=== PATIENT | female | born 1935 | race Caucasian/White ===

== ENCOUNTER 2016-08-22 10:10 | Inpatient (IN) | payer OTHER, BC ==
[2016-08-22 10:15] VITALS: BMI 17.9
[2016-08-22 10:53] LABS: BASOPHIL 0.3 % (0-2.0); EOSINOPHIL 4.6 % (0-4.5); MCH 32.2 pg (25.7-33.7); MCHC 32.3 g/dl (32.0-36.0); MEAN CELL VOLUME 99.7 fl (80-96); MEAN PLT VOLUME 9.1 fl (7.5-11.1); PLATELET COUNT 121 K/MM3 (134-434); RDW 14.3 % (11.6-15.6); WHITE BLOOD COUNT 3.2 K/mm3 (4.0-10.0)
--- NOTE | 2016-08-22 11:10 | PDOC ---
History of Present Illness - General Chief Complaint: Shortness of Breath Stated Complaint: SOB Time Seen by Provider: 08/22/16 10:22 History Source: Patient, Family - History of Present Illness Timing/Duration: reports: other Associated Symptoms: reports: cough, fever/chills, shortness of breath Past History - Past Medical History Allergies/Adverse Reactions: Allergies Allergy/AdvReac Type Severity Reaction Status Date / Time No Known Allergies Allergy Verified 08/22/16 10:15 Home Medications: Ambulatory Orders Albuterol Sulfate [Proair Hfa -] 1 - 2 inh PO BID PRN 03/28/15 Budesonide/Formeterol Fumarate [SYMBICORT 80/4.5mcg -] 2 puff IH BID #0 inhaler 04/02/15 Tiotropium [place] [Spiriva] 1 puff IH DAILY #0 inh 04/02/15 Albuterol 0.083% Nebulizer Noemy [Ventolin 0.083% Nebulizer Soln -] 1 amp NEB BID PRN 12/20/15 Bimatoprost [Lumigan] 1 drop OS HS 12/20/15 Biotin 0 mcg PO DAILY 12/20/15 Brinzolamide/Brimonidine Tart [Simbrinza 1%-0.2% Eye Drops] 8 ml OU BID Bromfenac Sodium [Prolensa] 0 ml OP ASDIR 12/20/15 Calcium Carbonate [Calcium] 0 mg PO DAILY 12/20/15 Multivit-Min/FA/Lycopen/Lutein [Centrum Silver Tablet] 1 each PO DAILY 12/20/15 Ofloxacin 0.3% Ophth Soln [Ocuflox 0.3% Eye Drops -] 1 drop OS Q6H 12/20/15 COPD: Yes (HOME O2- 3L) HTN: Yes - Surgical History Abdominal Surgery: No Appendectomy: No Cardiac Surgery: No Cholecystectomy: No Gastric Stapling: No GI Surgery: No Lung Surgery: No Neurologic Surgery: No Orthopedic Surgery: No - Psycho/Social/Smoking Cessation Hx Anxiety: No Suicidal Ideation: No Smoking Status: Yes Smoking History: Never smoked Have you smoked in the past 12 months: No Number of Cigarettes Smoked Daily: 0 If you are a former smoker, when did you quit?: 2004 Information on smoking cessation initiated: No Hx Alcohol Use: No Drug/Substance Use Hx: No Substance Use Type: None Hx Substance Use Treatment: No Review of Systems - Review of Systems Constitutional: Yes: Fever, Malaise, Weakness Respiratory: Yes: Cough, Shortness of Breath Cardiac (ROS): Yes: Lightheadedness. No: Chest Pain, Palpitations, Syncope ABD/GI: No: Constipated, Diarrhea, Nausea, Vomiting, Abdominal cramping : No: Dysuria *Physical Exam - Vital Signs Last Vital Signs Temp Pulse Resp BP Pulse Ox 98.3 F 91 H 18 145/83 100 08/22/16 10:10 08/22/16 10:50 08/22/16 10:10 08/22/16 10:10 08/22/16 10:50 - Physical Exam General Appearance: Yes: Appropriately Dressed. No: Apparent Distress HEENT: positive: Normal Voice Neck: positive: Supple Respiratory/Chest: positive: Wheezing Cardiovascular: positive: Regular Rate, S1, S2 Gastrointestinal/Abdominal: positive: Soft. negative: Tender Extremity: positive: Pedal Edema (2+ b/l) Integumentary: positive: Dry, Warm Neurologic: positive: Fully Oriented, Alert, Normal Mood/Affect ED Treatment Course - LABORATORY CBC & Chemistry Diagram: 08/22/16 10:30 08/22/16 10:30 - ADDITIONAL ORDERS Additional order review: 08/22/16 10:30 RBC 4.11 MCV 99.7 H MCHC 32.3 RDW 14.3 MPV 9.1 Neutrophils % 68.0 Lymphocytes % 18.4 Monocytes % 8.7 Eosinophils % 4.6 H Basophils % 0.3 - RADIOLOGY Radiology Studies Ordered: Category Date Time Status CHEST X-RAY PORTABLE* [RAD] Stat Radiology 08/22/16 10:24 Completed Medical Decision Making - Medical Decision Making 08/22/16 11:08 80-year-old female, history of HTN, HLD, CHF on Lasix, uti, \ COPD (on 3 L oxygen 24 hours), CO2 retention, brought in by family, complaining of malaise with weakness, cough and worsening of her shortness of breath x several days. Also had fever 4 days ago, highest 103. This a.m., felt lightheaded. No chest pain or diaphoresis. Of note, patient contacted her primary doctor, Dr. Rivas, 4 days ago and started on zpack which she is currently on. Also states her rod machine operator, Dr. Browning, has her on an unknown antibiotic 3 times a week prophylactically, for the past several months. States she saw Dr. Browning several days ago in the office and sent home. Patient has baseline edema with no change See exam R/o PNA vs COPD vs CHF, less likely ACS Currently on zpack Sating 90% on O2 w/ mild wheezing on exam -nebs -cxr -ekg -labs -abx -admit 08/22/16 11:16 08/22/16 11:18 08/22/16 11:[address] Rivas's service for COPD exacerbation as d/w . Dr. Browning of pulmonary aware of disposition. Labs, EKG and chest x-ray are all unremarkable 08/22/16 11:56 *DC/Admit/Observation/Transfer Diagnosis at time of Disposition: COPD exacerbation - Discharge Dispostion Condition at time of disposition: Fair Admit: Yes - Referrals Referrals: William Rivas MD [Primary Care Provider] -
[2016-08-22] MEDS ORDERED: methylPREDNISolone NA SUCC 125 MG/2 ML VIAL IVPB ONE (11:16)
[2016-08-22] MEDS ORDERED: ALBUTEROL SO4 2.5/IPRATROPIUM 0.5 INH SOL 3 ML VIAL.NEB. NEB ONE ×2 (11:16→11:31)
--- NOTE | 2016-08-22 11:17 | PDOC ---
*Physical Exam - Vital Signs Last Vital Signs Temp Pulse Resp BP Pulse Ox 98.3 F 91 H 18 145/83 100 08/22/16 10:10 08/22/16 10:50 08/22/16 10:10 08/22/16 10:10 08/22/16 10:50 Heart Score/ECG Review - ECG Impressions Comment:: 08/22/16 11:43 Twelve-lead EKG was performed and reviewed by me. There is normal sinus rhythm with a normal rate. Rate of 91 Left axis deviation Abnormal R wave progression ED Treatment Course - LABORATORY CBC & Chemistry Diagram: 08/22/16 10:30 08/22/16 10:30 - ADDITIONAL ORDERS Additional order review: 08/22/16 10:30 RBC 4.11 MCV 99.7 H MCHC 32.3 RDW 14.3 MPV 9.1 Neutrophils % 68.0 Lymphocytes % 18.4 Monocytes % 8.7 Eosinophils % 4.6 H Basophils % 0.3 Medical Decision Making - Medical Decision Making 08/22/16 11:16 The patient was seen and evaluated in conjunction with SHADI Saavedra under my direct supervision, ancillary studies were reviewed. I independently interviewed and evaluated the patient and I agree with the plan as outlined by SHADI Saavedra . *DC/Admit/Observation/Transfer Diagnosis at time of Disposition: COPD exacerbation - Discharge Dispostion Condition at time of disposition: Fair
[2016-08-22] MEDS ORDERED: methylPREDNISolone NA SUCC 125 MG/2 ML VIAL ONE (11:31)
[2016-08-22] MEDS ORDERED: CEFTRIAXONE 50 ML ONE (11:31)
[2016-08-22 11:43] LABS: ALBUMIN 3.8 g/dl (3.4-5.0); ANION GAP 3 (8-16); BILIRUBIN,TOTAL 0.4 mg/dL (0.2-1.0); CALCIUM 9.6 mg/dL (8.5-10.1); CO2 39 mmol/L (21-32); CREATININE 0.5 mg/dL (0.55-1.02); GLUCOSE,RANDOM 89 mg/dL (74-106); SGOT/AST 24 U/L (15-37); SGPT/ALT 24 U/L (12-78); TOT PROT 7.1 g/dl (6.4-8.2)
[2016-08-22] MEDS ORDERED: ACETAMINOPHEN 325 MG TABLET (FP) PO ONE (11:44)
[2016-08-22 11:46] LABS: ALK PHOS 93 U/L (45-117); TROPONIN I < 0.02 ng/ml (0.00-0.05)
[2016-08-22] MEDS ORDERED: ACETAMINOPHEN 325 MG TABLET (FP) ONE (11:46)
--- NOTE | 2016-08-22 13:10 | CON.PULM ---
Consult Consult Specialty:: PULMONARY Referred by:: Dr. 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 Saw her in office on 08/18 where she was clinically improving but developed fever on 08/19 with worsening shortness of breath. +cough with baseline white/clear sputum and increased wheezing. No chest pain or palpitations. She does take azithromycin 250mg TIW for prophylaxis. Maintained at home on 3L nasal cannula. No sick contacts or recent travel. - History Source History Provided By: Patient, Family Member Limitations to Obtaining History: Clinical Condition - Past Medical History Cardio/Vascular: Yes: HTN, Hyperlipdemia Pulmonary: Yes: COPD, O2 Dependent - Alcohol/Substance Use Hx Alcohol Use: No - Smoking History Smoking history: Never smoked Have you smoked in the past 12 months: No Aproximately how many cigarettes per day: 0 If you are a former smoker, when did you quit?: 2004 Home Medications - Allergies Allergies/Adverse Reactions: Allergies Allergy/AdvReac Type Severity Reaction Status Date / Time No Known Allergies Allergy Verified 08/22/16 10:15 - Home Medications Home Medications: Ambulatory Orders Albuterol Sulfate [Proair Hfa -] 1 - 2 inh PO BID PRN 03/28/15 Budesonide/Formeterol Fumarate [SYMBICORT 80/4.5mcg -] 2 puff IH BID #0 inhaler 04/02/15 Tiotropium [place] [Spiriva] 1 puff IH DAILY #0 inh 04/02/15 Albuterol 0.083% Nebulizer Noemy [Ventolin 0.083% Nebulizer Soln -] 1 amp NEB BID PRN 12/20/15 Bimatoprost [Lumigan] 1 drop OS HS 12/20/15 Biotin 0 mcg PO DAILY 12/20/15 Brinzolamide/Brimonidine Tart [Simbrinza 1%-0.2% Eye Drops] 8 ml OU BID Bromfenac Sodium [Prolensa] 0 ml OP ASDIR 12/20/15 Calcium Carbonate [Calcium] 0 mg PO DAILY 12/20/15 Multivit-Min/FA/Lycopen/Lutein [Centrum Silver Tablet] 1 each PO DAILY 12/20/15 Ofloxacin 0.3% Ophth Soln [Ocuflox 0.3% Eye Drops -] 1 drop OS Q6H 12/20/15 Review of Systems - Review of Systems Constitutional: reports: Fever, Weakness. denies: Chills Eyes: denies: Recent Change in Vision HENT: denies: Nasal Congestion, Throat Pain Neck: denies: Stiffness, Tenderness Cardiovascular: reports: Edema, Shortness of Breath. denies: Chest Pain, Palpitations Respiratory: reports: Cough, Exercise Intolerance, SOB, SOB on Exertion, Wheezing. denies: Hemoptysis Gastrointestinal: denies: Abdominal Pain, Nausea, Vomiting Genitourinary: denies: Dysuria, Hematuria Neurological: denies: Dizziness, Headache Endocrine: denies: Unexplained Weight Gain, Unexplained Weight Loss Physical Exam Vital Sings: Vital Signs Temperature 98.3 F 08/22/16 10:10 Pulse Rate 96 H 08/22/16 11:43 Respiratory Rate 24 08/22/16 11:43 Blood Pressure 185/92 08/22/16 11:43 O2 Sat by Pulse Oximetry (%) 100 08/22/16 11:43 Constitutional: Yes: Anxious Eyes: Yes: Conjunctiva Clear, EOM Intact HENT: Yes: Atraumatic, Normocephalic Neck: Yes: Supple, Trachea Midline Cardiovascular: Yes: Regular Rate and Rhythm, JVD Respiratory: Yes: Diminished (distant breath sounds), Poor Air Entry, Rhonchi ( scattered) ...Clubbing: No Gastrointestinal: Yes: Normal Bowel Sounds, Soft. No: Tenderness Edema: Yes Neurological: Yes: Alert, Oriented Imaging - Results Chest X-ray: Report Reviewed, Image Reviewed (no infiltrates) Problem List - Problems (1) COPD exacerbation Code(s): J44.1 - CHRONIC OBSTRUCTIVE PULMONARY DISEASE W (ACUTE) EXACERBATION (2) Chronic respiratory failure with hypoxia and hypercapnia Code(s): J96.11 - CHRONIC RESPIRATORY FAILURE WITH HYPOXIA J96.12 - CHRONIC RESPIRATORY FAILURE WITH HYPERCAPNIA (3) HTN (hypertension) Code(s): I10 - ESSENTIAL (PRIMARY) HYPERTENSION (4) Emphysema of lung Code(s): J43.9 - EMPHYSEMA, UNSPECIFIED (5) Pulmonary hypertension Code(s): I27.2 - OTHER SECONDARY PULMONARY HYPERTENSION Assessment/Plan Acute COPD Exacerbation Chronic Hypoxic and Hypercapneic Respiratory Failure Emphysema Pulmonary HTN r/o CHF - IV medrol - inhaled bronchodilators standing and PRN - O2 to keep spO2 >90% - received empiric antibiotics in ER, do not suspect active infection at this time, will resume prophylactic azithromycin - f/u cultures - will give dose of lasix as pt with JVD and LE edema - echocardiogram - DVT prophylaxis Thank you for this consult Connor Browning MD
[2016-08-22] MEDS ORDERED: ALBUTEROL SO4 0.083% IH SOL 2.5 MG/3 ML VIAL.NEB. NEB PRN (13:16)
--- NOTE | 2016-08-22 13:22 | EKG ---
Test Reason : Blood Pressure : / mmHG Vent. 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
[2016-08-22] MEDS ORDERED: FUROSEMIDE 40 MG/4 ML INJECTABLE VIAL IVPUSH ONE (13:30)
[2016-08-22] MEDS ORDERED: FUROSEMIDE 40 MG/4 ML INJECTABLE VIAL ONE (13:43)
[2016-08-22] MEDS ORDERED: METOCLOPRAMIDE HCL INJECTION 10 MG/2 ML VIAL IVPUSH ONE (14:17)
[2016-08-22] MEDS ORDERED: METOCLOPRAMIDE HCL INJECTION 10 MG/2 ML VIAL ONE (14:18)
[2016-08-22 15:05] LABS: URINE APPEARANCE CLEAR; URINE BILIRUBIN NEGATIVE (NEGATIVE); URINE BLOOD NEGATIVE (NEGATIVE); URINE COLOR STRAW; URINE GLUCOSE (UA) NEGATIVE (NEGATIVE); URINE KETONE NEGATIVE (NEGATIVE); URINE LEUK ESTERASE NEGATIVE (NEGATIVE); URINE NITRITE NEGATIVE (NEGATIVE); URINE PROTEIN NEGATIVE (NEGATIVE); URINE UROBILINOGEN NEGATIVE mg/dL (0.2-1.0)
[2016-08-22] MEDS: ALBUTEROL SO4 2.5/IPRATROPIUM 0.5 INH SOL 3 ML VIAL.NEB. NEB SCH (17:04)
[2016-08-22] MEDS: methylPREDNISolone NA SUCC 40 MG/1 ML VIAL IVPB SCH (17:57)
[2016-08-23] MEDS: ALBUTEROL SO4 2.5/IPRATROPIUM 0.5 INH SOL 3 ML VIAL.NEB. NEB SCH ×4 (00:14→17:54)
[2016-08-23] MEDS: methylPREDNISolone NA SUCC 40 MG/1 ML VIAL IVPB SCH ×3 (02:34→17:54)
[2016-08-23] MEDS ORDERED: PT OWN MED DRAWER 7, Y5N ONE (10:03)
[2016-08-23] MEDS: AZITHROMYCIN 250 MG TABLET (FP) PO SCH (10:07)
--- NOTE | 2016-08-23 12:44 | PN ---
Progress Note (short form) - Note Progress Note: PULMONARY OOB TO CHAIR FAMILY PRESENT MILD SUBJECTIVE IMPROVEMENT ANICTERIC/PALE SCATTERED MILD RHONCHI S1S2 BS+ DIMINISHED EDEMA LABS/MEDS/NOTES/IMAGING/MICRO/ REVIEWED (1) COPD exacerbation Code(s): J44.1 - CHRONIC OBSTRUCTIVE PULMONARY DISEASE W (ACUTE) EXACERBATION (2) Chronic respiratory failure with hypoxia and hypercapnia Code(s): J96.11 - CHRONIC RESPIRATORY FAILURE WITH HYPOXIA J96.12 - CHRONIC RESPIRATORY FAILURE WITH HYPERCAPNIA (3) HTN (hypertension) Code(s): I10 - ESSENTIAL (PRIMARY) HYPERTENSION (4) Emphysema of lung Code(s): J43.9 - EMPHYSEMA, UNSPECIFIED (5) Pulmonary hypertension Code(s): I27.2 - OTHER SECONDARY PULMONARY HYPERTENSION Assessment/Plan Acute COPD Exacerbation Chronic Hypoxic and Hypercapneic Respiratory Failure Emphysema Pulmonary HTN Doubt CHF - IV medrol to continue - inhaled bronchodilators standing and PRN - O2 to keep spO2 >90% - resume prophylactic azithromycin - f/u cultures - echocardiogram reviewed LVDD - DVT prophylaxsis Zelalem RICO MD
--- NOTE | 2016-08-23 17:21 | HP ---
DATE OF ADMISSION: 08/22/2016 This is an 80-year-old female known to have advanced COPD on nasal O2 at home. She lives with her son. She had been complaining of shortness of breath and cough for the last two to three days. She was treated with a Z-Marky at home but was not getting better. Yesterday, her complaints worsened so I advised her to come to the emergency room. She was hypoxemic and tachycardic. She also had cellulitis on both legs and was therefore admitted. I saw her yesterday in the emergency room. PHYSICAL EXAMINATION: Vital Signs: This morning, BP 130/80, pulse 78, respirations 20, temperature 98.6. HEENT: Unremarkable. Lungs: Bilateral wheezing present. Heart: S1, S2 normal. No S3, S4. Abdomen: Distended. Extremities: She has bilateral leg edema with cellulitis. Neurologic: Examination grossly normal. IMPRESSION: 1. Exacerbation of chronic obstructive pulmonary disease. 2. Cellulitis of the legs. PLAN: 1. Admit to the floor. 2. Pulmonary consult. 3. IV antibiotics and steroids. We will follow. Sandy [id number]
[2016-08-23] MEDS: LATANOPROST 0.005% OPHTH SOLN 2.5ML BOTTLE OU SCH (21:49)
[2016-08-24] MEDS: ALBUTEROL SO4 2.5/IPRATROPIUM 0.5 INH SOL 3 ML VIAL.NEB. NEB SCH ×5 (00:16→23:58)
[2016-08-24] MEDS: methylPREDNISolone NA SUCC 40 MG/1 ML VIAL IVPB SCH ×3 (01:44→18:07)
--- NOTE | 2016-08-24 10:47 | PN ---
Progress Note (short form) - Note Progress Note: PULMONARY States breathing was better yesterday. Occasional wheezing. Minimal cough. No fevers or chills. Last Vital Signs Temp Pulse Resp BP Pulse Ox 97.5 F L 86 20 132/68 95 08/24/16 10:00 08/24/16 10:00 08/24/16 10:00 08/24/16 10:00 08/23/16 20:27 Gen: tachypneic with speaking Neck: +JVD Heart: RRR Lung: scatttered rhonchi, wheezes Abd: soft, nontender Ext: chronic changes, less edematous CBC, BMP 08/22/16 10:30 08/22/16 10:30 Active Medications Albuterol Sulfate (Ventolin 0.083% Nebulizer Soln -) 1 amp NEB Q4H PRN PRN Reason: SHORT OF BREATH/WHEEZING Albuterol/Ipratropium (Duoneb -) 1 amp NEB QIDR [facility] Last Admin: 08/24/16 06:29 Dose: 1 amp Azithromycin (Zithromax -) 250 mg PO MoWeFr@1000 [facility] Last Admin: 08/23/16 10:07 Dose: 250 mg Latanoprost (Xalatan 0.005% Eye Drops -) 1 drop OU HS [facility] Last Admin: 08/23/16 21:49 Dose: 1 drop Methylprednisolone Sodium Succinate (Solu-Medrol -) 40 mg IVPB Q8H-IV [facility] Last Admin: 08/24/16 09:44 Dose: 40 mg A/P Acute COPD Exacerbation Chronic Hypoxic and Hypercapneic Respiratory Failure Emphysema Pulmonary HTN LV Diastolic Dysfunction - would continue medrol at current dose - inhaled bronchodilators standing and PRN - O2 to keep spO2 >90% - continue prophylactic azithromycin - will dose lasix today again - DVT prophylaxis Problem List - Problems (1) COPD exacerbation Code(s): J44.1 - CHRONIC OBSTRUCTIVE PULMONARY DISEASE W (ACUTE) EXACERBATION (2) Chronic respiratory failure with hypoxia and hypercapnia Code(s): J96.11 - CHRONIC RESPIRATORY FAILURE WITH HYPOXIA J96.12 - CHRONIC RESPIRATORY FAILURE WITH HYPERCAPNIA (3) HTN (hypertension) Code(s): I10 - ESSENTIAL (PRIMARY) HYPERTENSION (4) Emphysema of lung Code(s): J43.9 - EMPHYSEMA, UNSPECIFIED (5) Pulmonary hypertension Code(s): I27.2 - OTHER SECONDARY PULMONARY HYPERTENSION
[2016-08-24] MEDS ORDERED: FUROSEMIDE 40 MG/4 ML INJECTABLE VIAL IVPUSH ONE (11:00)
--- NOTE | 2016-08-24 12:27 | PN ---
Progress Note, Physician Chief Complaint: Still Tachpenic and SOB - Current Medication List Current Medications: Active Medications Albuterol Sulfate (Ventolin 0.083% Nebulizer Soln -) 1 amp NEB Q4H PRN PRN Reason: SHORT OF BREATH/WHEEZING Albuterol/Ipratropium (Duoneb -) 1 amp NEB QIDR [facility] Last Admin: 08/24/16 11:47 Dose: 1 amp Azithromycin (Zithromax -) 250 mg PO MoWeFr@1000 [facility] Last Admin: 08/23/16 10:07 Dose: 250 mg Latanoprost (Xalatan 0.005% Eye Drops -) 1 drop OU HS [facility] Last Admin: 08/23/16 21:49 Dose: 1 drop Methylprednisolone Sodium Succinate (Solu-Medrol -) 40 mg IVPB Q8H-IV [facility] Last Admin: 08/24/16 09:44 Dose: 40 mg - Objective Vital Signs: Vital Signs Temperature 97.5 F L 08/24/16 10:00 Pulse Rate 82 08/24/16 11:46 Respiratory Rate 20 08/24/16 10:00 Blood Pressure 132/68 08/24/16 10:00 O2 Sat by Pulse Oximetry (%) 98 08/24/16 11:46 Patient remained altered minimally responsive, on Vent HEENT: Mm moist no anemia NECK;+ JVD no bruit CHEST: Good AE B/L minimal crepts ABD; Non tender no distention Bs + EXT; Chronic Venous changes pulses + WIND[employer]ST[employer]; Aox3 non focal Problem List - Problems (1) COPD exacerbation Code(s): J44.1 - CHRONIC OBSTRUCTIVE PULMONARY DISEASE W (ACUTE) EXACERBATION (2) Chronic respiratory failure with hypoxia and hypercapnia Code(s): J96.11 - CHRONIC RESPIRATORY FAILURE WITH HYPOXIA J96.12 - CHRONIC RESPIRATORY FAILURE WITH HYPERCAPNIA (3) Pulmonary hypertension Code(s): I27.2 - OTHER SECONDARY PULMONARY HYPERTENSION
[2016-08-24] MEDS ORDERED: PT OWN MED DRAWER 7, Y5N ONE (21:45)
[2016-08-24] MEDS: LATANOPROST 0.005% OPHTH SOLN 2.5ML BOTTLE OU SCH (21:49)
[2016-08-25] MEDS: methylPREDNISolone NA SUCC 40 MG/1 ML VIAL IVPB SCH ×3 (02:38→17:23)
[2016-08-25] MEDS: ALBUTEROL SO4 2.5/IPRATROPIUM 0.5 INH SOL 3 ML VIAL.NEB. NEB SCH ×3 (06:40→17:14)
[2016-08-25 07:41] LABS: BASOPHIL 0.1 % (0-2.0); MCH 32.4 pg (25.7-33.7); MCHC 32.4 g/dl (32.0-36.0); MEAN CELL VOLUME 100.2 fl (80-96); MEAN PLT VOLUME 9.1 fl (7.5-11.1); NEUTROPHILS 83.3 % (42.8-82.8); PLATELET COUNT 118 K/MM3 (134-434); RDW 14.4 % (11.6-15.6)
[2016-08-25 07:55] LABS: ANION GAP 2 (8-16); CO2 45 mmol/L (21-32); CREATININE 0.5 mg/dL (0.55-1.02); GLUCOSE,RANDOM 100 mg/dL (74-106); MAGNESIUM 2.4 mg/dL (1.8-2.4); PHOSPHOROUS 3.9 mg/dL (2.5-4.9)
--- NOTE | 2016-08-25 09:00 | PN ---
Progress Note, Physician Chief Complaint: Feels better History of Present Illness: Admitted with exacerbation of COPD On IV antibiotics and IV steroids - Current Medication List Current Medications: Active Medications Albuterol Sulfate (Ventolin 0.083% Nebulizer Soln -) 1 amp NEB Q4H PRN PRN Reason: SHORT OF BREATH/WHEEZING Albuterol/Ipratropium (Duoneb -) 1 amp NEB QIDR [facility] Last Admin: 08/25/16 06:40 Dose: 1 amp Azithromycin (Zithromax -) 250 mg PO MoWeFr@1000 [facility] Last Admin: 08/23/16 10:07 Dose: 250 mg Heparin Sodium (Porcine) (Heparin *Pediatric* -) 5,000 unit SQ BID [facility] Latanoprost (Xalatan 0.005% Eye Drops -) 1 drop OU HS [facility] Last Admin: 08/24/16 21:49 Dose: 1 drop Methylprednisolone Sodium Succinate (Solu-Medrol -) 40 mg IVPB Q8H-IV [facility] Last Admin: 08/25/16 02:38 Dose: 40 mg - Objective Vital Signs: Vital Signs Temperature 97.4 F L 08/25/16 05:47 Pulse Rate 82 08/25/16 05:47 Respiratory Rate 18 08/25/16 05:47 Blood Pressure 148/70 08/25/16 05:47 O2 Sat by Pulse Oximetry (%) 98 08/24/16 21:00 Constitutional: Yes: Calm Eyes: Yes: WNL HENT: Yes: WNL Neck: Yes: WNL Cardiovascular: Yes: Regular Rate and Rhythm Respiratory: Yes: SOB on Exertion Gastrointestinal: Yes: Normal Bowel Sounds ...Rectal Exam: Yes: Deferred Genitourinary: Yes: WNL Musculoskeletal: Yes: WNL Extremities: Yes: WNL Neurological: Yes: Alert Labs: CBC, BMP 08/25/16 06:00 08/25/16 06:00 Assessment/Plan Continue same trt
[2016-08-25] MEDS ORDERED: PT OWN MED DRAWER 7, Y5N ONE ×2 (10:26→10:27)
[2016-08-25] MEDS: AZITHROMYCIN 250 MG TABLET (FP) PO SCH (10:46)
[2016-08-25] MEDS: HEPARIN NA (PORCINE) 5,000 UNITS/ML 1ML VIAL SQ SCH ×2 (10:46→21:47)
--- NOTE | 2016-08-25 13:18 | PN ---
Progress Note (short form) - Note Progress Note: PULMONARY OOB TO CHAIR FAMILY PRESENT MILD SUBJECTIVE IMPROVEMENT ANICTERIC/PALE SCATTERED MILD RHONCHI S1S2 BS+ DIMINISHED EDEMA LABS/MEDS/NOTES/IMAGING/MICRO/ REVIEWED (1) COPD exacerbation Code(s): J44.1 - CHRONIC OBSTRUCTIVE PULMONARY DISEASE W (ACUTE) EXACERBATION (2) Chronic respiratory failure with hypoxia and hypercapnia Code(s): J96.11 - CHRONIC RESPIRATORY FAILURE WITH HYPOXIA J96.12 - CHRONIC RESPIRATORY FAILURE WITH HYPERCAPNIA (3) HTN (hypertension) Code(s): I10 - ESSENTIAL (PRIMARY) HYPERTENSION (4) Emphysema of lung Code(s): J43.9 - EMPHYSEMA, UNSPECIFIED (5) Pulmonary hypertension Code(s): I27.2 - OTHER SECONDARY PULMONARY HYPERTENSION Assessment/Plan Acute COPD Exacerbation Chronic Hypoxic and Hypercapneic Respiratory Failure Emphysema Pulmonary HTN Doubt CHF - IV medrol to continue - inhaled bronchodilators standing and PRN - O2 to keep spO2 >90% - resume prophylactic azithromycin - echocardiogram reviewed LVDD - DVT prophylaxsis Zelalem RICO MD
[2016-08-25] MEDS ORDERED: PSYLLIUM 5.85 GM PACKET PO ONE (21:00)
[2016-08-25] MEDS: LATANOPROST 0.005% OPHTH SOLN 2.5ML BOTTLE OU SCH (21:47)
[2016-08-26] MEDS: methylPREDNISolone NA SUCC 40 MG/1 ML VIAL IVPB SCH ×3 (01:45→17:11)
[2016-08-26] MEDS: ALBUTEROL SO4 2.5/IPRATROPIUM 0.5 INH SOL 3 ML VIAL.NEB. NEB SCH ×4 (06:48→17:21)
[2016-08-26] MEDS ORDERED: POLYETHYLENE GLYCOL 3350 119 GM BTL PO ONE (08:29)
--- NOTE | 2016-08-26 08:29 | PN ---
Progress Note, Physician Chief Complaint: Feels better,C/O constipation History of Present Illness: Admitted with exacerbation of COPD and asthma On IV steroids and PO zethromax ,feels better - Current Medication List Current Medications: Active Medications Albuterol Sulfate (Ventolin 0.083% Nebulizer Soln -) 1 amp NEB Q4H PRN PRN Reason: SHORT OF BREATH/WHEEZING Albuterol/Ipratropium (Duoneb -) 1 amp NEB QIDR [facility] Last Admin: 08/26/16 06:48 Dose: 1 amp Azithromycin (Zithromax -) 250 mg PO MoWeFr@1000 [facility] Last Admin: 08/25/16 10:46 Dose: 250 mg Heparin Sodium (Porcine) (Heparin -) 5,000 unit SQ BID [facility] Last Admin: 08/25/16 21:47 Dose: 5,000 unit Latanoprost (Xalatan 0.005% Eye Drops -) 1 drop OU HS [facility] Last Admin: 08/25/16 21:47 Dose: 1 drop Methylprednisolone Sodium Succinate (Solu-Medrol -) 40 mg IVPB Q8H-IV [facility] Last Admin: 08/26/16 01:45 Dose: 40 mg - Objective Vital Signs: Vital Signs Temperature 97.3 F L 08/26/16 08:14 Pulse Rate 77 08/26/16 08:14 Respiratory Rate 22 08/26/16 08:14 Blood Pressure 137/69 08/26/16 08:14 O2 Sat by Pulse Oximetry (%) 100 08/25/16 21:00 Constitutional: Yes: Anxious Eyes: Yes: WNL HENT: Yes: WNL Neck: Yes: Tenderness Cardiovascular: Yes: Regular Rate and Rhythm Respiratory: Yes: On Nasal O2, Poor Air Entry Genitourinary: Yes: WNL Breast(s): Yes: WNL Extremities: Yes: WNL Peripheral Pulses WNL: Yes Neurological: Yes: Alert Labs: CBC, BMP 08/25/16 06:00 08/25/16 06:00 Assessment/Plan Miralax for constipation
[2016-08-26] MEDS ORDERED: PT OWN MED DRAWER 7, Y5N ONE ×2 (08:34→21:20)
[2016-08-26] MEDS: HEPARIN NA (PORCINE) 5,000 UNITS/ML 1ML VIAL SQ SCH ×2 (09:09→21:27)
--- NOTE | 2016-08-26 11:21 | PN ---
Progress Note (short form) - Note Progress Note: OOB to chair receiving a BD TX. Still with some cough and wheezing. (+) constipation. Intake & Output 08/23/16 08/24/16 08/25/16 08/26/16 23:59 23:59 23:59 23:59 Intake Total 450 510 400 350 Balance 450 510 400 350 Weight 111 lb 2 oz 110 lb 5 oz 95 lb 2 oz 96 lb 1 oz Last Vital Signs Temp Pulse Resp BP Pulse Ox 97.3 F L 77 22 137/69 100 08/26/16 08:14 08/26/16 08:14 08/26/16 08:14 08/26/16 08:14 08/26/16 10:35 Active Medications Albuterol Sulfate (Ventolin 0.083% Nebulizer Soln -) 1 amp NEB Q4H PRN PRN Reason: SHORT OF BREATH/WHEEZING Albuterol/Ipratropium (Duoneb -) 1 amp NEB QIDR [facility] Last Admin: 08/26/16 06:48 Dose: 1 amp Azithromycin (Zithromax -) 250 mg PO MoWeFr@1000 [facility] Last Admin: 08/25/16 10:46 Dose: 250 mg Heparin Sodium (Porcine) (Heparin -) 5,000 unit SQ BID [facility] Last Admin: 08/26/16 09:09 Dose: 5,000 unit Latanoprost (Xalatan 0.005% Eye Drops -) 1 drop OU HS [facility] Last Admin: 08/25/16 21:47 Dose: 1 drop Methylprednisolone Sodium Succinate (Solu-Medrol -) 40 mg IVPB Q8H-IV [facility] Last Admin: 08/26/16 09:09 Dose: 40 mg Gen: Mildly tachypneic with speaking Neck: +JVD Heart: RRR Lung: scatttered rhonchi and expiratory wheezes Abd: soft, nontender Ext: chronic changes, less edematous A/P Acute COPD Exacerbation Chronic Hypoxic and Hypercapneic Respiratory Failure Emphysema Pulmonary HTN LV Diastolic Dysfunction Problem List - Problems (1) COPD exacerbation Code(s): J44.1 - CHRONIC OBSTRUCTIVE PULMONARY DISEASE W (ACUTE) EXACERBATION (2) Chronic respiratory failure with hypoxia and hypercapnia Code(s): J96.11 - CHRONIC RESPIRATORY FAILURE WITH HYPOXIA J96.12 - CHRONIC RESPIRATORY FAILURE WITH HYPERCAPNIA (3) HTN (hypertension) Code(s): I10 - ESSENTIAL (PRIMARY) HYPERTENSION (4) Emphysema of lung Code(s): J43.9 - EMPHYSEMA, UNSPECIFIED (5) Pulmonary hypertension Code(s): I27.2 - OTHER SECONDARY PULMONARY HYPERTE - would continue medrol at current dose - inhaled bronchodilators standing and PRN - O2 to keep spO2 >90% - Azithromycin - DAily assessment for Lasix - DVT prophylaxis Dr Latham
[2016-08-26] MEDS: LATANOPROST 0.005% OPHTH SOLN 2.5ML BOTTLE OU SCH (21:27)
[2016-08-27] MEDS: ALBUTEROL SO4 2.5/IPRATROPIUM 0.5 INH SOL 3 ML VIAL.NEB. NEB SCH ×3 (00:06→11:22)
[2016-08-27] MEDS: methylPREDNISolone NA SUCC 40 MG/1 ML VIAL IVPB SCH ×3 (02:15→17:28)
[2016-08-27] MEDS ORDERED: PT OWN MED DRAWER 7, Y5N ONE ×2 (06:54→20:51)
[2016-08-27] MEDS: HEPARIN NA (PORCINE) 5,000 UNITS/ML 1ML VIAL SQ SCH ×2 (09:35→21:04)
--- NOTE | 2016-08-27 11:25 | PN ---
Progress Note (short form) - Note Progress Note: OOB to chair receiving a BD TX. Still with some cough and wheezing. Reports that she is more congested today. She also says that her eyes are "bothering her". She could not be more specific. She does have a history of glaucoma and in now getting an anti-muscarinic agent. (+) constipation. Intake & Output 08/24/16 08/25/16 08/26/16 08/27/16 23:59 23:59 23:59 23:59 Intake Total 810 840 7025 250 Balance 090 452 4804 250 Weight 110 lb 5 oz 95 lb 2 oz 96 lb 1 oz 97 lb 4 oz Last Vital Signs Temp Pulse Resp BP Pulse Ox 98.1 F 80 19 137/75 99 08/27/16 06:01 08/27/16 11:21 08/27/16 06:01 08/27/16 06:01 08/27/16 11:21 Active Medications Albuterol Sulfate (Ventolin 0.083% Nebulizer Soln -) 1 amp NEB Q4H PRN PRN Reason: SHORT OF BREATH/WHEEZING Albuterol/Ipratropium (Duoneb -) 1 amp NEB QIDR [facility] Last Admin: 08/27/16 11:22 Dose: 1 amp Azithromycin (Zithromax -) 250 mg PO MoWeFr@1000 [facility] Last Admin: 08/25/16 10:46 Dose: 250 mg Heparin Sodium (Porcine) (Heparin -) 5,000 unit SQ BID [facility] Last Admin: 08/27/16 09:35 Dose: 5,000 unit Latanoprost (Xalatan 0.005% Eye Drops -) 1 drop OU HS [facility] Last Admin: 08/26/16 21:27 Dose: 1 drop Methylprednisolone Sodium Succinate (Solu-Medrol -) 40 mg IVPB Q8H-IV [facility] Last Admin: 08/27/16 09:35 Dose: 40 mg Gen: Mildly tachypneic with speaking Neck: +JVD Heart: RRR Lung: scatttered rhonchi and expiratory wheezes Abd: soft, nontender Ext: chronic changes, less edematous A/P Acute COPD Exacerbation Chronic Hypoxic and Hypercapneic Respiratory Failure Emphysema Pulmonary HTN LV Diastolic Dysfunction Problem List - Problems (1) COPD exacerbation Code(s): J44.1 - CHRONIC OBSTRUCTIVE PULMONARY DISEASE W (ACUTE) EXACERBATION (2) Chronic respiratory failure with hypoxia and hypercapnia Code(s): J96.11 - CHRONIC RESPIRATORY FAILURE WITH HYPOXIA J96.12 - CHRONIC RESPIRATORY FAILURE WITH HYPERCAPNIA (3) HTN (hypertension) Code(s): I10 - ESSENTIAL (PRIMARY) HYPERTENSION (4) Emphysema of lung Code(s): J43.9 - EMPHYSEMA, UNSPECIFIED (5) Pulmonary hypertension Code(s): I27.2 - OTHER SECONDARY PULMONARY HYPERTE - would continue medrol at current dose - D/C Atrovent - Mucinex - inhaled bronchodilators standing and PRN - O2 to keep spO2 >90% - Azithromycin - Lasix as needed - DVT prophylaxis Dr Latham
[2016-08-27] MEDS: ALBUTEROL SO4 0.083% IH SOL 2.5 MG/3 ML VIAL.NEB. NEB SCH ×3 (11:43→23:04)
[2016-08-27] MEDS: guaiFENesin 600 MG TABLET.ER (FP) PO SCH ×2 (12:01→21:04)
[2016-08-27] MEDS ORDERED: MINERAL OIL ENEMA 133 ML ENEMA PR ONE (12:19)
--- NOTE | 2016-08-27 12:19 | PN ---
Progress Note, Physician Chief Complaint: C/O constipation Also breathing not great History of Present Illness: Admitted with acute exacerbation of COPD - Current Medication List Current Medications: Active Medications Albuterol Sulfate (Ventolin 0.083% Nebulizer Soln -) 1 amp NEB Q4H PRN PRN Reason: SHORT OF BREATH/WHEEZING Albuterol Sulfate (Ventolin 0.083% Nebulizer Soln -) 1 amp NEB QIDR [facility] Last Admin: 08/27/16 11:43 Dose: Not Given Azithromycin (Zithromax -) 250 mg PO MoWeFr@1000 [facility] Last Admin: 08/25/16 10:46 Dose: 250 mg Guaifenesin (Mucinex -) 600 mg PO BID [facility] Last Admin: 08/27/16 12:01 Dose: 600 mg Heparin Sodium (Porcine) (Heparin -) 5,000 unit SQ BID [facility] Last Admin: 08/27/16 09:35 Dose: 5,000 unit Latanoprost (Xalatan 0.005% Eye Drops -) 1 drop OU HS [facility] Last Admin: 08/26/16 21:27 Dose: 1 drop Methylprednisolone Sodium Succinate (Solu-Medrol -) 40 mg IVPB Q8H-IV [facility] Last Admin: 08/27/16 09:35 Dose: 40 mg - Objective Vital Signs: Vital Signs Temperature 98.1 F 08/27/16 06:01 Pulse Rate 80 08/27/16 11:21 Respiratory Rate 19 08/27/16 06:01 Blood Pressure 137/75 08/27/16 06:01 O2 Sat by Pulse Oximetry (%) 99 08/27/16 11:21 Constitutional: Yes: Calm Eyes: Yes: WNL HENT: Yes: WNL Neck: Yes: WNL Cardiovascular: Yes: WNL Respiratory: Yes: On Nasal O2, Poor Air Entry Gastrointestinal: Yes: Normal Bowel Sounds ...Rectal Exam: Yes: Deferred Genitourinary: Yes: WNL Breast(s): Yes: WNL Musculoskeletal: Yes: Muscle Weakness Edema: No Peripheral Pulses WNL: Yes Integumentary: Yes: WNL Psychiatric: Yes: Alert Labs: CBC, BMP 08/25/16 06:00 08/25/16 06:00 Assessment/Plan Fleets enema and colace
[2016-08-27] MEDS: LATANOPROST 0.005% OPHTH SOLN 2.5ML BOTTLE OU SCH (21:04)
[2016-08-28] MEDS: methylPREDNISolone NA SUCC 40 MG/1 ML VIAL IVPB SCH ×2 (02:53→09:34)
[2016-08-28] MEDS: ALBUTEROL SO4 0.083% IH SOL 2.5 MG/3 ML VIAL.NEB. NEB SCH ×2 (06:56→10:35)
--- NOTE | 2016-08-28 09:15 | DS ---
Physical Examination Vital Signs: Vital Signs Temperature 97.9 F 08/28/16 05:56 Pulse Rate 84 08/28/16 05:56 Respiratory Rate 18 08/28/16 05:56 Blood Pressure 148/70 08/28/16 05:56 O2 Sat by Pulse Oximetry (%) 96 08/27/16 21:00 Findings/Remarks: Admitted with exacerbation of COPD Improved Constitutional: Yes: Calm Eyes: Yes: WNL HENT: Yes: WNL, Other Cardiovascular: Yes: Regular Rate and Rhythm Respiratory: Yes: On Nasal O2 Gastrointestinal: Yes: Other (Stool impaction crrected) ...Rectal Exam: Yes: Sphincter Tone Normal Renal/: Yes: WNL Breast(s): Yes: WNL Edema: No Neurological: Yes: Alert Psychiatric: Yes: Alert Labs: CBC, BMP 08/25/16 06:00 08/25/16 06:00 Discharge Summary Reason For Visit: OBSTRUCTIVE CHRONIC BRONCHITIS Current Active Problems COPD exacerbation (Acute) Chronic respiratory failure with hypoxia and hypercapnia (Acute) Emphysema of lung (Acute) Pulmonary hypertension (Acute) Condition: Fair - Instructions Referrals: William Rivas MD [Primary Care Provider] - - Home Medications Comprehensive Discharge Medication List: Ambulatory Orders Albuterol Sulfate [Proair Hfa -] 1 - 2 inh PO BID PRN 03/28/15 Budesonide/Formeterol Fumarate [SYMBICORT 80/4.5mcg -] 2 puff IH BID #0 inhaler 04/02/15 Tiotropium [place] [Spiriva] 1 puff IH DAILY #0 inh 04/02/15 Albuterol 0.083% Nebulizer Noemy [Ventolin 0.083% Nebulizer Soln -] 1 amp NEB BID PRN 12/20/15 Bimatoprost [Lumigan] 1 drop OS HS 12/20/15 Brinzolamide/Brimonidine Tart [Simbrinza 1%-0.2% Eye Drops] 8 ml OU BID Calcium Carbonate [Calcium] 0 mg PO DAILY 12/20/15 Multivit-Min/FA/Lycopen/Lutein [Centrum Silver Tablet] 1 each PO DAILY 12/20/15 Ofloxacin 0.3% Ophth Soln [Ocuflox 0.3% Eye Drops -] 1 drop OS Q6H 12/20/15 Biotin 0 mcg PO ASDIR 08/22/16 Bromfenac Sodium [Prolensa] 1.6 ml OP ASDIR 08/22/16
[2016-08-28] MEDS ORDERED: PT OWN MED DRAWER 7, Y5N ONE (09:30)
[2016-08-28] MEDS: AZITHROMYCIN 250 MG TABLET (FP) PO SCH (09:34)
[2016-08-28] MEDS: HEPARIN NA (PORCINE) 5,000 UNITS/ML 1ML VIAL SQ SCH (09:34)
[2016-08-28] MEDS: guaiFENesin 600 MG TABLET.ER (FP) PO SCH (09:34)
[2016-08-28] MEDS ORDERED: COLCHICINE 0.6 MG TABLET (FP) PO SCH (10:00)
[2016-08-28 10:39] VITALS: BP 144/80; PULSE 87; TEMP 98.5
--- NOTE | 2016-08-28 11:10 | PN ---
Progress Note (short form) - Note Progress Note: Feels overall better. Has portable O2 as home. No CP. SOB has improved. Intake & Output 08/25/16 08/26/16 08/27/16 08/28/16 23:59 23:59 23:59 23:59 Intake Total 400 1510 550 300 Balance 400 1510 550 300 Weight 95 lb 2 oz 96 lb 1 oz 97 lb 4 oz 102 lb 4 oz Last Vital Signs Temp Pulse Resp BP Pulse Ox 98.5 F 87 18 144/80 96 08/28/16 09:00 08/28/16 09:00 08/28/16 09:00 08/28/16 09:00 08/28/16 09:00 Active Medications Albuterol Sulfate (Ventolin 0.083% Nebulizer Soln -) 1 amp NEB QIDR [facility] Last Admin: 08/28/16 10:35 Dose: 1 amp Azithromycin (Zithromax -) 250 mg PO MoWeFr@1000 [facility] Last Admin: 08/28/16 09:34 Dose: 250 mg Colchicine (Colcrys -) 0.6 mg PO DAILY [facility] Last Admin: 08/28/16 09:33 Dose: 0.6 mg Guaifenesin (Mucinex -) 600 mg PO BID [facility] Last Admin: 08/28/16 09:34 Dose: 600 mg Heparin Sodium (Porcine) (Heparin -) 5,000 unit SQ BID [facility] Last Admin: 08/28/16 09:34 Dose: 5,000 unit Latanoprost (Xalatan 0.005% Eye Drops -) 1 drop OU HS [facility] Last Admin: 08/27/16 21:04 Dose: 1 drop Methylprednisolone Sodium Succinate (Solu-Medrol -) 40 mg IVPB Q8H-IV [facility] Last Admin: 08/28/16 09:34 Dose: 40 mg Gen: NAD Neck: +JVD Heart: RRR Lung: scatttered rhonchi and minimal expiratory wheezes Abd: soft, nontender Ext: chronic changes, less edematous A/P Acute COPD Exacerbation Chronic Hypoxic and Hypercapneic Respiratory Failure Emphysema Pulmonary HTN LV Diastolic Dysfunction Problem List - Problems (1) COPD exacerbation Code(s): J44.1 - CHRONIC OBSTRUCTIVE PULMONARY DISEASE W (ACUTE) EXACERBATION (2) Chronic respiratory failure with hypoxia and hypercapnia Code(s): J96.11 - CHRONIC RESPIRATORY FAILURE WITH HYPOXIA J96.12 - CHRONIC RESPIRATORY FAILURE WITH HYPERCAPNIA (3) HTN (hypertension) Code(s): I10 - ESSENTIAL (PRIMARY) HYPERTENSION (4) Emphysema of lung Code(s): J43.9 - EMPHYSEMA, UNSPECIFIED (5) Pulmonary hypertension Code(s): I27.2 - OTHER SECONDARY PULMONARY HYPERTE - Prednisone taper - Mucinex - inhaled bronchodilators standing and PRN - O2 to keep spO2 >90% - Azithromycin - Lasix as needed - DVT prophylaxis - D/C home per Primary Dr Latham
== END 2016-08-28 11:00 | disposition home or self-care (01) | DRG 191 ==
LOC: JER 10:10 → JERBED 11:50 → J6S 15:10
PROVIDERS: ADMIT Internal Medicine; ATTEND Internal Medicine
PROC: 3E0F7GC Introduction of Other Therapeutic Substance into Respiratory Tract, Via Natural or Artificial Opening (ICD-10-PCS; principal; 2016-08-24)
DX: J44.1 Chronic obstructive pulmonary disease with (acute) exacerbation (principal); J96.12 Chronic respiratory failure with hypercapnia; J96.11 Chronic respiratory failure with hypoxia; I10 Essential (primary) hypertension; E78.5 Hyperlipidemia, unspecified; I27.2 Other secondary pulmonary hypertension; Z99.81 Dependence on supplemental oxygen
CPT/HCPCS: 36415; 71010-TC; 80048; 80053; 81003; 82550; 83605; 83735; 83880; 84100; 84484; 85025; 87040; 93005; 93010; 93306-TC; 94640; 97116-GP; 97161-GP; 99284-25; J1644

== ENCOUNTER 2017-09-23 15:16 | Inpatient (IN) | payer OTHER, BC ==
[2017-09-23] MEDS ORDERED: methylPREDNISolone NA SUCC 125 MG/2 ML VIAL IVPUSH ONE (15:33)
[2017-09-23] MEDS ORDERED: ALBUTEROL SO4 2.5/IPRATROPIUM 0.5 INH SOL 3 ML VIAL.NEB. NEB ONE ×3 (15:35→20:33)
[2017-09-23 15:38] VITALS: BMI 27.4
[2017-09-23] MEDS ORDERED: methylPREDNISolone NA SUCC 125 MG/2 ML VIAL ONE (15:39)
--- NOTE | 2017-09-23 15:46 | PDOC ---
Attending Attestation - Medical Decision Making 09/23/17 16:19 Pt presents to the ED complaining of the acute onset of DUQUE and shortness of breath at rest. No improvement with duonebs at home. History of severe COPD on chronic home o2, never intubated. Differential includes COPD exacerbation, CHF exacerbation, PNA, less likely PTX, less likely PE. Will treat with nebs and steroids, check labs and CXR and reassess. <Sophia Whitley - Last Filed: 09/23/17 16:19> - HPI HPI: 09/23/17 16:45 The patient is an 81-year-old female present to the emergency department via EMS with shortness of breath. The patient reports since 2:00 am today shes been having difficulty breathing, no relief with albuterol. The patient reports shes on 3L O2 at home secondary to COPD. The patient reports associated concern of a productive cough, states she brings up mucus, and subjective fever. Denies prior intubation. The patient states 1 previous use of C-pap, indicates she was uncomfortable. Denies chest pain. PMHx: HTN, HLD, CHF, COPD (home O2 dependent on 3L), and CO2 retention. Allergies: No Known Drug Allergies PSHx: Cataract surgery. SHx: Former smoker. She denies ETOH and recreational drug use. PCP: Dr. William Rivas [phone] Water Quality Specialist: Dr. Praveen Mejia [phone] - Physicial Exam PE: 09/23/17 16:46 GENERAL: Awake, alert, and fully oriented, (+) Mild acute distress HEAD: No signs of trauma NECK: Normal ROM, supple, no lymphadenopathy, JVD, or masses LUNGS: (+) diffusely wheezing with decreased breath sounds B/l. Tachypnea. Speaking in 3-4 sentence. No crackles. HEART: Regular rate and rhythm, normal S1 and S2, no murmurs, rubs or gallops ABDOMEN: Soft, nontender, normoactive bowel sounds. No guarding, no rebound. No masses EXTREMITIES: Normal range of motion, no edema. No clubbing or cyanosis. No cords, erythema, or tenderness - Medical Decision Making 09/23/17 16:47 Documentation prepared by Tea Martin, acting as director medical writing for Sophia Whitley MD. <Tea Salazar - Last Filed: 09/23/17 16:47>
--- NOTE | 2017-09-23 15:53 | PDOC ---
History of Present Illness - General Chief Complaint: Shortness of Breath Stated Complaint: COPD Time Seen by Provider: 09/23/17 15:33 - History of Present Illness Initial Comments: 09/23/17 15:53 81 yo F w/ a hx of COPD and HTN is here with shortness of breath. She was last healthy yesterday, then this morning at 2 Am she started having a very difficult time breathing. She has had a recent non-productive dry cough without increased sputum production. She denies any recent fevers, chills, or infections. She denies any cardiac disease or recent medication changes. Pcp - [facility] [employer] Engineer - Dr. Browning 09/23/17 16:16 Past History - Past Medical History Allergies/Adverse Reactions: Allergies Allergy/AdvReac Type Severity Reaction Status Date / Time No Known Allergies Allergy Verified 08/22/16 10:15 Home Medications: Ambulatory Orders Albuterol 0.083% Nebulizer Noemy [Ventolin 0.083%] 1 neb NEB QID 09/23/17 Albuterol Sulfate Inhaler - [Ventolin Hfa Inhaler -] 1 - 2 inh PO QID 09/23/17 Bimatoprost [Lumigan] 1 drop IO DAILY 09/23/17 Biotin/Keratin [Biotin Plus Keratin Tablet] 1 each PO DAILY 09/23/17 Budesonide/Formeterol Fumarate [SYMBICORT 80/4.5mcg -] 1 inh PO DAILY 09/23/17 Calcium (Oyster Shell) [Os-Ignacio 500Mg -] 500 mg PO BID 09/23/17 Multivitamins [Tab-A-Vit -] 1 tab PO DAILY 09/23/17 Prednisone [Deltasone] 20 mg PO DAILY 09/23/17 Tiotropium [place] [Spiriva] 1 inh IH DAILY 09/23/17 COPD: Yes (HOME O2- 3L) HTN: Yes - Surgical History Abdominal Surgery: No Appendectomy: No Cardiac Surgery: No Cholecystectomy: No Gastric Stapling: No GI Surgery: No Lung Surgery: No Neurologic Surgery: No Orthopedic Surgery: No - Suicide/Smoking/Psychosocial Hx Smoking Status: Yes Smoking History: Former smoker Have you smoked in the past 12 months: No Number of Cigarettes Smoked Daily: 0 If you are a former smoker, when did you quit?: 2005 Information on smoking cessation initiated: No Hx Alcohol Use: No Drug/Substance Use Hx: No Substance Use Type: None Hx Substance Use Treatment: No Review of Systems - Review of Systems Comments:: 09/23/17 16:22 CONSTITUTIONAL: Positive: generalized weakness, malaise, loss of appetite Absent: fever, chills, diaphoresis HEENT: Absent: rhinorrhea, nasal congestion, throat pain, throat swelling, difficulty swallowing, mouth swelling, ear pain, eye pain, visual Changes CARDIOVASCULAR: Absent: chest pain, syncope, palpitations, irregular heart rate, lightheadedness , peripheral edema RESPIRATORY: Positive: cough, shortness of breath, dyspnea with exertion, orthopnea, wheezing , Absent: stridor, hemoptysis GASTROINTESTINAL: Absent: abdominal pain, abdominal distension, nausea, vomiting, diarrhea, constipation, melena, hematochezia GENITOURINARY: Absent: dysuria, frequency, urgency, hesitancy, hematuria, flank pain, genital pain MUSCULOSKELETAL: Absent: myalgia, arthralgia, joint swelling SKIN: Absent: rash, itching, pallor HEMATOLOGIC/IMMUNOLOGIC: Absent: easy bleeding, easy bruising, lymphadenopathy, frequent infections ENDOCRINE: Absent: unexplained weight gain, unexplained weight loss, heat intolerance, cold intolerance NEUROLOGIC: Absent: headache, focal weakness or paresthesias, dizziness, unsteady gait, seizure, mental status changes, bladder or bowel incontinence PSYCHIATRIC: Absent: anxiety, depression, suicidal or homicidal ideation, hallucinations. *Physical Exam - Vital Signs Last Vital Signs Temp Pulse Resp BP Pulse Ox 98.5 F 102 H 23 190/86 100 09/23/17 15:34 09/23/17 15:34 09/23/17 15:34 09/23/17 15:34 09/23/17 15:34 - Physical Exam Comments: 09/23/17 16:24 GENERAL: She is in significant acute distress due to her difficulty breathing. She is thin, frail, awake and alert. HEENT: Normocephalic, atraumatic. PERRLA, EOMI. No conjunctival pallor. Sclera are non- icteric. Moist mucous membranes. Oropharynx is clear. NECK: Significant JVD Supple. Full ROM. No JVD. No thyromegaly. No lymphadenopathy. CARDIOVASCULAR: Tachycardic to 103 with a regular rhythm. No murmurs, rubs, or gallops appreciated. Distal pulses are 2+ and symmetric. PULMONARY: Breathing with pursed lips and accessory muscles. Significant respiratory distress. Bilateral wheezes throughout all lung salazar. No crackles, rales or ronchi appreciated. ABDOMINAL: Soft. Non-tender. Non-distended. No rebound or guarding. No organomegaly. Normoactive bowel sounds. MUSCULOSKELETAL Normal range of motion at all joints. No bony deformities or tenderness. No CVA tenderness. EXTREMITIES: No cyanosis. No clubbing. No edema. No calf tenderness. SKIN: Warm and dry. Normal capillary refill. No rashes. No jaundice. NEUROLOGICAL: Alert, awake, appropriate. Cranial nerves 2-12 grossly intact. Normal speech. PSYCHIATRIC: Cooperative. Good eye contact. Appropriate mood and affect. 09/23/17 16:35 ED Treatment Course - LABORATORY CBC & Chemistry Diagram: 09/23/17 16:00 09/23/17 16:00 - RADIOLOGY Radiology Studies Ordered: Category Date Time Status CHEST PA & LAT [RAD] Stat Radiology 09/23/17 15:37 Ordered - Medications Given in the ED: ED Medications Discontinued Medications Generic Name Dose Route Start Last Admin Trade Name Freq PRN Reason Stop Dose Admin Albuterol/Ipratropium 1 amp 09/23/17 15:35 09/23/17 15:48 Duoneb - NEB 09/23/17 15:36 1 amp ONCE ONE Administration Methylprednisolone Sodium Succinate 125 mg 09/23/17 15:33 09/23/17 15:48 Solu-Medrol - IVPUSH 09/23/17 15:34 125 mg ONCE ONE Administration Medical Decision Making - Medical Decision Making 09/23/17 16:37 81 yo F w a hx of HTN and Copd here with SOB and difficulty breathing with what appears to be a COPD exacerbation. Plan: Steroids, albuterol, labs, urine, cxr, BPAP, admit. Patient is having an anxiety attack with the bipap machine and saying she is going to take it off. 09/23/17 18:28 *DC/Admit/Observation/Transfer Diagnosis at time of Disposition: COPD exacerbation - Discharge Dispostion Condition at time of disposition: Critical Decision to Admit order: Yes - Referrals - Patient Instructions - Post Discharge Activity
[2017-09-23] MEDS ORDERED: ALBUTEROL SO4 0.5 % INH SOLN 2.5 MG/0.5 ML VIAL.NEB. NEB ONE ×4 (15:58→17:11)
[2017-09-23 16:25] LABS: BASO % 0.1 % (0-2.0); EOS % 0.4 % (0-4.5); HEMATOCRIT 36.4 % (32.4-45.2); HEMOGLOBIN 12.5 GM/dL (10.7-15.3); LYMPH % 11.9 % (8-40); MCH 33.8 pg (25.7-33.7); MCHC 34.2 g/dl (32.0-36.0); MEAN CELL VOLUME 98.9 fl (80-96); MEAN PLT VOLUME 9.3 fl (7.5-11.1); MONO % 3.1 % (3.8-10.2); NEUT % 84.5 % (42.8-82.8); PLATELET COUNT 170 K/MM3 (134-434); RBC 3.68 M/mm3 (3.60-5.2); RDW 13.8 % (11.6-15.6); WHITE BLOOD COUNT 5.7 K/mm3 (4.0-10.0)
[2017-09-23 16:50] LABS: URINE APPEARANCE CLEAR; URINE BILIRUBIN NEGATIVE (<2.0 mg/dL); URINE COLOR YELLOW; URINE GLUCOSE (UA) NEGATIVE (NEGATIVE); URINE KETONE NEGATIVE (NEGATIVE); URINE LEUK ESTERASE NEGATIVE (NEGATIVE); URINE NITRITE NEGATIVE (NEGATIVE); URINE PROTEIN NEGATIVE (NEGATIVE); URINE UROBILINOGEN NEGATIVE mg/dL (0.2-1.0)
[2017-09-23 16:57] LABS: ALBUMIN 3.8 g/dl (3.4-5.0); ANION GAP 7 (8-16); BLOOD UREA NITROGEN 23 mg/dL (7-18); CALCIUM 9.5 mg/dL (8.5-10.1); CHLORIDE 103 mmol/L (98-107); CO2 33 mmol/L (21-32); GLUCOSE,RANDOM 106 mg/dL (74-106); SGOT/AST 22 U/L (15-37); SGPT/ALT 36 U/L (12-78); SODIUM 143 mmol/L (136-145)
[2017-09-23 17:03] LABS: ALK PHOS 75 U/L (45-117); BILIRUBIN,TOTAL 0.3 mg/dL (0.2-1.0); CREATININE 0.7 mg/dL (0.55-1.02); N-TERMINAL BNP 238.58 pg/ml (5-450); TOT PROT 6.6 g/dl (6.4-8.2)
[2017-09-23 18:38] LABS: VENOUS PH 7.35 (7.32-7.42)
[2017-09-23 18:39] LABS: VENOUS PO2 31.3 mmHg (28-48)
[2017-09-23 18:40] LABS: VENOUS PC02 60.6 mmHg (38-52)
--- NOTE | 2017-09-23 19:09 | EKG ---
Test Reason : Blood Pressure : / mmHG Vent. Rate : 099 BPM Atrial Rate : 099 BPM P-R Int : 144 ms QRS Dur : 078 ms QT Int : 342 ms P-R-T Axes : 076 -53 074 degrees QTc Int : 438 ms NORMAL SINUS RHYTHM POSSIBLE LEFT ATRIAL ENLARGEMENT LEFT ANTERIOR FASCICULAR BLOCK SEPTAL INFARCT (CITED ON OR BEFORE 03-DEC-2012) ABNORMAL ECG WHEN COMPARED WITH ECG OF 22-AUG-2016 10:35, NO SIGNIFICANT CHANGE WAS FOUND Confirmed by MD KAREN, JOSUÉ ([id number]) on 09/23/2017 7:08:44 PM Referred By: Confirmed By:JOSUÉ JONES MD
[2017-09-23] MEDS ORDERED: ALBUTEROL SO4 0.083% IH SOL 2.5 MG/3 ML VIAL.NEB. NEB ONE ×2 (20:08→20:09)
[2017-09-24] MEDS ORDERED: HYDROCORTISONE SOD SUCCINATE 2 ML ONE (09:23)
[2017-09-24] MEDS ORDERED: ALBUTEROL SO4 2.5/IPRATROPIUM 0.5 INH SOL 3 ML VIAL.NEB. NEB PRN (09:27)
[2017-09-24] MEDS: HYDROCORTISONE SOD SUCCINATE 100 MG/2 ML VIAL IVPB SCH ×2 (09:38→17:58)
--- NOTE | 2017-09-24 10:17 | HP ---
DATE OF ADMISSION: DATE OF DICTATION: 09/24/2017 HISTORY OF PRESENT ILLNESS: This is an 81-year-old female well known to me that notes to have COPD came to the emergency room yesterday afternoon with complaints of shortness of breath at rest. She was on antibiotics and on all her medication including albuterol. She was also on O2, never was intubated, had multiple admissions in the past at [facility]. She lives at home with her son. PHYSICAL EXAMINATION: General: Today she is awake, alert, not in distress at present, on O2 via nasal cannula. Vital Signs: BP 140/80, pulse 72, respirations 24, temperature 98. HEENT: Unremarkable. Neck: Supple. No JVD. Lungs: No wheeze. Air entry fair. Abdomen: Soft. Legs: No edema. Neurological: Examination grossly normal. Chest x-ray: No acute changes. EKG: Normal sinus rhythm. Her oxygen at room air, venous O2 was bad with CO2 retaining, PCO2 62. Other labs, WBC 5, hemoglobin 12.5, hematocrit 36. Chemistry: Sodium 143, potassium 5, chloride 103, CO2 of 33. BUN 23, creatinine 0.6. CPK 3.11. Troponin negative. B-Peptide 238. IMPRESSION: 1. Acute exacerbation of chronic obstructive pulmonary disease. 2. Respiratory failure. PLAN: Admit to regular floor. Pulmonary consult. Ordered IV steroids and antibiotics. Sandy [id number]
--- NOTE | 2017-09-24 14:27 | CON.PULM ---
Consult Consult Specialty:: PULMONARY Referred by:: Dr. Rivas Reason for Consultation:: shortness of breath - History of Present Illness Chief Complaint: shortness of breath History of Present Illness: 81yo female with h/o HTN, hyperlipidemia, LV diastolic dysfunction, severe COPD , emphysema, chronic bronchitis, chronic hypoxic respiratory failure on home O2 who was admitted with worsening shortness of breath. She is on chronic steroids at home, recently had been treated for acute bronchitis with Z-pack and augmentin course. Still with worsening shortness of breath. Nonproductive cough. No fevers or chills. No leg swelling. She is maintained on prednisone 5mg daily but has been on 20mg for the past 2 weeks. Also complains of throat pain especially with eating. - History Source History Provided By: Patient, Medical Record Limitations to Obtaining History: No Limitations - Past Medical History Cardio/Vascular: Yes: HTN, Hyperlipdemia Pulmonary: Yes: COPD, O2 Dependent - Alcohol/Substance Use Hx Alcohol Use: No - Smoking History Smoking history: Former smoker Have you smoked in the past 12 months: No Aproximately how many cigarettes per day: 0 If you are a former smoker, when did you quit?: 2005 Home Medications - Allergies Allergies/Adverse Reactions: Allergies Allergy/AdvReac Type Severity Reaction Status Date / Time No Known Allergies Allergy Verified 08/22/16 10:15 - Home Medications Home Medications: Ambulatory Orders Albuterol 0.083% Nebulizer Noemy [Ventolin 0.083%] 1 neb NEB QID 09/23/17 Albuterol Sulfate Inhaler - [Ventolin Hfa Inhaler -] 1 - 2 inh PO QID 09/23/17 Bimatoprost [Lumigan] 1 drop OU HS 09/23/17 Biotin/Keratin [Biotin Plus Keratin Tablet] 1 each PO DAILY 09/23/17 Budesonide/Formeterol Fumarate [SYMBICORT 80/4.5mcg -] 1 inh PO DAILY 09/23/17 Calcium (Oyster Shell) [Os-Ignacio 500Mg -] 500 mg PO BID 09/23/17 Multivitamins [Tab-A-Vit -] 1 tab PO DAILY 09/23/17 Prednisone [Deltasone] 20 mg PO DAILY 09/23/17 Tiotropium [place] [Spiriva] 1 inh IH DAILY 09/23/17 Review of Systems - Review of Systems Constitutional: reports: Weakness. denies: Chills, Fever HENT: denies: Nasal Congestion, Toothache Neck: denies: Stiffness, Tenderness Cardiovascular: reports: Shortness of Breath. denies: Chest Pain, Edema, Palpitations Respiratory: reports: Cough, Exercise Intolerance, SOB, SOB on Exertion, Wheezing. denies: Hemoptysis Gastrointestinal: denies: Abdominal Pain, Nausea, Vomiting Genitourinary: denies: Dysuria, Hematuria Neurological: denies: Dizziness, Headache Endocrine: denies: Unexplained Weight Loss Physical Exam Vital Sings: Vital Signs Temperature 98.0 F 09/23/17 20:00 Pulse Rate 95 H 09/24/17 12:05 Respiratory Rate 18 09/24/17 12:05 Blood Pressure 147/84 09/24/17 12:05 O2 Sat by Pulse Oximetry (%) 98 09/24/17 12:05 Constitutional: Yes: Mild Distress Eyes: Yes: Conjunctiva Clear, EOM Intact HENT: Yes: Atraumatic, Normocephalic Neck: Yes: Supple, Trachea Midline Cardiovascular: Yes: Regular Rate and Rhythm Respiratory: Yes: Diminished (distant breath sounds), Poor Air Entry ...Clubbing: No Gastrointestinal: Yes: Normal Bowel Sounds, Soft. No: Tenderness Edema: No Neurological: Yes: Alert, Oriented Labs: CBC, BMP 09/23/17 16:00 09/23/17 16:00 Imaging - Results Chest X-ray: Report Reviewed, Image Reviewed (no infiltrates) Problem List - Problems (1) COPD exacerbation Code(s): J44.1 - CHRONIC OBSTRUCTIVE PULMONARY DISEASE W (ACUTE) EXACERBATION (2) Acute on chronic respiratory failure with hypoxia and hypercapnia Code(s): J96.21 - ACUTE AND CHRONIC RESPIRATORY FAILURE WITH HYPOXIA; J96.22 - ACUTE AND CHRONIC RESPIRATORY FAILURE WITH HYPERCAPNIA (3) Emphysema of lung Code(s): J43.9 - EMPHYSEMA, UNSPECIFIED (4) HTN (hypertension) Code(s): I10 - ESSENTIAL (PRIMARY) HYPERTENSION (5) Pulmonary hypertension Code(s): I27.2 - OTHER SECONDARY PULMONARY HYPERTENSION * DO NOT USE * Assessment/Plan Acute on Chronic Hypoxic and Hypercapneic Respiratory Failure Acute COPD Exacerbation Emphysema Chronic Bronchitis LV Diastolic Dysfunction HTN Hyperlipidemia - IV medrol - inhaled bronchodilators standing and PRN - O2 to keep SpO2 >90% - will start nystatin swish/swallow for thrush - pt on TIW azithromycin at home -
[2017-09-24] MEDS ORDERED: ALBUTEROL SO4 0.083% IH SOL 2.5 MG/3 ML VIAL.NEB. NEB PRN (14:29)
[2017-09-24] MEDS ORDERED: PT OWN MED DRAWER 7, Y5N ONE ×2 (16:33→23:08)
[2017-09-24] MEDS: AZITHROMYCIN 250 MG TABLET PO SCH (17:57)
[2017-09-24] MEDS: NYSTATIN 500,000 UNITS/5 ML SUSPENSION PO SCH ×2 (17:58→23:35)
[2017-09-24] MEDS: ALBUTEROL SO4 2.5/IPRATROPIUM 0.5 INH SOL 3 ML VIAL.NEB. NEB SCH (19:07)
[2017-09-24] MEDS: BUDESONIDE/FORMETEROL FUMARATE 160/4.5 mcg INHALER IH SCH (21:50)
[2017-09-25] MEDS: ALBUTEROL SO4 2.5/IPRATROPIUM 0.5 INH SOL 3 ML VIAL.NEB. NEB SCH ×4 (01:00→16:20)
[2017-09-25] MEDS: HYDROCORTISONE SOD SUCCINATE 100 MG/2 ML VIAL IVPB SCH ×2 (03:33→09:42)
[2017-09-25] MEDS: NYSTATIN 500,000 UNITS/5 ML SUSPENSION PO SCH ×4 (06:20→23:41)
[2017-09-25] MEDS ORDERED: PT OWN MED DRAWER 7, Y5N ONE ×2 (07:00→09:37)
[2017-09-25] MEDS: AZITHROMYCIN 250 MG TABLET PO SCH (09:42)
[2017-09-25] MEDS: BUDESONIDE/FORMETEROL FUMARATE 160/4.5 mcg INHALER IH SCH ×2 (09:42→22:09)
--- NOTE | 2017-09-25 11:37 | PN ---
Progress Note (short form) - Note Progress Note: OOB to chair. Mildly tachypneic at rest. Reports sore throat and difficulty swallowing. [place] somewhat better with Nystatin. Intake & Output 09/22/17 09/23/17 09/24/17 09/25/17 23:59 23:59 23:59 23:59 Intake Total 400 Output Total 500 Balance -100 Weight 150 lb 150 lb 1.804 oz Last Vital Signs Temp Pulse Resp BP Pulse Ox 97.7 F 72 20 160/72 96 09/25/17 05:30 09/25/17 05:30 09/24/17 22:58 09/25/17 05:30 09/24/17 21:00 Active Medications Albuterol Sulfate (Ventolin 0.083% Nebulizer Soln -) 1 amp NEB Q4H PRN PRN Reason: SHORT OF BREATH/WHEEZING Last Admin: 09/24/17 14:25 Dose: 1 amp Albuterol/Ipratropium (Duoneb -) 1 amp NEB QIDR [facility] Last Admin: 09/25/17 07:30 Dose: 1 amp Azithromycin (Zithromax -) 250 mg PO DAILY [facility] Last Admin: 09/25/17 09:42 Dose: 250 mg Budesonide/Formoterol Fumarate (Symbicort 160/4.5mcg -) 2 puff IH BID [facility] Last Admin: 09/25/17 09:42 Dose: 2 inh Hydrocortisone Sodium Succinate (Solu-Cortef -) 100 mg IVPB Q8H-IV [facility] Last Admin: 09/25/17 09:42 Dose: 100 mg Nystatin (Nystatin Oral Suspension -) 500,000 units PO Q6HPO [facility] Last Admin: 09/25/17 06:20 Dose: 500,000 units Constitutional: Yes: Mildly tachypneic at rest Eyes: Yes: Conjunctiva Clear, EOM Intact HENT: Yes: Atraumatic, Normocephalic Neck: Yes: Supple, Trachea Midline Cardiovascular: Yes: Regular Rate and Rhythm Respiratory: Yes: distant breath sounds, Poor Air Entry, mild expiratory wheeze ...Clubbing: No Gastrointestinal: Yes: Normal Bowel Sounds, Soft. No: Tenderness Edema: No Neurological: Yes: Alert, Oriented Labs: Problem List - Problems (1) COPD exacerbation Code(s): J44.1 - CHRONIC OBSTRUCTIVE PULMONARY DISEASE W (ACUTE) EXACERBATION (2) Acute on chronic respiratory failure with hypoxia and hypercapnia Code(s): J96.21 - ACUTE AND CHRONIC RESPIRATORY FAILURE WITH HYPOXIA; J96.22 - ACUTE AND CHRONIC RESPIRATORY FAILURE WITH HYPERCAPNIA (3) Emphysema of lung Code(s): J43.9 - EMPHYSEMA, UNSPECIFIED (4) HTN (hypertension) Code(s): I10 - ESSENTIAL (PRIMARY) HYPERTENSION (5) Pulmonary hypertension Code(s): I27.2 - OTHER SECONDARY PULMONARY HYPERTENSION * DO NOT USE * Assessment/Plan: Acute on Chronic Hypoxic and Hypercapneic Respiratory Failure Acute COPD Exacerbation Emphysema Chronic Bronchitis LV Diastolic Dysfunction HTN Hyperlipidemia - Change to IV medrol - inhaled bronchodilators standing and PRN - O2 to keep SpO2 >90% - Continue nystatin swish/swallow for thrush - Continue Azithromycin Dr Latham
--- NOTE | 2017-09-25 12:31 | PN ---
Progress Note, Physician Chief Complaint: Feels better History of Present Illness: milton Fang pulmonary consult appreciated - Current Medication List Current Medications: Active Medications Albuterol Sulfate (Ventolin 0.083% Nebulizer Soln -) 1 amp NEB Q4H PRN PRN Reason: SHORT OF BREATH/WHEEZING Last Admin: 09/24/17 14:25 Dose: 1 amp Albuterol/Ipratropium (Duoneb -) 1 amp NEB QIDR [facility] Last Admin: 09/25/17 07:30 Dose: 1 amp Azithromycin (Zithromax -) 250 mg PO DAILY [facility] Last Admin: 09/25/17 09:42 Dose: 250 mg Budesonide/Formoterol Fumarate (Symbicort 160/4.5mcg -) 2 puff IH BID [facility] Last Admin: 09/25/17 09:42 Dose: 2 inh Methylprednisolone Sodium Succinate (Solu-Medrol -) 60 mg IVPUSH Q8H-IV [facility] Nystatin (Nystatin Oral Suspension -) 500,000 units PO Q6HPO [facility] Last Admin: 09/25/17 11:47 Dose: 500,000 units - Objective Vital Signs: Vital Signs Temperature 97.7 F 09/25/17 05:30 Pulse Rate 72 09/25/17 05:30 Respiratory Rate 20 09/24/17 22:58 Blood Pressure 160/72 09/25/17 05:30 O2 Sat by Pulse Oximetry (%) 96 09/24/17 21:00 Constitutional: Yes: No Distress Eyes: Yes: WNL HENT: Yes: WNL Neck: Yes: WNL Cardiovascular: Yes: WNL Respiratory: Yes: On Nasal O2 Gastrointestinal: Yes: WNL ...Rectal Exam: Yes: Deferred Genitourinary: Yes: WNL Breast(s): Yes: WNL Musculoskeletal: Yes: Muscle Weakness Extremities: Yes: WNL Integumentary: Yes: WNL Neurological: Yes: Alert Labs: CBC, BMP 09/23/17 16:00 09/23/17 16:00 Assessment/Plan Continue same trt
[2017-09-25] MEDS: methylPREDNISolone NA SUCC 125 MG/2 ML VIAL IVPUSH SCH (17:35)
[2017-09-26] MEDS: methylPREDNISolone NA SUCC 125 MG/2 ML VIAL IVPUSH SCH (02:31)
[2017-09-26] MEDS: ALBUTEROL SO4 2.5/IPRATROPIUM 0.5 INH SOL 3 ML VIAL.NEB. NEB SCH ×4 (06:09→19:05)
[2017-09-26] MEDS: NYSTATIN 500,000 UNITS/5 ML SUSPENSION PO SCH ×2 (06:18→17:47)
--- NOTE | 2017-09-26 09:09 | PN ---
Progress Note, Physician Chief Complaint: Feels better History of Present Illness: Admitted with exacerbation of COPD Feels better - Current Medication List Current Medications: Active Medications Albuterol Sulfate (Ventolin 0.083% Nebulizer Soln -) 1 amp NEB Q4H PRN PRN Reason: SHORT OF BREATH/WHEEZING Last Admin: 09/24/17 14:25 Dose: 1 amp Albuterol/Ipratropium (Duoneb -) 1 amp NEB QIDR [facility] Last Admin: 09/26/17 06:09 Dose: 1 amp Azithromycin (Zithromax -) 250 mg PO DAILY [facility] Last Admin: 09/25/17 09:42 Dose: 250 mg Budesonide/Formoterol Fumarate (Symbicort 160/4.5mcg -) 2 puff IH BID [facility] Last Admin: 09/25/17 22:09 Dose: 2 inh Methylprednisolone Sodium Succinate (Solu-Medrol -) 60 mg IVPUSH Q8H-IV [facility] Last Admin: 09/26/17 02:31 Dose: 60 mg Nystatin (Nystatin Oral Suspension -) 500,000 units PO Q6HPO [facility] Last Admin: 09/26/17 06:18 Dose: 500,000 units - Objective Vital Signs: Vital Signs Temperature 97.6 F 09/26/17 06:00 Pulse Rate 70 09/26/17 06:00 Respiratory Rate 20 09/26/17 06:00 Blood Pressure 145/82 09/26/17 06:00 O2 Sat by Pulse Oximetry (%) 99 09/25/17 21:00 Constitutional: Yes: Calm Eyes: Yes: WNL HENT: Yes: WNL Neck: Yes: WNL Cardiovascular: Yes: WNL Respiratory: Yes: On Nasal O2 Gastrointestinal: Yes: WNL ...Rectal Exam: Yes: Deferred Genitourinary: Yes: WNL Breast(s): Yes: WNL Musculoskeletal: Yes: Muscle Weakness Neurological: Yes: Alert Labs: CBC, BMP 09/23/17 16:00 09/23/17 16:00 Assessment/Plan Breething improved PT for ambulation
[2017-09-26] MEDS ORDERED: PT OWN MED DRAWER 7, Y5N ONE ×3 (10:44→21:10)
[2017-09-26] MEDS: BUDESONIDE/FORMETEROL FUMARATE 160/4.5 mcg INHALER IH SCH ×2 (10:46→21:54)
[2017-09-26] MEDS: methylPREDNISolone NA SUCC 40 MG/1 ML VIAL IVPUSH SCH ×2 (10:46→17:57)
[2017-09-26] MEDS: AZITHROMYCIN 250 MG TABLET PO SCH (10:47)
--- NOTE | 2017-09-26 16:21 | PN ---
Progress Note, Physician History of Present Illness: PULMONARY ALERT,OOB-CHAIR,COMFORTABLE,-RESP DISTRESS - Current Medication List Current Medications: Active Medications Albuterol Sulfate (Ventolin 0.083% Nebulizer Soln -) 1 amp NEB Q4H PRN PRN Reason: SHORT OF BREATH/WHEEZING Last Admin: 09/24/17 14:25 Dose: 1 amp Albuterol/Ipratropium (Duoneb -) 1 amp NEB [facility]IDR [facility] Last Admin: 09/26/17 11:10 Dose: 1 amp Azithromycin (Zithromax -) 250 mg PO DAILY [facility] Last Admin: 09/26/17 10:47 Dose: 250 mg Budesonide/Formoterol Fumarate (Symbicort 160/4.5mcg -) 2 puff IH BID [facility] Last Admin: 09/26/17 10:46 Dose: 2 inh Methylprednisolone Sodium Succinate (Solu-Medrol -) 40 mg IVPUSH Q8H-IV [facility] Last Admin: 09/26/17 10:46 Dose: 40 mg Nystatin (Nystatin Oral Suspension -) 500,000 units PO Q6HPO [facility] Last Admin: 09/26/17 06:18 Dose: 500,000 units - Objective Vital Signs: Vital Signs Temperature 98.0 F 09/26/17 14:00 Pulse Rate 83 09/26/17 14:00 Respiratory Rate 20 09/26/17 14:00 Blood Pressure 146/71 09/26/17 14:00 O2 Sat by Pulse Oximetry (%) 99 09/25/17 21:00 Constitutional: Yes: Calm, Thin Eyes: Yes: WNL HENT: Yes: WNL Neck: Yes: WNL Cardiovascular: Yes: Regular Rate and Rhythm, S1, S2 Respiratory: Yes: Diminished Extremities: Yes: WNL Edema: No Labs: CBC, BMP 09/23/17 16:00 Assessment/Plan Problem List - Problems (1) COPD exacerbation Code(s): J44.1 - CHRONIC OBSTRUCTIVE PULMONARY DISEASE W (ACUTE) EXACERBATION (2) Acute on chronic respiratory failure with hypoxia and hypercapnia Code(s): J96.21 - ACUTE AND CHRONIC RESPIRATORY FAILURE WITH HYPOXIA; J96.22 - ACUTE AND CHRONIC RESPIRATORY FAILURE WITH HYPERCAPNIA (3) Emphysema of lung Code(s): J43.9 - EMPHYSEMA, UNSPECIFIED (4) HTN (hypertension) Code(s): I10 - ESSENTIAL (PRIMARY) HYPERTENSION (5) Pulmonary hypertension Code(s): I27.2 - OTHER SECONDARY PULMONARY HYPERTENSION * DO NOT USE * Assessment/Plan: Acute on Chronic Hypoxic and Hypercapneic Respiratory Failure Acute COPD Exacerbation Emphysema Chronic Bronchitis LV Diastolic Dysfunction HTN Hyperlipidemia - IV medrol start taper in am - inhaled bronchodilators standing and PRN - O2 to keep SpO2 >90% - Continue nystatin swish/swallow for thrush - Continue Azithromycin DR ABREU
[2017-09-27] MEDS: methylPREDNISolone NA SUCC 40 MG/1 ML VIAL IVPUSH SCH ×3 (01:38→22:21)
[2017-09-27] MEDS ORDERED: amLODIPine BESYLATE 5 MG TABLET (FP) PO ONE (01:45)
[2017-09-27] MEDS: ALBUTEROL SO4 2.5/IPRATROPIUM 0.5 INH SOL 3 ML VIAL.NEB. NEB SCH ×4 (06:00→20:42)
[2017-09-27] MEDS: NYSTATIN 500,000 UNITS/5 ML SUSPENSION PO SCH ×3 (06:20→17:24)
--- NOTE | 2017-09-27 08:57 | PN ---
Progress Note, Physician Chief Complaint: Feels better History of Present Illness: Admitted with exacerbation of COPD Feels better - Current Medication List Current Medications: Active Medications Albuterol Sulfate (Ventolin 0.083% Nebulizer Soln -) 1 amp NEB Q4H PRN PRN Reason: SHORT OF BREATH/WHEEZING Last Admin: 09/24/17 14:25 Dose: 1 amp Albuterol/Ipratropium (Duoneb -) 1 amp NEB QIDR [facility] Last Admin: 09/27/17 06:00 Dose: 1 amp Azithromycin (Zithromax -) 250 mg PO DAILY [facility] Last Admin: 09/26/17 10:47 Dose: 250 mg Budesonide/Formoterol Fumarate (Symbicort 160/4.5mcg -) 2 puff IH BID [facility] Last Admin: 09/26/17 21:54 Dose: 2 inh Methylprednisolone Sodium Succinate (Solu-Medrol -) 40 mg IVPUSH Q8H-IV [facility] Last Admin: 09/27/17 01:38 Dose: 40 mg Nystatin (Nystatin Oral Suspension -) 500,000 units PO Q6HPO [facility] Last Admin: 09/27/17 06:20 Dose: 500,000 units - Objective Vital Signs: Vital Signs Temperature 97.8 F 09/27/17 05:14 Pulse Rate 73 09/27/17 05:14 Respiratory Rate 20 09/27/17 05:14 Blood Pressure 160/90 09/27/17 05:14 O2 Sat by Pulse Oximetry (%) 99 09/26/17 21:00 Constitutional: Yes: Anxious Eyes: Yes: WNL HENT: Yes: WNL Neck: Yes: WNL Cardiovascular: Yes: WNL Respiratory: Yes: On Nasal O2 Gastrointestinal: Yes: WNL ...Rectal Exam: Yes: Deferred Genitourinary: Yes: WNL Breast(s): Yes: WNL Musculoskeletal: Yes: Muscle Weakness Extremities: Yes: WNL Edema: No Neurological: Yes: Alert Psychiatric: Yes: Alert Labs: CBC, BMP 09/23/17 16:00 09/23/17 16:00 Assessment/Plan Continue same trt
[2017-09-27] MEDS ORDERED: PT OWN MED DRAWER 7, Y5N ONE ×2 (10:17→10:18)
[2017-09-27] MEDS: BUDESONIDE/FORMETEROL FUMARATE 160/4.5 mcg INHALER IH SCH ×2 (10:20→22:20)
[2017-09-27] MEDS: AZITHROMYCIN 250 MG TABLET PO SCH (10:20)
--- NOTE | 2017-09-27 11:36 | PN ---
Progress Note (short form) - Note Progress Note: OOB to chair. Feels overall better. Less SOB. Able to walk in the hallway. Swallowing is better. Intake & Output 09/24/17 09/25/17 09/26/17 09/27/17 23:59 23:59 23:59 23:59 Intake Total 400 1000 350 Output Total 500 Balance -100 1000 350 Weight 150 lb 1.804 oz Last Vital Signs Temp Pulse Resp BP Pulse Ox 97.8 F 73 20 160/90 99 09/27/17 05:14 09/27/17 05:14 09/27/17 05:14 09/27/17 05:14 09/26/17 21:00 Active Medications Albuterol Sulfate (Ventolin 0.083% Nebulizer Soln -) 1 amp NEB Q4H PRN PRN Reason: SHORT OF BREATH/WHEEZING Last Admin: 09/24/17 14:25 Dose: 1 amp Albuterol/Ipratropium (Duoneb -) 1 amp NEB QIDR [facility] Last Admin: 09/27/17 11:15 Dose: 1 amp Azithromycin (Zithromax -) 250 mg PO DAILY [facility] Last Admin: 09/27/17 10:20 Dose: 250 mg Budesonide/Formoterol Fumarate (Symbicort 160/4.5mcg -) 2 puff IH BID [facility] Last Admin: 09/27/17 10:20 Dose: 1 inh Methylprednisolone Sodium Succinate (Solu-Medrol -) 40 mg IVPUSH Q8H-IV [facility] Last Admin: 09/27/17 10:20 Dose: 40 mg Nystatin (Nystatin Oral Suspension -) 500,000 units PO Q6HPO [facility] Last Admin: 09/27/17 06:20 Dose: 500,000 units Constitutional: Yes: More comfortable Eyes: Yes: Conjunctiva Clear, EOM Intact HENT: Yes: Atraumatic, Normocephalic Neck: Yes: Supple, Trachea Midline Cardiovascular: Yes: Regular Rate and Rhythm Respiratory: Yes: distant breath sounds, Poor Air Entry, Improved wheeze ...Clubbing: No Gastrointestinal: Yes: Normal Bowel Sounds, Soft. No: Tenderness Edema: No Neurological: Yes: Alert, Oriented Labs: Problem List - Problems (1) COPD exacerbation Code(s): J44.1 - CHRONIC OBSTRUCTIVE PULMONARY DISEASE W (ACUTE) EXACERBATION (2) Acute on chronic respiratory failure with hypoxia and hypercapnia Code(s): J96.21 - ACUTE AND CHRONIC RESPIRATORY FAILURE WITH HYPOXIA; J96.22 - ACUTE AND CHRONIC RESPIRATORY FAILURE WITH HYPERCAPNIA (3) Emphysema of lung Code(s): J43.9 - EMPHYSEMA, UNSPECIFIED (4) HTN (hypertension) Code(s): I10 - ESSENTIAL (PRIMARY) HYPERTENSION (5) Pulmonary hypertension Code(s): I27.2 - OTHER SECONDARY PULMONARY HYPERTENSION * DO NOT USE * Assessment/Plan: Acute on Chronic Hypoxic and Hypercapneic Respiratory Failure Acute COPD Exacerbation Emphysema Chronic Bronchitis LV Diastolic Dysfunction HTN Hyperlipidemia - Taper IV medrol - inhaled bronchodilators standing and PRN - O2 to keep SpO2 >90% - Continue nystatin swish/swallow for thrush - Azithromycin - Can likely change to PO therapy and D/C in AM Dr Latham
[2017-09-28] MEDS: NYSTATIN 500,000 UNITS/5 ML SUSPENSION PO SCH ×2 (00:56→06:20)
[2017-09-28] MEDS: ALBUTEROL SO4 2.5/IPRATROPIUM 0.5 INH SOL 3 ML VIAL.NEB. NEB SCH ×2 (07:20→11:23)
--- NOTE | 2017-09-28 08:21 | DS ---
Physical Examination Vital Signs: Vital Signs Temperature 98.6 F 09/28/17 06:00 Pulse Rate 68 09/28/17 06:00 Respiratory Rate 18 09/28/17 06:00 Blood Pressure 145/81 09/28/17 06:00 O2 Sat by Pulse Oximetry (%) 98 09/27/17 21:00 Findings/Remarks: Admitted with respiratory failure and exacerbation of COPD Treated with steroids and PO antibiotics ,improved Constitutional: Yes: No Distress Eyes: Yes: WNL HENT: Yes: WNL Neck: Yes: WNL Cardiovascular: Yes: WNL Respiratory: Yes: On Nasal O2 Gastrointestinal: Yes: WNL Renal/: Yes: WNL Breast(s): Yes: WNL Edema: No Integumentary: Yes: WNL Psychiatric: Yes: Alert Labs: CBC, BMP 09/23/17 16:00 09/23/17 16:00 Discharge Summary Reason For Visit: ACUTE EXACERBATION OF CHRONIC OBSTRUCTIVE Current Active Problems COPD exacerbation (Acute) Condition: Critical - Instructions - Home Medications Comprehensive Discharge Medication List: Ambulatory Orders Albuterol 0.083% Nebulizer Noemy [Ventolin 0.083%] 1 neb NEB QID 09/23/17 Albuterol Sulfate Inhaler - [Ventolin Hfa Inhaler -] 1 - 2 inh PO QID 09/23/17 Bimatoprost [Lumigan] 1 drop OU HS 09/23/17 Biotin/Keratin [Biotin Plus Keratin Tablet] 1 each PO DAILY 09/23/17 Budesonide/Formeterol Fumarate [SYMBICORT 80/4.5mcg -] 1 inh PO DAILY 09/23/17 Calcium (Oyster Shell) [Os-Ignacio 500Mg -] 500 mg PO BID 09/23/17 Multivitamins [Tab-A-Vit -] 1 tab PO DAILY 09/23/17 Prednisone [Deltasone] 20 mg PO DAILY 09/23/17 Tiotropium [place] [Spiriva] 1 inh IH DAILY 09/23/17
[2017-09-28] MEDS ORDERED: PT OWN MED DRAWER 7, Y5N ONE (09:32)
[2017-09-28] MEDS: methylPREDNISolone NA SUCC 40 MG/1 ML VIAL IVPUSH SCH (09:35)
[2017-09-28] MEDS: BUDESONIDE/FORMETEROL FUMARATE 160/4.5 mcg INHALER IH SCH (09:35)
[2017-09-28] MEDS: AZITHROMYCIN 250 MG TABLET PO SCH (09:35)
[2017-09-28 10:09] VITALS: BP 148/70; PULSE 77; TEMP 98.2
== END 2017-09-28 12:41 | disposition home or self-care (01) | DRG 189 ==
LOC: JER 15:16 → JERBED 18:30 → J6S 09-24 12:53
PROVIDERS: ADMIT Internal Medicine; ATTEND Internal Medicine
DX: J96.21 Acute and chronic respiratory failure with hypoxia (principal); J44.1 Chronic obstructive pulmonary disease with (acute) exacerbation; J96.22 Acute and chronic respiratory failure with hypercapnia; I10 Essential (primary) hypertension; I27.20 Pulmonary hypertension, unspecified; J43.9 Emphysema, unspecified; J42 Unspecified chronic bronchitis; E78.5 Hyperlipidemia, unspecified; Z87.891 Personal history of nicotine dependence
CPT/HCPCS: 36415; 71045-TC-FY; 80053; 81003; 82550; 82553; 82803; 83880; 84484; 85025; 87086; 93005; 93010; 94640; 94660; 97116-GP; 97161-GP; 99285-25; J7620

== ENCOUNTER 2018-02-13 13:20 | Inpatient (IN) | payer OTHER, BC ==
--- NOTE | 2018-02-13 13:33 | PDOC ---
Rapid Medical Evaluation Time Seen by Provider: 02/13/18 13:31 Medical Evaluation: Allergies Allergy/AdvReac Type Severity Reaction Status Date / Time No Known Allergies Allergy Verified 08/22/16 10:15 02/13/18 13:31 I have performed a brief in-person evaluation of this patient. The patient presents with a chief complaint of: fever, VERAS, SOB. h/o COPD on home o2 Pertinent physical exam findings: diminished breath sounds all salazar. + rhinorrhea I have ordered the following: flu, labs, CXR, EKG The patient will proceed to the ED for further evaluation. Discharge Disposition - Diagnosis SOB (shortness of breath) - Referrals - Patient Instructions - Post Discharge Activity
--- NOTE | 2018-02-13 14:16 | PDOC ---
History of Present Illness - General Chief Complaint: Shortness of Breath Stated Complaint: PCP SENT/SHORTNESS OF BREATH Time Seen by Provider: 02/13/18 13:31 History Source: Patient Exam Limitations: No Limitations - History of Present Illness Initial Comments: 02/13/18 14:15 82 year old woman with history of HTN, HLD, CHF, COPD (3L home O2) who presents with nausea, shortness of breath, coughing yellow sputum for 2 days and a Tmax 101.1F recorded 1 day ago under the tongue. The patient called Dr. Browning her cardiovascular sonographer who advised her that she come into the ED. The patient denies chest pain and states that she currently does not feel short of breath on her 3L O2 and currently is not nauseous. The patient has not taken any medications for her symptoms. The patient denies vomiting, abdominal pain, diarrhea, dysuria , hematuria or headaches. The patient denies recent travel, long flights, car rides or other recent illness. Past History - Past Medical History Allergies/Adverse Reactions: Allergies Allergy/AdvReac Type Severity Reaction Status Date / Time No Known Allergies Allergy Verified 02/13/18 13:35 Home Medications: Ambulatory Orders Albuterol 0.083% Nebulizer Noemy [Ventolin 0.083% Nebulizer Soln -] 1 neb NEB QID 09/23/17 Albuterol Sulfate Inhaler - [Ventolin HFA Inhaler -] 1 - 2 inh PO QID 09/23/17 Bimatoprost [Lumigan] 1 drop OU HS 09/23/17 Biotin/Keratin [Biotin Plus Keratin Tablet] 1 each PO DAILY 09/23/17 Budesonide/Formeterol Fumarate [SYMBICORT 80/4.5mcg -] 1 inh PO DAILY 09/23/17 Calcium (Oyster Shell) [Os-Ignacio 500MG -] 500 mg PO BID 09/23/17 Multivitamins [Multivit ([facility] Formulary)] 1 tab PO DAILY 09/23/17 Prednisone [Deltasone] 20 mg PO DAILY 09/23/17 Tiotropium [place] [Spiriva] 1 inh IH DAILY 09/23/17 Albuterol 0.083% Nebulizer Noemy [Ventolin 0.083% Nebulizer Soln -] 1 amp NEB Q4H PRN amp 09/28/17 Albuterol 2.5/Ipratropium 0.5 [Duoneb -] 1 amp NEB RQID amp 09/28/17 Azithromycin [Zithromax 250mg Tablets -] 250 mg PO DAILY tablet 09/28/17 Budesonide/Formeterol Fumarate [SYMBICORT 160/4.5mcg -] 2 puff IH BID inhaler 09/28/17 COPD: Yes (HOME O2- 3L) HTN: Yes - Surgical History Abdominal Surgery: No Appendectomy: No Cardiac Surgery: No Cholecystectomy: No Gastric Stapling: No GI Surgery: No Lung Surgery: No Neurologic Surgery: No Orthopedic Surgery: No - Suicide/Smoking/Psychosocial Hx Smoking Status: Yes Smoking History: Never smoked Have you smoked in the past 12 months: No Number of Cigarettes Smoked Daily: 0 If you are a former smoker, when did you quit?: 2005 Hx Alcohol Use: No Drug/Substance Use Hx: No Substance Use Type: None Hx Substance Use Treatment: No Review of Systems - Review of Systems Able to Perform ROS?: Yes Is the patient limited Citizen Of [place] proficient: No Constitutional: Yes: Fever. No: Chills HEENTM: No: Blurred Vision, Tinnitus Respiratory: Yes: Cough Cardiac (ROS): No: Chest Pain, Lightheadedness, Palpitations ABD/GI: Yes: Constipated, Nausea. No: Diarrhea, Vomiting : No: Burning, Dysuria, Hematuria Musculoskeletal: No: Back Pain Neurological: No: Headache, Numbness, Tingling Endocrine: No: Excessive Sweating *Physical Exam - Vital Signs Last Vital Signs Temp Pulse Resp BP Pulse Ox 98.8 F 100 H 20 130/76 100 02/13/18 13:32 02/13/18 13:32 02/13/18 13:32 02/13/18 13:32 02/13/18 13:32 - Physical Exam Comments: 02/13/18 14:31 GENERAL: Awake, alert, and fully oriented, in no acute distress, weak appearing on 3L NC HEAD: No signs of trauma, normocephalic, atraumatic EYES: EOMI, sclera anicteric, conjunctiva clear ENT: oropharynx clear without exudates. Moist mucosa NECK: Normal ROM, supple LUNGS: No distress, speaks full sentences, decreased breath sounds in all lung salazar HEART: Regular rate and rhythm, normal S1 and S2, no murmurs, rubs or gallops, peripheral pulses normal and equal bilaterally. ABDOMEN: Soft, nontender, normoactive bowel sounds. No guarding, no rebound. No masses EXTREMITIES : Normal inspection, Normal range of motion, no edema. R feliciano 2cm lesion scabbed over w/ erythema, R arm with scabbed over lesion NEUROLOGICAL: Cranial nerves II through XII grossly intact. Normal speech, no focal sensorimotor deficits SKIN: Warm, Dry, normal turgor, no rashes or lesions noted Moderate Sedation - Procedure Monitoring Vital Signs: Procedure Monitoring Vital Signs Temperature 98.8 F 02/13/18 13:32 Pulse Rate 100 H 02/13/18 13:32 Respiratory Rate 20 02/13/18 13:32 Blood Pressure 130/76 02/13/18 13:32 O2 Sat by Pulse Oximetry (%) 100 02/13/18 13:32 ED Treatment Course - LABORATORY CBC & Chemistry Diagram: 02/13/18 14:31 02/13/18 14:31 Medical Decision Making - Medical Decision Making 02/13/18 14:30 82 year old woman with history of HTN, HLD, CHF, COPD (3L home O2) who presents with nausea, coughing yellow sputum for 2 days and a Tmax 101.1F recorded 1 day ago under the tongue. The patient called Dr. Browning her cardiovascular sonographer who advised her that she come into the ED. The patient denies chest pain and states that she currently does not feel short of breath on her 3L O2. ED Course: consider pna vs copd exacerbation vs chf exacerbation vs ACS also uti vs arrythmia cbc, cmp, bnp, cxr, ekg, trop, ua 02/13/18 15:12 negative influenza ceftriaxone and azithromycin for empiric pna coverage Patient with difficulty breathing while ambulating to [facility]. Mg, pred, neb to be given CXR: hyperinflated, midline airway, appropriate vascular markings, no blunting of costophrenic angle, no cardiomegaly, as read by this selling underwriter and attending. Labwork unremarkable. Clinically patient with mild respiratory distress when ambulating. Will admit for COPD exacerbation for further workup and evaluation *DC/Admit/Observation/Transfer Diagnosis at time of Disposition: SOB (shortness of breath) - Discharge Dispostion Condition at time of disposition: Stable Decision to Admit order: Yes - Referrals - Patient Instructions - Post Discharge Activity
[2018-02-13 14:52] LABS: HEMATOCRIT 40.1 % (32.4-45.2); HEMOGLOBIN 12.9 GM/dL (10.7-15.3); MCH 31.9 pg (25.7-33.7); MEAN CELL VOLUME 99.6 fl (80-96); MEAN PLT VOLUME 8.4 fl (7.5-11.1); MONO % 10.8 % (3.8-10.2); NEUT % 74.5 % (42.8-82.8); PLATELET COUNT 165 K/MM3 (134-434); RBC 4.03 M/mm3 (3.60-5.2); WHITE BLOOD COUNT 4.8 K/mm3 (4.0-10.0)
[2018-02-13 14:53] LABS: BASO % 0.4 % (0-2.0); EOS % 2.3 % (0-4.5)
[2018-02-13] MEDS ORDERED: AZITHROMYCIN IVPB 500 MG in DEXTROSE 5%-WATER - 250 ML IVPB ONE (15:23)
[2018-02-13] MEDS ORDERED: CEFTRIAXONE 1 GM in DEXTROSE 5%-WATER - 100 ML IVPB ONE (15:24)
[2018-02-13 15:35] LABS: ALBUMIN 3.3 g/dl (3.4-5.0); ALK PHOS 60 U/L (45-117); ANION GAP 3 MMOL/L (8-16); BILIRUBIN,TOTAL 0.6 mg/dL (0.2-1); BLOOD UREA NITROGEN 32 mg/dL (7-18); CALCIUM 8.9 mg/dL (8.5-10.1); CHLORIDE 99 mmol/L (98-107); CO2 35 mmol/L (21-32); CREATININE 0.7 mg/dL (0.55-1.3); GLUCOSE,RANDOM 77 mg/dL (74-106); N-TERMINAL BNP 183.4 pg/ml (5-450); SGOT/AST 42 U/L (15-37); SGPT/ALT 30 U/L (13-61); SODIUM 137 mmol/L (136-145); TOT PROT 6.2 g/dl (6.4-8.2)
[2018-02-13] MEDS ORDERED: AZITHROMYCIN IVPB 500 MG/250 ML BAG IVPB ONE (15:39)
[2018-02-13] MEDS ORDERED: CEFTRIAXONE 1 GM/50 ML BAG ONE (15:40)
[2018-02-13 15:46] LABS: INR 0.97 (0.83-1.09); PROTHROMBIN TIME (PATIENT) 11.4 SEC (9.7-13.0)
--- NOTE | 2018-02-13 15:46 | EKG ---
Test Reason : Blood Pressure : / mmHG Vent. 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
[2018-02-13 15:48] LABS: ACTIVATED PTT 26.5 SECONDS (25.2-36.5)
--- NOTE | 2018-02-13 16:10 | PDOC ---
Attending Attestation - Resident Resident Name: RogerHector laneie - ED Attending Attestation I have performed the following: I have examined & evaluated the patient, The case was reviewed & discussed with the resident, I agree w/resident's findings & plan - [facility] HPI: 02/13/18 17:01 The patient is an 81-year-old with a significant past medical history of HTN, HLD, CHF, COPD (home O2 dependent on 3L), and CO2 retention. who presents to the emergency department via EMS with nausea and yellow sputum/cough x 2 days, fever Tmax 101 [address]. The patient called Dr. Browning her coroner technician who advised her that she come into the ED. The patient denies chest pain and states that she currently does not feel short of breath on her 3L O2 and currently is not nauseous. The patient has not taken any medications for her symptoms. The patient denies chest pain, shortness of breath, headache and dizziness. The patient denies fever, chills, vomit, diarrhea and constipation. The patient denies dysuria, frequency, urgency and hematuria. Allergies: No Known Drug Allergies PSHx: Cataract surgery. SHx: Former smoker. She denies ETOH and recreational drug use. PCP: Dr. William Rivas [phone] [place]: Dr. Praveen Mejia [phone]?? Dr. Browning - Physicial Exam PE: 02/13/18 17:02 Moderate respiratory distress, on NC, PERRL, EOMI, dry membranes, nl conjunctiva , anicteric; neck supple. diminished breath sounds throughout, basilar crackles. poor inspiratory effort, kyphotic, mildly tachypneic with exertion. RRR, abdomen soft nontender. LUNDBERG x4, No peripheral edema. normal color for ethnicity, WWP. no calf tenderness 02/13/18 17:04 - Medical Decision Making 02/13/18 17:03 I, Karen Vargas MD, attest that this document has been prepared under my direction and personally reviewed by me in its entirety. I further attest, that it accurately reflects all work, treatment, procedures and medical decision -making performed by me. See HPI for details DDx. bronchitis, COPD exacerbation, influenza, pneumonia, viral syndrome, pleurisy, pleural effusion, anemia, electrolyte/metabolic derangements. Vital signs reviewed, tachypneic. no fever here Prior notes reviewed, including admissions, discharges and consultations. laboratory results and imaging reviewed, basic labs and lytes wnl, normal VBG. Influenza neg CXR_COPD appearance, no infiltrate Cardiac panel_neg trop EKG normal sinus rhythm, no interval abnormalities, narrow QRS, ST and T wave segments and morphology normal. Nonspecific T wave abnormalities ED course: duonebs x3, solumedrol and magnesium. IV cef/azithro for infection/ppx given comorbidities and historical fever clinically improved with tx. on monitor, no acute sx or changes while in ED Admit for COPD exacerbation. pt and family made aware, continued treatment and supportive care and inpatient pulm eval. 02/13/18 19:54 Heart Score/ECG Review - ECG Impressions Normal ECG: Yes Comment:: 02/13/18 19:55 EKG normal sinus rhythm, no interval abnormalities, narrow QRS, ST and T wave segments and morphology normal. Nonspecific T wave abnormalities
[2018-02-13] MEDS ORDERED: MAGNESIUM SULF 50% (8.12 MEQ/2 ML-1 GM VIAL) IVPB ONE (16:50)
[2018-02-13] MEDS ORDERED: methylPREDNISolone NA SUCC 125 MG/2 ML VIAL IVPUSH ONE (16:50)
[2018-02-13] MEDS ORDERED: ALBUTEROL SO4 2.5/IPRATROPIUM 0.5 INH SOL 3 ML VIAL.NEB. NEB ONE (17:06)
[2018-02-13] MEDS ORDERED: methylPREDNISolone NA SUCC 125 MG/2 ML VIAL ONE (17:06)
[2018-02-13] MEDS ORDERED: MAGNESIUM 1GM/D5W - 2 GM/200 ML IVPB IVPB ONE (17:07)
[2018-02-13] MEDS: ALBUTEROL SO4 2.5/IPRATROPIUM 0.5 INH SOL 3 ML VIAL.NEB. NEB SCH ×3 (17:23→17:46)
[2018-02-13 17:38] LABS: URINE APPEARANCE CLEAR; URINE BILIRUBIN NEGATIVE (<2.0 mg/dL); URINE COLOR YELLOW; URINE GLUCOSE (UA) NEGATIVE (NEGATIVE); URINE KETONE 1+ (NEGATIVE); URINE LEUK ESTERASE NEGATIVE (NEGATIVE); URINE NITRITE NEGATIVE (NEGATIVE); URINE PROTEIN NEGATIVE (NEGATIVE); URINE UROBILINOGEN NEGATIVE mg/dL (0.2-1.0)
[2018-02-13] MEDS: methylPREDNISolone NA SUCC 40 MG/1 ML VIAL IVPUSH SCH (23:11)
[2018-02-13] MEDS: BUDESONIDE/FORMETEROL FUMARATE 160/4.5 mcg INHALER IH SCH (23:12)
[2018-02-14] MEDS: methylPREDNISolone NA SUCC 40 MG/1 ML VIAL IVPUSH SCH ×3 (02:52→17:12)
[2018-02-14] MEDS ORDERED: PT OWN MED DRAWER 7, Y5N ONE ×2 (09:42→12:37)
--- NOTE | 2018-02-14 09:42 | PN ---
Progress Note, Physician Chief Complaint: Pt seen and examined SOB still present afebrile Pt is on oxygen - Current Medication List Current Medications: Active Medications Albuterol Sulfate (Ventolin 0.083% Nebulizer Soln -) 1 amp NEB Q6H PRN PRN Reason: SHORT OF BREATH/WHEEZING Azithromycin (Zithromax -) 250 mg PO DAILY [facility] Budesonide/Formoterol Fumarate (Symbicort 160/4.5mcg -) 2 puff IH BID [facility] Last Admin: 02/13/18 23:12 Dose: 2 puff Methylprednisolone Sodium Succinate (Solu-Medrol -) 40 mg IVPUSH Q8H-IV [facility] Last Admin: 02/14/18 02:52 Dose: 40 mg - Objective Vital Signs: Vital Signs Temperature 98.0 F 02/14/18 06:00 Pulse Rate 78 02/14/18 06:00 Respiratory Rate 18 02/14/18 06:00 Blood Pressure 150/77 02/14/18 06:00 O2 Sat by Pulse Oximetry (%) 100 02/13/18 21:00 Constitutional: Yes: Mild Distress Eyes: Yes: Conjunctiva Clear HENT: Yes: Atraumatic, Normocephalic Neck: Yes: Supple, Trachea Midline Cardiovascular: Yes: Regular Rate and Rhythm Respiratory: Yes: Regular, Cough, Diminished, On Nasal O2, SOB Gastrointestinal: Yes: Normal Bowel Sounds, Soft Musculoskeletal: Yes: WNL Extremities: Yes: WNL Edema: No Peripheral Pulses WNL: Yes Neurological: Yes: WNL, Alert ...Motor Strength: WNL Psychiatric: Yes: WNL Labs: CBC, BMP 02/13/18 14:31 02/13/18 14:31 INR, PTT INR 0.97 (0.83-1.09) 02/13/18 15:17 - ....Imaging Chest X-ray: Report Reviewed Assessment/Plan Copd excacerbation SOB Acute on chronic resp failure with hypoxia and hypercapnoea PULMONARY HTN Malnourished Plan continue bronchodialators continue Oxygen Continue IV steroid PUL f/u
[2018-02-14] MEDS: AZITHROMYCIN 250 MG TABLET PO SCH (09:44)
--- NOTE | 2018-02-14 10:20 | CON.PULM ---
Consult Consult Specialty:: PULM/CCM Referred by:: TIKI Reason for Consultation:: SOB - History of Present Illness Chief Complaint: SOB History of Present Illness: 81 F, HTN, HLD, CHF, COPD (home O2 dependent on 3L), and CO2 retention. Admitted via the ER due to due SOB, associated with nausea, yellow sputum/cough x 2 days, and fever of 101. She was referred to the ER by her scouring pads supervisor, Dr Browning. No travel history or sick contacts. No night sweats or hemoptysis. CXR: Hyperinflated / no acute process. - History Source History Provided By: Patient Limitations to Obtaining History: No Limitations - Past Medical History Cardio/Vascular: Yes: HTN, Hyperlipdemia Pulmonary: Yes: Bronchitis, COPD, O2 Dependent, Pneumonia. No: Pulmonary Embolus, Pulmonary Fibrosis, Sleep Apnea ...: No - Alcohol/Substance Use Hx Alcohol Use: No - Smoking History Smoking history: Never smoked Have you smoked in the past 12 months: No Aproximately how many cigarettes per day: 0 If you are a former smoker, when did you quit?: 2005 Home Medications - Allergies Allergies/Adverse Reactions: Allergies Allergy/AdvReac Type Severity Reaction Status Date / Time No Known Allergies Allergy Verified 02/13/18 13:35 - Home Medications Home Medications: Ambulatory Orders Albuterol 0.083% Nebulizer Noemy [Ventolin 0.083% Nebulizer Soln -] 1 neb NEB QID 09/23/17 Albuterol Sulfate Inhaler - [Ventolin HFA Inhaler -] 1 - 2 inh PO QID 09/23/17 Bimatoprost [Lumigan] 1 drop OU HS 09/23/17 Biotin/Keratin [Biotin Plus Keratin Tablet] 1 each PO DAILY 09/23/17 Budesonide/Formeterol Fumarate [SYMBICORT 80/4.5mcg -] 1 inh PO DAILY 09/23/17 Calcium (Oyster Shell) [Os-Ignacio 500MG -] 500 mg PO BID 09/23/17 Multivitamins [Multivit ([facility] Formulary)] 1 tab PO DAILY 09/23/17 Prednisone [Deltasone] 20 mg PO DAILY 09/23/17 Tiotropium [place] [Spiriva] 1 inh IH DAILY 09/23/17 Albuterol 0.083% Nebulizer Noemy [Ventolin 0.083% Nebulizer Soln -] 1 amp NEB Q4H PRN amp 09/28/17 Albuterol 2.5/Ipratropium 0.5 [Duoneb -] 1 amp NEB RQID amp 09/28/17 Azithromycin [Zithromax 250mg Tablets -] 250 mg PO DAILY tablet 09/28/17 Budesonide/Formeterol Fumarate [SYMBICORT 160/4.5mcg -] 2 puff IH BID inhaler 09/28/17 Review of Systems - Review of Systems Constitutional: reports: Malaise. denies: Chills, Fever, Night Sweats, Weakness Eyes: reports: No Symptoms HENT: reports: No Symptoms Neck: reports: No Symptoms Cardiovascular: reports: Shortness of Breath. denies: Chest Pain, Edema, Palpitations Respiratory: reports: Cough, SOB, SOB on Exertion, Wheezing. denies: Hemoptysis , Orthopnea Gastrointestinal: reports: No Symptoms Genitourinary: reports: No Symptoms Breasts: reports: No Symptoms Reported Musculoskeletal: reports: No Symptoms Integumentary: reports: No Symptoms Neurological: reports: No Symptoms Endocrine: reports: No Symptoms Hematology/Lymphatic: reports: No Symptoms Psychiatric: reports: No Symptoms Physical Exam Vital Sings: Vital Signs Temperature 98.0 F 02/14/18 06:00 Pulse Rate 78 02/14/18 06:00 Respiratory Rate 18 02/14/18 06:00 Blood Pressure 150/77 02/14/18 06:00 O2 Sat by Pulse Oximetry (%) 100 02/13/18 21:00 Constitutional: Yes: Mild Distress, Thin Eyes: Yes: Conjunctiva Clear, EOM Intact HENT: Yes: Atraumatic, Normocephalic Neck: Yes: Supple, Trachea Midline Cardiovascular: Yes: Regular Rate and Rhythm Respiratory: Yes: Cough, Diminished, On Nasal O2, Rhonchi, SOB, SOB on Exertion , Stridor, Tachypnea, Wheezes. No: Accessory Muscle Use, Rales ...Inspection: Yes: WNL ...Clubbing: No Gastrointestinal: Yes: Normal Bowel Sounds, Soft Renal/: Yes: WNL Musculoskeletal: Yes: WNL Extremities: Yes: WNL Edema: No Peripheral Pulses WNL: Yes Integumentary: Yes: WNL Neurological: Yes: WNL, Alert, Oriented ...Motor Strength: WNL Psychiatric: Yes: WNL, Alert, Oriented Labs: CBC, BMP 02/13/18 14:31 02/13/18 14:31 Imaging - Results Chest X-ray: Report Reviewed, Image Reviewed Problem List - Problems (1) Malnourished Code(s): E46 - UNSPECIFIED PROTEIN-CALORIE MALNUTRITION (2) SOB (shortness of breath) Code(s): R06.02 - SHORTNESS OF BREATH (3) Acute on chronic respiratory failure with hypoxia and hypercapnia Code(s): J96.21 - ACUTE AND CHRONIC RESPIRATORY FAILURE WITH HYPOXIA; J96.22 - ACUTE AND CHRONIC RESPIRATORY FAILURE WITH HYPERCAPNIA (4) COPD exacerbation Code(s): J44.1 - CHRONIC OBSTRUCTIVE PULMONARY DISEASE W (ACUTE) EXACERBATION (5) Emphysema of lung Code(s): J43.9 - EMPHYSEMA, UNSPECIFIED (6) Pulmonary hypertension Code(s): I27.2 - OTHER SECONDARY PULMONARY HYPERTENSION * DO NOT USE * Assessment/Plan Medrol O2 @ 3 L NC BD TX Spiriva VTE prophylaxis No smoking Zithromax Will follow Thank you. Dr Latham
--- NOTE | 2018-02-14 11:22 | HP ---
DATE OF ADMISSION: 02/13/2018 Patient is an 82-year-old female with a history of hypertension, hyperlipidemia, history of CHF, COPD on home O2 at 3 L, presented with nausea, shortness of breath, coughing, yellow sputum for 2 days, and temperature 101 recorded 1 day ago under the tongue. Patient called her special service officer who recommended her to come to the emergency room for further evaluation. As per the patient, she was taking her regular medication until 3 days ago, and the patient was taking the prednisone 40 mg p.o. daily, also, but there was no relief. So, she called the special service officer who recommended to come to the ER. No chest pain. No palpitations. No headache. ALLERGIES: No known drug allergies. MEDICATIONS: Patient is taking albuterol nebulizing liquid, Lumigan eye drops, multivitamins, Symbicort, oyster calcium, prednisone 40 mg daily, Spiriva 1 inhalation daily. PAST MEDICAL HISTORY: Significant for COPD and hypertension. SURGICAL HISTORY: Nothing significant. SOCIAL HISTORY: Patient never smoked. REVIEW OF SYSTEMS: General: Mild distress present. Head and Neck: No blurred vision. Respiratory: Infection, shortness of breath, and cough. Cardiovascular: No chest pain. No palpitations. Abdomen: No constipation. Mild nausea present. Genitourinary: No symptoms. Musculoskeletal: No back pain. Neurological: No headache. No numbness. No tingling. Endocrine: No excessive sweating. PHYSICAL EXAMINATION: Vital Signs: In the emergency room, temperature 98.8, pulse 100 per minute, respirations 20, blood pressure 130/76, saturation 100%. General: Patient is awake, alert, and fully oriented. Mild distress present. Patient is on 3 L nasal oxygen. Head and Neck: Normocephalic, atraumatic. Pupils equally reactive to light and accommodation. Mouth normal. Neck: No JVD. Lungs: Decreased breath sounds in all lung salazar. No crackles. Heart: First and second sounds normal. No gallop. Extremities: Normal. No edema. Neurological: Alert, oriented x3. Cranial nerves 2-12 normal. No apparent motor or sensory deficit. Reflexes normal. LABORATORY DATA: CBC: WBC 4.8, hemoglobin 12.9, hematocrit 40.1, platelets 165. Comprehensive panel normal. Chest x-ray: No infiltrates, COPD findings. No acute disease. EKG: Normal sinus rhythm, possible left atrial enlargement, left axis deviation, and septal infarct. No acute change. Patient was given Solu-Medrol 125 mg IV push in the ER, 1 dose of Zithromax, and ceftriaxone 1 dose. Magnesium sulfate and DuoNeb nebulizer treatment given. Case discussed with the special service officer. Recommend to admit her and to continue the bronchodilators and IV steroid and O2. So, patient admitted to the floor with admitting diagnosis of shortness of breath and chronic obstructive pulmonary disease exacerbation. PLAN: Continue the bronchodilators, continue IV steroids. Pulmonary followup. Continue nasal oxygen. Will monitor the patient. Patient stable on the floor. Sandy [id number]
[2018-02-14] MEDS: ALBUTEROL SO4 0.083% IH SOL 2.5 MG/3 ML VIAL.NEB. NEB PRN ×2 (11:51→21:16)
[2018-02-14] MEDS: BUDESONIDE/FORMETEROL FUMARATE 160/4.5 mcg INHALER IH SCH ×2 (14:46→21:35)
[2018-02-14] MEDS: TIOTROPIUM BROMIDE 2.5 MCG (SPIRIVA) RESPIMAT INHALER IH SCH (14:46)
[2018-02-14 16:49] VITALS: BMI 16.6
[2018-02-15] MEDS: methylPREDNISolone NA SUCC 40 MG/1 ML VIAL IVPUSH SCH ×3 (01:57→18:19)
[2018-02-15] MEDS: ALBUTEROL SO4 0.083% IH SOL 2.5 MG/3 ML VIAL.NEB. NEB PRN ×2 (07:56→20:53)
--- NOTE | 2018-02-15 09:43 | PN ---
Progress Note, Physician Chief Complaint: Pt seen and examined C/o abdominal bloating and acidity small skin abrasion on rt leg SOB still present afebrile Pt is on oxygen - Current Medication List Current Medications: Active Medications Albuterol Sulfate (Ventolin 0.083% Nebulizer Soln -) 1 amp NEB Q6H PRN PRN Reason: SHORT OF BREATH/WHEEZING Last Admin: 02/15/18 07:56 Dose: 1 amp Albuterol Sulfate (Ventolin 0.083% Nebulizer Soln -) 1 amp NEB Q4H PRN PRN Reason: SHORT OF BREATH/WHEEZING Azithromycin (Zithromax -) 250 mg PO DAILY [facility] Last Admin: 02/14/18 09:44 Dose: 250 mg Budesonide/Formoterol Fumarate (Symbicort 160/4.5mcg -) 2 puff IH BID [facility] Last Admin: 02/14/18 21:35 Dose: Not Given Methylprednisolone Sodium Succinate (Solu-Medrol -) 40 mg IVPUSH Q8H-IV [facility] Last Admin: 02/15/18 01:57 Dose: 40 mg Tiotropium [place] (Spiriva Respimat) 2 puff IH DAILY [facility] Last Admin: 02/14/18 14:46 Dose: 2 puff - Objective Vital Signs: Vital Signs Temperature 97.9 F 02/15/18 06:00 Pulse Rate 70 02/15/18 06:00 Respiratory Rate 20 02/15/18 06:00 Blood Pressure 154/77 02/15/18 06:00 O2 Sat by Pulse Oximetry (%) 97 02/14/18 21:00 Constitutional: Yes: Mild Distress Eyes: Yes: Conjunctiva Clear HENT: Yes: Atraumatic Neck: Yes: Supple, Trachea Midline Cardiovascular: Yes: Regular Rate and Rhythm Respiratory: Yes: Cough, Diminished, On Nasal O2 Gastrointestinal: Yes: Normal Bowel Sounds, Soft Musculoskeletal: Yes: WNL Extremities: Yes: Other (rt leg skin abrasion) Edema: No Peripheral Pulses WNL: Yes Neurological: Yes: WNL, Alert ...Motor Strength: WNL Psychiatric: Yes: WNL Labs: CBC, BMP 02/13/18 14:31 02/13/18 14:31 INR, PTT INR 0.97 (0.83-1.09) 02/13/18 15:17 Assessment/Plan Copd excacerbation SOB Acute on chronic resp failure with hypoxia and hypercapnoea PULMONARY HTN Malnourished skin abrasion on leg GERD Plan continue bronchodialators continue Oxygen Continue IV steroid PUL f/u Protonix 40mg po daily Bacitracin ointment for local application
[2018-02-15] MEDS: PANTOPRAZOLE 20 MG TABLET (FP) PO SCH (11:34)
[2018-02-15] MEDS: BACITRACIN 15 GM TUBE TOPICAL OINTMENT TP SCH ×2 (11:34→21:33)
[2018-02-15] MEDS: AZITHROMYCIN 250 MG TABLET PO SCH (11:34)
[2018-02-15] MEDS: BUDESONIDE/FORMETEROL FUMARATE 160/4.5 mcg INHALER IH SCH ×2 (11:35→21:33)
[2018-02-15] MEDS: TIOTROPIUM BROMIDE 2.5 MCG (SPIRIVA) RESPIMAT INHALER IH SCH (11:35)
--- NOTE | 2018-02-15 15:35 | PN ---
Progress Note, Physician History of Present Illness: pulmonary alert,no distress,-cp,less dyspneic. - Current Medication List Current Medications: Active Medications Albuterol Sulfate (Ventolin 0.083% Nebulizer Soln -) 1 amp NEB Q6H PRN PRN Reason: SHORT OF BREATH/WHEEZING Last Admin: 02/15/18 07:56 Dose: 1 amp Albuterol Sulfate (Ventolin 0.083% Nebulizer Soln -) 1 amp NEB Q4H PRN PRN Reason: SHORT OF BREATH/WHEEZING Azithromycin (Zithromax -) 250 mg PO DAILY [facility] Last Admin: 02/15/18 11:34 Dose: 250 mg Bacitracin (Bacitracin -) 1 applic TP BID [facility] Last Admin: 02/15/18 11:34 Dose: 1 applic Budesonide/Formoterol Fumarate (Symbicort 160/4.5mcg -) 2 puff IH BID [facility] Last Admin: 02/15/18 11:35 Dose: 2 puff Methylprednisolone Sodium Succinate (Solu-Medrol -) 40 mg IVPUSH Q8H-IV [facility] Last Admin: 02/15/18 11:34 Dose: 40 mg Pantoprazole Sodium (Protonix -) 20 mg PO DAILY [facility] Last Admin: 02/15/18 11:34 Dose: 20 mg Tiotropium [place] (Spiriva Respimat) 2 puff IH DAILY [facility] Last Admin: 02/15/18 11:35 Dose: 2 puff - Objective Vital Signs: Vital Signs Temperature 97.9 F 02/15/18 06:00 Pulse Rate 70 02/15/18 06:00 Respiratory Rate 20 02/15/18 06:00 Blood Pressure 154/77 02/15/18 06:00 O2 Sat by Pulse Oximetry (%) 97 02/14/18 21:00 Constitutional: Yes: Calm, Cachectic Eyes: Yes: WNL HENT: Yes: WNL Neck: Yes: WNL Cardiovascular: Yes: Regular Rate and Rhythm, S1, S2 Respiratory: Yes: Diminished Gastrointestinal: Yes: Normal Bowel Sounds, Soft Extremities: Yes: WNL Edema: No Labs: CBC, BMP Assessment/Plan Problem List - Problems (1) Malnourished Code(s): E46 - UNSPECIFIED PROTEIN-CALORIE MALNUTRITION (2) SOB (shortness of breath) Code(s): R06.02 - SHORTNESS OF BREATH (3) Acute on chronic respiratory failure with hypoxia and hypercapnia Code(s): J96.21 - ACUTE AND CHRONIC RESPIRATORY FAILURE WITH HYPOXIA; J96.22 - ACUTE AND CHRONIC RESPIRATORY FAILURE WITH HYPERCAPNIA (4) COPD exacerbation Code(s): J44.1 - CHRONIC OBSTRUCTIVE PULMONARY DISEASE W (ACUTE) EXACERBATION (5) Emphysema of lung Code(s): J43.9 - EMPHYSEMA, UNSPECIFIED (6) Pulmonary hypertension Code(s): I27.2 - OTHER SECONDARY PULMONARY HYPERTENSION * DO NOT USE * Assessment/Plan Medrol same dose,start taper in am O2 @ 3 L NC BD TX Spiriva VTE prophylaxis Zithromax DR ABREU
[2018-02-16] MEDS: methylPREDNISolone NA SUCC 40 MG/1 ML VIAL IVPUSH SCH ×3 (01:48→21:34)
--- NOTE | 2018-02-16 09:14 | PN ---
Progress Note, Physician Chief Complaint: Pt seen and examined Pt feels slightly better C/o abdominal bloating and acidity small skin abrasion on rt leg SOB still present afebrile Pt is on oxygen - Current Medication List Current Medications: Active Medications Albuterol Sulfate (Ventolin 0.083% Nebulizer Soln -) 1 amp NEB Q6H PRN PRN Reason: SHORT OF BREATH/WHEEZING Last Admin: 02/15/18 20:53 Dose: 1 amp Albuterol Sulfate (Ventolin 0.083% Nebulizer Soln -) 1 amp NEB Q4H PRN PRN Reason: SHORT OF BREATH/WHEEZING Azithromycin (Zithromax -) 250 mg PO DAILY [facility] Last Admin: 02/15/18 11:34 Dose: 250 mg Bacitracin (Bacitracin -) 1 applic TP BID [facility] Last Admin: 02/15/18 21:33 Dose: 1 applic Budesonide/Formoterol Fumarate (Symbicort 160/4.5mcg -) 2 puff IH BID [facility] Last Admin: 02/15/18 21:33 Dose: 2 puff Methylprednisolone Sodium Succinate (Solu-Medrol -) 40 mg IVPUSH Q8H-IV [facility] Last Admin: 02/16/18 01:48 Dose: 40 mg Pantoprazole Sodium (Protonix -) 20 mg PO DAILY [facility] Last Admin: 02/15/18 11:34 Dose: 20 mg Tiotropium [place] (Spiriva Respimat) 2 puff IH DAILY [facility] Last Admin: 02/15/18 11:35 Dose: 2 puff - Objective Vital Signs: Vital Signs Temperature 98.1 F 02/16/18 06:00 Pulse Rate 63 02/16/18 06:00 Respiratory Rate 20 02/16/18 06:00 Blood Pressure 163/77 02/16/18 06:00 O2 Sat by Pulse Oximetry (%) 100 02/15/18 21:00 Constitutional: Yes: No Distress Eyes: Yes: Conjunctiva Clear HENT: Yes: Atraumatic Neck: Yes: Supple Cardiovascular: Yes: Regular Rate and Rhythm Respiratory: Yes: Regular, Cough, Diminished, On Nasal O2 Gastrointestinal: Yes: Normal Bowel Sounds Musculoskeletal: Yes: WNL Extremities: Yes: WNL Edema: No Peripheral Pulses WNL: Yes Neurological: Yes: WNL, Alert, Oriented ...Motor Strength: WNL Psychiatric: Yes: WNL Labs: CBC, BMP 02/13/18 14:31 02/13/18 14:31 INR, PTT INR 0.97 (0.83-1.09) 02/13/18 15:17 Assessment/Plan Copd excacerbation SOB Acute on chronic resp failure with hypoxia and hypercapnoea PULMONARY HTN Malnourished skin abrasion on leg GERD Plan continue bronchodialators continue Oxygen Continue IV steroid PUL f/u Protonix 40mg po daily Bacitracin ointment for local application amlodipine 5 mg po daily
[2018-02-16] MEDS ORDERED: amLODIPine BESYLATE 2.5 MG TABLET (FP) PO SCH (10:00)
[2018-02-16] MEDS ORDERED: PT OWN MED DRAWER 7, Y5N ONE ×3 (11:02→21:08)
[2018-02-16] MEDS: BUDESONIDE/FORMETEROL FUMARATE 160/4.5 mcg INHALER IH SCH ×2 (11:05→21:35)
[2018-02-16] MEDS: PANTOPRAZOLE 20 MG TABLET (FP) PO SCH (11:05)
[2018-02-16] MEDS: TIOTROPIUM BROMIDE 2.5 MCG (SPIRIVA) RESPIMAT INHALER IH SCH (11:05)
[2018-02-16] MEDS: AZITHROMYCIN 250 MG TABLET PO SCH (11:05)
[2018-02-16] MEDS: BACITRACIN 15 GM TUBE TOPICAL OINTMENT TP SCH ×2 (11:08→21:35)
[2018-02-16] MEDS: amLODIPine BESYLATE 2.5 MG TABLET (FP) PO SCH (11:53)
--- NOTE | 2018-02-16 13:09 | PN ---
Progress Note, Physician History of Present Illness: PULMONARY ALERT,FEELING BETTER,+COUGH,LESS DYSPNEIC - Current Medication List Current Medications: Active Medications Albuterol Sulfate (Ventolin 0.083% Nebulizer Soln -) 1 amp NEB Q6H PRN PRN Reason: SHORT OF BREATH/WHEEZING Last Admin: 02/15/18 20:53 Dose: 1 amp Albuterol Sulfate (Ventolin 0.083% Nebulizer Soln -) 1 amp NEB Q4H PRN PRN Reason: SHORT OF BREATH/WHEEZING Amlodipine Besylate (Norvasc -) 2.5 mg PO DAILY [facility] Last Admin: 02/16/18 11:53 Dose: Not Given Azithromycin (Zithromax -) 250 mg PO DAILY [facility] Last Admin: 02/16/18 11:05 Dose: 250 mg Bacitracin (Bacitracin -) 1 applic TP BID [facility] Last Admin: 02/16/18 11:08 Dose: 1 applic Budesonide/Formoterol Fumarate (Symbicort 160/4.5mcg -) 2 puff IH BID [facility] Last Admin: 02/16/18 11:05 Dose: 2 puff Methylprednisolone Sodium Succinate (Solu-Medrol -) 40 mg IVPUSH Q8H-IV [facility] Last Admin: 02/16/18 11:05 Dose: 40 mg Pantoprazole Sodium (Protonix -) 20 mg PO DAILY [facility] Last Admin: 02/16/18 11:05 Dose: 20 mg Tiotropium [place] (Spiriva Respimat) 2 puff IH DAILY [facility] Last Admin: 02/16/18 11:05 Dose: 2 puff - Objective Vital Signs: Vital Signs Temperature 98.1 F 02/16/18 06:00 Pulse Rate 63 02/16/18 06:00 Respiratory Rate 20 02/16/18 06:00 Blood Pressure 163/77 02/16/18 06:00 O2 Sat by Pulse Oximetry (%) 100 02/15/18 21:00 Constitutional: Yes: Calm, Thin Eyes: Yes: WNL Neck: Yes: WNL Cardiovascular: Yes: Regular Rate and Rhythm, S1, S2 Respiratory: Yes: Diminished Gastrointestinal: Yes: Normal Bowel Sounds, Soft Extremities: Yes: WNL Edema: No Labs: CBC, BMP 02/13/18 14:31 02/13/18 14:31 INR, PTT INR 0.97 (0.83-1.09) 02/13/18 15:17 Assessment/Plan Problem List - Problems (1) Malnourished Code(s): E46 - UNSPECIFIED PROTEIN-CALORIE MALNUTRITION (2) SOB (shortness of breath) Code(s): R06.02 - SHORTNESS OF BREATH (3) Acute on chronic respiratory failure with hypoxia and hypercapnia Code(s): J96.21 - ACUTE AND CHRONIC RESPIRATORY FAILURE WITH HYPOXIA; J96.22 - ACUTE AND CHRONIC RESPIRATORY FAILURE WITH HYPERCAPNIA (4) COPD exacerbation Code(s): J44.1 - CHRONIC OBSTRUCTIVE PULMONARY DISEASE W (ACUTE) EXACERBATION (5) Emphysema of lung Code(s): J43.9 - EMPHYSEMA, UNSPECIFIED (6) Pulmonary hypertension Code(s): I27.2 - OTHER SECONDARY PULMONARY HYPERTENSION * DO NOT USE * Assessment/Plan Medrol taper O2 @ 3 L NC BD TX Spiriva VTE prophylaxis Zithromax DR ABREU
--- NOTE | 2018-02-17 07:44 | PN ---
Progress Note, Physician Chief Complaint: Pt seen and examined Pt feels slightly better SOB improved afebrile Pt is on oxygen - Current Medication List Current Medications: Active Medications Albuterol Sulfate (Ventolin 0.083% Nebulizer Soln -) 1 amp NEB Q6H PRN PRN Reason: SHORT OF BREATH/WHEEZING Last Admin: 02/15/18 20:53 Dose: 1 amp Albuterol Sulfate (Ventolin 0.083% Nebulizer Soln -) 1 amp NEB Q4H PRN PRN Reason: SHORT OF BREATH/WHEEZING Amlodipine Besylate (Norvasc -) 2.5 mg PO DAILY [facility] Last Admin: 02/16/18 11:53 Dose: Not Given Azithromycin (Zithromax -) 250 mg PO DAILY [facility] Last Admin: 02/16/18 11:05 Dose: 250 mg Bacitracin (Bacitracin -) 1 applic TP BID [facility] Last Admin: 02/16/18 21:35 Dose: 1 applic Budesonide/Formoterol Fumarate (Symbicort 160/4.5mcg -) 2 puff IH BID [facility] Last Admin: 02/16/18 21:35 Dose: 2 puff Methylprednisolone Sodium Succinate (Solu-Medrol -) 40 mg IVPUSH BID [facility] Last Admin: 02/16/18 21:34 Dose: 40 mg Pantoprazole Sodium (Protonix -) 20 mg PO DAILY [facility] Last Admin: 02/16/18 11:05 Dose: 20 mg Tiotropium [place] (Spiriva Respimat) 2 puff IH DAILY [facility] Last Admin: 02/16/18 11:05 Dose: 2 puff - Objective Vital Signs: Vital Signs Temperature 98.2 F 02/17/18 06:19 Pulse Rate 68 02/17/18 06:19 Respiratory Rate 18 02/17/18 06:19 Blood Pressure 150/78 02/17/18 06:19 O2 Sat by Pulse Oximetry (%) 99 02/16/18 21:00 Constitutional: Yes: No Distress Eyes: Yes: Conjunctiva Clear HENT: Yes: Atraumatic, Normocephalic Neck: Yes: Supple, Trachea Midline Cardiovascular: Yes: Regular Rate and Rhythm Respiratory: Yes: Diminished, Dullness, On Nasal O2 Gastrointestinal: Yes: Normal Bowel Sounds, Soft Musculoskeletal: Yes: WNL Extremities: Yes: WNL Edema: No Peripheral Pulses WNL: No Neurological: Yes: Alert ...Motor Strength: WNL Psychiatric: Yes: WNL, Alert Labs: CBC, BMP 02/13/18 14:31 02/13/18 14:31 INR, PTT INR 0.97 (0.83-1.09) 02/13/18 15:17 Assessment/Plan Copd excacerbation SOB improving Acute on chronic resp failure with hypoxia and hypercapnoea PULMONARY HTN skin abrasion on leg GERD Plan continue bronchodialators continue Oxygen IV steroid tapering now PUL f/u Protonix 40mg po daily Bacitracin ointment for local application amlodipine2.5 mg po daily
[2018-02-17] MEDS: TIOTROPIUM BROMIDE 2.5 MCG (SPIRIVA) RESPIMAT INHALER IH SCH (10:31)
[2018-02-17] MEDS: AZITHROMYCIN 250 MG TABLET PO SCH (10:32)
[2018-02-17] MEDS: PANTOPRAZOLE 20 MG TABLET (FP) PO SCH (10:32)
[2018-02-17] MEDS: amLODIPine BESYLATE 2.5 MG TABLET (FP) PO SCH (10:32)
[2018-02-17] MEDS: methylPREDNISolone NA SUCC 40 MG/1 ML VIAL IVPUSH SCH (10:32)
[2018-02-17] MEDS: BACITRACIN 15 GM TUBE TOPICAL OINTMENT TP SCH ×2 (10:33→21:53)
[2018-02-17] MEDS: BUDESONIDE/FORMETEROL FUMARATE 160/4.5 mcg INHALER IH SCH ×2 (10:39→21:53)
--- NOTE | 2018-02-17 12:10 | PN ---
Progress Note, Physician History of Present Illness: pulmonary alert,feeling better,less dyspneic - Current Medication List Current Medications: Active Medications Albuterol Sulfate (Ventolin 0.083% Nebulizer Soln -) 1 amp NEB Q6H PRN PRN Reason: SHORT OF BREATH/WHEEZING Last Admin: 02/15/18 20:53 Dose: 1 amp Albuterol Sulfate (Ventolin 0.083% Nebulizer Soln -) 1 amp NEB Q4H PRN PRN Reason: SHORT OF BREATH/WHEEZING Amlodipine Besylate (Norvasc -) 2.5 mg PO DAILY [facility] Last Admin: 02/17/18 10:32 Dose: Not Given Azithromycin (Zithromax -) 250 mg PO DAILY [facility] Last Admin: 02/17/18 10:32 Dose: 250 mg Bacitracin (Bacitracin -) 1 applic TP BID [facility] Last Admin: 02/17/18 10:33 Dose: 1 applic Budesonide/Formoterol Fumarate (Symbicort 160/4.5mcg -) 2 puff IH BID [facility] Last Admin: 02/17/18 10:39 Dose: 2 puff Methylprednisolone Sodium Succinate (Solu-Medrol -) 40 mg IVPUSH BID [facility] Last Admin: 02/17/18 10:32 Dose: 40 mg Pantoprazole Sodium (Protonix -) 20 mg PO DAILY [facility] Last Admin: 02/17/18 10:32 Dose: 20 mg Tiotropium [place] (Spiriva Respimat) 2 puff IH DAILY [facility] Last Admin: 02/17/18 10:31 Dose: 2 puff - Objective Vital Signs: Vital Signs Temperature 98.2 F 02/17/18 06:19 Pulse Rate 80 02/17/18 10:00 Respiratory Rate 18 02/17/18 10:00 Blood Pressure 110/60 02/17/18 10:00 O2 Sat by Pulse Oximetry (%) 100 02/17/18 09:00 Constitutional: Yes: Calm, Thin Eyes: Yes: WNL HENT: Yes: WNL Neck: Yes: WNL Cardiovascular: Yes: Regular Rate and Rhythm, S1, S2 Respiratory: Yes: Diminished Gastrointestinal: Yes: Normal Bowel Sounds, Soft Extremities: Yes: WNL Edema: No Labs: CBC, BMP Assessment/Plan Problem List - Problems (1) Malnourished Code(s): E46 - UNSPECIFIED PROTEIN-CALORIE MALNUTRITION (2) SOB (shortness of breath) Code(s): R06.02 - SHORTNESS OF BREATH (3) Acute on chronic respiratory failure with hypoxia and hypercapnia Code(s): J96.21 - ACUTE AND CHRONIC RESPIRATORY FAILURE WITH HYPOXIA; J96.22 - ACUTE AND CHRONIC RESPIRATORY FAILURE WITH HYPERCAPNIA (4) COPD exacerbation Code(s): J44.1 - CHRONIC OBSTRUCTIVE PULMONARY DISEASE W (ACUTE) EXACERBATION (5) Emphysema of lung Code(s): J43.9 - EMPHYSEMA, UNSPECIFIED (6) Pulmonary hypertension Code(s): I27.2 - OTHER SECONDARY PULMONARY HYPERTENSION * DO NOT USE * Assessment/Plan start Prednisone in am O2 @ 3 L NC BD TX Spiriva VTE prophylaxis Zithromax DR ABREU
[2018-02-17] MEDS ORDERED: methylPREDNISolone NA SUCC 40 MG/1 ML VIAL IVPUSH SCH (12:11)
[2018-02-17] MEDS: ALBUTEROL SO4 0.083% IH SOL 2.5 MG/3 ML VIAL.NEB. NEB PRN ×2 (14:46→20:21)
[2018-02-17] MEDS ORDERED: PT OWN MED DRAWER 7, Y5N ONE (16:20)
[2018-02-18 08:27] LABS: BASO % 0.1 % (0-2.0); HEMOGLOBIN 11.9 GM/dL (10.7-15.3); LYMPH % 13.3 % (8-40); MCH 31.9 pg (25.7-33.7); MCHC 32.1 g/dl (32.0-36.0); MEAN CELL VOLUME 99.5 fl (80-96); MEAN PLT VOLUME 8.3 fl (7.5-11.1); MONO % 6.2 % (3.8-10.2); NEUT % 80.4 % (42.8-82.8); PLATELET COUNT 151 K/MM3 (134-434); RBC 3.72 M/mm3 (3.60-5.2); RDW 14.5 % (11.6-15.6)
[2018-02-18 08:45] LABS: ALK PHOS 50 U/L (45-117); ANION GAP 3 MMOL/L (8-16); BILIRUBIN,TOTAL 0.3 mg/dL (0.2-1); BLOOD UREA NITROGEN 33 mg/dL (7-18); CHLORIDE 100 mmol/L (98-107); CO2 38 mmol/L (21-32); CREATININE 0.7 mg/dL (0.55-1.3); GLUCOSE,RANDOM 95 mg/dL (74-106); POTASSIUM 4.8 mmol/L (3.5-5.1); SGOT/AST 15 U/L (15-37); SGPT/ALT 22 U/L (13-61); SODIUM 141 mmol/L (136-145); TOT PROT 5.3 g/dl (6.4-8.2)
--- NOTE | 2018-02-18 09:47 | PN ---
Progress Note, Physician Chief Complaint: Pt seen and examined pt feels better small skin abrasion on rt leg SOB improved mild cough present afebrile Pt is on oxygen - Current Medication List Current Medications: Active Medications Albuterol Sulfate (Ventolin 0.083% Nebulizer Soln -) 1 amp NEB Q6H PRN PRN Reason: SHORT OF BREATH/WHEEZING Last Admin: 02/17/18 20:21 Dose: 1 amp Albuterol Sulfate (Ventolin 0.083% Nebulizer Soln -) 1 amp NEB Q4H PRN PRN Reason: SHORT OF BREATH/WHEEZING Amlodipine Besylate (Norvasc -) 2.5 mg PO DAILY [facility] Last Admin: 02/17/18 10:32 Dose: Not Given Azithromycin (Zithromax -) 250 mg PO DAILY [facility] Last Admin: 02/17/18 10:32 Dose: 250 mg Bacitracin (Bacitracin -) 1 applic TP BID [facility] Last Admin: 02/17/18 21:53 Dose: 1 applic Budesonide/Formoterol Fumarate (Symbicort 160/4.5mcg -) 2 puff IH BID [facility] Last Admin: 02/17/18 21:53 Dose: 2 puff Pantoprazole Sodium (Protonix -) 20 mg PO DAILY [facility] Last Admin: 02/17/18 10:32 Dose: 20 mg Prednisone (Deltasone -) 40 mg PO DAILY [facility] Tiotropium [place] (Spiriva Respimat) 2 puff IH DAILY [facility] Last Admin: 02/17/18 10:31 Dose: 2 puff - Objective Vital Signs: Vital Signs Temperature 97.9 F 02/18/18 06:00 Pulse Rate 68 02/18/18 06:00 Respiratory Rate 18 02/18/18 06:00 Blood Pressure 155/74 02/18/18 06:00 O2 Sat by Pulse Oximetry (%) 100 02/17/18 21:00 Constitutional: Yes: No Distress Eyes: Yes: Conjunctiva Clear HENT: Yes: Atraumatic Neck: Yes: Supple, Trachea Midline Cardiovascular: Yes: Regular Rate and Rhythm Respiratory: Yes: Cough, Diminished, On Nasal O2 Gastrointestinal: Yes: Normal Bowel Sounds, Soft Musculoskeletal: Yes: WNL Extremities: Yes: WNL Edema: No Peripheral Pulses WNL: Yes Neurological: Yes: WNL ...Motor Strength: WNL Psychiatric: Yes: WNL Labs: CBC, BMP 02/18/18 06:00 02/18/18 06:00 INR, PTT INR 0.97 (0.83-1.09) 02/13/18 15:17 Assessment/Plan Copd excacerbation SOB improved mild cough Pt is on PO prednisone Acute on chronic resp failure with hypoxia and hypercapnoea PULMONARY HTN skin abrasion on leg GERD Plan continue bronchodialators continue Oxygen Continue PO steroid PUL f/u Protonix 40mg po daily Bacitracin ointment for local application
[2018-02-18] MEDS: ALBUTEROL SO4 0.083% IH SOL 2.5 MG/3 ML VIAL.NEB. NEB PRN ×3 (09:54→19:56)
[2018-02-18] MEDS: amLODIPine BESYLATE 2.5 MG TABLET (FP) PO SCH (11:49)
[2018-02-18] MEDS: predniSONE 20 MG TABLET (UD) PO SCH (11:49)
[2018-02-18] MEDS: BACITRACIN 15 GM TUBE TOPICAL OINTMENT TP SCH ×2 (11:50→21:14)
[2018-02-18] MEDS: AZITHROMYCIN 250 MG TABLET PO SCH (11:50)
[2018-02-18] MEDS: PANTOPRAZOLE 20 MG TABLET (FP) PO SCH (11:50)
[2018-02-18] MEDS: TIOTROPIUM BROMIDE 2.5 MCG (SPIRIVA) RESPIMAT INHALER IH SCH (11:50)
[2018-02-18] MEDS: BUDESONIDE/FORMETEROL FUMARATE 160/4.5 mcg INHALER IH SCH ×2 (11:51→21:14)
--- NOTE | 2018-02-18 13:59 | PN ---
Progress Note (short form) - Note Progress Note: PULMONARY States breathing slowly improving. Less cough and wheezing. Vital Signs Period Temp Pulse Resp BP Sys/Ferrera Pulse Ox Last 24 Hr 97.9 F-98.2 F 68-91 18-18 149-155/74-80 100 Gen: mildly tachypneic with speaking Heart: RRR Lung: distant breath sounds Abd: soft, nontender Ext: no edema CBC, BMP 02/18/18 06:00 02/18/18 06:00 Active Medications Albuterol Sulfate (Ventolin 0.083% Nebulizer Soln -) 1 amp NEB Q6H PRN PRN Reason: SHORT OF BREATH/WHEEZING Last Admin: 02/18/18 09:54 Dose: 1 amp Albuterol Sulfate (Ventolin 0.083% Nebulizer Soln -) 1 amp NEB Q4H PRN PRN Reason: SHORT OF BREATH/WHEEZING Amlodipine Besylate (Norvasc -) 2.5 mg PO DAILY [facility] Last Admin: 02/18/18 11:49 Dose: 2.5 mg Azithromycin (Zithromax -) 250 mg PO DAILY [facility] Last Admin: 02/18/18 11:50 Dose: 250 mg Bacitracin (Bacitracin -) 1 applic TP BID [facility] Last Admin: 02/18/18 11:50 Dose: 1 applic Budesonide/Formoterol Fumarate (Symbicort 160/4.5mcg -) 2 puff IH BID [facility] Last Admin: 02/18/18 11:51 Dose: 2 puff Guaifenesin (Robitussin -) 10 ml PO Q6H PRN PRN Reason: COUGH Pantoprazole Sodium (Protonix -) 20 mg PO DAILY [facility] Last Admin: 02/18/18 11:50 Dose: 20 mg Prednisone (Deltasone -) 40 mg PO DAILY [facility] Last Admin: 02/18/18 11:49 Dose: 40 mg Tiotropium [place] (Spiriva Respimat) 2 puff IH DAILY [facility] Last Admin: 02/18/18 11:50 Dose: 2 puff A/P Acute COPD Exacerbation Emphysema Pulmonary HTN Chronic Hypoxic Respiratory Failure HTN - prednisone taper - inhaled bronchodilators - O2 to keep Spo2 >90% - cough suppressants - DVT prophylaxis
[2018-02-18] MEDS: guaiFENesin 200 MG/10 ML 10 ML UNIT-DOSE CUPS PO PRN (18:58)
[2018-02-18] MEDS ORDERED: PT OWN MED DRAWER 7, Y5N ONE (21:08)
[2018-02-19] MEDS: ALBUTEROL SO4 0.083% IH SOL 2.5 MG/3 ML VIAL.NEB. NEB PRN (05:29)
[2018-02-19] MEDS ORDERED: PT OWN MED DRAWER 7, Y5N ONE ×2 (06:45→10:29)
--- NOTE | 2018-02-19 07:31 | PN ---
Progress Note, Physician Chief Complaint: Pt seen and examined pt feels better SOB improved mild cough present afebrile Pt is on oxygen d/c home today - Current Medication List Current Medications: Active Medications Albuterol Sulfate (Ventolin 0.083% Nebulizer Soln -) 1 amp NEB Q4H PRN PRN Reason: SHORT OF BREATH/WHEEZING Last Admin: 02/19/18 05:29 Dose: 1 amp Amlodipine Besylate (Norvasc -) 2.5 mg PO DAILY [facility] Last Admin: 02/18/18 11:49 Dose: 2.5 mg Azithromycin (Zithromax -) 250 mg PO DAILY [facility] Last Admin: 02/18/18 11:50 Dose: 250 mg Bacitracin (Bacitracin -) 1 applic TP BID [facility] Last Admin: 02/18/18 21:14 Dose: 1 applic Budesonide/Formoterol Fumarate (Symbicort 160/4.5mcg -) 2 puff IH BID [facility] Last Admin: 02/18/18 21:14 Dose: 2 puff Guaifenesin (Robitussin -) 10 ml PO Q6H PRN PRN Reason: COUGH Last Admin: 02/18/18 18:58 Dose: 10 ml Pantoprazole Sodium (Protonix -) 20 mg PO DAILY [facility] Last Admin: 02/18/18 11:50 Dose: 20 mg Prednisone (Deltasone -) 40 mg PO DAILY [facility] Last Admin: 02/18/18 11:49 Dose: 40 mg Tiotropium [place] (Spiriva Respimat) 2 puff IH DAILY [facility] Last Admin: 02/18/18 11:50 Dose: 2 puff - Objective Vital Signs: Vital Signs Temperature 98.5 F 02/18/18 15:11 Pulse Rate 88 02/18/18 15:11 Respiratory Rate 18 02/18/18 15:11 Blood Pressure 158/73 02/18/18 15:11 O2 Sat by Pulse Oximetry (%) 100 02/18/18 21:00 Constitutional: Yes: No Distress Neck: Yes: Supple Cardiovascular: Yes: Regular Rate and Rhythm Respiratory: Yes: Diminished, Dullness, On Nasal O2 Gastrointestinal: Yes: Normal Bowel Sounds, Soft Musculoskeletal: Yes: WNL Extremities: Yes: WNL Edema: No Peripheral Pulses WNL: Yes Neurological: Yes: WNL ...Motor Strength: WNL Psychiatric: Yes: WNL Labs: CBC, BMP 02/18/18 06:00 02/18/18 06:00 INR, PTT INR 0.97 (0.83-1.09) 02/13/18 15:17 Assessment/Plan Copd excacerbation SOB improved mild cough Pt is on PO prednisone Acute on chronic resp failure with hypoxia and hypercapnoea PULMONARY HTN skin abrasion on leg GERD Plan continue bronchodialators continue Oxygen Continue PO steroid PUL f/u Protonix 20 mg po daily Bacitracin ointment for local application d/c home today F/u with pul in 3 days
[2018-02-19] MEDS: guaiFENesin 200 MG/10 ML 10 ML UNIT-DOSE CUPS PO PRN (10:31)
[2018-02-19] MEDS: TIOTROPIUM BROMIDE 2.5 MCG (SPIRIVA) RESPIMAT INHALER IH SCH (10:31)
[2018-02-19] MEDS: PANTOPRAZOLE 20 MG TABLET (FP) PO SCH (10:31)
[2018-02-19] MEDS: amLODIPine BESYLATE 2.5 MG TABLET (FP) PO SCH (10:31)
[2018-02-19] MEDS: AZITHROMYCIN 250 MG TABLET PO SCH (10:31)
[2018-02-19] MEDS: predniSONE 20 MG TABLET (UD) PO SCH (10:31)
[2018-02-19] MEDS: BACITRACIN 15 GM TUBE TOPICAL OINTMENT TP SCH (10:31)
[2018-02-19] MEDS: BUDESONIDE/FORMETEROL FUMARATE 160/4.5 mcg INHALER IH SCH (10:32)
--- NOTE | 2018-02-19 12:45 | PN ---
Progress Note (short form) - Note Progress Note: PULMONARY Breathing slowly improving. Less cough and wheezing. Vital Signs Period Temp Pulse Resp BP Sys/Ferrera Pulse Ox Last 24 Hr 98.1 F-98.5 F 81-88 18-18 157-158/73-96 98-100 Gen: mildly tachypneic with speaking Heart: RRR Lung: distant breath sounds Abd: soft, nontender Ext: no edema CBC, BMP 02/18/18 06:00 02/18/18 06:00 Active Medications Amlodipine Besylate (Norvasc -) 2.5 mg PO DAILY [facility] Last Admin: 02/19/18 10:31 Dose: 2.5 mg Azithromycin (Zithromax -) 250 mg PO DAILY [facility] Last Admin: 02/19/18 10:31 Dose: 250 mg Bacitracin (Bacitracin -) 1 applic TP BID [facility] Last Admin: 02/19/18 10:31 Dose: 1 applic Budesonide/Formoterol Fumarate (Symbicort 160/4.5mcg -) 2 puff IH BID [facility] Last Admin: 02/19/18 10:32 Dose: 2 puff Guaifenesin (Robitussin -) 10 ml PO Q6H PRN PRN Reason: COUGH Last Admin: 02/19/18 10:31 Dose: 10 ml Pantoprazole Sodium (Protonix -) 20 mg PO DAILY [facility] Last Admin: 02/19/18 10:31 Dose: 20 mg Prednisone (Deltasone -) 40 mg PO DAILY [facility] Last Admin: 02/19/18 10:31 Dose: 40 mg Tiotropium [place] (Spiriva Respimat) 2 puff IH DAILY [facility] Last Admin: 02/19/18 10:31 Dose: 2 puff A/P Acute COPD Exacerbation Emphysema Pulmonary HTN Chronic Hypoxic Respiratory Failure HTN - prednisone taper - inhaled bronchodilators - O2 to keep Spo2 >90% - cough suppressants - DVT prophylaxis
[2018-02-19 13:05] VITALS: BP 153/79; PULSE 82; TEMP 97.8
[2018-02-19] MEDS ORDERED: ALBUTEROL SO4 0.083% IH SOL 2.5 MG/3 ML VIAL.NEB. NEB ONE (13:48)
[2018-02-19] MEDS ORDERED: ALBUTEROL SO4 0.083% IH SOL 2.5 MG/3 ML VIAL.NEB. NEB PRN (13:49)
--- NOTE | 2018-02-19 23:58 | DS ---
DATE OF ADMISSION: 02/13/2018 DATE OF DISCHARGE: 02/19/2018 An 82-year-old female with a past medical history of hypertension, hyperlipidemia, COPD O2 dependent on 3 L of oxygen, came to the emergency room with complaints of cough, nausea, and fever for a few days. Patient was followed by the food and nutrition services supervisor. Patient was taking the home medications as prior, even after the home oxygen, since the patient had worsening of the symptoms and came to the emergency room. The patient was admitted with COPD exacerbation. PHYSICAL EXAMINATION: General: The patient was moderately distressed. Vital Signs: Temperature 98.8, pulse rate 100, blood pressure 130/76, saturation was 100% 3 L of oxygen. HEENT: Pupils were equally reactive to light and accommodation. Chest: Bibasilar crackles with diminished breath sounds at the lung base. Patient was given IV ceftriaxone, Zithromax, IV Solu-Medrol, magnesium, and DuoNeb treatment in the emergency room. Chest x-ray showed no infiltrate. EKG: Normal sinus rhythm. No interval abnormalities. No ST or T-wave abnormalities. LABORATORY: CBC: WBC 12.8, hemoglobin 12.9, hematocrit of 40.3, platelets of 165. Chemistry: Sodium 137, potassium 5, chloride 99, bicarbonate 35, BUN 32, creatinine 0.7, glucose of 77. Troponin is negative. BNP 183.4. Influenza A and B negative. Urine was negative. Patient admitted to the floor with the admitting diagnosis of COPD exacerbation, hypertension. Patient was followed by pulmonary physician and treated with IV steroids, bronchodilators, oxygen and antibiotics. Patient was stable on the floor. Patient discharged to home on February 19, on home medications, home oxygen, and tapering dose of prednisone. Recommended to follow up with her pulmonary physician and PMD in one week. Patient discharged to home in stable condition. Sandy [id number]
== END 2018-02-19 16:25 | disposition home or self-care (01) | DRG 189 ==
LOC: JER 13:20 → JERBED 18:14 → J5S 20:19
PROVIDERS: ADMIT Family Medicine; ATTEND Family Medicine
DX: J96.21 Acute and chronic respiratory failure with hypoxia (principal); J44.1 Chronic obstructive pulmonary disease with (acute) exacerbation; E46 Unspecified protein-calorie malnutrition; Z68.1 Body mass index [BMI] 19.9 or less, adult; R64 Cachexia; J96.22 Acute and chronic respiratory failure with hypercapnia; I10 Essential (primary) hypertension; E78.5 Hyperlipidemia, unspecified; I27.20 Pulmonary hypertension, unspecified; K21.9 Gastro-esophageal reflux disease without esophagitis
CPT/HCPCS: 36415; 71046-TC-FY; 80053; 81003; 82550; 82553; 83880; 84484; 85025; 85610; 85730; 87040; 87086; 87804; 93005; 93010; 94640; 97116-GP; 97161-GP; 99284-25

== ENCOUNTER 2018-09-24 12:18 | Inpatient (IN) | payer OTHER, BC ==
--- NOTE | 2018-09-24 13:28 | PDOC ---
History of Present Illness - General Chief Complaint: Shortness of Breath Stated Complaint: COPD Time Seen by Provider: 09/24/18 12:44 - History of Present Illness Initial Comments: 09/24/18 13:49 82 y/o F hx of COPD, HTN, HF and HLD presents to the ED with 1wk of worsening sob and coughing. Her PcP prescribed a z-kem tx which she completed withou improvement in symptoms. She was place on ciprofloxacin 3 days ago by her PCP but still reported no improvement. Symptoms continued to worsen this morning and she came to the ED. She has productive cough (brown sputum), 3 pillow orthopnea at baseline, and occasional chest tightness but no pain. She has a previous hx of clots after childbirth about 50 yrs ago. She endorses leg swelling and she is on a current course of prednisone she was put on by her studio artist. Denies recent travel, surgeries, nausea, vomiting, urinary symptoms. Past History - Past Medical History Allergies/Adverse Reactions: Allergies Allergy/AdvReac Type Severity Reaction Status Date / Time No Known Allergies Allergy Verified 02/13/18 13:35 Home Medications: Ambulatory Orders Albuterol Sulfate Inhaler - [Ventolin HFA Inhaler -] 1 - 2 inh PO QID 09/23/17 Bimatoprost [Lumigan] 1 drop OU HS 09/23/17 Biotin/Keratin [Biotin Plus Keratin Tablet] 1 each PO DAILY 09/23/17 Budesonide/Formeterol Fumarate [SYMBICORT 80/4.5mcg -] 1 inh PO DAILY 09/23/17 Calcium (Oyster Shell) [Os-Ignacio 500MG -] 500 mg PO BID 09/23/17 Multivitamins [Multivit ([facility] Formulary)] 1 tab PO DAILY 09/23/17 Tiotropium [place] [Spiriva] 1 inh IH DAILY 09/23/17 Albuterol 0.083% Nebulizer Noemy [Ventolin 0.083% Nebulizer Soln -] 1 amp NEB Q4H PRN amp 09/28/17 Albuterol 2.5/Ipratropium 0.5 [Duoneb -] 1 amp NEB RQID amp 09/28/17 Budesonide/Formeterol Fumarate [SYMBICORT 160/4.5mcg -] 2 puff IH BID inhaler 09/28/17 Pantoprazole Sodium [Protonix] 20 mg PO DAILY #30 tablet. 02/19/18 Prednisone 15 mg PO DAILY 06/27/18 Furosemide [Lasix -] 40 mg PO Q48H 07/11/18 COPD: Yes (HOME O2- 3L) HTN: Yes - Surgical History Abdominal Surgery: No Appendectomy: No Cardiac Surgery: No Cholecystectomy: No Gastric Stapling: No GI Surgery: No Lung Surgery: No Neurologic Surgery: No Orthopedic Surgery: No - Suicide/Smoking/Psychosocial Hx Smoking Status: Yes Smoking History: Never smoked Have you smoked in the past 12 months: No Number of Cigarettes Smoked Daily: 0 If you are a former smoker, when did you quit?: 2005 Hx Alcohol Use: No Drug/Substance Use Hx: No Substance Use Type: None Hx Substance Use Treatment: No *Physical Exam - Vital Signs Last Vital Signs Temp Pulse Resp BP Pulse Ox 98.2 F 95 H 24 H 139/73 94 L 09/24/18 12:31 09/24/18 12:31 09/24/18 12:31 09/24/18 12:31 09/24/18 12:31 - Physical Exam General Appearance: Yes: Appropriately Dressed, Thin. No: Apparent Distress HEENT: positive: Normal Voice, Symmetrical. negative: Scleral Icterus (R), Scleral Icterus (L) Neck: positive: Trachea midline, Supple Respiratory/Chest: positive: Lungs Clear, Normal Breath Sounds, Other ( decreased breath sounds on expiration and pursing her lips and puffing on expiration). negative: Chest Tender, Respiratory Distress, Accessory Muscle Use Cardiovascular: positive: Regular Rhythm, Regular Rate, S1, S2. negative: JVD Vascular Pulses: Dorsalis-Pedis (R): 2+, Doralis-Pedis (L): 2+ Gastrointestinal/Abdominal: positive: Normal Bowel Sounds, Flat, Soft. negative : Pulsatile Mass, Tenderness Musculoskeletal: positive: Normal Inspection. negative: CVA Tenderness Extremity: positive: Normal Capillary Refill, Normal Range of Motion, Other ( tenderness of RLE and swelling. overlying skin wrinkled, erythematous to below the knee with bulli). negative: Tender Integumentary: positive: Normal Color (with exception of RLE), Dry, Warm, Other Neurologic: positive: Fully Oriented, Alert, Normal Mood/Affect, Normal Response ED Treatment Course - LABORATORY CBC & Chemistry Diagram: 09/24/18 13:20 09/24/18 13:20 Medical Decision Making - Medical Decision Making 09/24/18 14:05 82 y/o F hx of COPD, HTN, HF and HLD presents to the ED with 1wk of worsening sob and coughing Labs/Imaging/Meds EKG,CXR, cbc,cmp, lactate, pt/inr,blood cultures, Results EKG: Sinus rhythm with occasional premature ventricular complexes. Possible left atrial enlargement , left axis deviation, anteroseptal infarct, age undetermined. lactic acid 2.2 CXR: left lower lobe infiltrate in comparison with older CXR form February duplex venous u/s: no dvt Troponin negative Spoke with Dr. William Rivas, pt admitted to med surg Pt. placed on vancomycin and ceftriaxone. Admitted for copd exacerbation and pneumonia. pt. admitted under Dr. William Rivas 09/24/18 16:25 09/24/18 16:36 *DC/Admit/Observation/Transfer Diagnosis at time of Disposition: COPD exacerbation Pneumonia Qualifiers: Pneumonia type: due to unspecified organism Laterality: right Lung location: lower lobe of lung Qualified Code(s): J18.1 - Lobar pneumonia, unspecified organism - Discharge Dispostion Decision to Admit order: Yes - Referrals - Patient Instructions - Post Discharge Activity
[2018-09-24] MEDS ORDERED: methylPREDNISolone NA SUCC 125 MG/2 ML VIAL IVPB ONE (13:40)
[2018-09-24] MEDS ORDERED: methylPREDNISolone NA SUCC 125 MG/2 ML VIAL ONE (13:57)
[2018-09-24] MEDS ORDERED: ALBUTEROL SO4 2.5/IPRATROPIUM 0.5 INH SOL 3 ML VIAL.NEB. NEB ONE ×3 (13:58→22:04)
[2018-09-24] MEDS: ALBUTEROL SO4 2.5/IPRATROPIUM 0.5 INH SOL 3 ML VIAL.NEB. NEB SCH ×6 (14:01→22:29)
[2018-09-24] MEDS ORDERED: CEFTRIAXONE 1,000 MG in DEXTROSE 5%-WATER - 50 ML IVPB ONE (14:01)
[2018-09-24] MEDS ORDERED: FUROSEMIDE 40 MG/4 ML INJECTABLE VIAL IVPUSH ONE (14:03)
[2018-09-24] MEDS ORDERED: VANCOMYCIN 1,000 MG in DEXTROSE 5%-WATER - 250 ML IVPB ONE (14:06)
[2018-09-24 14:10] LABS: HEMATOCRIT 37.4 % (32.4-45.2); HEMOGLOBIN 12.4 GM/dL (10.7-15.3); MCH 32.7 pg (25.7-33.7); MCHC 33.1 g/dl (32.0-36.0); MEAN CELL VOLUME 98.8 fl (80-96); MEAN PLT VOLUME 8.5 fl (7.5-11.1); PLATELET COUNT 214 K/MM3 (134-434); RBC 3.79 M/mm3 (3.60-5.2); WHITE BLOOD COUNT 5.2 K/mm3 (4.0-10.0)
--- NOTE | 2018-09-24 14:33 | PDOC ---
Documentation entered by Kamini Prasad SCRIBE, acting as scribe for Lin Sesay DO. Lin Sesay DO: This documentation has been prepared by the Shanice mosquera Brenda, SCRIBE, under my direction and personally reviewed by me in its entirety. I confirm that the documentation accurately reflects all work, treatment, procedures, and medical decision making performed by me. Attending Attestation - Resident Resident Name: Cam Newell - ED Attending Attestation I have performed the following: I have examined & evaluated the patient, The case was reviewed & discussed with the resident, I agree w/resident's findings & plan, Exceptions are as noted - HPI HPI: 09/24/18 14:49 The patient is an 82 year old female, with a significant PMH of clots after child (50 years ago), HTN, HLD, CHF, COPD (home O2 dependent on 3L), and CO2 retention, who presents to the emergency department with 1 week of a progressively worsening SOB accompanied by a cough productive of yellow sputum and occasional chest tightness. As per patient, she was prescribed Z-kem by her PCP, which had no relief, and then was placed on ciprofloxacin 3 days ago, to no avail. As symptoms progressively worsening, she proceeded to the ED. Patient also endorses leg swelling. The patient denies any recent travel, headache and dizziness. Denies fever, chills, nausea, vomiting, diarrhea and constipation. Denies any urinary symptoms. . Allergies: NKA Past surgical history: None reported Social history: former smoker,quit 2005. PCP: William Rivas Freelance Operator: Dr. Browning - Physicial Exam PE: 09/24/18 14:49 GENERAL: Awake, alert, and fully oriented, in no acute distress HEAD: No signs of trauma EYES: sclera anicteric, conjunctiva clear NECK: Normal ROM, supple, no lymphadenopathy, JVD, or masses LUNGS: (+) Lung sounds diminished with wheezing in the right upper lobe. (+) Pursed lip breathing. No crackles HEART: Regular rate and rhythm, normal S1 and S2, no murmurs, rubs or gallops ABDOMEN: Soft, nontender, normoactive bowel sounds. No guarding, no rebound. No masses EXTREMITIES: (+) Trace 1+ pitting edema in the right lower extremity. (+) Right lower extremity anteriorly is red up to the knee. Normal range of motion, No clubbing or cyanosis. No cords. NEUROLOGICAL: Cranial nerves II through XII grossly intact. Normal speech. SKIN: Warm. - Medical Decision Making 09/24/18 14:27 I, Dr. Lin Sesay, DO, attest that this document has been prepared under my direction and personally reviewed by me in its entirety. I further attest, that it accurately reflects all work, treatment, procedures and medical decision -making performed by me. 09/24/18 14:27 a/p: 82yo female with hx of copd - end stage on home 02 with increasing sob and cough -now brown sputum -also with RLE swelling, redness, warmth - x 1 week -no fevers -tachypnic -pursed lipped breathing -mild resp distress -using inhalers at home without relief -will start nebs, steroids, RLE ultrasound (hx of dvt 50yo) -will send labs, cultures, ekg, cxr -will need admission 09/24/18 14:[address] Browning who will see patient in consult 09/24/18 14:46 new LLL infiltrate on cxr abx ordered 09/24/18 15:30 resident discussed the case with Dr. Rivas who accepts pt to service pt stable 09/24/18 15:31 no evidence of dvt Heart Score/ECG Review - ECG Intrepretation Comment:: 09/24/18 14:31 sinus at 91, pvc, L axis, q waves anteriorly that are age indeterminate, no acute st/t wave findings
[2018-09-24 14:39] LABS: INR 0.87 (0.83-1.09); PROTHROMBIN TIME (PATIENT) 10.3 SEC (9.7-13.0)
[2018-09-24 14:45] LABS: ALBUMIN 3.6 g/dl (3.4-5.0); BILIRUBIN,TOTAL 0.3 mg/dL (0.2-1); BLOOD UREA NITROGEN 24.4 mg/dL (7-18); CALCIUM 9.8 mg/dL (8.5-10.1); CREATININE 0.7 mg/dL (0.55-1.3); POTASSIUM 4.1 mmol/L (3.5-5.1); TOT PROT 6.6 g/dl (6.4-8.2)
[2018-09-24] MEDS ORDERED: VANCOMYCIN 1 GRAM (PRE-DOCKED) 1,000 MG/250 ML BAG IVPB ONE (15:19)
[2018-09-24] MEDS ORDERED: CEFTRIAXONE 1 GM/50 ML BAG ONE (15:20)
--- NOTE | 2018-09-24 15:52 | CON.PULM ---
Consult Consult Specialty:: PULMONARY Referred by:: Dr Rivas Reason for Consultation:: shortness of breath - History of Present Illness Chief Complaint: shortness of breath History of Present Illness: 82yo female with h/o HTN, hyperlipidemia, advanced COPD, chronic hypoxic respiratory failure on home O2, LV diastolic dysfunction who was admitted with worsening shortness of breath. No fever or chills but with new productive cough with yellow sputum starting last week, given Z-pack by PMD without significant relief. Used her nebulizer treatments also with minimal relief. Reports increase in her leg swelling. - History Source History Provided By: Patient, Family Member, Medical Record Limitations to Obtaining History: Clinical Condition - Past Medical History Cardio/Vascular: Yes: HTN, Hyperlipdemia Pulmonary: Yes: Bronchitis, COPD, O2 Dependent, Pneumonia - Alcohol/Substance Use Hx Alcohol Use: No - Smoking History Smoking history: Never smoked Have you smoked in the past 12 months: No Aproximately how many cigarettes per day: 0 If you are a former smoker, when did you quit?: 2005 Home Medications - Allergies Allergies/Adverse Reactions: Allergies Allergy/AdvReac Type Severity Reaction Status Date / Time No Known Allergies Allergy Verified 02/13/18 13:35 - Home Medications Home Medications: Ambulatory Orders Albuterol Sulfate Inhaler - [Ventolin HFA Inhaler -] 1 - 2 inh PO QID 09/23/17 Bimatoprost [Lumigan] 1 drop OU HS 09/23/17 Biotin/Keratin [Biotin Plus Keratin Tablet] 1 each PO DAILY 09/23/17 Budesonide/Formeterol Fumarate [SYMBICORT 80/4.5mcg -] 1 inh PO DAILY 09/23/17 Calcium (Oyster Shell) [Os-Ignacio 500MG -] 500 mg PO BID 09/23/17 Multivitamins [Multivit ([facility] Formulary)] 1 tab PO DAILY 09/23/17 Tiotropium [place] [Spiriva] 1 inh IH DAILY 09/23/17 Albuterol 0.083% Nebulizer Noemy [Ventolin 0.083% Nebulizer Soln -] 1 amp NEB Q4H PRN amp 09/28/17 Albuterol 2.5/Ipratropium 0.5 [Duoneb -] 1 amp NEB RQID amp 09/28/17 Budesonide/Formeterol Fumarate [SYMBICORT 160/4.5mcg -] 2 puff IH BID inhaler 09/28/17 Pantoprazole Sodium [Protonix] 20 mg PO DAILY #30 tablet. 02/19/18 Prednisone 15 mg PO DAILY 06/27/18 Furosemide [Lasix -] 40 mg PO Q48H 07/11/18 Review of Systems - Review of Systems Constitutional: reports: Weakness. denies: Chills, Fever Eyes: denies: Recent Change in Vision HENT: denies: Nasal Congestion, Throat Pain Neck: denies: Stiffness, Tenderness Cardiovascular: reports: Edema, Shortness of Breath. denies: Chest Pain, Palpitations Respiratory: reports: Cough, Exercise Intolerance, SOB, SOB on Exertion, Wheezing. denies: Hemoptysis Gastrointestinal: denies: Abdominal Pain, Nausea, Vomiting Genitourinary: denies: Dysuria, Hematuria Neurological: denies: Dizziness, Headache Endocrine: denies: Unexplained Weight Loss Physical Exam Vital Sings: Vital Signs Temperature 98.2 F 09/24/18 12:31 Pulse Rate 95 H 09/24/18 12:31 Respiratory Rate 24 H 09/24/18 12:31 Blood Pressure 139/73 09/24/18 12:31 O2 Sat by Pulse Oximetry (%) 94 L 09/24/18 12:31 Constitutional: Yes: Moderate Distress Eyes: Yes: Conjunctiva Clear, EOM Intact HENT: Yes: Atraumatic, Normocephalic Neck: Yes: Supple, Trachea Midline Cardiovascular: Yes: Regular Rate and Rhythm Respiratory: Yes: Diminished, Poor Air Entry, Rhonchi (scattered) ...Clubbing: No Gastrointestinal: Yes: Normal Bowel Sounds, Soft. No: Tenderness Edema: Yes Labs: CBC, BMP 09/24/18 13:20 09/24/18 13:20 Imaging - Results Chest X-ray: Report Reviewed, Image Reviewed (hyperinflated, no infiltrates) Problem List - Problems (1) COPD exacerbation Code(s): J44.1 - CHRONIC OBSTRUCTIVE PULMONARY DISEASE W (ACUTE) EXACERBATION (2) Acute bronchitis Code(s): J20.9 - ACUTE BRONCHITIS, UNSPECIFIED Assessment/Plan Acute COPD Exacerbation Acute Bronchitis Chronic Hypoxic Respiratory Failure LV Diastolic Dysfunction HTN Hyperlipidemia - IV medrol - inhaled bronchodilators - O2 to keep SpO2 >90% - BiPAP as needed to assist in work of breathing - empiric antibiotics - when ready for discharge, check ABG to assess for home NIPPV - DVT prophylaxis Thank you for this consult Connor Browning MD
[2018-09-24] MEDS ORDERED: methylPREDNISolone NA SUCC 40 MG/1 ML VIAL ONE ×2 (17:11→22:04)
[2018-09-24] MEDS: methylPREDNISolone NA SUCC 40 MG/1 ML VIAL IVPUSH SCH (22:29)
[2018-09-25] MEDS ORDERED: methylPREDNISolone NA SUCC 40 MG/1 ML VIAL ONE ×2 (03:40→11:05)
[2018-09-25] MEDS ORDERED: ALBUTEROL SO4 2.5/IPRATROPIUM 0.5 INH SOL 3 ML VIAL.NEB. NEB ONE ×2 (04:24→11:04)
[2018-09-25] MEDS: methylPREDNISolone NA SUCC 40 MG/1 ML VIAL IVPUSH SCH ×3 (04:29→17:06)
[2018-09-25] MEDS: ALBUTEROL SO4 2.5/IPRATROPIUM 0.5 INH SOL 3 ML VIAL.NEB. NEB SCH ×5 (04:30→20:21)
--- NOTE | 2018-09-25 10:18 | EKG ---
Test Reason : Blood Pressure : / mmHG Vent. 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
[2018-09-25] MEDS: CEFTRIAXONE 1 GM in DEXTROSE 5%-WATER - 50 ML IVPB SCH (10:30)
[2018-09-25] MEDS ORDERED: cefTRIAXone SODIUM 1 GM VIAL ONE (11:04)
[2018-09-25] MEDS: ALBUTEROL SO4 0.083% IH SOL 2.5 MG/3 ML VIAL.NEB. NEB PRN (14:09)
[2018-09-25] MEDS ORDERED: ALBUTEROL SO4 0.083% IH SOL 2.5 MG/3 ML VIAL.NEB. NEB ONE (14:18)
--- NOTE | 2018-09-25 14:39 | PN ---
Progress Note (short form) - Note Progress Note: PULMONARY Breathing about the same. Still with cough productive of yellow sputum and wheezing. Vital Signs Period Temp Pulse Resp BP Sys/Ferrera Pulse Ox Last 24 Hr 98.3 F 80-98 16-28 138-149/67-78 95-100 Gen: less tachypneic Heart: RRR Lung: distant breath sounds Abd: soft, nontender Ext: less edema CBC, BMP 09/24/18 13:20 09/24/18 13:20 Active Medications Albuterol Sulfate (Ventolin 0.083% Nebulizer Soln -) 1 amp NEB Q4H PRN PRN Reason: SHORT OF BREATH/WHEEZING Last Admin: 09/25/18 14:09 Dose: 1 amp Albuterol/Ipratropium (Duoneb -) 1 amp NEB RQID [facility] Last Admin: 09/25/18 11:07 Dose: 1 amp Ceftriaxone Sodium 1 gm/ (Dextrose) 50 mls @ 100 mls/hr IVPB DAILY [facility]; Protocol Last Admin: 09/25/18 10:30 Dose: 100 mls/hr Methylprednisolone Sodium Succinate (Solu-Medrol -) 40 mg IVPUSH Q8H-IV [facility] Last Admin: 09/25/18 10:30 Dose: 40 mg A/P Acute COPD Exacerbation Acute Bronchitis Chronic Hypoxic Respiratory Failure LV Diastolic Dysfunction HTN Hyperlipidemia - continue medrol at current dose - inhaled bronchodilators - O2 to keep SpO2 >90% - BiPAP as needed to assist in work of breathing - empiric antibiotics - when ready for discharge, check ABG to assess for home NIPPV - DVT prophylaxis Problem List - Problems (1) COPD exacerbation Code(s): J44.1 - CHRONIC OBSTRUCTIVE PULMONARY DISEASE W (ACUTE) EXACERBATION (2) Acute bronchitis Code(s): J20.9 - ACUTE BRONCHITIS, UNSPECIFIED
[2018-09-25 15:41] VITALS: BMI 18.7
[2018-09-25] MEDS: NYSTATIN 500,000 UNITS/5 ML SUSPENSION PO SCH ×2 (18:22→23:23)
[2018-09-26] MEDS ORDERED: PT OWN MED DRAWER 7, Y5N ONE (00:57)
[2018-09-26] MEDS: methylPREDNISolone NA SUCC 40 MG/1 ML VIAL IVPUSH SCH ×3 (02:47→18:47)
[2018-09-26] MEDS: NYSTATIN 500,000 UNITS/5 ML SUSPENSION PO SCH ×3 (06:30→18:47)
[2018-09-26] MEDS: ALBUTEROL SO4 2.5/IPRATROPIUM 0.5 INH SOL 3 ML VIAL.NEB. NEB SCH ×4 (08:30→21:38)
--- NOTE | 2018-09-26 09:43 | PN ---
Progress Note, Physician Chief Complaint: Feels little better - Current Medication List Current Medications: Active Medications Albuterol Sulfate (Ventolin 0.083% Nebulizer Soln -) 1 amp NEB Q4H PRN PRN Reason: SHORT OF BREATH/WHEEZING Last Admin: 09/25/18 14:09 Dose: 1 amp Albuterol/Ipratropium (Duoneb -) 1 amp NEB RQID [facility] Last Admin: 09/25/18 20:21 Dose: 1 amp Ceftriaxone Sodium 1 gm/ (Dextrose) 50 mls @ 100 mls/hr IVPB DAILY [facility]; Protocol Last Admin: 09/25/18 10:30 Dose: 100 mls/hr Methylprednisolone Sodium Succinate (Solu-Medrol -) 40 mg IVPUSH Q8H-IV [facility] Last Admin: 09/26/18 02:47 Dose: 40 mg Nystatin (Nystatin Oral Suspension -) 500,000 units PO Q6HPO [facility] Last Admin: 09/26/18 06:30 Dose: 500,000 units - Objective Vital Signs: Vital Signs Temperature 97.6 F 09/26/18 06:00 Pulse Rate 89 09/26/18 06:00 Respiratory Rate 18 09/26/18 06:00 Blood Pressure 140/76 09/26/18 06:00 O2 Sat by Pulse Oximetry (%) 97 09/25/18 21:00 Constitutional: Yes: Cachectic, Mild Distress Cardiovascular: Yes: WNL Respiratory: Yes: On Nasal O2, Wheezes Gastrointestinal: Yes: Normal Bowel Sounds ...Rectal Exam: Yes: Deferred Breast(s): Yes: WNL Extremities: Yes: Other (cellulitis with blisters) Peripheral Pulses WNL: Yes Neurological: Yes: Alert Labs: CBC, BMP 09/24/18 13:20 09/24/18 13:20 INR, PTT INR 0.87 (0.83-1.09) 09/24/18 13:20 Assessment/Plan COPD exacerbation continue same trt
[2018-09-26] MEDS ORDERED: cefTRIAXone SODIUM 1 GM VIAL ONE (09:56)
[2018-09-26] MEDS ORDERED: DEXTROSE 5%-WATER - 50 ML IVPB ONE (09:57)
[2018-09-26] MEDS: CEFTRIAXONE 1 GM in DEXTROSE 5%-WATER - 50 ML IVPB SCH (10:03)
--- NOTE | 2018-09-26 17:27 | PN ---
Progress Note (short form) - Note Progress Note: PULMONARY Breathing slightly better today. Less cough. No fevers. Vital Signs Period Temp Pulse Resp BP Sys/Ferrera Pulse Ox Last 24 Hr 97.4 F-98.0 F 81-97 18-22 131-155/63-77 97 Gen: less tachypneic Heart: RRR Lung: distant breath sounds Abd: soft, nontender Ext: less edema CBC, BMP 09/24/18 13:20 09/24/18 13:20 Active Medications Albuterol Sulfate (Ventolin 0.083% Nebulizer Soln -) 1 amp NEB Q4H PRN PRN Reason: SHORT OF BREATH/WHEEZING Last Admin: 09/25/18 14:09 Dose: 1 amp Albuterol/Ipratropium (Duoneb -) 1 amp NEB RQID [facility] Last Admin: 09/26/18 12:00 Dose: 1 amp Ceftriaxone Sodium 1 gm/ (Dextrose) 50 mls @ 100 mls/hr IVPB DAILY [facility]; Protocol Last Admin: 09/26/18 10:03 Dose: 100 mls/hr Methylprednisolone Sodium Succinate (Solu-Medrol -) 40 mg IVPUSH Q8H-IV [facility] Last Admin: 09/26/18 10:03 Dose: 40 mg Nystatin (Nystatin Oral Suspension -) 500,000 units PO Q6HPO [facility] Last Admin: 09/26/18 12:59 Dose: 500,000 units A/P Acute COPD Exacerbation Acute Bronchitis Chronic Hypoxic Respiratory Failure LV Diastolic Dysfunction HTN Hyperlipidemia - continue medrol at current dose, if continues to improve will decrease to q12h in AM - inhaled bronchodilators - O2 to keep SpO2 >90% - BiPAP as needed to assist in work of breathing - empiric antibiotics - when ready for discharge, check ABG to assess for home NIPPV - DVT prophylaxis Problem List - Problems (1) COPD exacerbation Code(s): J44.1 - CHRONIC OBSTRUCTIVE PULMONARY DISEASE W (ACUTE) EXACERBATION (2) Acute bronchitis Code(s): J20.9 - ACUTE BRONCHITIS, UNSPECIFIED
[2018-09-26] MEDS: ALBUTEROL SO4 0.083% IH SOL 2.5 MG/3 ML VIAL.NEB. NEB PRN (22:24)
[2018-09-27] MEDS: NYSTATIN 500,000 UNITS/5 ML SUSPENSION PO SCH ×4 (00:28→17:13)
[2018-09-27] MEDS: methylPREDNISolone NA SUCC 40 MG/1 ML VIAL IVPUSH SCH ×3 (02:03→21:50)
[2018-09-27] MEDS: ALBUTEROL SO4 2.5/IPRATROPIUM 0.5 INH SOL 3 ML VIAL.NEB. NEB SCH ×4 (08:59→22:45)
[2018-09-27] MEDS ORDERED: DEXTROSE 5%-WATER - 50 ML IVPB ONE (09:29)
[2018-09-27] MEDS ORDERED: cefTRIAXone SODIUM 1 GM VIAL ONE (09:29)
[2018-09-27] MEDS: CEFTRIAXONE 1 GM in DEXTROSE 5%-WATER - 50 ML IVPB SCH (09:50)
--- NOTE | 2018-09-27 09:53 | PN ---
Progress Note, Physician Chief Complaint: SOB persists - Current Medication List Current Medications: Active Medications Albuterol Sulfate (Ventolin 0.083% Nebulizer Soln -) 1 amp NEB Q4H PRN PRN Reason: SHORT OF BREATH/WHEEZING Last Admin: 09/26/18 22:24 Dose: 1 amp Albuterol/Ipratropium (Duoneb -) 1 amp NEB RQID [facility] Last Admin: 09/27/18 08:59 Dose: 1 amp Ceftriaxone Sodium 1 gm/ (Dextrose) 50 mls @ 100 mls/hr IVPB DAILY [facility]; Protocol Last Admin: 09/26/18 10:03 Dose: 100 mls/hr Methylprednisolone Sodium Succinate (Solu-Medrol -) 40 mg IVPUSH Q8H-IV [facility] Last Admin: 09/27/18 02:03 Dose: 40 mg Nystatin (Nystatin Oral Suspension -) 500,000 units PO Q6HPO [facility] Last Admin: 09/27/18 06:06 Dose: 500,000 units - Objective Vital Signs: Vital Signs Temperature 98.2 F 09/27/18 08:05 Pulse Rate 87 09/27/18 08:05 Respiratory Rate 20 09/27/18 08:05 Blood Pressure 146/78 09/27/18 08:05 O2 Sat by Pulse Oximetry (%) 97 09/26/18 21:00 Constitutional: Yes: Anxious, Mild Distress Eyes: Yes: WNL HENT: Yes: WNL Neck: Yes: WNL Cardiovascular: Yes: Regular Rate and Rhythm Respiratory: Yes: On Nasal O2 Gastrointestinal: Yes: Normal Bowel Sounds ...Rectal Exam: Yes: Deferred Genitourinary: Yes: WNL Musculoskeletal: Yes: Muscle Weakness Edema: No Neurological: Yes: Alert Labs: CBC, BMP 09/24/18 13:20 09/24/18 13:20 INR, PTT INR 0.87 (0.83-1.09) 09/24/18 13:20 Assessment/Plan SOB improving Continue same trt
--- NOTE | 2018-09-27 13:07 | PN ---
Progress Note, Physician History of Present Illness: pulmonary alert,feeling better,dyspnea improving. coughing on thin liquids - Current Medication List Current Medications: Active Medications Albuterol Sulfate (Ventolin 0.083% Nebulizer Soln -) 1 amp NEB Q4H PRN PRN Reason: SHORT OF BREATH/WHEEZING Last Admin: 09/26/18 22:24 Dose: 1 amp Albuterol/Ipratropium (Duoneb -) 1 amp NEB RQID [facility] Last Admin: 09/27/18 12:15 Dose: 1 amp Ceftriaxone Sodium 1 gm/ (Dextrose) 50 mls @ 100 mls/hr IVPB DAILY [facility]; Protocol Last Admin: 09/27/18 09:50 Dose: 100 mls/hr Methylprednisolone Sodium Succinate (Solu-Medrol -) 40 mg IVPUSH Q8H-IV [facility] Last Admin: 09/27/18 11:47 Dose: 40 mg Nystatin (Nystatin Oral Suspension -) 500,000 units PO Q6HPO [facility] Last Admin: 09/27/18 11:49 Dose: 500,000 units - Objective Vital Signs: Vital Signs Temperature 98.2 F 09/27/18 08:05 Pulse Rate 87 09/27/18 08:05 Respiratory Rate 20 09/27/18 08:05 Blood Pressure 146/78 09/27/18 08:05 O2 Sat by Pulse Oximetry (%) 97 09/26/18 21:00 Constitutional: Yes: Well Nourished, Calm Eyes: Yes: WNL HENT: Yes: WNL Neck: Yes: WNL Cardiovascular: Yes: Regular Rate and Rhythm, S1, S2 Respiratory: Yes: Wheezes (few scattered wheezes) Gastrointestinal: Yes: Normal Bowel Sounds, Soft Extremities: Yes: WNL Edema: No Labs: CBC, BMP 09/24/18 13:20 Assessment/Plan A/P Acute COPD Exacerbation improving Acute Bronchitis Chronic Hypoxic Respiratory Failure LV Diastolic Dysfunction HTN Hyperlipidemia - medrol q12h - inhaled bronchodilators - O2 to keep SpO2 >90% - BiPAP as needed to assist in work of breathing - antibiotics - when ready for discharge, check ABG to assess for home NIPPV - DVT prophylaxis - swallowing evaluation \ Problem List - Problems (1) COPD exacerbation Code(s): J44.1 - CHRONIC OBSTRUCTIVE PULMONARY DISEASE W (ACUTE) EXACERBATION (2) Acute bronchitis Code(s): J20.9 - ACUTE BRONCHITIS, UNSPECIFIED
--- NOTE | 2018-09-27 13:55 | CONSULT ---
Admitting History and Physical - Primary Care Physician PCP: William Rivas - Admission History of Present Illness: Per EMR- 82yo female with h/o HTN, hyperlipidemia, advanced COPD, chronic hypoxic respiratory failure on home O2, LV diastolic dysfunction who was admitted with worsening shortness of breath. No fever or chills but with new productive cough with yellow sputum starting last week, given Z-pack by PMD without significant relief. Used her nebulizer treatments also with minimal relief. Reports increase in her leg swelling. Noted to be coughing after drinking thin water, stating it "went down the wrong pipe". Upon reviewed with the pt, she said she had a grape that stuck in her throat and the water went down wrong. Selected Entries 09/26/18 09/26/18 09/26/18 06:00 11:49 14:47 Breakfast 75% Lunch 75% Supper Temperature 97.6 F 97.9 F 09/26/18 09/27/18 09/27/18 18:30 02:00 08:05 Breakfast Lunch Supper 75% Temperature 97.5 F L 97.9 F 98.2 F 09/27/18 11:13 Breakfast 75% Lunch Supper Temperature Laboratory Tests 09/24/18 13:20 WBC 5.2 This is my first consult with this pt. History Source: Patient Limitations to Obtaining History: No Limitations - Past Medical History Cardiovascular: Yes: HTN, Hyperlipdemia Pulmonary: Yes: Bronchitis, COPD, O2 Dependent, Pneumonia - Smoking History Smoking history: Former smoker Have you smoked in the past 12 months: No Aproximately how many cigarettes per day: 0 If you are a former smoker, when did you quit?: 2005 - Alcohol/Substance Use Hx Alcohol Use: No History - Admission Reason For Visit: ACUTE EXACERBATION OF COPD/PNEUMONIA - Diagnostics X-ray: Report Reviewed - General Mental Status: Alert and Oriented, Awake and Alert, Able to Follow Commands Attention: Intact Ability to Follow Directions: Excellent Head/Neck Control: WFL - Hearing Hearing: Functional Speech Evaluation - Communication Primary Language: FRENCH Communication: Yes: Within Normal Limits Oral Expression Ability: Yes: No Impairment - Speech Production Able to Make Needs Known: Yes: WNL Intelligibility: Yes: WNL - Speech Characteristics Voice Loudness: Normal Voice Pitch: Yes: Normal Voice Phonatory-based Quality: Yes: Normal, Dysphonia (intermittent) Speech Clarity: < 100% Nasal Resonance: Normal Articulation: Yes: Precise - Language/Auditory Comprehension Follows: Yes: 2 Stage Simple Commands - Language/Verbal Expression Able to Respond to Simple Queries: Yes: WNL Able to Communicate Wants and Needs: Yes: WNL Functional Communication Status: Yes: WNL - Memory/Perception longterm Memory: Yes: WNL Short Term Memory: Yes: WNL - Swallow Evaluation/Bedside Assessment Current Nutritional Intake: Regular, Thin Liquids Oral Secretions: Yes: WFL Dentition: Yes: Adequate Facial Symmetry at Rest: Symmetrical Facial Symmetry on Retraction: Symmetrical Facial Movement: Controlled Sensation: Normal Against Resistance Opening: Normal Against Resistance Closing: Normal Pucker Lips: Normal Smile: Normal Lingual Movement: Normal, Symmetric Lingual Speed of Movement: Normal Lingual Movement Strgth Against Opposition: Normal Lingual Movement Characteristics: Normal Soft Palate Description: Normal Color, Normal Symmetry Hard Palate Description: Normal Color, Normal Symmetry Velopharyngeal Movement: Normal Laryngeal Movement: Able to Palpate Rate of Intake: WFL Bolus Size: WFL Labial Seal: WFL Chewing: WFL Oral Prep Time: WFL A-P Transit: WFL Pocketing: None Timing of Swallow: Delayed Coughing/Throat Clear: Yes (intermittent) Recommendations - Speech Evaluation, Impression/Plan Impression: Pt reports that she has had symptoms of coughing mealtime a couple of times daily for a while ("maybe a year"). Solids get "stuck" in her throat and don't go down. She drinks to clear it but sometimes they come back up. When asked, she admits to heartburn 3-4 times a week, drinks caffienated coffee and tea. She denies reclining after meals. She reports voice changes "from the medication" and uses supplemental o2 24 hours at home over last 3 years. She feels the food gets stuck in her throat but this can be deferred symptoms from the esophagus. r/o weak laryngeal swallow, GERD/Laryngo/pharyngeal reflux, Zenkers Diverticulum, Stricture, esoph dysmotility, stricture, Anterograde/ retrograde aspiration, pathology. - Dysphagia Impressions/Plan Swallowing Skills: Impaired Dysphagia Impressions: Risk of Aspiration, Ongoing Evaluation, Suspect Aspiration *Silent aspiration: cannot be R/O at bedside Recommendations: MBS w Esophagus, Other (Pt considering MBS. Not sure if she wants it. I suggested softer, easy to chew, moist foods. Pt does not want diet downgrade. Suggested GERD precautions including eliminating Caffeine- Pt refusing-Loves her coffee/tea. . Reviewed small bites, chew well, alternate with sip of liquid. GERD precautions.)
[2018-09-27] MEDS: amLODIPine BESYLATE 5 MG TABLET (FP) PO SCH (17:27)
[2018-09-28] MEDS: NYSTATIN 500,000 UNITS/5 ML SUSPENSION PO SCH ×5 (00:15→23:30)
[2018-09-28] MEDS: ALBUTEROL SO4 2.5/IPRATROPIUM 0.5 INH SOL 3 ML VIAL.NEB. NEB SCH ×4 (08:16→20:50)
[2018-09-28] MEDS ORDERED: cefTRIAXone SODIUM 1 GM VIAL ONE (10:20)
[2018-09-28] MEDS ORDERED: DEXTROSE 5%-WATER - 50 ML IVPB ONE (10:20)
[2018-09-28] MEDS: amLODIPine BESYLATE 5 MG TABLET (FP) PO SCH (10:23)
[2018-09-28] MEDS: CEFTRIAXONE 1 GM in DEXTROSE 5%-WATER - 50 ML IVPB SCH (10:23)
[2018-09-28] MEDS: methylPREDNISolone NA SUCC 40 MG/1 ML VIAL IVPUSH SCH ×2 (10:23→17:25)
--- NOTE | 2018-09-28 10:24 | PN ---
Progress Note, Physician History of Present Illness: PULMONARY ALERT,C/O INCREASED CHEST CONGESTION,-CP - Current Medication List Current Medications: Active Medications Albuterol Sulfate (Ventolin 0.083% Nebulizer Soln -) 1 amp NEB Q4H PRN PRN Reason: SHORT OF BREATH/WHEEZING Last Admin: 09/26/18 22:24 Dose: 1 amp Albuterol/Ipratropium (Duoneb -) 1 amp NEB RQID [facility] Last Admin: 09/28/18 08:16 Dose: 1 amp Amlodipine Besylate (Norvasc -) 5 mg PO DAILY [facility] Last Admin: 09/27/18 17:27 Dose: 5 mg Ceftriaxone Sodium 1 gm/ (Dextrose) 50 mls @ 100 mls/hr IVPB DAILY [facility]; Protocol Last Admin: 09/27/18 09:50 Dose: 100 mls/hr Methylprednisolone Sodium Succinate (Solu-Medrol -) 40 mg IVPUSH BID [facility] Last Admin: 09/27/18 21:50 Dose: 40 mg Nystatin (Nystatin Oral Suspension -) 500,000 units PO Q6HPO [facility] Last Admin: 09/28/18 06:01 Dose: 500,000 units - Objective Vital Signs: Vital Signs Temperature 98 F 09/28/18 08:13 Pulse Rate 76 09/28/18 08:13 Respiratory Rate 18 09/28/18 08:13 Blood Pressure 140/78 09/28/18 08:13 O2 Sat by Pulse Oximetry (%) 99 09/27/18 21:00 Constitutional: Yes: Calm, Thin Eyes: Yes: WNL HENT: Yes: WNL Neck: Yes: WNL Cardiovascular: Yes: Regular Rate and Rhythm, S1, S2 Respiratory: Yes: Diminished, Wheezes (FEW WHEEZES) Gastrointestinal: Yes: Normal Bowel Sounds, Soft Extremities: Yes: WNL Edema: No Labs: CBC, BMP 09/24/18 13:20 09/24/18 13:20 Assessment/Plan A/P Acute COPD Exacerbation Acute Bronchitis Chronic Hypoxic Respiratory Failure LV Diastolic Dysfunction HTN Hyperlipidemia - medrol q8 - inhaled bronchodilators - O2 to keep SpO2 >90% - BiPAP as needed to assist in work of breathing - antibiotics - when ready for discharge, check ABG to assess for home NIPPV - DVT prophylaxis Problem List - Problems (1) COPD exacerbation Code(s): J44.1 - CHRONIC OBSTRUCTIVE PULMONARY DISEASE W (ACUTE) EXACERBATION (2) Acute bronchitis Code(s): J20.9 - ACUTE BRONCHITIS, UNSPECIFIED
--- NOTE | 2018-09-28 19:20 | PN ---
Progress Note, Physician Chief Complaint: Still feels SOB - Current Medication List Current Medications: Active Medications Albuterol Sulfate (Ventolin 0.083% Nebulizer Soln -) 1 amp NEB Q4H PRN PRN Reason: SHORT OF BREATH/WHEEZING Last Admin: 09/26/18 22:24 Dose: 1 amp Albuterol/Ipratropium (Duoneb -) 1 amp NEB RQID [facility] Last Admin: 09/28/18 15:20 Dose: Not Given Amlodipine Besylate (Norvasc -) 5 mg PO DAILY [facility] Last Admin: 09/28/18 10:23 Dose: 5 mg Ceftriaxone Sodium 1 gm/ (Dextrose) 50 mls @ 100 mls/hr IVPB DAILY [facility]; Protocol Last Admin: 09/28/18 10:23 Dose: 100 mls/hr Methylprednisolone Sodium Succinate (Solu-Medrol -) 40 mg IVPUSH Q8H-IV [facility] Last Admin: 09/28/18 17:25 Dose: 40 mg Nystatin (Nystatin Oral Suspension -) 500,000 units PO Q6HPO [facility] Last Admin: 09/28/18 17:21 Dose: 500,000 units - Objective Vital Signs: Vital Signs Temperature 97.7 F 09/28/18 17:51 Pulse Rate 86 09/28/18 17:51 Respiratory Rate 20 09/28/18 17:51 Blood Pressure 151/85 09/28/18 17:51 O2 Sat by Pulse Oximetry (%) 100 09/28/18 09:00 Constitutional: Yes: Well Nourished, No Distress, Calm HENT: Yes: Atraumatic, Normocephalic Neck: Yes: Supple, Trachea Midline Cardiovascular: Yes: Regular Rate and Rhythm, S1, S2. No: JVD, Murmur Respiratory: Yes: Regular, Wheezes Gastrointestinal: Yes: Normal Bowel Sounds, Soft Extremities: No: Calf Tenderness Edema: No Peripheral Pulses: Left Doralis Pedis: 1+, Right Dorsalis Pedis: 1+ Labs: CBC, BMP 09/24/18 13:20 09/24/18 13:20 INR, PTT INR 0.87 (0.83-1.09) 09/24/18 13:20 Problem List - Problems (1) Acute on chronic respiratory failure with hypoxia and hypercapnia Assessment/Plan: Due to COPD excaerbation evaluted by Pulmonary consult on IV solumedrol, Duoneb and O2 inhalation. Code(s): J96.21 - ACUTE AND CHRONIC RESPIRATORY FAILURE WITH HYPOXIA; J96.22 - ACUTE AND CHRONIC RESPIRATORY FAILURE WITH HYPERCAPNIA (2) Acute bronchitis Assessment/Plan: on Z pack Code(s): J20.9 - ACUTE BRONCHITIS, UNSPECIFIED (3) Pneumonia Assessment/Plan: on Ceftriaxone Code(s): J18.9 - PNEUMONIA, UNSPECIFIED ORGANISM Qualifiers: Pneumonia type: due to unspecified organism Laterality: right Lung location: lower lobe of lung Qualified Code(s): J18.1 - Lobar pneumonia, unspecified organism (4) HTN (hypertension) Assessment/Plan: on amlodipine Code(s): I10 - ESSENTIAL (PRIMARY) HYPERTENSION
[2018-09-29] MEDS: methylPREDNISolone NA SUCC 40 MG/1 ML VIAL IVPUSH SCH ×4 (02:33→17:48)
[2018-09-29] MEDS: NYSTATIN 500,000 UNITS/5 ML SUSPENSION PO SCH ×3 (05:43→17:46)
[2018-09-29 07:58] LABS: BASO % 0.1 % (0-2.0); HEMATOCRIT 36.7 % (32.4-45.2); HEMOGLOBIN 12.4 GM/dL (10.7-15.3); LYMPH % 5.8 % (8-40); MCHC 33.6 g/dl (32.0-36.0); MEAN PLT VOLUME 8.3 fl (7.5-11.1); MONO % 4.2 % (3.8-10.2); NEUT % 89.9 % (42.8-82.8); PLATELET COUNT 200 K/MM3 (134-434); RBC 3.75 M/mm3 (3.60-5.2); RDW 14.6 % (11.6-15.6); WHITE BLOOD COUNT 5.5 K/mm3 (4.0-10.0)
[2018-09-29] MEDS: ALBUTEROL SO4 2.5/IPRATROPIUM 0.5 INH SOL 3 ML VIAL.NEB. NEB SCH (08:00)
[2018-09-29 08:31] LABS: BLOOD UREA NITROGEN 23.8 mg/dL (7-18); CALCIUM 9.3 mg/dL (8.5-10.1); CREATININE 0.7 mg/dL (0.55-1.3); POTASSIUM 5.1 mmol/L (3.5-5.1)
[2018-09-29] MEDS ORDERED: DEXTROSE 5%-WATER - 50 ML IVPB ONE (09:57)
[2018-09-29] MEDS ORDERED: cefTRIAXone SODIUM 1 GM VIAL ONE (09:57)
[2018-09-29] MEDS: CEFTRIAXONE 1 GM in DEXTROSE 5%-WATER - 50 ML IVPB SCH ×2 (10:04→11:35)
[2018-09-29] MEDS: amLODIPine BESYLATE 5 MG TABLET (FP) PO SCH (10:06)
--- NOTE | 2018-09-29 10:27 | PN ---
Progress Note, Physician History of Present Illness: pulmonary alert,sitting up in bed less congested,+ franks - Current Medication List Current Medications: Active Medications Albuterol Sulfate (Ventolin 0.083% Nebulizer Soln -) 1 amp NEB Q4H PRN PRN Reason: SHORT OF BREATH/WHEEZING Last Admin: 09/26/18 22:24 Dose: 1 amp Albuterol/Ipratropium (Duoneb -) 1 amp NEB RQID CAREY Last Admin: 09/29/18 08:00 Dose: 1 amp Amlodipine Besylate (Norvasc -) 5 mg PO DAILY CAREY Last Admin: 09/29/18 10:06 Dose: 5 mg Ceftriaxone Sodium 1 gm/ (Dextrose) 50 mls @ 100 mls/hr IVPB DAILY CAREY; Protocol Last Admin: 09/28/18 10:23 Dose: 100 mls/hr Methylprednisolone Sodium Succinate (Solu-Medrol -) 40 mg IVPUSH Q8H-IV CAREY Last Admin: 09/29/18 02:33 Dose: 40 mg Nystatin (Nystatin Oral Suspension -) 500,000 units PO Q6HPO CAREY Last Admin: 09/29/18 05:43 Dose: 500,000 units - Objective Vital Signs: Vital Signs Temperature 97.6 F 09/29/18 08:41 Pulse Rate 92 H 09/29/18 08:41 Respiratory Rate 20 09/29/18 08:41 Blood Pressure 161/92 09/29/18 08:41 O2 Sat by Pulse Oximetry (%) 96 09/28/18 21:00 Constitutional: Yes: Calm, Thin Eyes: Yes: WNL HENT: Yes: WNL Neck: Yes: WNL Cardiovascular: Yes: Regular Rate and Rhythm, S1, S2 Respiratory: Yes: Diminished Gastrointestinal: Yes: Normal Bowel Sounds, Soft Extremities: Yes: WNL Edema: No Labs: CBC, BMP 09/29/18 07:10 09/29/18 07:10 INR, PTT INR 0.87 (0.83-1.09) 09/24/18 13:20 Assessment/Plan A/P Acute COPD Exacerbation Acute Bronchitis Chronic Hypoxic Respiratory Failure LV Diastolic Dysfunction HTN Hyperlipidemia - medrol - inhaled bronchodilators - O2 to keep SpO2 >90% - BiPAP as needed to assist in work of breathing - antibiotics - when ready for discharge, check ABG to assess for home NIPPV - DVT prophylaxis - zithromax 250 mg po tiw as anti-inflammatory Problem List - Problems (1) COPD exacerbation Code(s): J44.1 - CHRONIC OBSTRUCTIVE PULMONARY DISEASE W (ACUTE) EXACERBATION (2) Acute bronchitis Code(s): J20.9 - ACUTE BRONCHITIS, UNSPECIFIED
[2018-09-29] MEDS: AZITHROMYCIN 250 MG TABLET PO SCH (11:46)
[2018-09-29] MEDS: TIOTROPIUM BROMIDE 2.5 MCG (SPIRIVA) RESPIMAT INHALER IH SCH (11:48)
--- NOTE | 2018-09-29 14:44 | PN ---
Progress Note, Physician Chief Complaint: comfortable feels improved - Current Medication List Current Medications: Active Medications Albuterol Sulfate (Ventolin 0.083% Nebulizer Soln -) 1 amp NEB Q4H PRN PRN Reason: SHORT OF BREATH/WHEEZING Last Admin: 09/26/18 22:24 Dose: 1 amp Amlodipine Besylate (Norvasc -) 5 mg PO DAILY CAREY Last Admin: 09/29/18 10:06 Dose: 5 mg Arformoterol Tartrate (Brovana (Restricted To Pulmonology/Resp) -) 1 amp NEB RBID CAREY Azithromycin (Zithromax -) 250 mg PO DAILY CAREY Last Admin: 09/29/18 11:46 Dose: 250 mg Ceftriaxone Sodium 1 gm/ (Dextrose) 50 mls @ 100 mls/hr IVPB DAILY CAREY; Protocol Last Admin: 09/29/18 11:35 Dose: 100 mls/hr Methylprednisolone Sodium Succinate (Solu-Medrol -) 40 mg IVPUSH Q8H-IV CAREY Last Admin: 09/29/18 11:35 Dose: 40 mg Nystatin (Nystatin Oral Suspension -) 500,000 units PO Q6HPO CAREY Last Admin: 09/29/18 11:45 Dose: 500,000 units Tiotropium [place] (Spiriva Respimat) 2 puff IH DAILY CAREY Last Admin: 09/29/18 11:48 Dose: 2 puff - Objective Vital Signs: Vital Signs Temperature 98.5 F 09/29/18 14:32 Pulse Rate 95 H 09/29/18 14:32 Respiratory Rate 21 H 09/29/18 14:32 Blood Pressure 138/59 L 09/29/18 14:32 O2 Sat by Pulse Oximetry (%) 97 09/29/18 09:00 Constitutional: Well Nourished, No Distress, Calm HEENT: Atraumatic, Normocephalic Neck: Supple, Trachea Midline Cardiovascular: Regular Rate and Rhythm, S1, S2. No: JVD, Murmur Respiratory: Regular, minimal Wheezes Gastrointestinal: Yes: Normal Bowel Sounds, Soft Extremities: No: Calf Tenderness, no Edema, Left Doralis Pedis: 1+, Right Dorsalis Pedis: 1+ WIRELESS ENGINEER: AOX3 non foal Labs: CBC, BMP 09/29/18 07:10 09/29/18 07:10 INR, PTT INR 0.87 (0.83-1.09) 09/24/18 13:20 Problem List - Problems (1) Acute on chronic respiratory failure with hypoxia and hypercapnia Assessment/Plan: Due to COPD excaerbation evaluated by Pulmonary consult on IV solumedrol, Duoneb and O2 inhalation, add Symbicort spiriva on DC. Code(s): J96.21 - ACUTE AND CHRONIC RESPIRATORY FAILURE WITH HYPOXIA; J96.22 - ACUTE AND CHRONIC RESPIRATORY FAILURE WITH HYPERCAPNIA (2) Pneumonia Assessment/Plan: on Ceftriaxone Code(s): J18.9 - PNEUMONIA, UNSPECIFIED ORGANISM Qualifiers: Pneumonia type: due to unspecified organism Laterality: right Lung location: lower lobe of lung Qualified Code(s): J18.1 - Lobar pneumonia, unspecified organism (3) HTN (hypertension) Assessment/Plan: on amlodipine Code(s): I10 - ESSENTIAL (PRIMARY) HYPERTENSION
[2018-09-29] MEDS: ARFORMOTEROL TARTRATE 15 MCG/2 ML VIAL NEB SCH (19:54)
[2018-09-30] MEDS: NYSTATIN 500,000 UNITS/5 ML SUSPENSION PO SCH ×3 (01:11→12:33)
[2018-09-30] MEDS: methylPREDNISolone NA SUCC 40 MG/1 ML VIAL IVPUSH SCH ×2 (02:47→09:18)
[2018-09-30 07:56] LABS: BLOOD UREA NITROGEN 26.2 mg/dL (7-18); CALCIUM 9.3 mg/dL (8.5-10.1); CREATININE 0.6 mg/dL (0.55-1.3); POTASSIUM 4.5 mmol/L (3.5-5.1)
[2018-09-30] MEDS: ARFORMOTEROL TARTRATE 15 MCG/2 ML VIAL NEB SCH (08:01)
[2018-09-30] MEDS ORDERED: cefTRIAXone SODIUM 1 GM VIAL ONE (09:13)
[2018-09-30] MEDS ORDERED: DEXTROSE 5%-WATER - 50 ML IVPB ONE (09:13)
[2018-09-30] MEDS: amLODIPine BESYLATE 5 MG TABLET (FP) PO SCH (09:17)
[2018-09-30] MEDS: AZITHROMYCIN 250 MG TABLET PO SCH (09:17)
[2018-09-30] MEDS: CEFTRIAXONE 1 GM in DEXTROSE 5%-WATER - 50 ML IVPB SCH (09:18)
[2018-09-30] MEDS: TIOTROPIUM BROMIDE 2.5 MCG (SPIRIVA) RESPIMAT INHALER IH SCH (09:19)
[2018-09-30 09:22] VITALS: BP 155/75; PULSE 72; TEMP 97.2
--- NOTE | 2018-09-30 12:15 | PN ---
Progress Note, PHARMACY SERVICES DIRECTOR - Note Progress Note: Selected Entries 09/29/18 09/29/18 09/29/18 06:00 08:41 11:44 Breakfast 75% Lunch Temperature 97.9 F 97.6 F 09/29/18 09/29/18 09/30/18 14:32 17:14 06:00 Breakfast Lunch 75% Temperature 98.5 F 98.4 F 97.4 F L 09/30/18 09:21 Breakfast Lunch Temperature 97.2 F L Laboratory Tests 09/29/18 07:10 WBC 5.5 Pt dressed pending discharge. Reviewed swallowing symptoms. Pt will consider out pt MBS, as pills/ solids sometimes stick, as reported during initial consult.
== END 2018-09-30 13:40 | disposition home or self-care (01) | DRG 190 ==
LOC: JER 12:18 → JERBED 15:00 → J5S 09-25 15:06
PROVIDERS: ADMIT Internal Medicine; ATTEND Internal Medicine
DX: J44.1 Chronic obstructive pulmonary disease with (acute) exacerbation (principal); J18.9 Pneumonia, unspecified organism; J96.11 Chronic respiratory failure with hypoxia; R64 Cachexia; Z68.1 Body mass index [BMI] 19.9 or less, adult; J20.9 Acute bronchitis, unspecified; I10 Essential (primary) hypertension; E78.5 Hyperlipidemia, unspecified
CPT/HCPCS: 36415; 71045-TC-FY; 80048; 80053; 82550; 83605; 84484; 85025; 85027; 85610; 85730; 87040; 93005; 93010; 93971-TC; 94640; 97116-GP; 97161-GP; 99284-25

== ENCOUNTER 2019-01-09 07:58 | Inpatient (IN) | payer OTHER, BC ==
--- NOTE | 2019-01-09 08:24 | PDOC ---
History of Present Illness - General Chief Complaint: Shortness of Breath Stated Complaint: DIFFICULTY BREATHING Time Seen by Provider: 01/09/19 08:23 - History of Present Illness Initial Comments: 01/09/19 09:18 83 y/o F hx of COPD, HTN, CHF, HLD uses O2 at home / (3L), distant hx of clots (50yrs ago) presents today with 1 day of increases SOB on exertion and headache. She noticed increased SOB when she was trying to move around this morning and that together with her headache, prompted her to come to the ER. She has had a productive cough for the last 1-2 weeks which is not unusual for her, but she has had a change in sputum color from clear to yellow. She endorses headache, constipation. bilateral lower extremity tenderness She denies fever, chills, chest pain (pleuritic or otherwise), hemoptysis, long travel, hormone use, surgeries or Cancer diagnosis, dysuria hematuria, bloody stools. She endorses leg swelling with a wound on her right leg that she has had for 1 week and that has not healed. 01/09/19 10:29 Past History - Past Medical History Allergies/Adverse Reactions: Allergies Allergy/AdvReac Type Severity Reaction Status Date / Time No Known Allergies Allergy Verified 01/09/19 08:37 Home Medications: Ambulatory Orders Albuterol Sulfate Inhaler - [Ventolin HFA Inhaler -] 1 - 2 inh PO QID 09/23/17 Bimatoprost [Lumigan] 1 drop OU HS 09/23/17 Biotin/Keratin [Biotin Plus Keratin Tablet] 1 each PO DAILY 09/23/17 Calcium (Oyster Shell) [Os-Ignacio 500MG -] 500 mg PO BID 09/23/17 Budesonide/Formeterol Fumarate [SYMBICORT 160/4.5mcg -] 2 puff IH BID inhaler 09/28/17 Prednisone 10 mg PO DAILY 06/27/18 Furosemide [Lasix -] 40 mg PO Q48H 07/11/18 Amlodipine/Atorvastatin [Amlodipine-Atorvast 5-10 mg] 5 each PO DAILY 09/26/18 Albuterol 0.083% Nebulizer Noemy [Ventolin 0.083% Nebulizer Soln -] 1 amp NEB Q4H PRN amp 09/30/18 Albuterol 2.5/Ipratropium 0.5 [Duoneb -] 1 amp NEB RQID amp 09/30/18 Amlodipine Besylate [Norvasc -] 5 mg PO DAILY tablet 09/30/18 Arformoterol Tartrate [Brovana -] 1 amp NEB RBID amp 09/30/18 Tiotropium [place] [Spiriva Respimat] 2 puff IH DAILY inhaler 09/30/18 COPD: Yes (HOME O2- 3L) HTN: Yes - Surgical History Abdominal Surgery: No Appendectomy: No Cardiac Surgery: No Cholecystectomy: No Gastric Stapling: No GI Surgery: No Lung Surgery: No Neurologic Surgery: No Orthopedic Surgery: No - Psycho Social/Smoking Cessation Hx Smoking Status: Yes Smoking History: Former smoker Have you smoked in the past 12 months: No Number of Cigarettes Smoked Daily: 0 If you are a former smoker, when did you quit?: 2005 Information on smoking cessation initiated: No 'Breaking Loose' booklet given: 09/25/18 Hx Alcohol Use: No Drug/Substance Use Hx: No Substance Use Type: None Hx Substance Use Treatment: No Review of Systems - Review of Systems Constitutional: No: Chills, Fever HEENTM: No: Eye Pain, Blurred Vision Respiratory: Yes: Cough, Shortness of Breath Cardiac (ROS): No: Chest Pain, Chest Tightness ABD/GI: Yes: Constipated. No: Nausea, Vomiting : No: Burning, Dysuria Musculoskeletal: No: Back Pain, Joint Pain Integumentary: Yes: Bruising. No: Dryness Neurological: Yes: Headache Psychiatric: No: Frequent Crying *Physical Exam - Vital Signs Last Vital Signs Temp Pulse Resp BP Pulse Ox 99.7 F H 92 H 20 132/84 99 01/09/19 08:06 01/09/19 08:06 01/09/19 08:06 01/09/19 08:06 01/09/19 08:06 - Physical Exam 01/09/19 09:12 PE: GENERAL: Awake, alert, and fully oriented, in no acute distress HEAD: No signs of trauma, normocephalic, atraumatic EYES: PERRLA, EOMI, sclera anicteric, conjunctiva clear ENT: Auricles normal inspection, hearing grossly normal, nares patent, oropharynx clear without exudates. Moist mucosa NECK: Normal ROM, supple, no lymphadenopathy, JVD, or masses LUNGS:expiration through pursed lips.mild inspiratory wheezes throughout. decreased breath sounds in right lower lobe HEART: Regular rate and rhythm, normal S1 and S2, no murmurs, rubs or gallops, peripheral pulses normal and equal bilaterally. ABDOMEN: Soft, nontender, normoactive bowel sounds. No guarding, no rebound. No masses EXTREMITIES : wound on RLE. with swelling with fluid collection (likely blood). unilateral swelling on right. chronic ecchymotic skin changes bilaterally NEUROLOGICAL: Cranial nerves II through XII grossly intact. Normal speech, , no focal sensorimotor deficits SKIN: Warm, Dry, normal turgor, no rashes or lesions noted ED Treatment Course - LABORATORY CBC & Chemistry Diagram: 01/09/19 09:00 01/09/19 09:00 Medical Decision Making - Medical Decision Making 01/09/19 09:17 83 y/o F hx of COPD, HTN, CHF, HLD uses O2 at home 24/7 (3L), distant hx of clots (50yrs ago) cbc, cmp, ekg, cxr, bnp, troponin Meds: tylenol IV, 500cc normal saline 01/09/19 09:50 EKG: normal sinus rhythm, possible left atrial enlargement & axis deviation. anteroseptal infarct age undetermined warmth and erythema of leg concerning for cellulitis rectal temp 100 F additional sepsis workup 01/09/19 10:33 01/09/19 12:[address] Rivas for cellulitis and copd exacerbation Clindamycin 600mg IV ordered. Discharge - Discharge Information Problems reviewed: Yes Clinical Impression/Diagnosis: COPD exacerbation Cellulitis Qualifiers: Site of cellulitis: extremity Site of cellulitis of extremity: lower extremity Laterality: right Qualified Code(s): L03.115 - Cellulitis of right lower limb - Follow up/Referral - Patient Discharge Instructions - Post Discharge Activity
[2019-01-09] MEDS ORDERED: ACETAMINOPHEN 1000 MG/100 ML VIAL (NON FORMULARY) IVPB ONE (08:56)
--- NOTE | 2019-01-09 08:56 | PDOC ---
Attending Attestation - Resident Resident Name: Cam Newell - ED Attending Attestation I have performed the following: I have examined & evaluated the patient, The case was reviewed & discussed with the resident, I agree w/resident's findings & plan, Exceptions are as noted - HPI HPI: 01/09/19 09:30 83y F hx of htn, copd (on chronic steroids 10mg, baseline O2 3L, chronic azithro ) presents with multiple complaints including mild worsening shortness of breath /dyspnea on exertion without associated fever, chills, cough. Patient also endorses having a wound on her right posterior leg for the past week and a half after running into something note it is more painful. Patient also endorses some mild constipation without abdominal pain nausea vomiting. She did have a bowel movement this morning but was little hard pellets. Also endorses a mild headache that is consistent with prior that she typically takes Excedrin with resolution patient denies any vision changes, numbness, tingling, weakness, neck pain, back pain, chest pain, hemoptysis. Exam: GENERAL: The patient is awake, alert, and fully oriented, Nontoxic - in no acute distress. HEAD: Normocephalic, atraumatic. EYES: extraocular movements intact, sclera anicteric, conjunctiva clear. ENT: Normal voice, Moist mucous membranes. NECK: Normal range of motion, supple LUNGS: Breath sounds equal, clear to auscultation bilaterally. No wheezes, no rhonchi, no rales. HEART: Regular rate and rhythm, normal S1 and S2 without murmur, rub or gallop. ABDOMEN: Soft, nontender, No guarding, no rebound. No CVA tenderness EXTREMITIES: Normal range of motion, +edema to RLE, +multiple blood blisters, + erythema and warmth extending from the lower extremity down to the midfoot. NEUROLOGICAL: No facial assymetry, Normal speech, moving all 4 extremities spontaneously symmetrically, sensation intact in upper and lower extremities PSYCH: Normal mood, normal affect. SKIN: Warm, Dry, normal turgor, Concern for possible cellulitis/superinfection of leg wounds Patient also with multiple complaints including shortness of breath may be mild COPD exacerbation will obtain a blood gas, basic labs, chest x-ray to rule out acute pulmonary disease Patient has some constipation however the abdomen is soft nontender there is no vomiting and she did have a bowel movement will recommend supportive measures - Physicial Exam PE: 01/11/19 09:14 see above - Medical Decision Making Viewed the case was discussed with Dr. Rivas will admit for further management for further management of the cellulitis Heart Score/ECG Review - ECG Impressions Comment:: 01/09/19 09:52 Twelve-lead EKG was performed and reviewed by me. There is normal sinus rhythm with a normal rate. Rate of 89 Left axis deviation
[2019-01-09] MEDS ORDERED: ACETAMINOPHEN INJECTION 100 ML IVPB ONE (09:02)
[2019-01-09] MEDS ORDERED: SODIUM CHLORIDE 0.9% 500 ML INFUS.BAG IV ONE (09:11)
[2019-01-09] MEDS ORDERED: SODIUM CHLORIDE IV ONE (09:39)
[2019-01-09 09:44] LABS: BASO % 0.6 % (0-2.0); EOS % 5.4 % (0-4.5); HEMATOCRIT 31.9 % (32.4-45.2); HEMOGLOBIN 10.4 GM/dL (10.7-15.3); LYMPH % 15.8 % (8-40); MCH 32.2 pg (25.7-33.7); MCHC 32.5 g/dl (32.0-36.0); MEAN CELL VOLUME 99.1 fl (80-96); MONO % 10.4 % (3.8-10.2); NEUT % 67.8 % (42.8-82.8); PLATELET COUNT 218 K/MM3 (134-434); RBC 3.22 M/mm3 (3.60-5.2); RDW 15.1 % (11.6-15.6); WHITE BLOOD COUNT 4.7 K/mm3 (4.0-10.0)
[2019-01-09 10:20] LABS: ALBUMIN 3.1 g/dl (3.4-5.0); BILIRUBIN,TOTAL 0.3 mg/dL (0.2-1); BLOOD UREA NITROGEN 16.4 mg/dL (7-18); CALCIUM 9.2 mg/dL (8.5-10.1); CREATININE 0.7 mg/dL (0.55-1.3); POTASSIUM 4.2 mmol/L (3.5-5.1); TOT PROT 5.8 g/dl (6.4-8.2)
[2019-01-09 10:22] LABS: N-TERMINAL BNP 119.6 pg/ml (5-450)
[2019-01-09 11:34] LABS: VENOUS PH 7.27 (7.31-7.41)
[2019-01-09 11:38] LABS: VENOUS PO2 < 49 mmHg (28-48)
[2019-01-09 11:39] LABS: VENOUS PC02 74.1 mmHg (38-52)
[2019-01-09 12:02] LABS: PH,URINE 6.5 (5.0-8.0); URINE APPEARANCE CLEAR; URINE BILIRUBIN NEGATIVE (NEGATIVE); URINE COLOR YELLOW; URINE GLUCOSE (UA) NEGATIVE (NEGATIVE); URINE KETONE NEGATIVE (NEGATIVE); URINE LEUK ESTERASE NEGATIVE (NEGATIVE); URINE NITRITE NEGATIVE (NEGATIVE); URINE PROTEIN NEGATIVE (NEGATIVE); URINE UROBILINOGEN 0.2 mg/dL (0.2-1.0)
[2019-01-09 12:09] LABS: INR 0.9 (0.83-1.09); PROTHROMBIN TIME (PATIENT) 10.6 SEC (9.7-13.0)
[2019-01-09 12:12] LABS: ACTIVATED PTT 29.5 SECONDS (25.2-36.5)
[2019-01-09] MEDS ORDERED: CLINDAMYCIN 600MG PREMIX IVPB 600 MG/50 ML BAG IVPB ONE ×2 (12:22→12:31)
--- NOTE | 2019-01-09 15:31 | HP ---
DATE OF ADMISSION: 01/09/2019 DATE OF DICTATION: 01/09/2019 HISTORY: This is an 83-year-old female known to have COPD, hypertension in the past admitted many times here now comes with complaints of short of breath. Also has swelling and blisters of the right leg and left leg. Patient was taking her medicines at home. Prednisone was being reduced from 20 to 15 mg/day. PHYSICAL EXAMINATION: Vital Signs: BP 130/85, pulse 78, respirations 20, temperature 100. HEENT: Unremarkable. Neck: Supple. Lungs: Minimal wheeze bilaterally. Air entry poor. Heart: S1, S2 normal. No S3, S4. Abdomen: Soft. Extremities: Left leg has erythema up to the knee with skin bubbles with induration and blisters. Also has some cellulitis on the left leg up to the ankle. Neurologic: Grossly normal. LABORATORY REPORTS: WBC 4.7, hemoglobin 10.4, hematocrit 31.9. Chemistry, electrolytes are normal. BUN 16, creatinine 0.7, blood sugar random 92. B peptide is negative. Chest x-ray consistent with COPD, no infiltrate. No DVT on the legs. IMPRESSION: 1. Exacerbation of chronic obstructive pulmonary disease. 2. Cellulitis of both legs, more on the right leg. 3. Hypertension. PLAN: ID consult. Pulmonary consult. We will follow. Sandy [id number]
[2019-01-09] MEDS: ACETAMINOPHEN 325 MG TABLET (FP) PO PRN (18:05)
[2019-01-09] MEDS ORDERED: PSYLLIUM 5.85 GM PACKET PO ONE (18:15)
[2019-01-09] MEDS ORDERED: PT OWN MED DRAWER 7, Y5N ONE (18:25)
[2019-01-10] MEDS: ACETAMINOPHEN 325 MG TABLET (FP) PO PRN ×2 (00:21→09:57)
--- NOTE | 2019-01-10 08:39 | CON.ID ---
Consult Consult Specialty:: infectious diseases Referred by:: Reason for Consultation:: cellulitis of the rt leg,sob - History of Present Illness Chief Complaint: sob History of Present Illness: 83y F hx of htn, copd (on chronic steroids 10mg, baseline O2 3L, chronic azithro ) presents with multiple complaints including mild worsening shortness of breath /dyspnea on exertion without associated fever, chills, cough. Patient also endorses having a wound on her right leg for the past week and a half after running into something note it is more painful. Patient also endorses some mild constipation without abdominal pain nausea vomiting. patient currently feeling a bit groggy says her breathing is still not good - History Source History Provided By: Patient Limitations to Obtaining History: No Limitations - Past Medical History Cardio/Vascular: Yes: HTN, Hyperlipdemia Pulmonary: Yes: Bronchitis, COPD, O2 Dependent, Pneumonia - Alcohol/Substance Use Hx Alcohol Use: No - Smoking History Smoking history: Former smoker Have you smoked in the past 12 months: No Aproximately how many cigarettes per day: 0 If you are a former smoker, when did you quit?: 2005 Home Medications - Allergies Allergies/Adverse Reactions: Allergies Allergy/AdvReac Type Severity Reaction Status Date / Time No Known Allergies Allergy Verified 01/09/19 08:37 - Home Medications Home Medications: Ambulatory Orders Albuterol Sulfate Inhaler - [Ventolin HFA Inhaler -] 1 - 2 inh PO QID 09/23/17 Bimatoprost [Lumigan] 1 drop OU HS 09/23/17 Biotin/Keratin [Biotin Plus Keratin Tablet] 1 each PO DAILY 09/23/17 Calcium (Oyster Shell) [Os-Ignacio 500MG -] 500 mg PO BID 09/23/17 Budesonide/Formeterol Fumarate [SYMBICORT 160/4.5mcg -] 2 puff IH BID inhaler 09/28/17 Prednisone 10 mg PO DAILY 06/27/18 Furosemide [Lasix -] 40 mg PO Q48H 07/11/18 Amlodipine/Atorvastatin [Amlodipine-Atorvast 5-10 mg] 5 each PO DAILY 09/26/18 Albuterol 0.083% Nebulizer Noemy [Ventolin 0.083% Nebulizer Soln -] 1 amp NEB Q4H PRN amp 09/30/18 Albuterol 2.5/Ipratropium 0.5 [Duoneb -] 1 amp NEB RQID amp 09/30/18 Amlodipine Besylate [Norvasc -] 5 mg PO DAILY tablet 09/30/18 Arformoterol Tartrate [Brovana -] 1 amp NEB RBID amp 09/30/18 Tiotropium [place] [Spiriva Respimat] 2 puff IH DAILY inhaler 09/30/18 Review of Systems - Review of Systems Constitutional: reports: Weakness Eyes: reports: No Symptoms HENT: reports: No Symptoms Neck: reports: No Symptoms Cardiovascular: reports: No Symptoms Respiratory: reports: SOB, SOB on Exertion Gastrointestinal: reports: No Symptoms Genitourinary: reports: No Symptoms Musculoskeletal: reports: No Symptoms Integumentary: reports: Erythema, Wound Neurological: reports: No Symptoms Endocrine: reports: No Symptoms Hematology/Lymphatic: reports: No Symptoms Psychiatric: reports: No Symptoms Physical Exam Vital Signs: Vital Signs Temperature 97.9 F 01/10/19 06:00 Pulse Rate 89 01/10/19 06:00 Respiratory Rate 20 01/10/19 06:00 Blood Pressure 124/58 L 01/10/19 06:00 O2 Sat by Pulse Oximetry (%) 100 01/09/19 21:00 Constitutional: Yes: Calm, Thin Eyes: Yes: Conjunctiva Clear Neck: Yes: Supple, Trachea Midline Cardiovascular: Yes: Regular Rate and Rhythm Respiratory: Yes: Regular, On Nasal O2, Poor Air Entry (bases) Gastrointestinal: Yes: Normal Bowel Sounds, Soft Musculoskeletal: Yes: Other Extremities: Yes: Erythema, Other (multiple blisters, + erythema and warmth extending from the lower extremity down to the midfoot.) Wound/Incision: Yes: Dressing Dry and Intact, Dressing Removed, Other Neurological: Yes: Alert, Oriented Psychiatric: Yes: Alert, Oriented Labs: CBC, BMP 01/09/19 09:00 01/09/19 09:00 Imaging - Results Chest X-ray: Report Reviewed, Image Reviewed Assessment/Plan this patient with multiple medical problems coming to the hospital because of sob and who is on chr zithro and also has injury to the leg with warmth and erythema and tenderness i am going to start her on ceftriaxone wound care await for all cx reports once we have cx reports will decide further mgmt
--- NOTE | 2019-01-10 09:09 | PN ---
Progress Note, Physician Chief Complaint: feels the same History of Present Illness: Dr Prados ID consult appreciated,started on Ceftriazone - Current Medication List Current Medications: Active Medications Acetaminophen (Tylenol -) 650 mg PO Q6H PRN PRN Reason: HEADACHE Last Admin: 01/10/19 00:21 Dose: 650 mg Amlodipine Besylate (Norvasc -) 5 mg PO DAILY CAREY Ceftriaxone Sodium 1 gm/ (Dextrose) 50 mls @ 200 mls/hr IVPB DAILY CAREY; Protocol - Objective Vital Signs: Vital Signs Temperature 97.9 F 01/10/19 06:00 Pulse Rate 89 01/10/19 06:00 Respiratory Rate 20 01/10/19 06:00 Blood Pressure 124/58 L 01/10/19 06:00 O2 Sat by Pulse Oximetry (%) 100 01/09/19 21:00 Constitutional: Yes: Mild Distress Eyes: Yes: WNL HENT: Yes: WNL Neck: Yes: Supple Cardiovascular: Yes: Regular Rate and Rhythm Respiratory: Yes: Poor Air Entry Gastrointestinal: Yes: Normal Bowel Sounds ...Rectal Exam: Yes: WNL Extremities: Yes: Erythema Edema: Yes Edema: RLE: 2+ Wound/Incision: Yes: Dressing Dry and Intact Neurological: Yes: Alert Labs: CBC, BMP 01/09/19 09:00 01/09/19 09:00 INR, PTT INR 0.90 (0.83-1.09) 01/09/19 11:20 Assessment/Plan Start on her medications at home Pulmonary consult pending
[2019-01-10] MEDS ORDERED: DEXTROSE 5%-WATER - 50 ML IVPB ONE (09:50)
[2019-01-10] MEDS ORDERED: cefTRIAXone SODIUM 1 GM VIAL ONE (09:50)
[2019-01-10] MEDS: CEFTRIAXONE 1 GM in DEXTROSE 5%-WATER - 50 ML IVPB SCH (09:57)
[2019-01-10] MEDS: amLODIPine BESYLATE 5 MG TABLET (FP) PO SCH (09:57)
[2019-01-10] MEDS: predniSONE 20 MG TABLET (UD) PO SCH ×2 (09:57→21:47)
[2019-01-10] MEDS: ALBUTEROL SO4 2.5/IPRATROPIUM 0.5 INH SOL 3 ML VIAL.NEB. NEB PRN (10:15)
[2019-01-10] MEDS: BUDESONIDE/FORMETEROL FUMARATE 160/4.5 mcg INHALER IH SCH ×2 (11:06→21:49)
--- NOTE | 2019-01-10 11:46 | EKG ---
Test Reason : Blood Pressure : / mmHG Vent. 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
--- NOTE | 2019-01-10 13:23 | CON.PULM ---
Consult Consult Specialty:: PULMONARY Referred by:: TIKI Reason for Consultation:: COPD - History of Present Illness Chief Complaint: SOB/LETHARGY History of Present Illness: 83 y/o F hx of COPD, HTN, CHF, HLD uses O2 at home 24/ (3L), distant hx of clots (50yrs ago) presents with 1 day of worsening SOB on exertion and headache. She noticed increased SOB on exertion and headache, prompted her to come to the ER. She has had a productive cough for the last 1-2 weeks which is not unusual for her, but she has had a change in sputum color from clear to yellow. She endorses headache, constipation. bilateral lower extremity tenderness She denies fever, chills, chest pain (pleuritic or otherwise),and hemoptysis. She has leg swelling with a wound on her right leg that she has had for 1 week and that has not healed. - History Source History Provided By: Patient, Family Member, Medical Record Limitations to Obtaining History: Clinical Condition - Past Medical History AIR AND WATER TESTER: Yes: Migraine. No: Alzheimer's Cardio/Vascular: Yes: HTN, Hyperlipdemia Pulmonary: Yes: Bronchitis, COPD, O2 Dependent, Pneumonia Gastrointestinal: No: Ascites Hepatobiliary: No: Cirrhosis Renal/: No: Renal Failure Reproductive: Yes: Postmenopausal Heme/Onc: Yes: Anemia Infectious Disease: No: AIDS Psych: No: Addictions - Alcohol/Substance Use Hx Alcohol Use: No - Smoking History Smoking history: Former smoker Have you smoked in the past 12 months: No Aproximately how many cigarettes per day: 0 If you are a former smoker, when did you quit?: 2005 - Social History Usual Living Arrangement: With Child ADL: Family Assistance Place of : [facility] History of Recent Travel: No Home Medications - Allergies Allergies/Adverse Reactions: Allergies Allergy/AdvReac Type Severity Reaction Status Date / Time No Known Allergies Allergy Verified 01/09/19 08:37 - Home Medications Home Medications: Ambulatory Orders Albuterol Sulfate Inhaler - [Ventolin HFA Inhaler -] 1 - 2 inh PO QID 09/23/17 Bimatoprost [Lumigan] 1 drop OU HS 09/23/17 Biotin/Keratin [Biotin Plus Keratin Tablet] 1 each PO DAILY 09/23/17 Calcium (Oyster Shell) [Os-Ignacio 500MG -] 500 mg PO BID 09/23/17 Budesonide/Formeterol Fumarate [SYMBICORT 160/4.5mcg -] 2 puff IH BID inhaler 09/28/17 Prednisone 10 mg PO DAILY 06/27/18 Furosemide [Lasix -] 40 mg PO Q48H 07/11/18 Amlodipine/Atorvastatin [Amlodipine-Atorvast 5-10 mg] 5 each PO DAILY 09/26/18 Albuterol 0.083% Nebulizer Noemy [Ventolin 0.083% Nebulizer Soln -] 1 amp NEB Q4H PRN amp 09/30/18 Albuterol 2.5/Ipratropium 0.5 [Duoneb -] 1 amp NEB RQID amp 09/30/18 Amlodipine Besylate [Norvasc -] 5 mg PO DAILY tablet 09/30/18 Arformoterol Tartrate [Brovana -] 1 amp NEB RBID amp 09/30/18 Tiotropium [place] [Spiriva Respimat] 2 puff IH DAILY inhaler 09/30/18 Family Medical History Family History: Unremarkable Review of Systems - Review of Systems Constitutional: denies: Fever Eyes: denies: Blurred Vision HENT: denies: Difficult Swallowing Neck: denies: Decreased ROM Cardiovascular: reports: Shortness of Breath. denies: Chest Pain Respiratory: reports: Cough, Exercise Intolerance, SOB, SOB on Exertion, Wheezing. denies: Hemoptysis Gastrointestinal: denies: Abdominal Pain Genitourinary: denies: Burning Breasts: reports: No Symptoms Reported Musculoskeletal: reports: No Symptoms Physical Exam Vital Sings: Vital Signs Temperature 97.9 F 01/10/19 06:00 Pulse Rate 89 01/10/19 06:00 Respiratory Rate 20 01/10/19 06:00 Blood Pressure 124/58 L 01/10/19 06:00 O2 Sat by Pulse Oximetry (%) 100 01/09/19 21:00 Constitutional: Yes: Mild Distress Eyes: Yes: Conjunctiva Clear, EOM Intact HENT: Yes: Normocephalic Neck: Yes: Trachea Midline Cardiovascular: Yes: Regular Rate and Rhythm, Tachycardia, S1, S2 Respiratory: Yes: Diminished, Rhonchi Gastrointestinal: Yes: Soft Renal/: Yes: WNL Edema: LLE: 3+, RLE: 3+ Integumentary: Yes: Venous Stasis Changes Neurological: Yes: Lethargy Labs: CBC, BMP 01/09/19 09:00 01/09/19 09:00 rest reviewed Imaging - Results Chest X-ray: Report Reviewed, Image Reviewed Problem List - Problems (1) Acute bronchitis Code(s): J20.9 - ACUTE BRONCHITIS, UNSPECIFIED (2) Acute on chronic respiratory failure with hypoxia and hypercapnia Code(s): J96.21 - ACUTE AND CHRONIC RESPIRATORY FAILURE WITH HYPOXIA; J96.22 - ACUTE AND CHRONIC RESPIRATORY FAILURE WITH HYPERCAPNIA (3) COPD exacerbation Code(s): J44.1 - CHRONIC OBSTRUCTIVE PULMONARY DISEASE W (ACUTE) EXACERBATION (4) Emphysema of lung Code(s): J43.9 - EMPHYSEMA, UNSPECIFIED Assessment/Plan WILL HAVE NIPPV PRN AND HS IN VIEW OF HYPERCAPNEA WITH LETHARGY O2/BRONCHODILATORS/ANTIBIOTICS/STEROIDS AVOID VOLUME OVERLOAD RECHECK VBG AFTER NIPPV PATIENT IS A DNR WILL FOLLOW Zelalem RICO MD
[2019-01-10 21:57] LABS: VENOUS PC02 67.4 mmHg (38-52); VENOUS PH 7.29 (7.31-7.41)
[2019-01-10 21:59] LABS: VENOUS PO2 < 49 mmHg (28-48)
[2019-01-11] MEDS: ACETAMINOPHEN 325 MG TABLET (FP) PO PRN (01:43)
[2019-01-11] MEDS ORDERED: DEXTROSE 5%-WATER - 50 ML IVPB ONE (08:59)
[2019-01-11] MEDS ORDERED: cefTRIAXone SODIUM 1 GM VIAL ONE (08:59)
--- NOTE | 2019-01-11 09:26 | PN ---
Progress Note, Physician Chief Complaint: Feels better History of Present Illness: Dr Ch,s pulmonary consult appreciated - Current Medication List Current Medications: Active Medications Acetaminophen (Tylenol -) 650 mg PO Q6H PRN PRN Reason: HEADACHE Last Admin: 01/11/19 01:43 Dose: 650 mg Albuterol/Ipratropium (Duoneb -) 1 amp NEB Q6H PRN PRN Reason: SHORTNESS OF BREATH Last Admin: 01/10/19 10:15 Dose: 1 amp Amlodipine Besylate (Norvasc -) 5 mg PO DAILY [facility] Last Admin: 01/10/19 09:57 Dose: 5 mg Budesonide/Formoterol Fumarate (Symbicort 160/4.5mcg -) 2 puff IH BID [facility] Last Admin: 01/10/19 21:49 Dose: 2 inh Ceftriaxone Sodium 1 gm/ (Dextrose) 50 mls @ 200 mls/hr IVPB DAILY [facility]; Protocol Last Admin: 01/10/19 09:57 Dose: 200 mls/hr Prednisone (Deltasone -) 20 mg PO BID [facility] Last Admin: 01/10/19 21:47 Dose: 20 mg - Objective Vital Signs: Vital Signs Temperature 98.6 F 01/11/19 05:00 Pulse Rate 79 01/11/19 05:00 Respiratory Rate 20 01/11/19 05:00 Blood Pressure 130/59 L 01/11/19 05:00 O2 Sat by Pulse Oximetry (%) 95 01/11/19 00:57 Constitutional: Yes: Calm Eyes: Yes: WNL HENT: Yes: WNL Neck: Yes: WNL Cardiovascular: Yes: Regular Rate and Rhythm Respiratory: Yes: On Nasal O2 Gastrointestinal: Yes: Normal Bowel Sounds ...Rectal Exam: Yes: WNL, Deferred Genitourinary: Yes: WNL Edema: RLE: Trace Wound/Incision: Yes: Dressing Dry and Intact Neurological: Yes: Alert Labs: CBC, BMP 01/09/19 09:00 01/09/19 09:00 INR, PTT INR 0.90 (0.83-1.09) 01/09/19 11:20 Assessment/Plan Continue same trt
[2019-01-11] MEDS: amLODIPine BESYLATE 5 MG TABLET (FP) PO SCH (09:28)
[2019-01-11] MEDS: predniSONE 20 MG TABLET (UD) PO SCH ×2 (09:28→22:54)
[2019-01-11] MEDS: CEFTRIAXONE 1 GM in DEXTROSE 5%-WATER - 50 ML IVPB SCH (09:28)
[2019-01-11] MEDS: BUDESONIDE/FORMETEROL FUMARATE 160/4.5 mcg INHALER IH SCH ×2 (09:29→22:55)
--- NOTE | 2019-01-11 10:48 | PN ---
Progress Note (short form) - Note Progress Note: Feels a little better today. Used NIPPV for most of the night. No CP. Intake & Output 01/08/19 01/09/19 01/10/19 01/11/19 23:59 23:59 23:59 23:59 Intake Total 0 0 Balance 0 0 Weight 99 lb 9.6 oz Last Vital Signs Temp Pulse Resp BP Pulse Ox 98.6 F 79 20 130/59 L 95 01/11/19 05:00 01/11/19 05:00 01/11/19 05:00 01/11/19 05:00 01/11/19 00:57 Active Medications Acetaminophen (Tylenol -) 650 mg PO Q6H PRN PRN Reason: HEADACHE Last Admin: 01/11/19 01:43 Dose: 650 mg Albuterol/Ipratropium (Duoneb -) 1 amp NEB Q6H PRN PRN Reason: SHORTNESS OF BREATH Last Admin: 01/10/19 10:15 Dose: 1 amp Amlodipine Besylate (Norvasc -) 5 mg PO DAILY [facility] Last Admin: 01/11/19 09:28 Dose: 5 mg Budesonide/Formoterol Fumarate (Symbicort 160/4.5mcg -) 2 puff IH BID [facility] Last Admin: 01/11/19 09:29 Dose: 2 inh Ceftriaxone Sodium 1 gm/ (Dextrose) 50 mls @ 200 mls/hr IVPB DAILY [facility]; Protocol Last Admin: 01/11/19 09:28 Dose: 200 mls/hr Prednisone (Deltasone -) 20 mg PO BID [facility] Last Admin: 01/11/19 09:28 Dose: 20 mg Constitutional: Yes: Mildly tachypneic at rest Eyes: Yes: Conjunctiva Clear, EOM Intact HENT: Yes: Normocephalic Neck: Yes: Trachea Midline Cardiovascular: Yes: Regular Rate and Rhythm, Tachycardia, S1, S2 Respiratory: Yes: Diminished, Scattered Rhonchi, no wheeze Gastrointestinal: Yes: Soft Renal/: Yes: WNL Edema: LLE: 3+, RLE: 3+ Integumentary: Yes: Venous Stasis Changes Neurological: Yes: Non-focal Labs: Laboratory Results - last 24 hr 01/10/19 01/10/19 01/10/19 20:50 21:14 21:52 VBG pH Cancelled 7.29 L POC VBG pCO2 Cancelled 67.4 H POC VBG pO2 Cancelled < 49 H VBG HCO3 Cancelled 31.1 H VBG O2 Sat (Lucas) Cancelled 70.9 VBG Base Excess Cancelled 3.7 H POC Glucometer 147 Problem List - Problems (1) Acute bronchitis Code(s): J20.9 - ACUTE BRONCHITIS, UNSPECIFIED (2) Acute on chronic respiratory failure with hypoxia and hypercapnia Code(s): J96.21 - ACUTE AND CHRONIC RESPIRATORY FAILURE WITH HYPOXIA; J96.22 - ACUTE AND CHRONIC RESPIRATORY FAILURE WITH HYPERCAPNIA (3) COPD exacerbation Code(s): J44.1 - CHRONIC OBSTRUCTIVE PULMONARY DISEASE W (ACUTE) EXACERBATION (4) Emphysema of lung Code(s): J43.9 - EMPHYSEMA, UNSPECIFIED Assessment/Plan Prednisone: Can change to Medrol if worsens BD TX Rocephin noted Supplemental O2 as needed VTE prophylaxis No smoking Dr Latham
[2019-01-11] MEDS: ALBUTEROL SO4 2.5/IPRATROPIUM 0.5 INH SOL 3 ML VIAL.NEB. NEB PRN ×2 (14:40→20:05)
--- NOTE | 2019-01-11 16:48 | PN ---
Progress Note, Physician History of Present Illness: Pt is alert. States she still has some SOB but no acute distress noted, nasal O2 on. RLE with dressing, wound oozing. - Current Medication List Current Medications: Active Medications Acetaminophen (Tylenol -) 650 mg PO Q6H PRN PRN Reason: HEADACHE Last Admin: 01/11/19 01:43 Dose: 650 mg Albuterol/Ipratropium (Duoneb -) 1 amp NEB Q6H PRN PRN Reason: SHORTNESS OF BREATH Last Admin: 01/11/19 14:40 Dose: 1 amp Amlodipine Besylate (Norvasc -) 5 mg PO DAILY [facility] Last Admin: 01/11/19 09:28 Dose: 5 mg Budesonide/Formoterol Fumarate (Symbicort 160/4.5mcg -) 2 puff IH BID [facility] Last Admin: 01/11/19 09:29 Dose: 2 inh Ceftriaxone Sodium 1 gm/ (Dextrose) 50 mls @ 200 mls/hr IVPB DAILY [facility]; Protocol Last Admin: 01/11/19 09:28 Dose: 200 mls/hr Prednisone (Deltasone -) 20 mg PO BID [facility] Last Admin: 01/11/19 09:28 Dose: 20 mg - Objective Vital Signs: Vital Signs Temperature 98 F 01/11/19 13:00 Pulse Rate 80 01/11/19 13:00 Respiratory Rate 20 01/11/19 13:00 Blood Pressure 116/58 L 01/11/19 13:00 O2 Sat by Pulse Oximetry (%) 95 01/11/19 10:00 Constitutional: Yes: No Distress, Calm HENT: Yes: Atraumatic Cardiovascular: Yes: Regular Rate and Rhythm Respiratory: Yes: On Nasal O2, Rhonchi Gastrointestinal: Yes: Normal Bowel Sounds, Soft Genitourinary: Yes: WNL Extremities: Yes: Erythema Wound/Incision: Yes: Other (RLE erythema/mild tenderness/warmth, +oozing serosanguinous fluid, +ecchymoses b/l chronic venous stasis changes) Labs: CBC, BMP 01/09/19 09:00 01/09/19 09:00 INR, PTT INR 0.90 (0.83-1.09) 01/09/19 11:20 Microbiology 01/09/19 11:20 Blood - Peripheral Venous Blood Culture - Preliminary NO GROWTH OBTAINED AFTER 48 HOURS, INCUBATION TO CONTINUE FOR 3 DAYS. 01/09/19 11:25 Blood - Peripheral Venous Blood Culture - Preliminary NO GROWTH OBTAINED AFTER 48 HOURS, INCUBATION TO CONTINUE FOR 3 DAYS. 01/09/19 11:27 Urine - Urine Clean Catch Urine Culture - Final Normal Urogenital Krystle Problem List - Problems (1) COPD exacerbation Code(s): J44.1 - CHRONIC OBSTRUCTIVE PULMONARY DISEASE W (ACUTE) EXACERBATION (2) Cellulitis Code(s): L03.90 - CELLULITIS, UNSPECIFIED Qualifiers: Site of cellulitis: extremity Site of cellulitis of extremity: lower extremity Laterality: right Qualified Code(s): L03.115 - Cellulitis of right lower limb (3) Acute on chronic respiratory failure with hypoxia and hypercapnia Code(s): J96.21 - ACUTE AND CHRONIC RESPIRATORY FAILURE WITH HYPOXIA; J96.22 - ACUTE AND CHRONIC RESPIRATORY FAILURE WITH HYPERCAPNIA (4) Emphysema of lung Code(s): J43.9 - EMPHYSEMA, UNSPECIFIED (5) HTN (hypertension) Code(s): I10 - ESSENTIAL (PRIMARY) HYPERTENSION (6) Venous stasis ulcer Code(s): I83.009 - VARICOSE VEINS OF UNSP LOWER EXTREMITY W ULCER OF UNSP SITE; L97.909 - NON-PRS CHRONIC ULC UNSP PRT OF UNSP LOW LEG W UNSP SEVERITY Assessment/Plan -- continue current antibiotic -- dressing changes, local wound care -- currently without respiratory distress, on O2 NC, BD, prednisone afebrile, alert
[2019-01-12] MEDS ORDERED: cefTRIAXone SODIUM 1 GM VIAL ONE (08:49)
[2019-01-12] MEDS ORDERED: DEXTROSE 5%-WATER - 50 ML IVPB ONE (08:49)
[2019-01-12] MEDS: predniSONE 20 MG TABLET (UD) PO SCH ×2 (09:30→23:02)
[2019-01-12] MEDS: amLODIPine BESYLATE 5 MG TABLET (FP) PO SCH (09:30)
[2019-01-12] MEDS: CEFTRIAXONE 1 GM in DEXTROSE 5%-WATER - 50 ML IVPB SCH (09:30)
[2019-01-12] MEDS: BUDESONIDE/FORMETEROL FUMARATE 160/4.5 mcg INHALER IH SCH ×2 (09:31→23:01)
[2019-01-12] MEDS: ACETAMINOPHEN 325 MG TABLET (FP) PO PRN (10:41)
--- NOTE | 2019-01-12 10:42 | PN ---
Progress Note (short form) - Note Progress Note: Reports increased SOB today. Purse lip breathing. Did not use NIPPVC support overnight. No CP. Intake & Output 01/09/19 01/10/19 01/11/19 01/12/19 23:59 23:59 23:59 23:59 Intake Total 0 0 150 Balance 0 0 150 Weight 99 lb 9.6 oz Last Vital Signs Temp Pulse Resp BP Pulse Ox 97.4 F L 62 20 170/68 94 L 01/12/19 06:55 01/12/19 06:55 01/12/19 06:55 01/12/19 06:55 01/11/19 22:00 Active Medications Acetaminophen (Tylenol -) 650 mg PO Q6H PRN PRN Reason: HEADACHE Last Admin: 01/11/19 01:43 Dose: 650 mg Albuterol/Ipratropium (Duoneb -) 1 amp NEB Q6H PRN PRN Reason: SHORTNESS OF BREATH Last Admin: 01/11/19 20:05 Dose: 1 amp Amlodipine Besylate (Norvasc -) 5 mg PO DAILY [facility] Last Admin: 01/12/19 09:30 Dose: 5 mg Budesonide/Formoterol Fumarate (Symbicort 160/4.5mcg -) 2 puff IH BID [facility] Last Admin: 01/12/19 09:31 Dose: 2 inh Ceftriaxone Sodium 1 gm/ (Dextrose) 50 mls @ 200 mls/hr IVPB DAILY [facility]; Protocol Last Admin: 01/12/19 09:30 Dose: 200 mls/hr Prednisone (Deltasone -) 20 mg PO BID [facility] Last Admin: 01/12/19 09:30 Dose: 20 mg Constitutional: Yes: Mildly tachypneic at rest Eyes: Yes: Conjunctiva Clear, EOM Intact HENT: Yes: Normocephalic Neck: Yes: Trachea Midline Cardiovascular: Yes: Regular Rate and Rhythm, Tachycardia, S1, S2 Respiratory: Yes: Diminished, Scattered Rhonchi, (+) wheeze Gastrointestinal: Yes: Soft Renal/: Yes: WNL Edema: LLE: 3+, RLE: 3+ Integumentary: Yes: Venous Stasis Changes Neurological: Yes: Non-focal Labs: Problem List - Problems (1) Acute bronchitis Code(s): J20.9 - ACUTE BRONCHITIS, UNSPECIFIED (2) Acute on chronic respiratory failure with hypoxia and hypercapnia Code(s): J96.21 - ACUTE AND CHRONIC RESPIRATORY FAILURE WITH HYPOXIA; J96.22 - ACUTE AND CHRONIC RESPIRATORY FAILURE WITH HYPERCAPNIA (3) COPD exacerbation Code(s): J44.1 - CHRONIC OBSTRUCTIVE PULMONARY DISEASE W (ACUTE) EXACERBATION (4) Emphysema of lung Code(s): J43.9 - EMPHYSEMA, UNSPECIFIED Assessment/Plan Patient with increased WOB today and wheezing: Refused to change to IV Medrol despite explaining risks and benefits BD TX Rocephin noted NIPPV support if willing: Risks and benefits were discussed Supplemental O2 as needed VTE prophylaxis No smoking Dr Latham
--- NOTE | 2019-01-12 11:28 | PN ---
Progress Note, Physician Chief Complaint: Fees improved History of Present Illness: 83 y/o F hx of COPD, HTN, CHF, HLD uses O2 at home 24/7 (3L), distant DVT presents today with 1 day of increases SOB - Current Medication List Current Medications: Active Medications Acetaminophen (Tylenol -) 650 mg PO Q6H PRN PRN Reason: HEADACHE Last Admin: 01/12/19 10:41 Dose: 650 mg Albuterol/Ipratropium (Duoneb -) 1 amp NEB Q6H PRN PRN Reason: SHORTNESS OF BREATH Last Admin: 01/11/19 20:05 Dose: 1 amp Amlodipine Besylate (Norvasc -) 5 mg PO DAILY [facility] Last Admin: 01/12/19 09:30 Dose: 5 mg Budesonide/Formoterol Fumarate (Symbicort 160/4.5mcg -) 2 puff IH BID [facility] Last Admin: 01/12/19 09:31 Dose: 2 inh Ceftriaxone Sodium 1 gm/ (Dextrose) 50 mls @ 200 mls/hr IVPB DAILY [facility]; Protocol Last Admin: 01/12/19 09:30 Dose: 200 mls/hr Prednisone (Deltasone -) 20 mg PO BID [facility] Last Admin: 01/12/19 09:30 Dose: 20 mg - Objective Vital Signs: Vital Signs Temperature 97.4 F L 01/12/19 06:55 Pulse Rate 62 01/12/19 06:55 Respiratory Rate 20 01/12/19 10:00 Blood Pressure 170/68 01/12/19 06:55 O2 Sat by Pulse Oximetry (%) 97 01/12/19 10:00 Elderly frail F mild respiratory distress n HEENT; mm moist, no anemia, perrla, eomi NECK: NO JVD No Bruit CHEST: B/L wheezes CVS: s1S2 R ABD: No distention, non tender Bs = EXT:B/L LE Cellulitis manager marketing communication; aox3 non focal Labs: CBC, BMP 01/09/19 09:00 01/09/19 09:00 INR, PTT INR 0.90 (0.83-1.09) 01/09/19 11:20 Problem List - Problems (1) COPD exacerbation Assessment/Plan: Cont Iv abx, O2 inhalation, Iv steroids and duneb Code(s): J44.1 - CHRONIC OBSTRUCTIVE PULMONARY DISEASE W (ACUTE) EXACERBATION (2) Chronic respiratory failure with hypoxia and hypercapnia Assessment/Plan: Due to copd on home O2 Problems reviewed: Yes Code(s): J96.11 - CHRONIC RESPIRATORY FAILURE WITH HYPOXIA; J96.12 - CHRONIC RESPIRATORY FAILURE WITH HYPERCAPNIA (3) HTN (hypertension) Assessment/Plan: well controlled cont all home meds Problems reviewed: Yes Code(s): I10 - ESSENTIAL (PRIMARY) HYPERTENSION (4) Venous stasis ulcer Assessment/Plan: cont abx wound care Problems reviewed: Yes Code(s): I83.009 - VARICOSE VEINS OF UNSP LOWER EXTREMITY W ULCER OF UNSP SITE; L97.909 - NON-PRS CHRONIC ULC UNSP PRT OF UNSP LOW LEG W UNSP SEVERITY (5) Failure to thrive in adult Assessment/Plan: nutrition consult. Problems reviewed: Yes Code(s): R62.7 - ADULT FAILURE TO THRIVE
[2019-01-12] MEDS: ALBUTEROL SO4 2.5/IPRATROPIUM 0.5 INH SOL 3 ML VIAL.NEB. NEB PRN ×2 (15:45→20:31)
--- NOTE | 2019-01-12 16:14 | PN ---
Progress Note, Physician History of Present Illness: Pt is alert. c/o increased generalized weakness. Had some SOB, currently on O2 NC with normal saturation. Denies CP, increase in cough, abd pain/n/v/d. No distress noted. - Current Medication List Current Medications: Active Medications Acetaminophen (Tylenol -) 650 mg PO Q6H PRN PRN Reason: HEADACHE Last Admin: 01/12/19 10:41 Dose: 650 mg Albuterol/Ipratropium (Duoneb -) 1 amp NEB Q6H PRN PRN Reason: SHORTNESS OF BREATH Last Admin: 01/12/19 15:45 Dose: 1 amp Amlodipine Besylate (Norvasc -) 5 mg PO DAILY [facility] Last Admin: 01/12/19 09:30 Dose: 5 mg Budesonide/Formoterol Fumarate (Symbicort 160/4.5mcg -) 2 puff IH BID [facility] Last Admin: 01/12/19 09:31 Dose: 2 inh Ceftriaxone Sodium 1 gm/ (Dextrose) 50 mls @ 200 mls/hr IVPB DAILY [facility]; Protocol Last Admin: 01/12/19 09:30 Dose: 200 mls/hr Prednisone (Deltasone -) 20 mg PO BID [facility] Last Admin: 01/12/19 09:30 Dose: 20 mg - Objective Vital Signs: Vital Signs Temperature 98.3 F 01/12/19 10:00 Pulse Rate 83 01/12/19 10:00 Respiratory Rate 20 01/12/19 10:00 Blood Pressure 120/62 01/12/19 10:00 O2 Sat by Pulse Oximetry (%) 97 01/12/19 10:00 Constitutional: Yes: No Distress Cardiovascular: Yes: Regular Rate and Rhythm Respiratory: Yes: On Nasal O2 Gastrointestinal: Yes: Normal Bowel Sounds, Soft Genitourinary: Yes: WNL Wound/Incision: Yes: Other (LE with wound dressing intact, no edema) Neurological: Yes: Alert Labs: CBC, BMP 01/09/19 09:00 01/09/19 09:00 INR, PTT INR 0.90 (0.83-1.09) 01/09/19 11:20 Microbiology 01/09/19 11:20 Blood - Peripheral Venous Blood Culture - Preliminary NO GROWTH OBTAINED AFTER 72 HOURS, INCUBATION TO CONTINUE FOR 2 DAYS. 01/09/19 11:25 Blood - Peripheral Venous Blood Culture - Preliminary NO GROWTH OBTAINED AFTER 72 HOURS, INCUBATION TO CONTINUE FOR 2 DAYS. Problem List - Problems (1) COPD exacerbation Code(s): J44.1 - CHRONIC OBSTRUCTIVE PULMONARY DISEASE W (ACUTE) EXACERBATION (2) Cellulitis Code(s): L03.90 - CELLULITIS, UNSPECIFIED Qualifiers: Site of cellulitis: extremity Site of cellulitis of extremity: lower extremity Laterality: right Qualified Code(s): L03.115 - Cellulitis of right lower limb (3) Acute on chronic respiratory failure with hypoxia and hypercapnia Code(s): J96.21 - ACUTE AND CHRONIC RESPIRATORY FAILURE WITH HYPOXIA; J96.22 - ACUTE AND CHRONIC RESPIRATORY FAILURE WITH HYPERCAPNIA (4) Emphysema of lung Code(s): J43.9 - EMPHYSEMA, UNSPECIFIED (5) HTN (hypertension) Code(s): I10 - ESSENTIAL (PRIMARY) HYPERTENSION (6) Venous stasis ulcer Code(s): I83.009 - VARICOSE VEINS OF UNSP LOWER EXTREMITY W ULCER OF UNSP SITE; L97.909 - NON-PRS CHRONIC ULC UNSP PRT OF UNSP LOW LEG W UNSP SEVERITY Assessment/Plan LE cellulitis - slowly improving COPD exacerbation Bronchitis Acute on Chronic respiratory failure -- continue antibiotics -- on Prednisone, BD, O2 via NC -- dressing changes, local wound care -- monitor vitals closely, currently stable
[2019-01-13] MEDS: ACETAMINOPHEN 325 MG TABLET (FP) PO PRN ×2 (01:27→22:59)
[2019-01-13 08:28] LABS: BASO % 0.1 % (0-2.0); EOS % 0.8 % (0-4.5); HEMATOCRIT 29.7 % (32.4-45.2); HEMOGLOBIN 9.8 GM/dL (10.7-15.3); LYMPH % 9.7 % (8-40); MCH 33.1 pg (25.7-33.7); MCHC 32.9 g/dl (32.0-36.0); MEAN CELL VOLUME 100.5 fl (80-96); MEAN PLT VOLUME 8.1 fl (7.5-11.1); MONO % 6.6 % (3.8-10.2); NEUT % 82.8 % (42.8-82.8); PLATELET COUNT 175 K/MM3 (134-434); RBC 2.96 M/mm3 (3.60-5.2); RDW 15.3 % (11.6-15.6); WHITE BLOOD COUNT 4.4 K/mm3 (4.0-10.0)
[2019-01-13 08:35] LABS: BLOOD UREA NITROGEN 18.8 mg/dL (7-18); CALCIUM 9.1 mg/dL (8.5-10.1); CREATININE 0.6 mg/dL (0.55-1.3); POTASSIUM 4.3 mmol/L (3.5-5.1)
--- NOTE | 2019-01-13 09:47 | PN ---
Progress Note (short form) - Note Progress Note: Still with increased SOB. Purse lip breathing. Yesterday refused to change to IV Medrol. Did not use NIPPVC support overnight. No CP. Intake & Output 01/10/19 01/11/19 01/12/19 01/13/19 23:59 23:59 23:59 23:59 Intake Total 0 150 50 0 Balance 0 150 50 0 Last Vital Signs Temp Pulse Resp BP Pulse Ox 97.9 F 72 20 135/60 100 01/13/19 06:00 01/13/19 06:00 01/13/19 01:00 01/13/19 06:00 01/12/19 22:00 Active Medications Acetaminophen (Tylenol -) 650 mg PO Q6H PRN PRN Reason: HEADACHE Last Admin: 01/13/19 01:27 Dose: 650 mg Albuterol/Ipratropium (Duoneb -) 1 amp NEB Q6H PRN PRN Reason: SHORTNESS OF BREATH Last Admin: 01/12/19 20:31 Dose: 1 amp Amlodipine Besylate (Norvasc -) 5 mg PO DAILY [facility] Last Admin: 01/12/19 09:30 Dose: 5 mg Budesonide/Formoterol Fumarate (Symbicort 160/4.5mcg -) 2 puff IH BID [facility] Last Admin: 01/12/19 23:01 Dose: 2 inh Ceftriaxone Sodium 1 gm/ (Dextrose) 50 mls @ 200 mls/hr IVPB DAILY [facility]; Protocol Last Admin: 01/12/19 09:30 Dose: 200 mls/hr Prednisone (Deltasone -) 20 mg PO BID [facility] Last Admin: 01/12/19 23:02 Dose: 20 mg Constitutional: Yes: Tachypneic at rest Eyes: Yes: Conjunctiva Clear, EOM Intact HENT: Yes: Normocephalic Neck: Yes: Trachea Midline Cardiovascular: Yes: Regular Rate and Rhythm, Tachycardia, S1, S2 Respiratory: Yes: Diminished, Bilateral Rhonchi and Expiratory wheeze Gastrointestinal: Yes: Soft Renal/: Yes: WNL Edema: LLE: 3+, RLE: 3+ Integumentary: Yes: Venous Stasis Changes Neurological: Yes: Non-focal Labs: Laboratory Results - last 24 hr 01/13/19 01/13/19 07:05 07:05 WBC 4.4 RBC 2.96 L Hgb 9.8 L Hct 29.7 L MCV 100.5 H MCH 33.1 MCHC 32.9 RDW 15.3 Plt Count 175 MPV 8.1 Absolute Neuts (auto) 3.7 Neutrophils % 82.8 D Lymphocytes % 9.7 D Monocytes % 6.6 Eosinophils % 0.8 D Basophils % 0.1 Nucleated RBC % 0 Sodium 145 Potassium 4.3 Chloride 104 Carbon Dioxide 37 H Anion Gap 4 L BUN 18.8 H Creatinine 0.6 Est GFR (CKD-EPI)AfAm 97.69 Est GFR (CKD-EPI)NonAf 84.29 Random Glucose 102 Calcium 9.1 Problem List - Problems (1) Acute bronchitis Code(s): J20.9 - ACUTE BRONCHITIS, UNSPECIFIED (2) Acute on chronic respiratory failure with hypoxia and hypercapnia Code(s): J96.21 - ACUTE AND CHRONIC RESPIRATORY FAILURE WITH HYPOXIA; J96.22 - ACUTE AND CHRONIC RESPIRATORY FAILURE WITH HYPERCAPNIA (3) COPD exacerbation Code(s): J44.1 - CHRONIC OBSTRUCTIVE PULMONARY DISEASE W (ACUTE) EXACERBATION (4) Emphysema of lung Code(s): J43.9 - EMPHYSEMA, UNSPECIFIED Assessment/Plan Patient with increased WOB today and wheezing: Has agreed to change to IV Medrol BD TX Rocephin NIPPV support if willing: Risks and benefits were discussed Supplemental O2 as needed VTE prophylaxis No smoking Dr Latham
[2019-01-13] MEDS: ALBUTEROL SO4 2.5/IPRATROPIUM 0.5 INH SOL 3 ML VIAL.NEB. NEB PRN ×2 (10:02→20:00)
[2019-01-13] MEDS ORDERED: cefTRIAXone SODIUM 1 GM VIAL ONE (10:35)
[2019-01-13] MEDS ORDERED: DEXTROSE 5%-WATER - 50 ML IVPB ONE (10:36)
[2019-01-13] MEDS: methylPREDNISolone NA SUCC 40 MG/1 ML VIAL IVPUSH SCH ×2 (10:41→17:37)
[2019-01-13] MEDS: amLODIPine BESYLATE 5 MG TABLET (FP) PO SCH (10:41)
[2019-01-13] MEDS: CEFTRIAXONE 1 GM in DEXTROSE 5%-WATER - 50 ML IVPB SCH (10:41)
[2019-01-13] MEDS: BUDESONIDE/FORMETEROL FUMARATE 160/4.5 mcg INHALER IH SCH ×2 (10:42→22:28)
--- NOTE | 2019-01-13 13:08 | PN ---
Progress Note, Physician History of Present Illness: stable feeling slightly better still sob - Current Medication List Current Medications: Active Medications Acetaminophen (Tylenol -) 650 mg PO Q6H PRN PRN Reason: HEADACHE Last Admin: 01/13/19 01:27 Dose: 650 mg Albuterol/Ipratropium (Duoneb -) 1 amp NEB Q6H PRN PRN Reason: SHORTNESS OF BREATH Last Admin: 01/13/19 10:02 Dose: 1 amp Amlodipine Besylate (Norvasc -) 5 mg PO DAILY [facility] Last Admin: 01/13/19 10:41 Dose: 5 mg Budesonide/Formoterol Fumarate (Symbicort 160/4.5mcg -) 2 puff IH BID [facility] Last Admin: 01/13/19 10:42 Dose: 2 inh Ceftriaxone Sodium 1 gm/ (Dextrose) 50 mls @ 200 mls/hr IVPB DAILY [facility]; Protocol Last Admin: 01/13/19 10:41 Dose: 200 mls/hr Methylprednisolone Sodium Succinate (Solu-Medrol -) 40 mg IVPUSH Q8H-IV [facility] Last Admin: 01/13/19 10:41 Dose: 40 mg - Objective Vital Signs: Vital Signs Temperature 97.9 F 01/13/19 10:00 Pulse Rate 89 01/13/19 10:00 Respiratory Rate 18 01/13/19 10:00 Blood Pressure 153/69 01/13/19 10:00 O2 Sat by Pulse Oximetry (%) 96 01/13/19 10:00 Constitutional: Yes: Calm, Mild Distress Cardiovascular: Yes: S1, S2 Respiratory: Yes: Regular, On BiPap, On Nasal O2, Poor Air Entry, SOB Gastrointestinal: Yes: Normal Bowel Sounds, Soft Musculoskeletal: Yes: WNL Extremities: Yes: WNL Neurological: Yes: Alert, Oriented Psychiatric: Yes: Alert, Oriented Labs: CBC, BMP 01/13/19 07:05 01/13/19 07:05 INR, PTT INR 0.90 (0.83-1.09) 01/09/19 11:20 Assessment/Plan Problem List - Problems (1) COPD exacerbation Code(s): J44.1 - CHRONIC OBSTRUCTIVE PULMONARY DISEASE W (ACUTE) EXACERBATION (2) Cellulitis Code(s): L03.90 - CELLULITIS, UNSPECIFIED Qualifiers: Site of cellulitis: extremity Site of cellulitis of extremity: lower extremity Laterality: right Qualified Code(s): L03.115 - Cellulitis of right lower limb (3) Acute on chronic respiratory failure with hypoxia and hypercapnia Code(s): J96.21 - ACUTE AND CHRONIC RESPIRATORY FAILURE WITH HYPOXIA; J96.22 - ACUTE AND CHRONIC RESPIRATORY FAILURE WITH HYPERCAPNIA (4) Emphysema of lung Code(s): J43.9 - EMPHYSEMA, UNSPECIFIED (5) HTN (hypertension) Code(s): I10 - ESSENTIAL (PRIMARY) HYPERTENSION (6) Venous stasis ulcer Code(s): I83.009 - VARICOSE VEINS OF UNSP LOWER EXTREMITY W ULCER OF UNSP SITE; L97.909 - NON-PRS CHRONIC ULC UNSP PRT OF UNSP LOW LEG W UNSP SEVERITY Assessment/Plan LE cellulitis - slowly improving COPD exacerbation Bronchitis Acute on Chronic respiratory failure -- continue antibiotics iv solumedrol resp support rest as per the team
[2019-01-14] MEDS: methylPREDNISolone NA SUCC 40 MG/1 ML VIAL IVPUSH SCH ×3 (01:29→17:19)
[2019-01-14] MEDS: ALBUTEROL SO4 2.5/IPRATROPIUM 0.5 INH SOL 3 ML VIAL.NEB. NEB PRN (07:35)
--- NOTE | 2019-01-14 09:32 | PN ---
Progress Note, Physician Chief Complaint: Feels the same History of Present Illness: On IV solumedrol - Current Medication List Current Medications: Active Medications Acetaminophen (Tylenol -) 650 mg PO Q6H PRN PRN Reason: HEADACHE Last Admin: 01/13/19 22:59 Dose: 650 mg Albuterol/Ipratropium (Duoneb -) 1 amp NEB Q6H PRN PRN Reason: SHORTNESS OF BREATH Last Admin: 01/14/19 07:35 Dose: 1 amp Amlodipine Besylate (Norvasc -) 5 mg PO DAILY [facility] Last Admin: 01/13/19 10:41 Dose: 5 mg Budesonide/Formoterol Fumarate (Symbicort 160/4.5mcg -) 2 puff IH BID [facility] Last Admin: 01/13/19 22:28 Dose: 2 inh Ceftriaxone Sodium 1 gm/ (Dextrose) 50 mls @ 200 mls/hr IVPB DAILY [facility]; Protocol Last Admin: 01/13/19 10:41 Dose: 200 mls/hr Methylprednisolone Sodium Succinate (Solu-Medrol -) 40 mg IVPUSH Q8H-IV [facility] Last Admin: 01/14/19 01:29 Dose: 40 mg - Objective Vital Signs: Vital Signs Temperature 98.0 F 01/14/19 09:00 Pulse Rate 92 H 01/14/19 09:00 Respiratory Rate 18 01/14/19 09:00 Blood Pressure 115/66 01/14/19 09:00 O2 Sat by Pulse Oximetry (%) 96 01/14/19 08:39 Constitutional: Yes: Anxious Eyes: Yes: WNL HENT: Yes: WNL Neck: Yes: WNL Cardiovascular: Yes: WNL Respiratory: Yes: On Nasal O2 Wound/Incision: Yes: Dressing Dry and Intact Neurological: Yes: Alert Labs: CBC, BMP 01/13/19 07:05 01/13/19 07:05 INR, PTT INR 0.90 (0.83-1.09) 01/09/19 11:20 Assessment/Plan PT for ambulation
[2019-01-14] MEDS ORDERED: PT OWN MED DRAWER 7, Y5N ONE ×2 (09:57→17:42)
[2019-01-14] MEDS ORDERED: cefTRIAXone SODIUM 1 GM VIAL ONE (09:57)
[2019-01-14] MEDS ORDERED: DEXTROSE 5%-WATER - 50 ML IVPB ONE (09:57)
[2019-01-14] MEDS: amLODIPine BESYLATE 5 MG TABLET (FP) PO SCH (10:10)
[2019-01-14] MEDS: BUDESONIDE/FORMETEROL FUMARATE 160/4.5 mcg INHALER IH SCH ×2 (10:10→22:11)
[2019-01-14] MEDS: CEFTRIAXONE 1 GM in DEXTROSE 5%-WATER - 50 ML IVPB SCH (10:11)
--- NOTE | 2019-01-14 10:20 | PN ---
Progress Note (short form) - Note Progress Note: Breathing about the same. Refused NIPPV support overnight. Pursed lip breathing. No CP. Intake & Output 01/11/19 01/12/19 01/13/19 01/14/19 23:59 23:59 23:59 23:59 Intake Total 150 50 290 0 Balance 150 50 290 0 Last Vital Signs Temp Pulse Resp BP Pulse Ox 98.0 F 92 H 18 115/66 96 01/14/19 09:00 01/14/19 09:00 01/14/19 09:00 01/14/19 09:00 01/14/19 08:39 Active Medications Acetaminophen (Tylenol -) 650 mg PO Q6H PRN PRN Reason: HEADACHE Last Admin: 01/13/19 22:59 Dose: 650 mg Albuterol/Ipratropium (Duoneb -) 1 amp NEB Q6H PRN PRN Reason: SHORTNESS OF BREATH Last Admin: 01/14/19 07:35 Dose: 1 amp Amlodipine Besylate (Norvasc -) 5 mg PO DAILY [facility] Last Admin: 01/14/19 10:10 Dose: 5 mg Budesonide/Formoterol Fumarate (Symbicort 160/4.5mcg -) 2 puff IH BID [facility] Last Admin: 01/14/19 10:10 Dose: 2 inh Ceftriaxone Sodium 1 gm/ (Dextrose) 50 mls @ 200 mls/hr IVPB DAILY [facility]; Protocol Last Admin: 01/14/19 10:11 Dose: 200 mls/hr Methylprednisolone Sodium Succinate (Solu-Medrol -) 40 mg IVPUSH Q8H-IV [facility] Last Admin: 01/14/19 10:11 Dose: 40 mg Constitutional: Yes: Tachypneic at rest Eyes: Yes: Conjunctiva Clear, EOM Intact HENT: Yes: Normocephalic Neck: Yes: Trachea Midline Cardiovascular: Yes: Regular Rate and Rhythm, Tachycardia, S1, S2 Respiratory: Yes: Diminished, Bilateral Rhonchi and Expiratory wheeze Gastrointestinal: Yes: Soft Renal/: Yes: WNL Edema: LLE: 3+, RLE: 3+ Integumentary: Yes: Venous Stasis Changes Neurological: Yes: Non-focal Labs: Problem List - Problems (1) Acute bronchitis Code(s): J20.9 - ACUTE BRONCHITIS, UNSPECIFIED (2) Acute on chronic respiratory failure with hypoxia and hypercapnia Code(s): J96.21 - ACUTE AND CHRONIC RESPIRATORY FAILURE WITH HYPOXIA; J96.22 - ACUTE AND CHRONIC RESPIRATORY FAILURE WITH HYPERCAPNIA (3) COPD exacerbation Code(s): J44.1 - CHRONIC OBSTRUCTIVE PULMONARY DISEASE W (ACUTE) EXACERBATION (4) Emphysema of lung Code(s): J43.9 - EMPHYSEMA, UNSPECIFIED Assessment/Plan IV Medrol BD TX Rocephin NIPPV support if willing: Risks and benefits were discussed Supplemental O2 as needed VTE prophylaxis No smoking Dr Latham
[2019-01-14] MEDS ORDERED: ALBUTEROL SO4 0.083% IH SOL 2.5 MG/3 ML VIAL.NEB. NEB PRN (10:58)
--- NOTE | 2019-01-14 11:18 | PN ---
Progress Note, Physician History of Present Illness: still with breathing refused bipap it seems - Current Medication List Current Medications: Active Medications Acetaminophen (Tylenol -) 650 mg PO Q6H PRN PRN Reason: HEADACHE Last Admin: 01/13/19 22:59 Dose: 650 mg Albuterol Sulfate (Ventolin 0.083% Nebulizer Soln -) 1 amp NEB Q4H PRN PRN Reason: SHORT OF BREATH/WHEEZING Albuterol/Ipratropium (Duoneb -) 1 amp NEB RQID [facility] Amlodipine Besylate (Norvasc -) 5 mg PO DAILY [facility] Last Admin: 01/14/19 10:10 Dose: 5 mg Budesonide/Formoterol Fumarate (Symbicort 160/4.5mcg -) 2 puff IH BID [facility] Last Admin: 01/14/19 10:10 Dose: 2 inh Ceftriaxone Sodium 1 gm/ (Dextrose) 50 mls @ 200 mls/hr IVPB DAILY [facility]; Protocol Last Admin: 01/14/19 10:11 Dose: 200 mls/hr Methylprednisolone Sodium Succinate (Solu-Medrol -) 40 mg IVPUSH Q8H-IV [facility] Last Admin: 01/14/19 10:11 Dose: 40 mg - Objective Vital Signs: Vital Signs Temperature 98.0 F 01/14/19 09:00 Pulse Rate 92 H 01/14/19 09:00 Respiratory Rate 18 01/14/19 09:00 Blood Pressure 115/66 01/14/19 09:00 O2 Sat by Pulse Oximetry (%) 96 01/14/19 08:39 Constitutional: Yes: Mild Distress Eyes: Yes: Conjunctiva Clear Cardiovascular: Yes: Regular Rate and Rhythm, Tachycardia Respiratory: Yes: On Nasal O2, Poor Air Entry Gastrointestinal: Yes: Normal Bowel Sounds, Soft Musculoskeletal: Yes: WNL Extremities: Yes: WNL Neurological: Yes: Alert Psychiatric: Yes: Alert Labs: CBC, BMP 01/13/19 07:05 01/13/19 07:05 INR, PTT INR 0.90 (0.83-1.09) 01/09/19 11:20 Assessment/Plan Problem List - Problems (1) COPD exacerbation Code(s): J44.1 - CHRONIC OBSTRUCTIVE PULMONARY DISEASE W (ACUTE) EXACERBATION (2) Cellulitis Code(s): L03.90 - CELLULITIS, UNSPECIFIED Qualifiers: Site of cellulitis: extremity Site of cellulitis of extremity: lower extremity Laterality: right Qualified Code(s): L03.115 - Cellulitis of right lower limb (3) Acute on chronic respiratory failure with hypoxia and hypercapnia Code(s): J96.21 - ACUTE AND CHRONIC RESPIRATORY FAILURE WITH HYPOXIA; J96.22 - ACUTE AND CHRONIC RESPIRATORY FAILURE WITH HYPERCAPNIA (4) Emphysema of lung Code(s): J43.9 - EMPHYSEMA, UNSPECIFIED (5) HTN (hypertension) Code(s): I10 - ESSENTIAL (PRIMARY) HYPERTENSION (6) Venous stasis ulcer Code(s): I83.009 - VARICOSE VEINS OF UNSP LOWER EXTREMITY W ULCER OF UNSP SITE; L97.909 - NON-PRS CHRONIC ULC UNSP PRT OF UNSP LOW LEG W UNSP SEVERITY Assessment/Plan LE cellulitis - slowly improving COPD exacerbation Bronchitis Acute on Chronic respiratory failure -- continue antibiotics iv solumedrol resp support rest as per the team
[2019-01-14] MEDS: ALBUTEROL SO4 2.5/IPRATROPIUM 0.5 INH SOL 3 ML VIAL.NEB. NEB SCH ×3 (11:50→20:45)
[2019-01-14] MEDS: SILVER SULFADIAZINE 1% TOP CREAM 50 GM JAR TP SCH (17:19)
[2019-01-15] MEDS: methylPREDNISolone NA SUCC 40 MG/1 ML VIAL IVPUSH SCH ×3 (02:21→20:40)
[2019-01-15] MEDS: ALBUTEROL SO4 2.5/IPRATROPIUM 0.5 INH SOL 3 ML VIAL.NEB. NEB SCH ×4 (07:07→20:18)
--- NOTE | 2019-01-15 09:02 | PN ---
Progress Note, Physician Chief Complaint: Feels better C/O constipation History of Present Illness: Cellulites improving - Current Medication List Current Medications: Active Medications Acetaminophen (Tylenol -) 650 mg PO Q6H PRN PRN Reason: HEADACHE Last Admin: 01/13/19 22:59 Dose: 650 mg Albuterol Sulfate (Ventolin 0.083% Nebulizer Soln -) 1 amp NEB Q4H PRN PRN Reason: SHORT OF BREATH/WHEEZING Albuterol/Ipratropium (Duoneb -) 1 amp NEB RQID [facility] Last Admin: 01/15/19 07:07 Dose: 1 amp Amlodipine Besylate (Norvasc -) 5 mg PO DAILY [facility] Last Admin: 01/14/19 10:10 Dose: 5 mg Budesonide/Formoterol Fumarate (Symbicort 160/4.5mcg -) 2 puff IH BID [facility] Last Admin: 01/14/19 22:11 Dose: 2 inh Ceftriaxone Sodium 1 gm/ (Dextrose) 50 mls @ 200 mls/hr IVPB DAILY [facility]; Protocol Last Admin: 01/14/19 10:11 Dose: 200 mls/hr Methylprednisolone Sodium Succinate (Solu-Medrol -) 40 mg IVPUSH Q8H-IV [facility] Last Admin: 01/15/19 02:21 Dose: 40 mg Silver Sulfadiazine (Silvadene -) 1 applic TP DAILY [facility] Last Admin: 01/14/19 17:19 Dose: 1 applic - Objective Vital Signs: Vital Signs Temperature 98.9 F 01/15/19 06:00 Pulse Rate 78 01/15/19 06:00 Respiratory Rate 18 01/15/19 06:00 Blood Pressure 146/79 01/15/19 06:00 O2 Sat by Pulse Oximetry (%) 96 01/14/19 20:40 Constitutional: Yes: Calm Eyes: Yes: WNL HENT: Yes: WNL Neck: Yes: Supple Cardiovascular: Yes: Regular Rate and Rhythm Respiratory: Yes: On Nasal O2 Gastrointestinal: Yes: Normal Bowel Sounds Genitourinary: Yes: WNL Breast(s): Yes: WNL Edema: No Wound/Incision: Yes: Dressing Dry and Intact Labs: CBC, BMP 01/13/19 07:05 01/13/19 07:05 INR, PTT INR 0.90 (0.83-1.09) 01/09/19 11:20 Assessment/Plan Metamucil for constpation PT for ambulation
[2019-01-15] MEDS ORDERED: cefTRIAXone SODIUM 1 GM VIAL ONE (11:18)
[2019-01-15] MEDS ORDERED: DEXTROSE 5%-WATER - 50 ML IVPB ONE (11:18)
[2019-01-15] MEDS: PSYLLIUM 5.85 GM PACKET PO SCH (11:32)
[2019-01-15] MEDS: CEFTRIAXONE 1 GM in DEXTROSE 5%-WATER - 50 ML IVPB SCH (11:32)
[2019-01-15] MEDS: amLODIPine BESYLATE 5 MG TABLET (FP) PO SCH (11:32)
[2019-01-15] MEDS: BUDESONIDE/FORMETEROL FUMARATE 160/4.5 mcg INHALER IH SCH ×2 (11:34→21:07)
--- NOTE | 2019-01-15 11:42 | PN ---
Progress Note, Physician History of Present Illness: stable starting to breathe better - Current Medication List Current Medications: Active Medications Acetaminophen (Tylenol -) 650 mg PO Q6H PRN PRN Reason: HEADACHE Last Admin: 01/13/19 22:59 Dose: 650 mg Albuterol Sulfate (Ventolin 0.083% Nebulizer Soln -) 1 amp NEB Q4H PRN PRN Reason: SHORT OF BREATH/WHEEZING Albuterol/Ipratropium (Duoneb -) 1 amp NEB RQID [facility] Last Admin: 01/15/19 11:18 Dose: 1 amp Amlodipine Besylate (Norvasc -) 5 mg PO DAILY [facility] Last Admin: 01/15/19 11:32 Dose: 5 mg Budesonide/Formoterol Fumarate (Symbicort 160/4.5mcg -) 2 puff IH BID [facility] Last Admin: 01/15/19 11:34 Dose: 2 inh Ceftriaxone Sodium 1 gm/ (Dextrose) 50 mls @ 200 mls/hr IVPB DAILY [facility]; Protocol Last Admin: 01/15/19 11:32 Dose: 200 mls/hr Methylprednisolone Sodium Succinate (Solu-Medrol -) 40 mg IVPUSH Q8H-IV [facility] Last Admin: 01/15/19 11:34 Dose: 40 mg Psyllium Hydrophilic Mucilloid (Metamucil (Sugar-Free) -) 5.85 gm PO DAILY [facility] Last Admin: 01/15/19 11:32 Dose: 5.85 gm Silver Sulfadiazine (Silvadene -) 1 applic TP DAILY [facility] Last Admin: 01/14/19 17:19 Dose: 1 applic - Objective Vital Signs: Vital Signs Temperature 98.9 F 01/15/19 06:00 Pulse Rate 78 01/15/19 06:00 Respiratory Rate 18 01/15/19 06:00 Blood Pressure 146/79 01/15/19 06:00 O2 Sat by Pulse Oximetry (%) 95 01/15/19 11:18 Constitutional: Yes: No Distress, Calm Cardiovascular: Yes: S1, S2 Respiratory: Yes: Regular, Poor Air Entry Gastrointestinal: Yes: Normal Bowel Sounds, Soft Musculoskeletal: Yes: WNL Extremities: Yes: WNL Neurological: Yes: Alert, Oriented Psychiatric: Yes: Alert, Oriented Labs: CBC, BMP 01/13/19 07:05 01/13/19 07:05 INR, PTT INR 0.90 (0.83-1.09) 01/09/19 11:20 Assessment/Plan Problem List - Problems (1) COPD exacerbation Code(s): J44.1 - CHRONIC OBSTRUCTIVE PULMONARY DISEASE W (ACUTE) EXACERBATION (2) Cellulitis Code(s): L03.90 - CELLULITIS, UNSPECIFIED Qualifiers: Site of cellulitis: extremity Site of cellulitis of extremity: lower extremity Laterality: right Qualified Code(s): L03.115 - Cellulitis of right lower limb (3) Acute on chronic respiratory failure with hypoxia and hypercapnia Code(s): J96.21 - ACUTE AND CHRONIC RESPIRATORY FAILURE WITH HYPOXIA; J96.22 - ACUTE AND CHRONIC RESPIRATORY FAILURE WITH HYPERCAPNIA (4) Emphysema of lung Code(s): J43.9 - EMPHYSEMA, UNSPECIFIED (5) HTN (hypertension) Code(s): I10 - ESSENTIAL (PRIMARY) HYPERTENSION (6) Venous stasis ulcer Code(s): I83.009 - VARICOSE VEINS OF UNSP LOWER EXTREMITY W ULCER OF UNSP SITE; L97.909 - NON-PRS CHRONIC ULC UNSP PRT OF UNSP LOW LEG W UNSP SEVERITY Assessment/Plan LE cellulitis - slowly improving COPD exacerbation Bronchitis Acute on Chronic respiratory failure -- continue antibiotics iv solumedrol resp support rest as per the team
[2019-01-15] MEDS: SILVER SULFADIAZINE 1% TOP CREAM 50 GM JAR TP SCH (13:52)
[2019-01-15] MEDS ORDERED: SODIUM CHLORIDE NASAL SPRAY 44 ML BOTTLE NS PRN (14:06)
--- NOTE | 2019-01-15 14:06 | PN ---
Progress Note (short form) - Note Progress Note: PULMONARY States breathing slightly better than yesterday but still short of breath at rest. c/o dysphagia, feeling like food getting stuck after swallowing in her chest. Vital Signs Period Temp Pulse Resp BP Sys/Ferrera Pulse Ox Last 24 Hr 98.4 F-98.9 F 74-100 18-20 107-146/56-79 95-96 Gen: tachypneic at rest Heart: RRR Lung: distant breath sounds Abd: soft, nontender Ext: no edema CBC, BMP 01/13/19 07:05 01/13/19 07:05 Active Medications Acetaminophen (Tylenol -) 650 mg PO Q6H PRN PRN Reason: HEADACHE Last Admin: 01/13/19 22:59 Dose: 650 mg Albuterol Sulfate (Ventolin 0.083% Nebulizer Soln -) 1 amp NEB Q4H PRN PRN Reason: SHORT OF BREATH/WHEEZING Albuterol/Ipratropium (Duoneb -) 1 amp NEB RQID [facility] Last Admin: 01/15/19 11:18 Dose: 1 amp Amlodipine Besylate (Norvasc -) 5 mg PO DAILY [facility] Last Admin: 01/15/19 11:32 Dose: 5 mg Budesonide/Formoterol Fumarate (Symbicort 160/4.5mcg -) 2 puff IH BID [facility] Last Admin: 01/15/19 11:34 Dose: 2 inh Ceftriaxone Sodium 1 gm/ (Dextrose) 50 mls @ 200 mls/hr IVPB DAILY [facility]; Protocol Last Admin: 01/15/19 11:32 Dose: 200 mls/hr Methylprednisolone Sodium Succinate (Solu-Medrol -) 40 mg IVPUSH Q8H-IV [facility] Last Admin: 01/15/19 11:34 Dose: 40 mg Psyllium Hydrophilic Mucilloid (Metamucil (Sugar-Free) -) 5.85 gm PO DAILY [facility] Last Admin: 01/15/19 11:32 Dose: 5.85 gm Silver Sulfadiazine (Silvadene -) 1 applic TP DAILY [facility] Last Admin: 01/15/19 13:52 Dose: 1 applic A/P Acute on Chronic Hypoxic and Hypercapneic Respiratory Failure Acute COPD Exacerbation Acute Bronchitis HTN Anemia - continue medrol at current dose - inhaled bronchodilators standing and PRN - O2 to keep Spo2 >90% - BiPAP if pt tolerates - antibiotics per ID - consider esophagram - nasal sprays as pt c/o congestion
[2019-01-15 15:32] VITALS: BMI 19.3
[2019-01-16] MEDS: methylPREDNISolone NA SUCC 40 MG/1 ML VIAL IVPUSH SCH ×3 (02:11→19:11)
[2019-01-16] MEDS: ALBUTEROL SO4 2.5/IPRATROPIUM 0.5 INH SOL 3 ML VIAL.NEB. NEB SCH ×4 (07:44→19:53)
--- NOTE | 2019-01-16 08:07 | PN ---
Progress Note, Physician History of Present Illness: breathing better still sob improving - Current Medication List Current Medications: Active Medications Acetaminophen (Tylenol -) 650 mg PO Q6H PRN PRN Reason: HEADACHE Last Admin: 01/13/19 22:59 Dose: 650 mg Albuterol Sulfate (Ventolin 0.083% Nebulizer Soln -) 1 amp NEB Q4H PRN PRN Reason: SHORT OF BREATH/WHEEZING Albuterol/Ipratropium (Duoneb -) 1 amp NEB RQID [facility] Last Admin: 01/16/19 07:44 Dose: 1 amp Amlodipine Besylate (Norvasc -) 5 mg PO DAILY [facility] Last Admin: 01/15/19 11:32 Dose: 5 mg Budesonide/Formoterol Fumarate (Symbicort 160/4.5mcg -) 2 puff IH BID [facility] Last Admin: 01/15/19 21:07 Dose: 2 inh Methylprednisolone Sodium Succinate (Solu-Medrol -) 40 mg IVPUSH Q8H-IV [facility] Last Admin: 01/16/19 02:11 Dose: 40 mg Psyllium Hydrophilic Mucilloid (Metamucil (Sugar-Free) -) 5.85 gm PO DAILY [facility] Last Admin: 01/15/19 11:32 Dose: 5.85 gm Silver Sulfadiazine (Silvadene -) 1 applic TP DAILY [facility] Last Admin: 01/15/19 13:52 Dose: 1 applic Sodium Chloride ([place] Nasal [place] -) 2 spray NS TID PRN PRN Reason: NASAL CONGESTION Last Admin: 01/15/19 17:36 Dose: 2 spray - Objective Vital Signs: Vital Signs Temperature 98.2 F 01/16/19 06:37 Pulse Rate 81 01/16/19 06:37 Respiratory Rate 20 01/16/19 06:37 Blood Pressure 146/63 01/16/19 06:37 O2 Sat by Pulse Oximetry (%) 95 01/16/19 07:44 Constitutional: Yes: Calm, Mild Distress Cardiovascular: Yes: S1, S2 Respiratory: Yes: Regular, On Nasal O2, Poor Air Entry Gastrointestinal: Yes: Normal Bowel Sounds, Soft Musculoskeletal: Yes: WNL Extremities: Yes: WNL Neurological: Yes: Alert, Oriented Psychiatric: Yes: Alert, Oriented Labs: CBC, BMP 01/13/19 07:05 01/13/19 07:05 INR, PTT INR 0.90 (0.83-1.09) 01/09/19 11:20 Assessment/Plan Problem List - Problems (1) COPD exacerbation Code(s): J44.1 - CHRONIC OBSTRUCTIVE PULMONARY DISEASE W (ACUTE) EXACERBATION (2) Cellulitis Code(s): L03.90 - CELLULITIS, UNSPECIFIED Qualifiers: Site of cellulitis: extremity Site of cellulitis of extremity: lower extremity Laterality: right Qualified Code(s): L03.115 - Cellulitis of right lower limb (3) Acute on chronic respiratory failure with hypoxia and hypercapnia Code(s): J96.21 - ACUTE AND CHRONIC RESPIRATORY FAILURE WITH HYPOXIA; J96.22 - ACUTE AND CHRONIC RESPIRATORY FAILURE WITH HYPERCAPNIA (4) Emphysema of lung Code(s): J43.9 - EMPHYSEMA, UNSPECIFIED (5) HTN (hypertension) Code(s): I10 - ESSENTIAL (PRIMARY) HYPERTENSION (6) Venous stasis ulcer Code(s): I83.009 - VARICOSE VEINS OF UNSP LOWER EXTREMITY W ULCER OF UNSP SITE; L97.909 - NON-PRS CHRONIC ULC UNSP PRT OF UNSP LOW LEG W UNSP SEVERITY Assessment/Plan LE cellulitis - slowly improving COPD exacerbation Bronchitis Acute on Chronic respiratory failure will stop abx continue steroids as per pul resp support rest as per the team
--- NOTE | 2019-01-16 09:08 | PN ---
Progress Note (short form) - Note Progress Note: Breathing feels a little better. Refused NIPPV support overnight. Clinically appears less dyspneic. No CP. Intake & Output 01/13/19 01/14/19 01/15/19 01/16/19 23:59 23:59 23:59 23:59 Intake Total 504 563 9071 110 Balance 828 798 0741 110 Last Vital Signs Temp Pulse Resp BP Pulse Ox 98.2 F 81 20 146/63 95 01/16/19 06:37 01/16/19 06:37 01/16/19 06:37 01/16/19 06:37 01/16/19 07:44 Active Medications Acetaminophen (Tylenol -) 650 mg PO Q6H PRN PRN Reason: HEADACHE Last Admin: 01/13/19 22:59 Dose: 650 mg Albuterol Sulfate (Ventolin 0.083% Nebulizer Soln -) 1 amp NEB Q4H PRN PRN Reason: SHORT OF BREATH/WHEEZING Albuterol/Ipratropium (Duoneb -) 1 amp NEB RQID [facility] Last Admin: 01/16/19 07:44 Dose: 1 amp Amlodipine Besylate (Norvasc -) 5 mg PO DAILY [facility] Last Admin: 01/15/19 11:32 Dose: 5 mg Budesonide/Formoterol Fumarate (Symbicort 160/4.5mcg -) 2 puff IH BID [facility] Last Admin: 01/15/19 21:07 Dose: 2 inh Methylprednisolone Sodium Succinate (Solu-Medrol -) 40 mg IVPUSH Q8H-IV [facility] Last Admin: 01/16/19 02:11 Dose: 40 mg Psyllium Hydrophilic Mucilloid (Metamucil (Sugar-Free) -) 5.85 gm PO DAILY [facility] Last Admin: 01/15/19 11:32 Dose: 5.85 gm Silver Sulfadiazine (Silvadene -) 1 applic TP DAILY [facility] Last Admin: 01/15/19 13:52 Dose: 1 applic Sodium Chloride ([place] Nasal [place] -) 2 spray NS TID PRN PRN Reason: NASAL CONGESTION Last Admin: 01/15/19 17:36 Dose: 2 spray Constitutional: Yes: Less tachypneic at rest Eyes: Yes: Conjunctiva Clear, EOM Intact HENT: Yes: Normocephalic Neck: Yes: Trachea Midline Cardiovascular: Yes: Regular Rate and Rhythm, Tachycardia, S1, S2 Respiratory: Yes: Diminished, Less Bilateral Rhonchi and Expiratory wheeze Gastrointestinal: Yes: Soft Renal/: Yes: WNL Edema: LLE: 3+, RLE: 3+ Integumentary: Yes: Venous Stasis Changes Neurological: Yes: Non-focal Labs: Problem List - Problems (1) Acute bronchitis Code(s): J20.9 - ACUTE BRONCHITIS, UNSPECIFIED (2) Acute on chronic respiratory failure with hypoxia and hypercapnia Code(s): J96.21 - ACUTE AND CHRONIC RESPIRATORY FAILURE WITH HYPOXIA; J96.22 - ACUTE AND CHRONIC RESPIRATORY FAILURE WITH HYPERCAPNIA (3) COPD exacerbation Code(s): J44.1 - CHRONIC OBSTRUCTIVE PULMONARY DISEASE W (ACUTE) EXACERBATION (4) Emphysema of lung Code(s): J43.9 - EMPHYSEMA, UNSPECIFIED Assessment/Plan Can likely wean IV Medrol tomorrow BD TX ABX per ID Patient refusing NIPPV support: Risks and benefits were discussed Supplemental O2 as needed VTE prophylaxis No smoking Dr Latham
--- NOTE | 2019-01-16 09:41 | PN ---
Progress Note, Physician Chief Complaint: Feels OK ,Still C/O constpation - Current Medication List Current Medications: Active Medications Acetaminophen (Tylenol -) 650 mg PO Q6H PRN PRN Reason: HEADACHE Last Admin: 01/13/19 22:59 Dose: 650 mg Albuterol Sulfate (Ventolin 0.083% Nebulizer Soln -) 1 amp NEB Q4H PRN PRN Reason: SHORT OF BREATH/WHEEZING Albuterol/Ipratropium (Duoneb -) 1 amp NEB RQID [facility] Last Admin: 01/16/19 07:44 Dose: 1 amp Amlodipine Besylate (Norvasc -) 5 mg PO DAILY [facility] Last Admin: 01/15/19 11:32 Dose: 5 mg Budesonide/Formoterol Fumarate (Symbicort 160/4.5mcg -) 2 puff IH BID [facility] Last Admin: 01/15/19 21:07 Dose: 2 inh Methylprednisolone Sodium Succinate (Solu-Medrol -) 40 mg IVPUSH Q8H-IV [facility] Last Admin: 01/16/19 02:11 Dose: 40 mg Psyllium Hydrophilic Mucilloid (Metamucil (Sugar-Free) -) 5.85 gm PO DAILY [facility] Last Admin: 01/15/19 11:32 Dose: 5.85 gm Silver Sulfadiazine (Silvadene -) 1 applic TP DAILY [facility] Last Admin: 01/15/19 13:52 Dose: 1 applic Sodium Chloride ([place] Nasal [place] -) 2 spray NS TID PRN PRN Reason: NASAL CONGESTION Last Admin: 01/15/19 17:36 Dose: 2 spray - Objective Vital Signs: Vital Signs Temperature 98.2 F 01/16/19 06:37 Pulse Rate 81 01/16/19 06:37 Respiratory Rate 20 01/16/19 06:37 Blood Pressure 146/63 01/16/19 06:37 O2 Sat by Pulse Oximetry (%) 95 01/16/19 07:44 Constitutional: Yes: No Distress Eyes: Yes: WNL HENT: Yes: WNL Neck: Yes: WNL Cardiovascular: Yes: WNL Respiratory: Yes: On Nasal O2 Gastrointestinal: Yes: Normal Bowel Sounds ...Rectal Exam: Yes: Deferred Genitourinary: Yes: WNL Musculoskeletal: Yes: Muscle Weakness Psychiatric: Yes: Alert Labs: CBC, BMP 01/13/19 07:05 01/13/19 07:05 INR, PTT INR 0.90 (0.83-1.09) 01/09/19 11:20 Assessment/Plan Milk of mag for constipation
[2019-01-16] MEDS ORDERED: MAGNESIUM HYDROX 2400MG/30ML ORAL SUSPENSION 30 ML CUP PO ONE (09:42)
[2019-01-16] MEDS ORDERED: PT OWN MED DRAWER 7, Y5N ONE (10:55)
[2019-01-16] MEDS: amLODIPine BESYLATE 5 MG TABLET (FP) PO SCH (10:57)
[2019-01-16] MEDS: PSYLLIUM 5.85 GM PACKET PO SCH (10:57)
[2019-01-16] MEDS: BUDESONIDE/FORMETEROL FUMARATE 160/4.5 mcg INHALER IH SCH ×2 (10:58→22:15)
[2019-01-16] MEDS: ENOXAPARIN NA (PORCINE) 40 MG/0.4 ML DISP.SYRIN SQ SCH (13:21)
[2019-01-16] MEDS: SILVER SULFADIAZINE 1% TOP CREAM 50 GM JAR TP SCH (18:54)
[2019-01-17] MEDS: methylPREDNISolone NA SUCC 40 MG/1 ML VIAL IVPUSH SCH (01:43)
[2019-01-17 06:49] VITALS: TEMP 98
[2019-01-17] MEDS: ALBUTEROL SO4 2.5/IPRATROPIUM 0.5 INH SOL 3 ML VIAL.NEB. NEB SCH ×2 (08:11→12:18)
--- NOTE | 2019-01-17 08:11 | PN ---
Progress Note, Physician History of Present Illness: stable no new issues - Current Medication List Current Medications: Active Medications Acetaminophen (Tylenol -) 650 mg PO Q6H PRN PRN Reason: HEADACHE Last Admin: 01/13/19 22:59 Dose: 650 mg Albuterol Sulfate (Ventolin 0.083% Nebulizer Soln -) 1 amp NEB Q4H PRN PRN Reason: SHORT OF BREATH/WHEEZING Albuterol/Ipratropium (Duoneb -) 1 amp NEB RQID [facility] Last Admin: 01/16/19 19:53 Dose: 1 amp Amlodipine Besylate (Norvasc -) 5 mg PO DAILY [facility] Last Admin: 01/16/19 10:57 Dose: 5 mg Budesonide/Formoterol Fumarate (Symbicort 160/4.5mcg -) 2 puff IH BID [facility] Last Admin: 01/16/19 22:15 Dose: 2 inh Enoxaparin Sodium (Lovenox -) 40 mg SQ DAILY [facility] Last Admin: 01/16/19 13:21 Dose: 40 mg Methylprednisolone Sodium Succinate (Solu-Medrol -) 40 mg IVPUSH Q8H-IV [facility] Last Admin: 01/17/19 01:43 Dose: 40 mg Psyllium Hydrophilic Mucilloid (Metamucil (Sugar-Free) -) 5.85 gm PO DAILY [facility] Last Admin: 01/16/19 10:57 Dose: 5.85 gm Silver Sulfadiazine (Silvadene -) 1 applic TP DAILY [facility] Last Admin: 01/16/19 18:54 Dose: 1 applic Sodium Chloride ([place] Nasal [place] -) 2 spray NS TID PRN PRN Reason: NASAL CONGESTION Last Admin: 01/15/19 17:36 Dose: 2 spray - Objective Vital Signs: Vital Signs Temperature 98.0 F 01/17/19 06:46 Pulse Rate 79 01/17/19 06:46 Respiratory Rate 20 01/17/19 06:46 Blood Pressure 125/75 01/17/19 06:46 O2 Sat by Pulse Oximetry (%) 97 01/16/19 10:00 Constitutional: Yes: No Distress, Calm Cardiovascular: Yes: S1, S2 Respiratory: Yes: Regular, CTA Bilaterally, On Nasal O2 Gastrointestinal: Yes: Normal Bowel Sounds, Soft Musculoskeletal: Yes: WNL Extremities: Yes: WNL Neurological: Yes: Alert, Oriented Psychiatric: Yes: Alert, Oriented Labs: CBC, BMP 01/13/19 07:05 01/13/19 07:05 INR, PTT INR 0.90 (0.83-1.09) 01/09/19 11:20 Assessment/Plan Problem List - Problems (1) COPD exacerbation Code(s): J44.1 - CHRONIC OBSTRUCTIVE PULMONARY DISEASE W (ACUTE) EXACERBATION (2) Cellulitis Code(s): L03.90 - CELLULITIS, UNSPECIFIED Qualifiers: Site of cellulitis: extremity Site of cellulitis of extremity: lower extremity Laterality: right Qualified Code(s): L03.115 - Cellulitis of right lower limb (3) Acute on chronic respiratory failure with hypoxia and hypercapnia Code(s): J96.21 - ACUTE AND CHRONIC RESPIRATORY FAILURE WITH HYPOXIA; J96.22 - ACUTE AND CHRONIC RESPIRATORY FAILURE WITH HYPERCAPNIA (4) Emphysema of lung Code(s): J43.9 - EMPHYSEMA, UNSPECIFIED (5) HTN (hypertension) Code(s): I10 - ESSENTIAL (PRIMARY) HYPERTENSION (6) Venous stasis ulcer Code(s): I83.009 - VARICOSE VEINS OF UNSP LOWER EXTREMITY W ULCER OF UNSP SITE; L97.909 - NON-PRS CHRONIC ULC UNSP PRT OF UNSP LOW LEG W UNSP SEVERITY Assessment/Plan LE cellulitis - slowly improving COPD exacerbation Bronchitis Acute on Chronic respiratory failure continue current mgmt resp support cellulitis better
--- NOTE | 2019-01-17 09:30 | DS ---
Physical Examination Vital Signs: Vital Signs Temperature 98.0 F 01/17/19 06:46 Pulse Rate 79 01/17/19 06:46 Respiratory Rate 20 01/17/19 06:46 Blood Pressure 125/75 01/17/19 06:46 O2 Sat by Pulse Oximetry (%) 97 01/16/19 10:00 Findings/Remarks: Admitted with exacerbation of COPD and cellulites Rt leg Improved ,rt leg needs wound care at [facility] Anti biotics and steroids changed to PO Constitutional: Yes: Calm Eyes: Yes: WNL, Occular Prosthesis Neck: Yes: WNL Cardiovascular: Yes: WNL Respiratory: Yes: On Nasal O2 Gastrointestinal: Yes: WNL Wound/Incision: Yes: Dressing Dry and Intact Psychiatric: Yes: Alert Labs: CBC, BMP 01/13/19 07:05 01/13/19 07:05 Discharge Summary Problems reviewed: Yes Reason For Visit: CELLULITIS,ACUTE EXACERBATION OF COPD Current Active Problems COPD exacerbation (Acute) Cellulitis (Acute) - Instructions Referrals: William Rivas MD [Primary Care Provider] - - Home Medications Comprehensive Discharge Medication List: Ambulatory Orders Albuterol Sulfate Inhaler - [Ventolin HFA Inhaler -] 1 - 2 inh PO QID 09/23/17 Bimatoprost [Lumigan] 1 drop OU HS 09/23/17 Biotin/Keratin [Biotin Plus Keratin Tablet] 1 each PO DAILY 09/23/17 Calcium (Oyster Shell) [Os-Ignacio 500MG -] 500 mg PO BID 09/23/17 Budesonide/Formeterol Fumarate [SYMBICORT 160/4.5mcg -] 2 puff IH BID inhaler 09/28/17 Prednisone 10 mg PO DAILY 06/27/18 Furosemide [Lasix -] 40 mg PO Q48H 07/11/18 Amlodipine/Atorvastatin [Amlodipine-Atorvast 5-10 mg] 5 each PO DAILY 09/26/18 Albuterol 0.083% Nebulizer Noemy [Ventolin 0.083% Nebulizer Soln -] 1 amp NEB Q4H PRN amp 09/30/18 Albuterol 2.5/Ipratropium 0.5 [Duoneb -] 1 amp NEB RQID amp 09/30/18 Amlodipine Besylate [Norvasc -] 5 mg PO DAILY tablet 09/30/18 Arformoterol Tartrate [Brovana -] 1 amp NEB RBID amp 09/30/18 Tiotropium [place] [Spiriva Respimat] 2 puff IH DAILY inhaler 09/30/18
[2019-01-17] MEDS ORDERED: predniSONE 20 MG TABLET (UD) PO SCH (10:00)
[2019-01-17] MEDS ORDERED: PT OWN MED DRAWER 7, Y5N ONE (10:38)
[2019-01-17] MEDS: PSYLLIUM 5.85 GM PACKET PO SCH (10:44)
[2019-01-17] MEDS: ENOXAPARIN NA (PORCINE) 40 MG/0.4 ML DISP.SYRIN SQ SCH (10:44)
[2019-01-17] MEDS: amLODIPine BESYLATE 5 MG TABLET (FP) PO SCH (10:44)
[2019-01-17] MEDS: BUDESONIDE/FORMETEROL FUMARATE 160/4.5 mcg INHALER IH SCH (10:45)
[2019-01-17] MEDS: SILVER SULFADIAZINE 1% TOP CREAM 50 GM JAR TP SCH (10:45)
[2019-01-17 12:21] VITALS: BP 147/74; PULSE 91
[2019-01-17] MEDS ORDERED: AMOX TR/POT CLAV 500MG/125MG TABLETS (FP) PO SCH (17:30)
== END 2019-01-17 14:34 | disposition home or self-care (01) | DRG 602 ==
LOC: JER 07:58 → JERBED 12:21 → J8W 14:12
PROVIDERS: ADMIT Internal Medicine; ATTEND Internal Medicine
DX: L03.115 Cellulitis of right lower limb (principal); J96.21 Acute and chronic respiratory failure with hypoxia; J96.22 Acute and chronic respiratory failure with hypercapnia; J44.1 Chronic obstructive pulmonary disease with (acute) exacerbation; L03.116 Cellulitis of left lower limb; J43.9 Emphysema, unspecified; J20.9 Acute bronchitis, unspecified; I83.009 Varicose veins of unspecified lower extremity with ulcer of unspecified site; D64.9 Anemia, unspecified; K59.00 Constipation, unspecified; I10 Essential (primary) hypertension; E78.5 Hyperlipidemia, unspecified; R62.7 Adult failure to thrive
CPT/HCPCS: 36415; 71045-TC-FY; 80048; 80053; 81003; 82803; 82962; 83605; 83880; 84484; 85025; 85610; 85730; 87040; 87086; 93005; 93010; 93970-TC; 94640; 94660; 97116-GP; 97161-GP; 99284-25; J0131; J7030

== ENCOUNTER 2020-01-09 09:01 | Inpatient (IN) | payer OTHER, BC ==
[2020-01-09 09:08] VITALS: BMI 18.8
[2020-01-09] MEDS ORDERED: morphine CARPU-JECT 2 MG/1 ML DISP.SYRIN IVPUSH ONE (09:40)
[2020-01-09] MEDS ORDERED: MORPHINE SULFATE 2 MG/ML VIAL ONE (09:58)
[2020-01-09 10:20] LABS: BASO % 0.3 % (0-2.0); EOS % 0.1 % (0-4.5); HEMATOCRIT 30.7 % (32.4-45.2); HEMOGLOBIN 9.8 GM/dL (10.7-15.3); LYMPH % 8.1 % (8-40); MCH 31.1 pg (25.7-33.7); MCHC 31.8 g/dl (32.0-36.0); MEAN CELL VOLUME 97.6 fl (80-96); MEAN PLT VOLUME 7.5 fl (7.5-11.1); MONO % 2.9 % (3.8-10.2); NEUT % 88.6 % (42.8-82.8); PLATELET COUNT 191 K/MM3 (134-434); RBC 3.15 M/mm3 (3.60-5.2)
[2020-01-09 10:27] LABS: INR 0.89 (0.83-1.09); PROTHROMBIN TIME (PATIENT) 10.8 SEC (9.7-13.0)
[2020-01-09 10:38] LABS: POTASSIUM 4.5 mmol/L (3.5-5.1)
[2020-01-09 10:39] LABS: CALCIUM 9.2 mg/dL (8.5-10.1)
[2020-01-09 10:40] LABS: ALBUMIN 3.5 g/dl (3.4-5.0); BLOOD UREA NITROGEN 18.6 mg/dL (7-18)
[2020-01-09 10:43] LABS: CREATININE 0.7 mg/dL (0.55-1.3)
[2020-01-09 10:45] LABS: BILIRUBIN,TOTAL 0.5 mg/dL (0.2-1); TOT PROT 6.1 g/dl (6.4-8.2)
[2020-01-09] MEDS ORDERED: ONDANSETRON 4 MG/2 ML VIAL IVPUSH ONE (13:20)
[2020-01-09] MEDS ORDERED: ONDANSETRON 4 MG/2 ML VIAL ONE (13:28)
[2020-01-09] MEDS ORDERED: ACETAMINOPHEN 1000 MG/100 ML VIAL (NON FORMULARY) IVPB ONE (14:34)
[2020-01-09] MEDS ORDERED: LIDOCAINE 5% TOPICAL PATCH TP ONE (14:34)
[2020-01-09] MEDS ORDERED: LIDOCAINE 5% TOPICAL PATCH ONE (15:12)
[2020-01-09] MEDS ORDERED: ACETAMINOPHEN INJECTION 100 ML IVPB ONE (15:12)
[2020-01-09] MEDS ORDERED: LIDOCAINE PATCH REMOVAL MC ONE (22:00)
[2020-01-10] MEDS ORDERED: ACETAMINOPHEN 325 MG TABLET (FP) ONE (04:07)
[2020-01-10] MEDS: ACETAMINOPHEN 325 MG TABLET (FP) PO PRN (04:14)
[2020-01-10] MEDS ORDERED: oxyCODONE HCL 5 MG TABLET ONE (08:57)
[2020-01-10] MEDS: oxyCODONE HCL 5 MG TABLET PO PRN (09:01)
[2020-01-10] MEDS ORDERED: predniSONE 20 MG TABLET (UD) ONE (13:58)
[2020-01-10] MEDS: predniSONE 20 MG TABLET (UD) PO SCH ×2 (14:03→21:18)
[2020-01-10] MEDS ORDERED: ALBUTEROL SO4 0.083% IH SOL 2.5 MG/3 ML VIAL.NEB. NEB PRN (19:06)
[2020-01-10] MEDS: BUDESONIDE/FORMETEROL FUMARATE 160/4.5 mcg INHALER IH SCH (21:18)
[2020-01-10] MEDS: LATANOPROST 0.005% OPHTH SOLN 2.5ML BOTTLE OU SCH (21:18)
[2020-01-10] MEDS: TIOTROPIUM BROMIDE 2.5 MCG (SPIRIVA) RESPIMAT INHALER IH SCH (21:19)
[2020-01-11] MEDS: oxyCODONE HCL 5 MG TABLET PO PRN ×2 (01:19→10:20)
[2020-01-11 08:57] LABS: HEMATOCRIT 29.9 % (32.4-45.2); HEMOGLOBIN 9.5 GM/dL (10.7-15.3); LYMPH % 2.9 % (8-40); MCH 30.9 pg (25.7-33.7); MCHC 31.7 g/dl (32.0-36.0); MEAN CELL VOLUME 97.6 fl (80-96); MEAN PLT VOLUME 8.6 fl (7.5-11.1); MONO % 2.8 % (3.8-10.2); NEUT % 94.3 % (42.8-82.8); PLATELET COUNT 157 K/MM3 (134-434); RBC 3.06 M/mm3 (3.60-5.2); RDW 15.1 % (11.6-15.6); WHITE BLOOD COUNT 8.1 K/mm3 (4.0-10.0)
[2020-01-11 09:15] LABS: POTASSIUM 4.8 mmol/L (3.5-5.1)
[2020-01-11 09:16] LABS: CALCIUM 8.8 mg/dL (8.5-10.1)
[2020-01-11 09:20] LABS: CREATININE 0.9 mg/dL (0.55-1.3)
[2020-01-11 09:32] LABS: BLOOD UREA NITROGEN 48.5 mg/dL (7-18)
[2020-01-11] MEDS: ACETAMINOPHEN 325 MG TABLET (FP) PO PRN (10:18)
[2020-01-11] MEDS: predniSONE 20 MG TABLET (UD) PO SCH (10:19)
[2020-01-11] MEDS: POLYETHYLENE GLYCOL 3350 119 GM BTL PO SCH (10:19)
[2020-01-11] MEDS: BUDESONIDE/FORMETEROL FUMARATE 160/4.5 mcg INHALER IH SCH ×2 (10:20→21:14)
[2020-01-11] MEDS: TIOTROPIUM BROMIDE 2.5 MCG (SPIRIVA) RESPIMAT INHALER IH SCH (10:21)
[2020-01-11 11:56] LABS: ANISOCYTOSIS 1+; MACROCYTOSIS 0; PLATELET ESTIMATE NORMAL
[2020-01-11] MEDS ORDERED: SODIUM CHLORIDE 1,000 ML IV SCH (13:00)
[2020-01-11] MEDS: D5-1/2NS+10 MEQ KCL - 10 MEQ/1,000 ML INFUS.BAG IV SCH (13:26)
[2020-01-11] MEDS: LATANOPROST 0.005% OPHTH SOLN 2.5ML BOTTLE OU SCH (21:16)
[2020-01-12] MEDS: oxyCODONE HCL 5 MG TABLET PO PRN (00:28)
[2020-01-12 06:37] LABS: PH,URINE 5.5 (5.0-8.0); URINE APPEARANCE CLEAR; URINE BILIRUBIN NEGATIVE (NEGATIVE); URINE COLOR YELLOW; URINE GLUCOSE (UA) NEGATIVE (NEGATIVE); URINE KETONE NEGATIVE (NEGATIVE); URINE LEUK ESTERASE NEGATIVE (NEGATIVE); URINE NITRITE NEGATIVE (NEGATIVE); URINE PROTEIN NEGATIVE (NEGATIVE); URINE UROBILINOGEN 0.2 mg/dL (0.2-1.0)
[2020-01-12 08:38] LABS: BASO % 0.4 % (0-2.0); EOS % 0.1 % (0-4.5); HEMATOCRIT 26.8 % (32.4-45.2); HEMOGLOBIN 8.7 GM/dL (10.7-15.3); MCH 31.6 pg (25.7-33.7); MCHC 32.7 g/dl (32.0-36.0); MEAN CELL VOLUME 96.8 fl (80-96); MEAN PLT VOLUME 8.7 fl (7.5-11.1); MONO % 6.8 % (3.8-10.2); NEUT % 87.7 % (42.8-82.8); PLATELET COUNT 141 K/MM3 (134-434); RBC 2.77 M/mm3 (3.60-5.2); RDW 14.6 % (11.6-15.6); WHITE BLOOD COUNT 6.4 K/mm3 (4.0-10.0)
[2020-01-12 08:54] LABS: POTASSIUM 4.4 mmol/L (3.5-5.1)
[2020-01-12 09:00] LABS: CALCIUM 8.6 mg/dL (8.5-10.1)
[2020-01-12 09:01] LABS: BLOOD UREA NITROGEN 49.6 mg/dL (7-18)
[2020-01-12 09:04] LABS: CREATININE 0.8 mg/dL (0.55-1.3)
[2020-01-12] MEDS ORDERED: PT OWN MED DRAWER 7, Y5N ONE (09:57)
[2020-01-12] MEDS: MULTIVIT-MINERALS ORAL LIQUID PO SCH (10:09)
[2020-01-12] MEDS: predniSONE 20 MG TABLET (UD) PO SCH (10:09)
[2020-01-12] MEDS: TIOTROPIUM BROMIDE 2.5 MCG (SPIRIVA) RESPIMAT INHALER IH SCH (10:10)
[2020-01-12] MEDS: POLYETHYLENE GLYCOL 3350 119 GM BTL PO SCH (10:10)
[2020-01-12] MEDS: BUDESONIDE/FORMETEROL FUMARATE 160/4.5 mcg INHALER IH SCH ×2 (10:11→23:46)
[2020-01-12] MEDS: D5-1/2NS+10 MEQ KCL - 10 MEQ/1,000 ML INFUS.BAG IV SCH ×2 (10:11→13:49)
[2020-01-12] MEDS: ALPRAZolam 0.25 MG TABLET PO PRN ×2 (12:41→21:02)
[2020-01-12] MEDS: LATANOPROST 0.005% OPHTH SOLN 2.5ML BOTTLE OU SCH (23:46)
[2020-01-13] MEDS ORDERED: AZITHROMYCIN 250 MG TABLET PO ONE (08:00)
[2020-01-13] MEDS ORDERED: PT OWN MED DRAWER 7, Y5N ONE ×2 (08:46→10:05)
[2020-01-13] MEDS: ALPRAZolam 0.25 MG TABLET PO PRN (08:55)
[2020-01-13] MEDS: MULTIVIT-MINERALS ORAL LIQUID PO SCH (10:11)
[2020-01-13] MEDS: POLYETHYLENE GLYCOL 3350 119 GM BTL PO SCH (10:11)
[2020-01-13] MEDS: predniSONE 20 MG TABLET (UD) PO SCH (10:11)
[2020-01-13] MEDS: D5-1/2NS+10 MEQ KCL - 10 MEQ/1,000 ML INFUS.BAG IV SCH (10:12)
[2020-01-13] MEDS: TIOTROPIUM BROMIDE 2.5 MCG (SPIRIVA) RESPIMAT INHALER IH SCH (10:13)
[2020-01-13] MEDS: BUDESONIDE/FORMETEROL FUMARATE 160/4.5 mcg INHALER IH SCH ×2 (10:13→23:01)
[2020-01-13] MEDS: LATANOPROST 0.005% OPHTH SOLN 2.5ML BOTTLE OU SCH (23:02)
[2020-01-14] MEDS ORDERED: PT OWN MED DRAWER 7, Y5N ONE (09:36)
[2020-01-14] MEDS: predniSONE 20 MG TABLET (UD) PO SCH (09:37)
[2020-01-14] MEDS: MULTIVIT-MINERALS ORAL LIQUID PO SCH (09:37)
[2020-01-14] MEDS: POLYETHYLENE GLYCOL 3350 119 GM BTL PO SCH (09:38)
[2020-01-14] MEDS: BUDESONIDE/FORMETEROL FUMARATE 160/4.5 mcg INHALER IH SCH ×2 (09:38→23:25)
[2020-01-14] MEDS: TIOTROPIUM BROMIDE 2.5 MCG (SPIRIVA) RESPIMAT INHALER IH SCH (09:38)
[2020-01-14] MEDS: ACETAMINOPHEN WITH CODEINE 300MG/30MG TABLET PO PRN (13:14)
[2020-01-14] MEDS: D5-1/2NS+10 MEQ KCL - 10 MEQ/1,000 ML INFUS.BAG IV SCH (18:50)
[2020-01-14] MEDS: LATANOPROST 0.005% OPHTH SOLN 2.5ML BOTTLE OU SCH (23:25)
[2020-01-15] MEDS ORDERED: PT OWN MED DRAWER 7, Y5N ONE (09:11)
[2020-01-15] MEDS: predniSONE 20 MG TABLET (UD) PO SCH (09:42)
[2020-01-15] MEDS: MULTIVIT-MINERALS ORAL LIQUID PO SCH (09:42)
[2020-01-15] MEDS: ACETAMINOPHEN WITH CODEINE 300MG/30MG TABLET PO PRN ×2 (09:42→21:38)
[2020-01-15] MEDS: D5-1/2NS+10 MEQ KCL - 10 MEQ/1,000 ML INFUS.BAG IV SCH (09:44)
[2020-01-15] MEDS: BUDESONIDE/FORMETEROL FUMARATE 160/4.5 mcg INHALER IH SCH ×2 (09:44→21:37)
[2020-01-15] MEDS: TIOTROPIUM BROMIDE 2.5 MCG (SPIRIVA) RESPIMAT INHALER IH SCH (09:44)
[2020-01-15] MEDS: POLYETHYLENE GLYCOL 3350 119 GM BTL PO SCH (09:44)
[2020-01-15] MEDS: LATANOPROST 0.005% OPHTH SOLN 2.5ML BOTTLE OU SCH (21:37)
[2020-01-16] MEDS: BUDESONIDE/FORMETEROL FUMARATE 160/4.5 mcg INHALER IH SCH ×2 (10:15→22:13)
[2020-01-16] MEDS: predniSONE 20 MG TABLET (UD) PO SCH (10:15)
[2020-01-16] MEDS: MULTIVIT-MINERALS ORAL LIQUID PO SCH (10:15)
[2020-01-16] MEDS: TIOTROPIUM BROMIDE 2.5 MCG (SPIRIVA) RESPIMAT INHALER IH SCH (10:15)
[2020-01-16] MEDS: POLYETHYLENE GLYCOL 3350 119 GM BTL PO SCH (10:17)
[2020-01-16] MEDS: ACETAMINOPHEN 325 MG TABLET (FP) PO PRN (12:38)
[2020-01-16] MEDS: LATANOPROST 0.005% OPHTH SOLN 2.5ML BOTTLE OU SCH (22:13)
[2020-01-16] MEDS: ACETAMINOPHEN WITH CODEINE 300MG/30MG TABLET PO PRN (22:18)
[2020-01-17 09:12] LABS: BASO % 0.4 % (0-2.0); EOS % 2.4 % (0-4.5); HEMATOCRIT 25.6 % (32.4-45.2); LYMPH % 16.2 % (8-40); MCH 30.1 pg (25.7-33.7); MCHC 31.1 g/dl (32.0-36.0); MEAN PLT VOLUME 9.3 fl (7.5-11.1); MONO % 8.5 % (3.8-10.2); NEUT % 72.5 % (42.8-82.8); PLATELET COUNT 147 K/MM3 (134-434); RBC 2.64 M/mm3 (3.60-5.2); RDW 15.2 % (11.6-15.6); WHITE BLOOD COUNT 5.3 K/mm3 (4.0-10.0)
[2020-01-17 09:34] LABS: POTASSIUM 4.3 mmol/L (3.5-5.1)
[2020-01-17 09:49] LABS: CALCIUM 8.7 mg/dL (8.5-10.1)
[2020-01-17] MEDS ORDERED: PT OWN MED DRAWER 7, Y5N ONE (09:52)
[2020-01-17 09:53] LABS: CREATININE 0.6 mg/dL (0.55-1.3)
[2020-01-17 09:58] LABS: BLOOD UREA NITROGEN 20.8 mg/dL (7-18)
[2020-01-17] MEDS: predniSONE 20 MG TABLET (UD) PO SCH (10:45)
[2020-01-17] MEDS: MULTIVIT-MINERALS ORAL LIQUID PO SCH (10:45)
[2020-01-17] MEDS: POLYETHYLENE GLYCOL 3350 119 GM BTL PO SCH (10:46)
[2020-01-17] MEDS: TIOTROPIUM BROMIDE 2.5 MCG (SPIRIVA) RESPIMAT INHALER IH SCH (10:46)
[2020-01-17] MEDS: BUDESONIDE/FORMETEROL FUMARATE 160/4.5 mcg INHALER IH SCH ×2 (10:47→23:06)
[2020-01-17] MEDS: LATANOPROST 0.005% OPHTH SOLN 2.5ML BOTTLE OU SCH (23:07)
[2020-01-18] MEDS: ACETAMINOPHEN 325 MG TABLET (FP) PO PRN ×2 (02:13→23:34)
[2020-01-18] MEDS ORDERED: PT OWN MED DRAWER 7, Y5N ONE (10:35)
[2020-01-18] MEDS: predniSONE 20 MG TABLET (UD) PO SCH (10:37)
[2020-01-18] MEDS: MULTIVIT-MINERALS ORAL LIQUID PO SCH (10:37)
[2020-01-18] MEDS: POLYETHYLENE GLYCOL 3350 119 GM BTL PO SCH (12:22)
[2020-01-18] MEDS: TIOTROPIUM BROMIDE 2.5 MCG (SPIRIVA) RESPIMAT INHALER IH SCH (12:23)
[2020-01-18] MEDS: BUDESONIDE/FORMETEROL FUMARATE 160/4.5 mcg INHALER IH SCH ×2 (12:24→23:21)
[2020-01-18] MEDS: LATANOPROST 0.005% OPHTH SOLN 2.5ML BOTTLE OU SCH (23:21)
[2020-01-19] MEDS: MULTIVIT-MINERALS ORAL LIQUID PO SCH (09:48)
[2020-01-19] MEDS: predniSONE 20 MG TABLET (UD) PO SCH (09:49)
[2020-01-19] MEDS: BUDESONIDE/FORMETEROL FUMARATE 160/4.5 mcg INHALER IH SCH ×2 (09:51→22:25)
[2020-01-19] MEDS: TIOTROPIUM BROMIDE 2.5 MCG (SPIRIVA) RESPIMAT INHALER IH SCH (09:52)
[2020-01-19] MEDS: POLYETHYLENE GLYCOL 3350 119 GM BTL PO SCH (10:04)
[2020-01-19] MEDS: ACETAMINOPHEN WITH CODEINE 300MG/30MG TABLET PO PRN (10:05)
[2020-01-19] MEDS ORDERED: SIMETHICONE 80 MG TAB.CHEW (FP) PO PRN (10:57)
[2020-01-19] MEDS: PANTOPRAZOLE 40 MG TABLET PO SCH (12:10)
[2020-01-19] MEDS: ACETAMINOPHEN 325 MG TABLET (FP) PO PRN (22:23)
[2020-01-19] MEDS: LATANOPROST 0.005% OPHTH SOLN 2.5ML BOTTLE OU SCH (22:25)
[2020-01-20] MEDS: ACETAMINOPHEN 325 MG TABLET (FP) PO PRN (04:49)
[2020-01-20] MEDS ORDERED: PT OWN MED DRAWER 7, Y5N ONE (10:05)
[2020-01-20] MEDS: POLYETHYLENE GLYCOL 3350 119 GM BTL PO SCH (10:13)
[2020-01-20] MEDS: PANTOPRAZOLE 40 MG TABLET PO SCH (10:13)
[2020-01-20] MEDS: MULTIVIT-MINERALS ORAL LIQUID PO SCH (10:13)
[2020-01-20] MEDS: BUDESONIDE/FORMETEROL FUMARATE 160/4.5 mcg INHALER IH SCH (10:13)
[2020-01-20] MEDS: TIOTROPIUM BROMIDE 2.5 MCG (SPIRIVA) RESPIMAT INHALER IH SCH (10:13)
[2020-01-20] MEDS: predniSONE 20 MG TABLET (UD) PO SCH (10:13)
[2020-01-20 11:00] VITALS: BP 157/68; PULSE 75; TEMP 97.6
== END 2020-01-20 18:02 | disposition home health service (06) | DRG 552 ==
LOC: JER 09:01 → JERBED 16:33 → J6S 01-10 14:26
PROVIDERS: ADMIT Internal Medicine; ATTEND Internal Medicine
DX: S32.010A Wedge compression fracture of first lumbar vertebra, initial encounter for closed fracture (principal); J44.1 Chronic obstructive pulmonary disease with (acute) exacerbation; R64 Cachexia; Z68.1 Body mass index [BMI] 19.9 or less, adult; E46 Unspecified protein-calorie malnutrition; J96.11 Chronic respiratory failure with hypoxia; E86.0 Dehydration; L89.102 Pressure ulcer of unspecified part of back, stage 2; M54.5 Low back pain; E78.5 Hyperlipidemia, unspecified; I27.20 Pulmonary hypertension, unspecified; R62.7 Adult failure to thrive; I11.0 Hypertensive heart disease with heart failure; I50.9 Heart failure, unspecified; Z99.81 Dependence on supplemental oxygen; W18.00XA Striking against unspecified object with subsequent fall, initial encounter; Y92.098 Other place in other non-institutional residence as the place of occurrence of the external cause
CPT/HCPCS: 36415; 70450-TC; 71045-TC-FY; 71260-TC; 72125-TC; 72128-TC; 72131-TC; 74177-TC; 80048; 80053; 81003; 85025; 85610; 85730; 93005; 93010; 97116-GP; 97162-GP; 99285-25; C9803; J0131; Q9967; U0003

== ENCOUNTER 2020-02-21 20:58 | Inpatient (IN) | payer OTHER, BC ==
[2020-02-21] MEDS ORDERED: ACETAMINOPHEN 1000 MG/100 ML VIAL (NON FORMULARY) IVPB ONE (21:34)
[2020-02-21] MEDS ORDERED: ACETAMINOPHEN INJECTION 100 ML IVPB ONE (21:50)
[2020-02-21] MEDS ORDERED: PIPERACILLIN/TAZOB 3.375 GM 3.375 GM in DEXTROSE 5%-WATER - 50 ML IVPB ONE (22:16)
[2020-02-21] MEDS ORDERED: VANCOMYCIN 1,000 MG in DEXTROSE 5%-WATER - 250 ML IVPB ONE (22:17)
[2020-02-21] MEDS ORDERED: PIPERACILLIN/TAZOB 3.375 GM 3.375 GM/50 ML BAG IVPB ONE (22:31)
[2020-02-21] MEDS ORDERED: VANCOMYCIN 1 GRAM (PRE-DOCKED) 1,000 MG/250 ML BAG IVPB ONE (22:31)
[2020-02-21 22:33] LABS: BASO % 0.6 % (0-2.0); HEMOGLOBIN 7.2 GM/dL (10.7-15.3); LYMPH % 6.9 % (8-40); MCH 29.4 pg (25.7-33.7); MCHC 31.3 g/dl (32.0-36.0); MEAN PLT VOLUME 8.6 fl (7.5-11.1); MONO % 7.6 % (3.8-10.2); NEUT % 84.9 % (42.8-82.8); PLATELET COUNT 242 K/MM3 (134-434); RBC 2.45 M/mm3 (3.60-5.2); RDW 17.2 % (11.6-15.6); WHITE BLOOD COUNT 15.4 K/mm3 (4.0-10.0)
[2020-02-21 22:40] LABS: INR 0.98 (0.83-1.09); PROTHROMBIN TIME (PATIENT) 12.1 SEC (9.7-13.0)
[2020-02-21 22:43] LABS: ACTIVATED PTT 23.8 SECONDS (25.2-36.5); CHLORIDE 90 mmol/L (98-107); SODIUM 135 mmol/L (136-145)
[2020-02-21 22:45] LABS: CALCIUM 9.2 mg/dL (8.5-10.1)
[2020-02-21 22:46] LABS: ALBUMIN 2.8 g/dl (3.4-5.0); ANION GAP 2 MMOL/L (8-16); BLOOD UREA NITROGEN 18.1 mg/dL (7-18); CO2 43 mmol/L (21-32); GLUCOSE,RANDOM 109 mg/dL (74-106)
[2020-02-21 22:49] LABS: CREATININE 0.7 mg/dL (0.55-1.3); SGOT/AST 17 U/L (15-37); SGPT/ALT 19 U/L (13-61)
[2020-02-21 22:51] LABS: BILIRUBIN,TOTAL 0.3 mg/dL (0.2-1); TOT PROT 5.5 g/dl (6.4-8.2)
[2020-02-21 22:52] LABS: ALK PHOS 95 U/L (45-117)
[2020-02-21 23:53] LABS: EPI CELLS 10 /uL (0-25.1); HYALINE CASTS 0 /uL (0-3.1); PH,URINE 8.5 (5.0-8.0); URINE APPEARANCE CLOUDY; URINE BACTERIA 621 /uL (0-1359); URINE BILIRUBIN NEGATIVE (NEGATIVE); URINE COLOR YELLOW; URINE GLUCOSE (UA) NEGATIVE (NEGATIVE); URINE KETONE NEGATIVE (NEGATIVE); URINE LEUK ESTERASE TRACE (NEGATIVE); URINE NITRITE NEGATIVE (NEGATIVE); URINE PROTEIN NEGATIVE (NEGATIVE); URINE RBC 7 /uL (0-23.9); URINE UROBILINOGEN 0.2 mg/dL (0.2-1.0); URINE WBC 41 /uL (0-25.8)
[2020-02-22 05:13] VITALS: BMI 18.1
[2020-02-22] MEDS ORDERED: ACETAMINOPHEN 1000 MG/100 ML VIAL (NON FORMULARY) IVPB ONE (05:48)
[2020-02-22] MEDS ORDERED: ACETAMINOPHEN WITH CODEINE 300MG/30MG TABLET PO PRN (10:09)
[2020-02-22] MEDS ORDERED: ALBUTEROL SO4 0.083% IH SOL 2.5 MG/3 ML VIAL.NEB. NEB PRN (10:09)
[2020-02-22] MEDS ORDERED: CEFTRIAXONE 1 GM in DEXTROSE 5%-WATER - 50 ML IVPB ONE (10:28)
[2020-02-22] MEDS: ALBUTEROL SO4 2.5/IPRATROPIUM 0.5 INH SOL 3 ML VIAL.NEB. NEB SCH ×3 (11:40→22:05)
[2020-02-22] MEDS ORDERED: cefTRIAXone SODIUM 1 GM VIAL ONE (12:57)
[2020-02-22] MEDS ORDERED: DEXTROSE 5%-WATER - 50 ML IVPB ONE ×2 (12:57→17:25)
[2020-02-22] MEDS: predniSONE 10 MG TABLET (UD) PO SCH (12:59)
[2020-02-22] MEDS ORDERED: PIPERACILLIN/TAZOBACTAM 3.375 GM VIAL IVPB ONE (17:25)
[2020-02-22] MEDS: PIPERACILLIN/TAZOB 3.375 GM 3.375 GM in DEXTROSE 5%-WATER - 50 ML IVPB SCH (17:31)
[2020-02-22] MEDS ORDERED: ARFORMOTEROL TARTRATE 15 MCG/2 ML VIAL NEB SCH (20:00)
[2020-02-22] MEDS: ARFORMOTEROL TARTRATE 15 MCG/2 ML VIAL NEB SCH (22:02)
[2020-02-23] MEDS ORDERED: DEXTROSE 5%-WATER - 50 ML IVPB ONE ×3 (00:27→17:29)
[2020-02-23] MEDS ORDERED: PIPERACILLIN/TAZOBACTAM 3.375 GM VIAL IVPB ONE ×3 (00:27→17:29)
[2020-02-23] MEDS: PIPERACILLIN/TAZOB 3.375 GM 3.375 GM in DEXTROSE 5%-WATER - 50 ML IVPB SCH ×3 (02:05→17:55)
[2020-02-23] MEDS: ARFORMOTEROL TARTRATE 15 MCG/2 ML VIAL NEB SCH ×2 (07:45→20:20)
[2020-02-23] MEDS: ALBUTEROL SO4 2.5/IPRATROPIUM 0.5 INH SOL 3 ML VIAL.NEB. NEB SCH ×2 (07:50→11:25)
[2020-02-23] MEDS: amLODIPine BESYLATE 5 MG TABLET (FP) PO SCH (10:14)
[2020-02-23] MEDS: TIOTROPIUM BROMIDE 2.5 MCG (SPIRIVA) RESPIMAT INHALER IH SCH (10:14)
[2020-02-23] MEDS: predniSONE 10 MG TABLET (UD) PO SCH (10:14)
[2020-02-23 11:01] LABS: EOS % 0.2 % (0-4.5); HEMATOCRIT 22.1 % (32.4-45.2); LYMPH % 4.6 % (8-40); MCH 29.1 pg (25.7-33.7); MCHC 31.3 g/dl (32.0-36.0); MEAN CELL VOLUME 93.1 fl (80-96); MEAN PLT VOLUME 7.9 fl (7.5-11.1); NEUT % 90.2 % (42.8-82.8); PLATELET COUNT 199 K/MM3 (134-434); RBC 2.37 M/mm3 (3.60-5.2); RDW 16.7 % (11.6-15.6)
[2020-02-23 11:05] LABS: HEMOGLOBIN 6.9 GM/dL (10.7-15.3)
[2020-02-23 11:27] LABS: POTASSIUM 3.6 mmol/L (3.5-5.1)
[2020-02-23 11:30] LABS: CALCIUM 8.4 mg/dL (8.5-10.1)
[2020-02-23 11:31] LABS: ALBUMIN 2.2 g/dl (3.4-5.0); BLOOD UREA NITROGEN 16.2 mg/dL (7-18)
[2020-02-23 11:34] LABS: CREATININE 0.7 mg/dL (0.55-1.3)
[2020-02-23 11:35] LABS: BILIRUBIN,TOTAL 0.4 mg/dL (0.2-1); TOT PROT 4.9 g/dl (6.4-8.2)
[2020-02-23] MEDS ORDERED: PT OWN MED DRAWER 7, Y5N ONE (16:14)
[2020-02-23] MEDS: SILVER SULFADIAZINE 1% TOP CREAM 50 GM JAR TP SCH ×2 (16:28→23:15)
[2020-02-24] MEDS ORDERED: PIPERACILLIN/TAZOBACTAM 3.375 GM VIAL IVPB ONE ×3 (02:03→17:16)
[2020-02-24] MEDS ORDERED: DEXTROSE 5%-WATER - 50 ML IVPB ONE ×3 (02:03→17:17)
[2020-02-24] MEDS: PIPERACILLIN/TAZOB 3.375 GM 3.375 GM in DEXTROSE 5%-WATER - 50 ML IVPB SCH ×3 (02:15→17:24)
[2020-02-24] MEDS: ARFORMOTEROL TARTRATE 15 MCG/2 ML VIAL NEB SCH ×2 (07:45→20:50)
[2020-02-24] MEDS: predniSONE 10 MG TABLET (UD) PO SCH (11:12)
[2020-02-24] MEDS: amLODIPine BESYLATE 5 MG TABLET (FP) PO SCH (11:12)
[2020-02-24] MEDS: ENOXAPARIN NA (PORCINE) 30 MG/0.3 ML DISP.SYRIN SQ SCH (11:14)
[2020-02-24] MEDS: SILVER SULFADIAZINE 1% TOP CREAM 50 GM JAR TP SCH ×2 (11:39→22:21)
[2020-02-24] MEDS: TIOTROPIUM BROMIDE 2.5 MCG (SPIRIVA) RESPIMAT INHALER IH SCH (11:39)
[2020-02-24 14:00] LABS: HEMATOCRIT 22.9 % (32.4-45.2); HEMOGLOBIN 7.4 GM/dL (10.7-15.3); MCH 29.8 pg (25.7-33.7); MCHC 32.4 g/dl (32.0-36.0); MEAN CELL VOLUME 91.9 fl (80-96); MEAN PLT VOLUME 8.3 fl (7.5-11.1); PLATELET COUNT 232 K/MM3 (134-434); RBC 2.49 M/mm3 (3.60-5.2); WHITE BLOOD COUNT 11.5 K/mm3 (4.0-10.0)
[2020-02-24] MEDS: AMINO ACIDS/PROTEIN HYDROLYS 30 ML LIQUID.PKT PO SCH (17:24)
[2020-02-25] MEDS ORDERED: PIPERACILLIN/TAZOBACTAM 3.375 GM VIAL IVPB ONE ×4 (01:25→16:35)
[2020-02-25] MEDS ORDERED: DEXTROSE 5%-WATER - 50 ML IVPB ONE ×4 (01:25→16:35)
[2020-02-25] MEDS: PIPERACILLIN/TAZOB 3.375 GM 3.375 GM in DEXTROSE 5%-WATER - 50 ML IVPB SCH ×3 (01:25→17:50)
[2020-02-25] MEDS ORDERED: ARFORMOTEROL TARTRATE 15 MCG/2 ML VIAL NEB ONE (08:31)
[2020-02-25] MEDS: ARFORMOTEROL TARTRATE 15 MCG/2 ML VIAL NEB SCH ×2 (08:45→20:38)
[2020-02-25] MEDS: ENOXAPARIN NA (PORCINE) 30 MG/0.3 ML DISP.SYRIN SQ SCH (08:47)
[2020-02-25] MEDS ORDERED: PT OWN MED DRAWER 7, Y5N ONE (09:01)
[2020-02-25] MEDS: ENOXAPARIN NA (PORCINE) 40 MG/0.4 ML DISP.SYRIN SQ SCH (09:51)
[2020-02-25] MEDS: AMINO ACIDS/PROTEIN HYDROLYS 30 ML LIQUID.PKT PO SCH ×2 (09:52→17:50)
[2020-02-25] MEDS: predniSONE 10 MG TABLET (UD) PO SCH (09:53)
[2020-02-25] MEDS: amLODIPine BESYLATE 5 MG TABLET (FP) PO SCH (09:54)
[2020-02-25] MEDS: MULTIVITAMINS (DAILY MVI) TABLET (FP) PO SCH (09:57)
[2020-02-25] MEDS: TIOTROPIUM BROMIDE 2.5 MCG (SPIRIVA) RESPIMAT INHALER IH SCH (09:58)
[2020-02-25] MEDS: SILVER SULFADIAZINE 1% TOP CREAM 50 GM JAR TP SCH ×2 (10:00→23:25)
[2020-02-25] MEDS: ACETAMINOPHEN 325 MG TABLET (FP) PO PRN (21:08)
[2020-02-26] MEDS ORDERED: DEXTROSE 5%-WATER - 50 ML IVPB ONE ×3 (00:45→17:03)
[2020-02-26] MEDS ORDERED: PIPERACILLIN/TAZOBACTAM 3.375 GM VIAL IVPB ONE ×3 (00:45→17:02)
[2020-02-26] MEDS: PIPERACILLIN/TAZOB 3.375 GM 3.375 GM in DEXTROSE 5%-WATER - 50 ML IVPB SCH ×3 (01:19→17:08)
[2020-02-26] MEDS: ACETAMINOPHEN 325 MG TABLET (FP) PO PRN ×2 (06:37→20:27)
[2020-02-26] MEDS: ARFORMOTEROL TARTRATE 15 MCG/2 ML VIAL NEB SCH (08:00)
[2020-02-26] MEDS: predniSONE 10 MG TABLET (UD) PO SCH (09:53)
[2020-02-26] MEDS: amLODIPine BESYLATE 5 MG TABLET (FP) PO SCH (09:53)
[2020-02-26] MEDS: MULTIVITAMINS (DAILY MVI) TABLET (FP) PO SCH (09:53)
[2020-02-26] MEDS: AMINO ACIDS/PROTEIN HYDROLYS 30 ML LIQUID.PKT PO SCH ×2 (09:54→17:08)
[2020-02-26] MEDS: ENOXAPARIN NA (PORCINE) 40 MG/0.4 ML DISP.SYRIN SQ SCH (09:54)
[2020-02-26] MEDS: TIOTROPIUM BROMIDE 2.5 MCG (SPIRIVA) RESPIMAT INHALER IH SCH (09:58)
[2020-02-26] MEDS: SILVER SULFADIAZINE 1% TOP CREAM 50 GM JAR TP SCH ×2 (10:06→21:27)
[2020-02-27] MEDS ORDERED: DEXTROSE 5%-WATER - 50 ML IVPB ONE ×3 (01:15→17:38)
[2020-02-27] MEDS ORDERED: PIPERACILLIN/TAZOBACTAM 3.375 GM VIAL IVPB ONE ×3 (01:15→17:38)
[2020-02-27] MEDS: PIPERACILLIN/TAZOB 3.375 GM 3.375 GM in DEXTROSE 5%-WATER - 50 ML IVPB SCH ×3 (02:02→18:08)
[2020-02-27] MEDS: ARFORMOTEROL TARTRATE 15 MCG/2 ML VIAL NEB SCH ×2 (07:40→21:10)
[2020-02-27] MEDS: ENOXAPARIN NA (PORCINE) 40 MG/0.4 ML DISP.SYRIN SQ SCH (09:17)
[2020-02-27] MEDS: AMINO ACIDS/PROTEIN HYDROLYS 30 ML LIQUID.PKT PO SCH ×2 (09:17→18:08)
[2020-02-27] MEDS: TIOTROPIUM BROMIDE 2.5 MCG (SPIRIVA) RESPIMAT INHALER IH SCH (09:18)
[2020-02-27] MEDS: SILVER SULFADIAZINE 1% TOP CREAM 50 GM JAR TP SCH ×2 (09:18→22:03)
[2020-02-27] MEDS: amLODIPine BESYLATE 5 MG TABLET (FP) PO SCH (09:18)
[2020-02-27] MEDS: MULTIVITAMINS (DAILY MVI) TABLET (FP) PO SCH (09:18)
[2020-02-27] MEDS: predniSONE 10 MG TABLET (UD) PO SCH (09:18)
[2020-02-28] MEDS: ACETAMINOPHEN 325 MG TABLET (FP) PO PRN ×2 (01:38→22:00)
[2020-02-28] MEDS: PIPERACILLIN/TAZOB 3.375 GM 3.375 GM in DEXTROSE 5%-WATER - 50 ML IVPB SCH ×3 (03:06→18:40)
[2020-02-28] MEDS: ARFORMOTEROL TARTRATE 15 MCG/2 ML VIAL NEB SCH ×2 (07:45→20:30)
[2020-02-28] MEDS ORDERED: DEXTROSE 5%-WATER - 50 ML IVPB ONE ×2 (09:51→17:57)
[2020-02-28] MEDS ORDERED: PIPERACILLIN/TAZOBACTAM 3.375 GM VIAL IVPB ONE ×2 (09:51→17:56)
[2020-02-28] MEDS: predniSONE 10 MG TABLET (UD) PO SCH (10:13)
[2020-02-28] MEDS: MULTIVITAMINS (DAILY MVI) TABLET (FP) PO SCH (10:13)
[2020-02-28] MEDS: ENOXAPARIN NA (PORCINE) 40 MG/0.4 ML DISP.SYRIN SQ SCH (10:13)
[2020-02-28] MEDS: amLODIPine BESYLATE 5 MG TABLET (FP) PO SCH (10:13)
[2020-02-28] MEDS: AMINO ACIDS/PROTEIN HYDROLYS 30 ML LIQUID.PKT PO SCH ×2 (10:13→18:40)
[2020-02-28] MEDS: TIOTROPIUM BROMIDE 2.5 MCG (SPIRIVA) RESPIMAT INHALER IH SCH (10:15)
[2020-02-28] MEDS: SILVER SULFADIAZINE 1% TOP CREAM 50 GM JAR TP SCH ×2 (11:47→22:10)
[2020-02-28] MEDS: ALBUTEROL SO4 0.083% IH SOL 2.5 MG/3 ML VIAL.NEB. NEB PRN (15:12)
[2020-02-28] MEDS: methylPREDNISolone NA SUCC 40 MG/1 ML VIAL IVPUSH SCH (18:40)
[2020-02-29] MEDS ORDERED: PIPERACILLIN/TAZOBACTAM 3.375 GM VIAL IVPB ONE ×2 (01:26→10:25)
[2020-02-29] MEDS ORDERED: DEXTROSE 5%-WATER - 50 ML IVPB ONE ×2 (01:26→10:25)
[2020-02-29] MEDS: methylPREDNISolone NA SUCC 40 MG/1 ML VIAL IVPUSH SCH ×3 (01:38→17:23)
[2020-02-29] MEDS: PIPERACILLIN/TAZOB 3.375 GM 3.375 GM in DEXTROSE 5%-WATER - 50 ML IVPB SCH ×2 (01:38→10:43)
[2020-02-29] MEDS: ARFORMOTEROL TARTRATE 15 MCG/2 ML VIAL NEB SCH ×2 (07:25→21:08)
[2020-02-29] MEDS: MULTIVITAMINS (DAILY MVI) TABLET (FP) PO SCH (10:33)
[2020-02-29] MEDS: AMINO ACIDS/PROTEIN HYDROLYS 30 ML LIQUID.PKT PO SCH ×2 (10:33→17:23)
[2020-02-29] MEDS: ENOXAPARIN NA (PORCINE) 40 MG/0.4 ML DISP.SYRIN SQ SCH (10:34)
[2020-02-29] MEDS: TIOTROPIUM BROMIDE 2.5 MCG (SPIRIVA) RESPIMAT INHALER IH SCH (10:34)
[2020-02-29] MEDS: amLODIPine BESYLATE 5 MG TABLET (FP) PO SCH (10:37)
[2020-02-29 11:02] LABS: BASO % 0.1 % (0-2.0); HEMATOCRIT 22.5 % (32.4-45.2); HEMOGLOBIN 7.1 GM/dL (10.7-15.3); LYMPH % 7.7 % (8-40); MCH 29.2 pg (25.7-33.7); MCHC 31.6 g/dl (32.0-36.0); MEAN CELL VOLUME 92.5 fl (80-96); MEAN PLT VOLUME 8.1 fl (7.5-11.1); MONO % 4.5 % (3.8-10.2); NEUT % 87.7 % (42.8-82.8); PLATELET COUNT 382 K/MM3 (134-434); RBC 2.43 M/mm3 (3.60-5.2); WHITE BLOOD COUNT 5.1 K/mm3 (4.0-10.0)
[2020-02-29 11:14] LABS: POTASSIUM 3.8 mmol/L (3.5-5.1)
[2020-02-29 11:18] LABS: BLOOD UREA NITROGEN 25.3 mg/dL (7-18); CALCIUM 8.9 mg/dL (8.5-10.1)
[2020-02-29 11:19] LABS: MAGNESIUM 2.3 mg/dL (1.8-2.4)
[2020-02-29 11:22] LABS: CREATININE 0.5 mg/dL (0.55-1.3)
[2020-02-29] MEDS: SILVER SULFADIAZINE 1% TOP CREAM 50 GM JAR TP SCH ×2 (11:47→21:58)
[2020-02-29] MEDS: AMOX TR/POT CLAV 875MG/125MG TABLETS (FP) PO SCH (17:23)
[2020-03-01] MEDS: methylPREDNISolone NA SUCC 40 MG/1 ML VIAL IVPUSH SCH ×2 (01:49→09:54)
[2020-03-01] MEDS: ARFORMOTEROL TARTRATE 15 MCG/2 ML VIAL NEB SCH ×2 (08:25→20:35)
[2020-03-01] MEDS: AMOX TR/POT CLAV 875MG/125MG TABLETS (FP) PO SCH ×2 (08:33→17:53)
[2020-03-01] MEDS: AMINO ACIDS/PROTEIN HYDROLYS 30 ML LIQUID.PKT PO SCH ×2 (08:33→17:53)
[2020-03-01] MEDS: ENOXAPARIN NA (PORCINE) 40 MG/0.4 ML DISP.SYRIN SQ SCH (09:54)
[2020-03-01] MEDS: amLODIPine BESYLATE 5 MG TABLET (FP) PO SCH (09:54)
[2020-03-01] MEDS: MULTIVITAMINS (DAILY MVI) TABLET (FP) PO SCH (09:55)
[2020-03-01] MEDS ORDERED: PT OWN MED DRAWER 7, Y5N ONE ×2 (10:10→22:01)
[2020-03-01] MEDS: TIOTROPIUM BROMIDE 2.5 MCG (SPIRIVA) RESPIMAT INHALER IH SCH (10:12)
[2020-03-01] MEDS: SILVER SULFADIAZINE 1% TOP CREAM 50 GM JAR TP SCH ×2 (10:13→22:25)
[2020-03-01] MEDS: ASCORBIC ACID 250 MG TABLET (FP) PO SCH (22:02)
[2020-03-02] MEDS: AMOX TR/POT CLAV 875MG/125MG TABLETS (FP) PO SCH ×2 (08:32→17:24)
[2020-03-02] MEDS: ENOXAPARIN NA (PORCINE) 40 MG/0.4 ML DISP.SYRIN SQ SCH (09:32)
[2020-03-02] MEDS: amLODIPine BESYLATE 5 MG TABLET (FP) PO SCH (09:33)
[2020-03-02] MEDS: MULTIVITAMINS (DAILY MVI) TABLET (FP) PO SCH (09:33)
[2020-03-02] MEDS: AMINO ACIDS/PROTEIN HYDROLYS 30 ML LIQUID.PKT PO SCH ×2 (09:33→17:24)
[2020-03-02] MEDS: FERROUS SO4 325 MG TABLET (FP) PO SCH ×2 (09:33→17:24)
[2020-03-02] MEDS ORDERED: PT OWN MED DRAWER 7, Y5N ONE (09:36)
[2020-03-02] MEDS: ASCORBIC ACID 250 MG TABLET (FP) PO SCH ×2 (09:38→21:31)
[2020-03-02] MEDS: TIOTROPIUM BROMIDE 2.5 MCG (SPIRIVA) RESPIMAT INHALER IH SCH (09:38)
[2020-03-02] MEDS: SILVER SULFADIAZINE 1% TOP CREAM 50 GM JAR TP SCH ×2 (09:38→22:00)
[2020-03-02] MEDS ORDERED: predniSONE 20 MG TABLET (UD) PO SCH (10:00)
[2020-03-02] MEDS: ARFORMOTEROL TARTRATE 15 MCG/2 ML VIAL NEB SCH ×2 (10:25→20:50)
[2020-03-02] MEDS ORDERED: IRON SUCROSE INJECTION 100 MG in SODIUM CHLORIDE 95 ML IVPB ONE (14:00)
[2020-03-02] MEDS: ACETAMINOPHEN 325 MG TABLET (FP) PO PRN (20:30)
[2020-03-03] MEDS: ACETAMINOPHEN 325 MG TABLET (FP) PO PRN ×2 (06:16→21:26)
[2020-03-03] MEDS: ARFORMOTEROL TARTRATE 15 MCG/2 ML VIAL NEB SCH ×2 (07:54→20:10)
[2020-03-03 09:26] LABS: BASO % 0.1 % (0-2.0); EOS % 0.4 % (0-4.5); HEMOGLOBIN 7.3 GM/dL (10.7-15.3); LYMPH % 19.2 % (8-40); MCH 28.9 pg (25.7-33.7); MCHC 31.8 g/dl (32.0-36.0); MEAN CELL VOLUME 90.9 fl (80-96); MEAN PLT VOLUME 7.9 fl (7.5-11.1); MONO % 5.9 % (3.8-10.2); NEUT % 74.4 % (42.8-82.8); PLATELET COUNT 398 K/MM3 (134-434); RBC 2.53 M/mm3 (3.60-5.2); RDW 17.4 % (11.6-15.6); WHITE BLOOD COUNT 5.9 K/mm3 (4.0-10.0)
[2020-03-03] MEDS: FERROUS SO4 325 MG TABLET (FP) PO SCH ×2 (09:32→18:19)
[2020-03-03] MEDS: amLODIPine BESYLATE 5 MG TABLET (FP) PO SCH (09:33)
[2020-03-03] MEDS: AMOX TR/POT CLAV 875MG/125MG TABLETS (FP) PO SCH ×2 (09:33→18:19)
[2020-03-03] MEDS: AMINO ACIDS/PROTEIN HYDROLYS 30 ML LIQUID.PKT PO SCH ×2 (09:33→18:18)
[2020-03-03] MEDS: MULTIVITAMINS (DAILY MVI) TABLET (FP) PO SCH (09:33)
[2020-03-03] MEDS: predniSONE 10 MG TABLET (UD) PO SCH (09:33)
[2020-03-03] MEDS: SILVER SULFADIAZINE 1% TOP CREAM 50 GM JAR TP SCH ×2 (09:33→21:27)
[2020-03-03] MEDS: ENOXAPARIN NA (PORCINE) 40 MG/0.4 ML DISP.SYRIN SQ SCH (09:33)
[2020-03-03 09:38] LABS: POTASSIUM 3.1 mmol/L (3.5-5.1)
[2020-03-03 09:45] LABS: BLOOD UREA NITROGEN 32.8 mg/dL (7-18); CALCIUM 8.6 mg/dL (8.5-10.1)
[2020-03-03 09:48] LABS: CREATININE 0.6 mg/dL (0.55-1.3)
[2020-03-03] MEDS: ASCORBIC ACID 250 MG TABLET (FP) PO SCH ×2 (10:00→21:26)
[2020-03-03] MEDS: TIOTROPIUM BROMIDE 2.5 MCG (SPIRIVA) RESPIMAT INHALER IH SCH (10:00)
[2020-03-03] MEDS: ALBUTEROL SO4 0.083% IH SOL 2.5 MG/3 ML VIAL.NEB. NEB PRN (15:21)
[2020-03-03] MEDS ORDERED: PT OWN MED DRAWER 7, Y5N ONE (21:19)
[2020-03-04] MEDS: ARFORMOTEROL TARTRATE 15 MCG/2 ML VIAL NEB SCH ×2 (07:30→20:45)
[2020-03-04] MEDS ORDERED: PT OWN MED DRAWER 7, Y5N ONE (10:50)
[2020-03-04] MEDS: ENOXAPARIN NA (PORCINE) 40 MG/0.4 ML DISP.SYRIN SQ SCH (10:53)
[2020-03-04] MEDS: MULTIVITAMINS (DAILY MVI) TABLET (FP) PO SCH (10:55)
[2020-03-04] MEDS: amLODIPine BESYLATE 5 MG TABLET (FP) PO SCH (10:55)
[2020-03-04] MEDS: predniSONE 10 MG TABLET (UD) PO SCH (10:55)
[2020-03-04] MEDS: AMINO ACIDS/PROTEIN HYDROLYS 30 ML LIQUID.PKT PO SCH ×2 (10:55→18:21)
[2020-03-04] MEDS: SILVER SULFADIAZINE 1% TOP CREAM 50 GM JAR TP SCH ×2 (10:56→21:55)
[2020-03-04] MEDS: TIOTROPIUM BROMIDE 2.5 MCG (SPIRIVA) RESPIMAT INHALER IH SCH (10:56)
[2020-03-04] MEDS: FERROUS SO4 325 MG TABLET (FP) PO SCH ×2 (10:56→18:21)
[2020-03-04] MEDS: AMOX TR/POT CLAV 875MG/125MG TABLETS (FP) PO SCH ×2 (10:56→18:21)
[2020-03-04] MEDS: ASCORBIC ACID 250 MG TABLET (FP) PO SCH ×2 (10:56→21:55)
[2020-03-04 11:26] LABS: BLOOD UREA NITROGEN 33.5 mg/dL (7-18); CALCIUM 8.7 mg/dL (8.5-10.1)
[2020-03-04 11:27] LABS: ALBUMIN 2.3 g/dl (3.4-5.0)
[2020-03-04 11:31] LABS: CREATININE 0.5 mg/dL (0.55-1.3)
[2020-03-04 11:32] LABS: TOT PROT 5.1 g/dl (6.4-8.2)
[2020-03-04 11:33] LABS: BILIRUBIN,TOTAL 0.2 mg/dL (0.2-1)
[2020-03-04] MEDS: POTASSIUM CHLORIDE ORAL LIQUID 20 MEQ/15 ML PO SCH ×2 (13:52→18:21)
[2020-03-05] MEDS: POTASSIUM CHLORIDE ORAL LIQUID 20 MEQ/15 ML PO SCH (00:54)
[2020-03-05] MEDS: ARFORMOTEROL TARTRATE 15 MCG/2 ML VIAL NEB SCH (08:45)
[2020-03-05 09:25] LABS: POTASSIUM 5.1 mmol/L (3.5-5.1)
[2020-03-05 09:28] LABS: ALBUMIN 2.4 g/dl (3.4-5.0); BLOOD UREA NITROGEN 28.6 mg/dL (7-18); CALCIUM 8.7 mg/dL (8.5-10.1)
[2020-03-05 09:31] LABS: CREATININE 0.5 mg/dL (0.55-1.3)
[2020-03-05 09:33] LABS: BILIRUBIN,TOTAL 0.3 mg/dL (0.2-1); TOT PROT 5.4 g/dl (6.4-8.2)
[2020-03-05] MEDS ORDERED: PT OWN MED DRAWER 7, Y5N ONE (09:50)
[2020-03-05] MEDS: AMINO ACIDS/PROTEIN HYDROLYS 30 ML LIQUID.PKT PO SCH ×2 (09:53→17:04)
[2020-03-05] MEDS: predniSONE 10 MG TABLET (UD) PO SCH (09:54)
[2020-03-05] MEDS: MULTIVITAMINS (DAILY MVI) TABLET (FP) PO SCH (09:54)
[2020-03-05] MEDS: ENOXAPARIN NA (PORCINE) 40 MG/0.4 ML DISP.SYRIN SQ SCH (09:54)
[2020-03-05] MEDS: AMOX TR/POT CLAV 875MG/125MG TABLETS (FP) PO SCH ×2 (09:54→17:04)
[2020-03-05] MEDS: FERROUS SO4 325 MG TABLET (FP) PO SCH ×2 (09:54→17:04)
[2020-03-05] MEDS: amLODIPine BESYLATE 5 MG TABLET (FP) PO SCH (09:54)
[2020-03-05] MEDS: SILVER SULFADIAZINE 1% TOP CREAM 50 GM JAR TP SCH (09:55)
[2020-03-05] MEDS: TIOTROPIUM BROMIDE 2.5 MCG (SPIRIVA) RESPIMAT INHALER IH SCH (09:55)
[2020-03-05] MEDS: ASCORBIC ACID 250 MG TABLET (FP) PO SCH (09:56)
[2020-03-05 15:42] VITALS: BP 144/68; PULSE 94; TEMP 98.3
== END 2020-03-05 18:28 | disposition home health service (06) | DRG 190 ==
LOC: JER 20:58 → JERBED 02-22 00:22 → J5S 02-22 03:53 → J6S 02-29 12:03
PROVIDERS: ADMIT Internal Medicine; ATTEND Internal Medicine
DX: J43.9 Emphysema, unspecified (principal); L89.153 Pressure ulcer of sacral region, stage 3; J18.9 Pneumonia, unspecified organism; E46 Unspecified protein-calorie malnutrition; L97.909 Non-pressure chronic ulcer of unspecified part of unspecified lower leg with unspecified severity; R64 Cachexia; Z68.1 Body mass index [BMI] 19.9 or less, adult; N39.0 Urinary tract infection, site not specified; J96.12 Chronic respiratory failure with hypercapnia; J96.11 Chronic respiratory failure with hypoxia; J98.11 Atelectasis; I10 Essential (primary) hypertension; Z99.81 Dependence on supplemental oxygen; I11.0 Hypertensive heart disease with heart failure; M54.9 Dorsalgia, unspecified; I50.9 Heart failure, unspecified; I83.009 Varicose veins of unspecified lower extremity with ulcer of unspecified site; E78.5 Hyperlipidemia, unspecified; D64.9 Anemia, unspecified
CPT/HCPCS: 36415; 71045-TC-FY; 80048; 80053; 81003; 82962; 83605; 83735; 83880; 84484; 85025; 85027; 85610; 85730; 86850; 86900; 86901; 87040; 87086; 87186; 87804; 87899; 93005; 93010; 94640; 97116-GP; 97162-GP; 99285-25; C9803; J0131; J1756; U0003

== ENCOUNTER 2021-05-19 11:00 | Inpatient (IN) | payer OTHER, BC ==
[2021-05-19] MEDS ORDERED: ALBUTEROL SO4 2.5/IPRATROPIUM 0.5 INH SOL 3 ML VIAL.NEB. NEB ONE ×2 (11:16→11:20)
[2021-05-19] MEDS ORDERED: methylPREDNISolone NA SUCC 125 MG/2 ML VIAL IVPUSH ONE (11:16)
[2021-05-19] MEDS ORDERED: methylPREDNISolone NA SUCC 125 MG/2 ML VIAL ONE (11:21)
[2021-05-19 11:31] LABS: BASO % 0.2 % (0-2.0); EOS % 0.1 % (0-4.5); HEMATOCRIT 24.1 % (32.4-45.2); HEMOGLOBIN 7.2 GM/dL (10.7-15.3); LYMPH % 7.2 % (8-40); MCH 22.7 pg (25.7-33.7); MCHC 29.8 g/dl (32.0-36.0); MEAN CELL VOLUME 76.1 fl (80-96); MEAN PLT VOLUME 7.9 fl (7.5-11.1); MONO % 5.4 % (3.8-10.2); NEUT % 87.1 % (42.8-82.8); PLATELET COUNT 226 10^3/uL (134-434); RBC 3.16 M/mm3 (3.60-5.2); RDW 20.2 % (11.6-15.6); VENOUS BASE EXCESS -0.1 mmol/L (-2-2); VENOUS O2 SATURATION 82.5 % (70-80); VENOUS PCO2 43.9 mmHg (38-52); VENOUS PH 7.376 (7.310-7.410); WHITE BLOOD COUNT 11.5 K/mm3 (4.0-10.0)
[2021-05-19 12:03] LABS: CALCIUM 9.3 mg/dL (8.5-10.1)
[2021-05-19 12:04] LABS: ALBUMIN 3.3 g/dl (3.4-5.0); MAGNESIUM 2.4 mg/dL (1.8-2.4)
[2021-05-19 12:07] LABS: CREATININE 0.9 mg/dL (0.55-1.3)
[2021-05-19 12:08] LABS: BILIRUBIN,TOTAL 0.3 mg/dL (0.2-1); TOT PROT 6.6 g/dl (6.4-8.2)
[2021-05-19 12:11] LABS: N-TERMINAL BNP 710.7 pg/ml (5-450)
[2021-05-19] MEDS ORDERED: morphine SULFATE 4 MG/ML VIAL IVPUSH ONE (17:22)
[2021-05-19] MEDS ORDERED: ENOXAPARIN NA (PORCINE) 40 MG/0.4 ML DISP.SYRIN SQ ONE ×2 (17:31→17:47)
[2021-05-19] MEDS ORDERED: ALBUTEROL SO4 0.083% IH SOL 2.5 MG/3 ML VIAL.NEB. NEB PRN (17:33)
[2021-05-19] MEDS ORDERED: ACETAMINOPHEN 500 MG TABLET (FP) PO PRN (17:38)
[2021-05-19] MEDS ORDERED: AZITHROMYCIN 250 MG TABLET PO SCH (17:45)
[2021-05-19] MEDS ORDERED: FUROSEMIDE 40 MG TABLET (FP) PO SCH (18:00)
[2021-05-19 20:48] LABS: RETICULOCYTES 1.49 % (0.5-1.5)
[2021-05-19] MEDS: LATANOPROST 0.005% OPHTH SOLN 2.5ML BOTTLE OU SCH (22:20)
[2021-05-19] MEDS: BUDESONIDE/FORMETEROL FUMARATE 80/4.5 mcg INHALER IH SCH (22:20)
[2021-05-19] MEDS: DORZOLAMIDE 2% HCL OPHTHALMIC SOLUTION 10 ML BOTTLE OU SCH (22:20)
[2021-05-20] MEDS ORDERED: BRINZOLAMIDE 1% OU SCH (10:00)
[2021-05-20] MEDS ORDERED: predniSONE 20 MG TABLET (UD) PO SCH (10:00)
[2021-05-20] MEDS ORDERED: AZITHROMYCIN 250 MG TABLET PO SCH (10:00)
[2021-05-20] MEDS: FUROSEMIDE 40 MG TABLET (FP) PO SCH (10:38)
[2021-05-20] MEDS: BUDESONIDE/FORMETEROL FUMARATE 80/4.5 mcg INHALER IH SCH ×2 (11:09→22:07)
[2021-05-20] MEDS: DORZOLAMIDE 2% HCL OPHTHALMIC SOLUTION 10 ML BOTTLE OU SCH ×2 (11:10→22:06)
[2021-05-20] MEDS: D5-1/2NS+10 MEQ KCL - 10 MEQ/1,000 ML INFUS.BAG IV SCH (15:30)
[2021-05-20] MEDS: TIOTROPIUM BROMIDE 2.5 MCG (SPIRIVA) RESPIMAT INHALER IH SCH (17:57)
[2021-05-20] MEDS: LATANOPROST 0.005% OPHTH SOLN 2.5ML BOTTLE OU SCH (22:07)
[2021-05-21] MEDS: D5-1/2NS+10 MEQ KCL - 10 MEQ/1,000 ML INFUS.BAG IV SCH ×2 (06:30→13:20)
[2021-05-21] MEDS: methylPREDNISolone NA SUCC 40 MG/1 ML VIAL IVPUSH SCH ×2 (08:29→13:27)
[2021-05-21] MEDS: TIOTROPIUM BROMIDE 2.5 MCG (SPIRIVA) RESPIMAT INHALER IH SCH ×2 (08:32→13:28)
[2021-05-21] MEDS: BUDESONIDE/FORMETEROL FUMARATE 80/4.5 mcg INHALER IH SCH ×3 (08:32→21:56)
[2021-05-21] MEDS ORDERED: PROPOFOL 20 ML ONE (08:51)
[2021-05-21] MEDS ORDERED: BUPIVACAINE HCL/PF 0.5% (5MG/ML) 10 ML VIAL ONE (08:52)
[2021-05-21 09:24] LABS: MCH 23.4 pg (25.7-33.7); MCHC 30.8 g/dl (32.0-36.0); MEAN CELL VOLUME 76.2 fl (80-96); MEAN PLT VOLUME 8.1 fl (7.5-11.1); PLATELET COUNT 225 10^3/uL (134-434); RBC 3.41 M/mm3 (3.60-5.2); RDW 19.1 % (11.6-15.6); WHITE BLOOD COUNT 6.7 K/mm3 (4.0-10.0)
[2021-05-21] MEDS ORDERED: ceFAZolin SODIUM 1 GM VIAL IVPB ONE (09:54)
[2021-05-21] MEDS ORDERED: MIDAZOLAM HCL 2 MG/2 ML SINGLE DOSE VIAL ONE (09:55)
[2021-05-21] MEDS ORDERED: ceFAZolin SODIUM 1 GM VIAL ONE (09:56)
[2021-05-21] MEDS ORDERED: PHENYLEPHRINE HCL 10 MG/1 ML SINGLE DOSE VIAL ONE (10:03)
[2021-05-21] MEDS ORDERED: ONDANSETRON 4 MG/2 ML VIAL IVPUSH PRN ×2 (11:07→11:19)
[2021-05-21] MEDS ORDERED: LACTATED RINGERS SOLUTION 1,000 ML IV SCH (11:15)
[2021-05-21] MEDS: DORZOLAMIDE 2% HCL OPHTHALMIC SOLUTION 10 ML BOTTLE OU SCH ×2 (13:27→21:54)
[2021-05-21] MEDS: FUROSEMIDE 40 MG TABLET (FP) PO SCH (13:28)
[2021-05-21 18:29] LABS: HEMATOCRIT 25.7 % (32.4-45.2); HEMOGLOBIN 7.9 GM/dL (10.7-15.3); MCH 23.5 pg (25.7-33.7); MCHC 30.6 g/dl (32.0-36.0); MEAN CELL VOLUME 76.8 fl (80-96); MEAN PLT VOLUME 7.7 fl (7.5-11.1); PLATELET COUNT 220 10^3/uL (134-434); RBC 3.35 M/mm3 (3.60-5.2); RDW 19.3 % (11.6-15.6); WHITE BLOOD COUNT 7.2 K/mm3 (4.0-10.0)
[2021-05-21] MEDS: LATANOPROST 0.005% OPHTH SOLN 2.5ML BOTTLE OU SCH (21:56)
[2021-05-21] MEDS: ACETAMINOPHEN 500 MG TABLET (FP) PO PRN (21:58)
[2021-05-22] MEDS: D5-1/2NS+10 MEQ KCL - 10 MEQ/1,000 ML INFUS.BAG IV SCH ×2 (02:51→16:20)
[2021-05-22] MEDS: ACETAMINOPHEN 500 MG TABLET (FP) PO PRN ×3 (06:42→22:46)
[2021-05-22] MEDS: FUROSEMIDE 40 MG TABLET (FP) PO SCH (09:09)
[2021-05-22] MEDS: TIOTROPIUM BROMIDE 2.5 MCG (SPIRIVA) RESPIMAT INHALER IH SCH (09:10)
[2021-05-22] MEDS: BUDESONIDE/FORMETEROL FUMARATE 80/4.5 mcg INHALER IH SCH ×2 (09:10→21:44)
[2021-05-22] MEDS: ENOXAPARIN NA (PORCINE) 40 MG/0.4 ML DISP.SYRIN SQ SCH (09:11)
[2021-05-22] MEDS: DORZOLAMIDE 2% HCL OPHTHALMIC SOLUTION 10 ML BOTTLE OU SCH ×2 (09:11→21:44)
[2021-05-22 09:52] LABS: BASO % 0.3 % (0-2.0); EOS % 2.9 % (0-4.5); HEMATOCRIT 24.8 % (32.4-45.2); HEMOGLOBIN 7.7 GM/dL (10.7-15.3); LYMPH % 25.6 % (8-40); MCH 23.8 pg (25.7-33.7); MCHC 30.9 g/dl (32.0-36.0); MONO % 11.1 % (3.8-10.2); NEUT % 60.1 % (42.8-82.8); PLATELET COUNT 210 10^3/uL (134-434); RBC 3.23 M/mm3 (3.60-5.2); RDW 19.3 % (11.6-15.6); WHITE BLOOD COUNT 5.3 K/mm3 (4.0-10.0)
[2021-05-22] MEDS ORDERED: predniSONE 20 MG TABLET (UD) PO SCH (10:00)
[2021-05-22] MEDS ORDERED: methylPREDNISolone NA SUCC 40 MG/1 ML VIAL IVPUSH SCH (10:00)
[2021-05-22 10:17] LABS: CALCIUM 8.3 mg/dL (8.5-10.1)
[2021-05-22 10:18] LABS: BLOOD UREA NITROGEN 15.2 mg/dL (7-18)
[2021-05-22 10:21] LABS: CREATININE 0.7 mg/dL (0.55-1.3)
[2021-05-22] MEDS: ALBUTEROL SO4 0.083% IH SOL 2.5 MG/3 ML VIAL.NEB. NEB PRN ×2 (13:35→19:41)
[2021-05-22] MEDS: LATANOPROST 0.005% OPHTH SOLN 2.5ML BOTTLE OU SCH (21:45)
[2021-05-23] MEDS: ALBUTEROL SO4 0.083% IH SOL 2.5 MG/3 ML VIAL.NEB. NEB PRN ×2 (00:47→19:45)
[2021-05-23] MEDS: FUROSEMIDE 40 MG TABLET (FP) PO SCH ×2 (09:28→09:37)
[2021-05-23] MEDS: ENOXAPARIN NA (PORCINE) 40 MG/0.4 ML DISP.SYRIN SQ SCH (09:29)
[2021-05-23] MEDS: AZITHROMYCIN 250 MG TABLET PO SCH (09:29)
[2021-05-23] MEDS: TIOTROPIUM BROMIDE 2.5 MCG (SPIRIVA) RESPIMAT INHALER IH SCH (09:34)
[2021-05-23] MEDS: BUDESONIDE/FORMETEROL FUMARATE 80/4.5 mcg INHALER IH SCH ×2 (09:35→21:21)
[2021-05-23] MEDS: DORZOLAMIDE 2% HCL OPHTHALMIC SOLUTION 10 ML BOTTLE OU SCH ×2 (09:36→21:20)
[2021-05-23] MEDS ORDERED: predniSONE 10 MG TABLET (UD) PO SCH (10:00)
[2021-05-23 10:25] LABS: HEMATOCRIT 29.6 % (32.4-45.2); HEMOGLOBIN 9.5 GM/dL (10.7-15.3); MCHC 32.2 g/dl (32.0-36.0); MEAN CELL VOLUME 77.6 fl (80-96); PLATELET COUNT 231 10^3/uL (134-434); RBC 3.81 M/mm3 (3.60-5.2); RDW 19.4 % (11.6-15.6); WHITE BLOOD COUNT 4.7 K/mm3 (4.0-10.0)
[2021-05-23 10:45] LABS: CALCIUM 8.9 mg/dL (8.5-10.1)
[2021-05-23 10:49] LABS: CREATININE 0.7 mg/dL (0.55-1.3)
[2021-05-23 11:26] LABS: ANISOCYTOSIS 2+; MACROCYTOSIS 0; TARGET CELLS 1+
[2021-05-23] MEDS ORDERED: predniSONE 10 MG TABLET (UD) PO ONE (11:30)
[2021-05-23] MEDS ORDERED: BISACODYL 10 MG SUPP.RECT PR ONE (13:00)
[2021-05-23] MEDS: LATANOPROST 0.005% OPHTH SOLN 2.5ML BOTTLE OU SCH (21:20)
[2021-05-23] MEDS: ACETAMINOPHEN 500 MG TABLET (FP) PO PRN (22:54)
[2021-05-24 08:02] LABS: HEMATOCRIT 29.9 % (32.4-45.2); HEMOGLOBIN 9.4 GM/dL (10.7-15.3); MCH 24.6 pg (25.7-33.7); MCHC 31.5 g/dl (32.0-36.0); MEAN CELL VOLUME 78.1 fl (80-96); MEAN PLT VOLUME 7.8 fl (7.5-11.1); PLATELET COUNT 245 10^3/uL (134-434); RBC 3.83 M/mm3 (3.60-5.2); RDW 19.4 % (11.6-15.6)
[2021-05-24] MEDS: ENOXAPARIN NA (PORCINE) 40 MG/0.4 ML DISP.SYRIN SQ SCH (09:30)
[2021-05-24] MEDS: FUROSEMIDE 40 MG TABLET (FP) PO SCH (09:51)
[2021-05-24] MEDS: predniSONE 20 MG TABLET (UD) PO SCH (09:51)
[2021-05-24] MEDS: BUDESONIDE/FORMETEROL FUMARATE 80/4.5 mcg INHALER IH SCH ×2 (09:55→22:30)
[2021-05-24] MEDS: DORZOLAMIDE 2% HCL OPHTHALMIC SOLUTION 10 ML BOTTLE OU SCH ×2 (09:55→22:30)
[2021-05-24] MEDS: TIOTROPIUM BROMIDE 2.5 MCG (SPIRIVA) RESPIMAT INHALER IH SCH (09:55)
[2021-05-24] MEDS: ALBUTEROL SO4 0.083% IH SOL 2.5 MG/3 ML VIAL.NEB. NEB PRN ×2 (15:45→21:27)
[2021-05-24] MEDS: ACETAMINOPHEN 500 MG TABLET (FP) PO PRN (22:28)
[2021-05-24] MEDS: LATANOPROST 0.005% OPHTH SOLN 2.5ML BOTTLE OU SCH (22:31)
[2021-05-25] MEDS: ACETAMINOPHEN 500 MG TABLET (FP) PO PRN (06:09)
[2021-05-25] MEDS: predniSONE 20 MG TABLET (UD) PO SCH (10:31)
[2021-05-25] MEDS: ENOXAPARIN NA (PORCINE) 40 MG/0.4 ML DISP.SYRIN SQ SCH (10:31)
[2021-05-25] MEDS: FUROSEMIDE 40 MG TABLET (FP) PO SCH (10:31)
[2021-05-25] MEDS: BUDESONIDE/FORMETEROL FUMARATE 80/4.5 mcg INHALER IH SCH (10:33)
[2021-05-25] MEDS: DORZOLAMIDE 2% HCL OPHTHALMIC SOLUTION 10 ML BOTTLE OU SCH (10:33)
[2021-05-25] MEDS: TIOTROPIUM BROMIDE 2.5 MCG (SPIRIVA) RESPIMAT INHALER IH SCH (10:33)
[2021-05-25] MEDS: AZITHROMYCIN 250 MG TABLET PO SCH (10:49)
[2021-05-25] MEDS ORDERED: POTASSIUM CHLORIDE ORAL LIQUID 20 MEQ/15 ML PO ONE (11:35)
[2021-05-25] MEDS ORDERED: POLYETHYLENE GLYCOL 3350 119 GM BTL PO SCH (11:45)
[2021-05-25] MEDS ORDERED: POLYETHYLENE GLYCOL (HEALTHYLAX) 3350 17 GM PACKET PO SCH (13:30)
[2021-05-25 14:29] VITALS: BP 139/67; PULSE 87; TEMP 98.2
[2021-05-25 15:51] VITALS: BMI 16.9
== END 2021-05-25 18:28 | DRG 481 ==
LOC: JER 11:00 → JERBED 11:58 → J8W 05-20 06:59
PROVIDERS: ADMIT Internal Medicine; ATTEND Internal Medicine
PROC: 30233N1 Transfusion of Nonautologous Red Blood Cells into Peripheral Vein, Percutaneous Approach (ICD-10-PCS; 2021-05-20)
PROC: 0QS706Z Reposition Left Upper Femur with Intramedullary Internal Fixation Device, Open Approach (ICD-10-PCS; principal; 2021-05-21 09:00)
DX: S72.002A Fracture of unspecified part of neck of left femur, initial encounter for closed fracture (principal); E46 Unspecified protein-calorie malnutrition; Z68.1 Body mass index [BMI] 19.9 or less, adult; R64 Cachexia; J96.11 Chronic respiratory failure with hypoxia; J44.9 Chronic obstructive pulmonary disease, unspecified; E78.5 Hyperlipidemia, unspecified; I11.0 Hypertensive heart disease with heart failure; I50.9 Heart failure, unspecified; M79.662 Pain in left lower leg; E87.6 Hypokalemia; M81.0 Age-related osteoporosis without current pathological fracture; D64.9 Anemia, unspecified; W18.39XA Other fall on same level, initial encounter; Y92.091 Bathroom in other non-institutional residence as the place of occurrence of the external cause; Y92.098 Other place in other non-institutional residence as the place of occurrence of the external cause; Z99.81 Dependence on supplemental oxygen
CPT/HCPCS: 36415; 36430; 36511; 70450-TC; 71045-TC-FY; 72125-TC; 72170-TC-FY; 72192-TC; 73502-TC-LT-FY; 73502-TC-RT-FY; 73552-TC-LT-FY; 73590-TC-LT-FY; 76000-TC-FY; 80048; 80053; 82728; 82803; 83540; 83550; 83605; 83735; 83880; 84484; 85025; 85027; 85045; 86850; 86900; 86901; 86922; 87040; 87804; 87807; 93005; 93010; 93970-TC; 94010; 94640; 94760; 97116-GP; 99285-25; C9803-CS; P9038; P9058; U0003; U0005

== ENCOUNTER 2021-07-13 10:51 | Emergency (ER) | payer OTHER, BC ==
[2021-07-13 10:58] VITALS: BMI 25.4
[2021-07-13] MEDS ORDERED: ONDANSETRON 4 MG/2 ML VIAL IVPUSH ONE (11:50)
[2021-07-13] MEDS ORDERED: SODIUM CHLORIDE 0.9% 500 ML INFUS.BAG IV ONE (11:50)
[2021-07-13] MEDS ORDERED: ACETAMINOPHEN 1000 MG/100 ML BAG IVPB ONE (11:50)
[2021-07-13] MEDS ORDERED: ONDANSETRON 4 MG/2 ML VIAL ONE (12:32)
[2021-07-13] MEDS ORDERED: ACETAMINOPHEN INJECTION 100 ML IVPB ONE (12:32)
[2021-07-13 12:49] LABS: BASO % 0.2 % (0-2.0); EOS % 0.3 % (0-4.5); HEMATOCRIT 34.1 % (32.4-45.2); LYMPH % 7.9 % (8-40); MCH 28.3 pg (25.7-33.7); MCHC 32.3 g/dl (32.0-36.0); MEAN CELL VOLUME 87.7 fl (80-96); MEAN PLT VOLUME 7.9 fl (7.5-11.1); MONO % 4.4 % (3.8-10.2); NEUT % 87.2 % (42.8-82.8); PLATELET COUNT 212 10^3/uL (134-434); RBC 3.89 M/mm3 (3.60-5.2); RDW 25.6 % (11.6-15.6); WHITE BLOOD COUNT 7.2 K/mm3 (4.0-10.0)
[2021-07-13 13:09] LABS: PH,URINE 8.5 (5.0-8.0); URINE APPEARANCE CLEAR; URINE BILIRUBIN NEGATIVE (NEGATIVE); URINE COLOR YELLOW; URINE GLUCOSE (UA) NEGATIVE (NEGATIVE); URINE KETONE NEGATIVE (NEGATIVE); URINE LEUK ESTERASE NEGATIVE (NEGATIVE); URINE NITRITE NEGATIVE (NEGATIVE); URINE PROTEIN NEGATIVE (NEGATIVE); URINE UROBILINOGEN 0.2 mg/dL (0.2-1.0)
[2021-07-13 13:17] LABS: CALCIUM 9.5 mg/dL (8.5-10.1)
[2021-07-13 13:18] LABS: ALBUMIN 3.5 g/dl (3.4-5.0); BLOOD UREA NITROGEN 36.3 mg/dL (7-18)
[2021-07-13 13:21] LABS: CREATININE 1.1 mg/dL (0.55-1.3)
[2021-07-13 13:23] LABS: BILIRUBIN,TOTAL 0.4 mg/dL (0.2-1); TOT PROT 6.4 g/dl (6.4-8.2)
[2021-07-13 13:40] LABS: ANISOCYTOSIS 2+; MACROCYTOSIS 2+
[2021-07-13 15:42] VITALS: BP 134/61; PULSE 79; TEMP 97.7
[2021-07-13] MEDS ORDERED: SODIUM PHOSPHATE/NA BIPHOS 133 ML ENEMA PR ONE ×2 (18:12→19:10)
[2021-07-13] MEDS ORDERED: POLYETHYLENE GLYCOL (HEALTHYLAX) 3350 17 GM PACKET PO ONE (18:12)
[2021-07-13] MEDS ORDERED: POLYETHYLENE GLYCOL (HEALTHYLAX) 3350 17 GM PACKET ONE (18:20)
== END 2021-07-13 20:49 | disposition home or self-care (01) ==
LOC: JER 10:51
PROC: 3E0333Z Introduction of Anti-inflammatory into Peripheral Vein, Percutaneous Approach (ICD-10-PCS; principal; 2021-07-13)
PROC: 3E033GC Introduction of Other Therapeutic Substance into Peripheral Vein, Percutaneous Approach (ICD-10-PCS; 2021-07-13)
DX: R10.31 Right lower quadrant pain (principal)
CPT/HCPCS: 36415; 71045-TC-FY; 74019-TC-FY; 74176-TC; 80053; 81003; 85025; 87086; 93005; 93010; 99285-25

== ENCOUNTER 2023-06-09 17:01 | Emergency (ER) | payer OTHER, BC ==
[2023-06-09 17:14] VITALS: BP 146/83; PULSE 88; RESP 16; TEMP 97.6; BMI 28.9
[2023-06-09] MEDS ORDERED: ceFAZolin SODIUM 1 GM VIAL ONE (17:57)
[2023-06-09] MEDS ORDERED: DIPHTH,PERTUSS(ACELL),TET 0.5 ML DISP.SYRIN IM ONE (17:59)
[2023-06-09] MEDS: CEFAZOLIN 1 GM in DEXTROSE 5%-WATER - 50 ML IVPB ONE (18:29)
[2023-06-09] MEDS: morphine CARPU-JECT 2 MG/1 ML DISP.SYRIN IVPUSH ONE (18:29)
[2023-06-09] MEDS: DIPHTH,PERTUSS(ACELL),TET 0.5 ML DISP.SYRIN IM ONE (18:29)
[2023-06-09 18:46] LABS: BASO % 0.3 % (0-2.0); HEMOGLOBIN 11.1 GM/dL (10.7-15.3); LYMPH % 20.6 % (8-40); MCHC 33.8 g/dl (32.0-36.0); MEAN CELL VOLUME 97.8 fl (80-96); MEAN PLT VOLUME 7.7 fl (7.5-11.1); MONO % 10.2 % (3.8-10.2); NEUT % 67.9 % (42.8-82.8); PLATELET COUNT 195 10^3/uL (134-434); RBC 3.37 M/mm3 (3.60-5.2); WHITE BLOOD COUNT 5.9 K/mm3 (4.0-10.0)
[2023-06-09 18:51] LABS: INR 0.85 (0.83-1.09); PROTHROMBIN TIME (PATIENT) 9.7 SEC (9.7-13.0)
[2023-06-09 18:53] LABS: POTASSIUM 4.3 mmol/L (3.5-5.1)
[2023-06-09 18:54] LABS: ACTIVATED PTT 28.4 SECONDS (25.2-36.5)
[2023-06-09 18:55] LABS: CALCIUM 9.7 mg/dL (8.5-10.1)
[2023-06-09 18:56] LABS: ALBUMIN 3.2 g/dl (3.4-5.0); BLOOD UREA NITROGEN 36.2 mg/dL (7-18)
[2023-06-09 18:59] LABS: CREATININE 1.2 mg/dL (0.55-1.3)
[2023-06-09 19:00] LABS: TOT PROT 6.1 g/dl (6.4-8.2)
[2023-06-09 19:01] LABS: BILIRUBIN,TOTAL 0.4 mg/dL (0.2-1)
== END 2023-06-09 21:03 | disposition home or self-care (01) ==
LOC: JER 17:01
PROC: 0HQLXZZ Repair Left Lower Leg Skin, External Approach (ICD-10-PCS; principal; 2023-06-09)
PROC: 3E03329 Introduction of Other Anti-infective into Peripheral Vein, Percutaneous Approach (ICD-10-PCS; 2023-06-09)
PROC: 3E033NZ Introduction of Analgesics, Hypnotics, Sedatives into Peripheral Vein, Percutaneous Approach (ICD-10-PCS; 2023-06-09)
PROC: 3E0234Z Introduction of Serum, Toxoid and Vaccine into Muscle, Percutaneous Approach (ICD-10-PCS; 2023-06-09)
DX: S81.012A Laceration without foreign body, left knee, initial encounter (principal); S09.90XA Unspecified injury of head, initial encounter; H11.32 Conjunctival hemorrhage, left eye; M25.562 Pain in left knee; W06.XXXA Fall from bed, initial encounter; Z23 Encounter for immunization
CPT/HCPCS: 36415; 70450-TC; 71045-TC-FY; 72125-TC; 72170-TC-FY; 73562-TC-LT-FY; 80053; 85025; 85610; 85730; 86850; 86900; 86901; 90471; 90715; 93005; 93010; 96365; 96371; 96375; 99285-25

== ENCOUNTER 2023-06-13 12:28 | Emergency (ER) | payer OTHER, BC ==
[2023-06-13 12:43] VITALS: BP 126/58; PULSE 87; RESP 16; TEMP 97.7; BMI 16.6
== END 2023-06-13 14:12 | disposition home or self-care (01) ==
LOC: JER 12:28 → JERFT 12:28
DX: M25.562 Pain in left knee (principal); S81.012D Laceration without foreign body, left knee, subsequent encounter
CPT/HCPCS: 99281-25

== ENCOUNTER 2023-10-18 11:18 | Inpatient (IN) | payer OTHER, BC ==
[2023-10-18] MEDS ORDERED: ACETAMINOPHEN INJECTION 100 ML ONE (12:39)
[2023-10-18] MEDS: ACETAMINOPHEN 1000 MG/100 ML BAG IVPB ONE (12:44)
[2023-10-18 13:11] LABS: BASO % 0.2 % (0-2.0); EOS % 0.3 % (0-4.5); HEMATOCRIT 29.4 % (32.4-45.2); HEMOGLOBIN 9.5 GM/dL (10.7-15.3); LYMPH % 5.8 % (8-40); MCH 32.2 pg (25.7-33.7); MCHC 32.4 g/dl (32.0-36.0); MEAN CELL VOLUME 99.6 fl (80-96); MEAN PLT VOLUME 7.8 fl (7.5-11.1); MONO % 4.4 % (3.8-10.2); NEUT % 89.3 % (42.8-82.8); PLATELET COUNT 222 10^3/uL (134-434); RBC 2.96 M/mm3 (3.60-5.2); RDW 15.7 % (11.6-15.6); WHITE BLOOD COUNT 8.7 K/mm3 (4.0-10.0)
[2023-10-18 13:16] LABS: INR 0.79 (0.83-1.09); PROTHROMBIN TIME (PATIENT) 9.2 SEC (9.7-13.0)
[2023-10-18 13:18] LABS: ACTIVATED PTT 27.8 SECONDS (25.2-36.5)
[2023-10-18 13:32] LABS: CALCIUM 10.5 mg/dL (8.5-10.1); POTASSIUM 4.3 mmol/L (3.5-5.1)
[2023-10-18 13:34] LABS: ALBUMIN 2.9 g/dl (3.4-5.0)
[2023-10-18 13:36] LABS: BLOOD UREA NITROGEN 45.8 mg/dL (7-18); CREATININE 1.2 mg/dL (0.55-1.3)
[2023-10-18 13:38] LABS: BILIRUBIN,TOTAL 0.3 mg/dL (0.2-1)
[2023-10-18 14:22] LABS: HIV INTERPRETATION NEGATIVE (NEGATIVE)
[2023-10-18] MEDS ORDERED: ALBUTEROL SO4 0.083% IH SOL 2.5 MG/3 ML VIAL.NEB. NEB PRN (16:22)
[2023-10-18 16:29] LABS: URINE APPEARANCE CLEAR; URINE BILIRUBIN NEGATIVE (NEGATIVE); URINE COLOR YELLOW; URINE GLUCOSE (UA) NEGATIVE (NEGATIVE); URINE KETONE NEGATIVE (NEGATIVE); URINE LEUK ESTERASE NEGATIVE (NEGATIVE); URINE NITRITE NEGATIVE (NEGATIVE); URINE PROTEIN NEGATIVE (NEGATIVE); URINE UROBILINOGEN 0.2 mg/dL (0.2-1.0)
[2023-10-18 18:07] VITALS: BMI 15.3
[2023-10-18] MEDS: ALBUTEROL SO4 2.5/IPRATROPIUM 0.5 INH SOL 3 ML VIAL.NEB. NEB SCH (20:38)
[2023-10-18] MEDS: ACETAMINOPHEN 500 MG TABLET (FP) PO PRN (21:44)
[2023-10-19] MEDS: MELATONIN 5 MG TABLETS PO ONE (00:31)
[2023-10-19 07:36] LABS: BASO % 0.4 % (0-2.0); EOS % 0.8 % (0-4.5); HEMATOCRIT 28.1 % (32.4-45.2); HEMOGLOBIN 9.3 GM/dL (10.7-15.3); LYMPH % 17.7 % (8-40); MCH 32.7 pg (25.7-33.7); MCHC 33.3 g/dl (32.0-36.0); MEAN CELL VOLUME 98.5 fl (80-96); MEAN PLT VOLUME 7.8 fl (7.5-11.1); MONO % 8.5 % (3.8-10.2); NEUT % 72.6 % (42.8-82.8); PLATELET COUNT 224 10^3/uL (134-434); RBC 2.85 M/mm3 (3.60-5.2); RDW 15.5 % (11.6-15.6); WHITE BLOOD COUNT 4.9 K/mm3 (4.0-10.0)
[2023-10-19 07:52] LABS: POTASSIUM 3.9 mmol/L (3.5-5.1)
[2023-10-19 07:54] LABS: CALCIUM 9.4 mg/dL (8.5-10.1)
[2023-10-19 07:56] LABS: ALBUMIN 2.6 g/dl (3.4-5.0); BLOOD UREA NITROGEN 44.1 mg/dL (7-18); MAGNESIUM 2.4 mg/dL (1.8-2.4)
[2023-10-19 07:58] LABS: CREATININE 1.2 mg/dL (0.55-1.3); PHOSPHOROUS 3.4 mg/dL (2.5-4.9)
[2023-10-19 08:00] LABS: BILIRUBIN,TOTAL 0.3 mg/dL (0.2-1); TOT PROT 5.3 g/dl (6.4-8.2)
[2023-10-19] MEDS: FUROSEMIDE 40 MG TABLET (FP) PO SCH (09:39)
[2023-10-19] MEDS: amLODIPine BESYLATE 5 MG TABLET (FP) PO SCH (09:39)
[2023-10-19] MEDS: PANTOPRAZOLE 40 MG TABLET PO SCH (09:44)
[2023-10-19] MEDS: predniSONE 20 MG TABLET (UD) PO SCH (12:53)
[2023-10-19] MEDS: BUDESONIDE/FORMETEROL FUMARATE 160/4.5 mcg INHALER IH SCH (13:20)
[2023-10-19] MEDS: MULTIVITAMINS (DAILY MVI) TABLET (FP) PO SCH (15:27)
[2023-10-19] MEDS: AMINO ACIDS/PROTEIN HYDROLYS 30 ML LIQUID.PKT PO SCH (17:17)
[2023-10-19] MEDS: POLYETHYLENE GLYCOL (HEALTHYLAX) 3350 17 GM PACKET PO SCH (21:23)
[2023-10-19] MEDS: ASCORBIC ACID 500 MG TABLET (FP) PO SCH (21:23)
[2023-10-20] MEDS: IRON SUCROSE INJECTION 200 MG in SODIUM CHLORIDE 100 ML IVPB ONE (17:45)
[2023-10-21] MEDS: CALCITONIN - SALMON SYNTHETIC 200 UNITS/SPRAY NS SCH (17:16)
[2023-10-22 07:59] LABS: HEMATOCRIT 27.5 % (32.4-45.2); HEMOGLOBIN 8.9 GM/dL (10.7-15.3); MCH 32.7 pg (25.7-33.7); MCHC 32.5 g/dl (32.0-36.0); MEAN CELL VOLUME 100.6 fl (80-96); MEAN PLT VOLUME 7.6 fl (7.5-11.1); PLATELET COUNT 271 10^3/uL (134-434); RBC 2.74 M/mm3 (3.60-5.2); RDW 16.5 % (11.6-15.6); WHITE BLOOD COUNT 5.2 K/mm3 (4.0-10.0)
[2023-10-22 08:21] LABS: CALCIUM 9.6 mg/dL (8.5-10.1)
[2023-10-22 08:22] LABS: ALBUMIN 2.6 g/dl (3.4-5.0); MAGNESIUM 2.6 mg/dL (1.8-2.4)
[2023-10-22 08:25] LABS: CREATININE 1.1 mg/dL (0.55-1.3)
[2023-10-22 08:26] LABS: BILIRUBIN,TOTAL 0.3 mg/dL (0.2-1); TOT PROT 5.4 g/dl (6.4-8.2)
[2023-10-22] MEDS: CALCITONIN - SALMON SYNTHETIC 200 UNITS/SPRAY NS SCH (10:16)
[2023-10-22] MEDS: MECLIZINE HCL 25 MG TABLET (FP) PO PRN (16:21)
[2023-10-22 16:33] VITALS: RESP 18
[2023-10-22 18:50] VITALS: BP 128/54; PULSE 94; TEMP 98.1
== END 2023-10-22 19:38 | DRG 536 ==
LOC: JER 11:18 → JERBED 16:19 → OBSVTOIN 16:21 → J4W 17:18
PROVIDERS: ADMIT Internal Medicine; ATTEND Internal Medicine
DX: S32.591A Other specified fracture of right pubis, initial encounter for closed fracture (principal); J96.11 Chronic respiratory failure with hypoxia; J44.9 Chronic obstructive pulmonary disease, unspecified; I10 Essential (primary) hypertension; E78.5 Hyperlipidemia, unspecified; D64.9 Anemia, unspecified; R74.8 Abnormal levels of other serum enzymes; G43.909 Migraine, unspecified, not intractable, without status migrainosus; W18.30XA Fall on same level, unspecified, initial encounter; Y92.098 Other place in other non-institutional residence as the place of occurrence of the external cause; Y99.9 Unspecified external cause status
CPT/HCPCS: 36415; 70450-TC; 71045-TC-FY; 71101-TC-RT-FY; 72125-TC; 72170-TC-FY; 72192-TC; 73502-TC-RT-FY; 80053; 81003; 82272; 82728; 82977; 83540; 83550; 83735; 84100; 84484; 85025; 85027; 85610; 85730; 86803; 87086; 87186; 87389; 87635; 93005; 93010; 94640; 97116-GP; 97162-GP; 99285-25; G0378; J0131; J1756